=== PATIENT | male | born 1940 | race Caucasian/White ===

== ENCOUNTER → 2018-07-16 14:26 | Outpatient (CLI) | payer MEDICARE, OTHER, SELFPAY ==
[2018-07-16 15:35] LABS: BUN Creatinine Ratio 36.9 (6-22); Blood Urea Nitrogen 48 mg/dL (9-20); Calcium 8.6 mg/dL (8.4-10.2); Carbon Dioxide 26 mmol/L (22-32); Chloride 103 mmol/L (98-107); Estimated Glomerular Filt Rate 53.3 mL/min (>60); Glucose 105 mg/dL (80-110); HEMOLYSIS < 15 (0-50); Potassium 4.8 mmol/L (3.4-5.1); Sodium 142 mmol/L (137-145)
== END ==
PROVIDERS: Visit Provider Nurse Practitioner
DX: I50.9 Heart failure, unspecified (principal)
CPT/HCPCS: 36415; 80048

== ENCOUNTER → 2018-08-17 09:25 | Outpatient (CLI) | payer MEDICARE, OTHER, SELFPAY ==
--- NOTE | 2018-08-17 | DI.ECHO.S_ITS ---
[facility] +---------+ : : [address] : : : : [id number] : : : : Phone: [phone] Echocardiogram Report + + :Name: PRIYA DÍAZ Study Date: 08/17/2018 Height: 66 in : :[facility] Weight: 159 lb : : Gender: Male BSA: 1.8 m2 : :: 1940 Age: 78 yrs BP: 120/64 mmHg: :Reason For Study: Congestive Heart Failure : : Performed By: Tabby Joseph : + + Interpretation Summary 1) Normal left ventricular thickness with borderline reduced systolic function (EF 50-55%). 2) [facility] is hypokinetic. 3) Grossly, normal right ventricular size and function. 4) There is moderate biatria enlargement. 5) No significant valvular abnormalities. 6) Abdominal aortic aneurysm measuring 4.1x4.3 cm, with residual mural thrombus. 7) No prior Echo available for comparison. Procedure: A two-dimensional transthoracic echocardiogram with color flow and Doppler was performed. The study quality was technically adequate. Most of the acoustic windows were suboptimal, but the best imaging was obtained from the subcostal window. The patient was in atrial fibrillation with heart rates between 78-92 bpm during the exam. Left Ventricle: The left ventricle is normal in size. There is normal left ventricular wall thickness. The ejection fraction is estimated to be 50-55%. Left ventricular systolic function is borderline reduced. There is apical hypokinesis. Diastolic function could not be accurately assessed due to atrial fibrillation. Right Ventricle: The right ventricle grossly appears normal in size with probable normal systolic function. Atria: The left atrium is moderately dilated. The right atrium is moderately dilated. The interatrial septum is intact with no evidence for an atrial septal defect. Mitral Valve: The mitral valve is grossly normal. There is trace mitral regurgitation. Aortic Valve: The aortic valve is trileaflet. The aortic valve opens well. There is no aortic valve stenosis. There is trace aortic regurgitation. Tricuspid Valve: The tricuspid valve is normal in structure and function. There is a trace or physiologic amount of tricuspid regurgitation. The right ventricular systolic pressure is estimated to be at least 29 mmHg based on an estimated right atrial pressure of 3 mm Hg. Pulmonic Valve: The pulmonic valve is not well seen, but is grossly normal. There is mild pulmonic regurgitation. Great Vessels: The aortic root is mildly dilated. The ascending aorta is at the upper limits of normal in size. Abdominal aortic aneurysm measuring 4.1x4.3 cm, with residual mural thrombus. The IVC is of normal diameter and collapses greater than 50% with a sniff. This suggests a low right atrial pressure of 3 mm Hg. Pericardium/ Pleura There is no pericardial effusion. There is no pleural effusion. MMode/2D Measurements & Calculations LVIDd: 5.1 cm Ao root diam: 3.9 cm LVIDs: 3.9 cm Aortic Jxn: 3.1 cm FS: 24.6 % asc Aorta Diam: 3.6 cm EPSS: 0.73 cm Ao Arch Diam (Prox Trans): 2.5 cm IVSd: 1.0 cm LVPWd: 0.83 cm LV zarate. diameter/BSA (cm/m^2): 2.8 LV sys. diameter/BSA (cm/m^2): 2.1 LA dimension: 4.1 cm RA long axis: 6.4 cm LA A2 area: 23.9 cm2 RA area: 25.5 cm2 LA A4 area: 29.2 cm2 RA vol: 86.2 ml LA length (vol): 7.1 cm RA : 47.5 ml/m2 LA vol: 83.8 ml IVC diam: 1.9 cm LA vol index: 46.2 ml/m2 RVDd major: 5.4 cm RVD1 (basal): 3.3 cm RVD2 (mid): 2.9 cm Doppler Measurements & Calculations Ao V2 max: 140.7 cm/sec Med Peak E' Bryce: 7.4 cm/sec Ao V2 mean: 91.2 cm/sec Lat Peak E' Bryce: 8.8 cm/sec Ao max P.9 mmHg MV P1/2t: 59.3 msec Ao mean P.9 mmHg Ao V2 VTI: 27.8 cm TR max bryce: 254.2 cm/sec MV V2 mean: 45.5 cm/sec TR max P.9 mmHg MV mean P.5 mmHg PA V2 max: 68.0 cm/sec MV V2 VTI: 25.0 cm PA V2 mean: 42.0 cm/sec PA mean P.82 mmHg PA Accel Time: 0.14 sec MV P1/2t max bryce: 132.4 cm/sec MVA(P1/2t): 3.7 cm2 Reading Physician:11:01 AM
== END ==
PROVIDERS: PCP Internal Medicine; Visit Provider Nurse Practitioner
DX: I37.1 Nonrheumatic pulmonary valve insufficiency (principal); I50.30 Unspecified diastolic (congestive) heart failure; I71.4 Abdominal aortic aneurysm, without rupture
CPT/HCPCS: 93306

== ENCOUNTER → 2018-08-18 14:49 | Outpatient (CLI) | payer MEDICARE, OTHER, SELFPAY ==
--- NOTE | 2018-08-18 14:51 | DI.RAD.S_ITS ---
PROCEDURE: XR CHEST 2V INDICATIONS: cough, SOB TECHNIQUE: 2 views of the chest were acquired. COMPARISON: None. FINDINGS: Surgical changes and devices: None. Lungs and pleura: Mild right pleural effusion. There is mild increased pulmonary vascularity. Mediastinum: Mediastinal contours are normal. Heart size is normal. Bones and chest wall: No suspicious bony abnormalities. Soft tissues appear unremarkable. IMPRESSION: Mild right effusion. Superimposed areas of atelectasis and/or developing pneumonia cannot be excluded. Increased pulmonary vascularity is noted suggestive of edema. Dictated by: Lacie Gleason M.D. on 08/18/2018 at 15:24 Approved by: Lacie Gleason M.D. on 08/18/2018 at 15:25
== END ==
PROVIDERS: PCP Internal Medicine; Visit Provider Physician Assistant
DX: R05 Cough (principal); R06.02 Shortness of breath; J90 Pleural effusion, not elsewhere classified
CPT/HCPCS: 71046

== ENCOUNTER → 2018-09-15 08:06 | Outpatient (CLI) | payer MEDICARE, OTHER, SELFPAY | PROVIDERS: PCP Internal Medicine; Visit Provider Physician Assistant | DX: L97.519 Non-pressure chronic ulcer of other part of right foot with unspecified severity (principal) | CPT/HCPCS: 87070; 87205 ==

== ENCOUNTER 2019-01-13 11:16 | Emergency (ER) | payer MEDICARE, OTHER, SELFPAY ==
[2019-01-13 09:58] VITALS: BMI 27.4
[2019-01-13 11:24] VITALS: BP 136/67; PULSE 72; RESP 22; TEMP 36.3; O2SAT 96; BMI 26.9
--- NOTE | 2019-01-13 11:41 | DI.CT.S_ITS ---
PROCEDURE: CT HEAD/BRAIN WO CON INDICATIONS: fall , takes eloquis TECHNIQUE: Noncontrast 4.5 mm thick angled axial sections acquired from the foramen magnum to the vertex, with coronal and sagittal reformats. For radiation dose reduction, the following was used: automated exposure control, adjustment of mA and/or kV according to patient size. COMPARISON: None. FINDINGS: Image quality: Diagnostic. CSF spaces: Basal cisterns are patent. No extra-axial fluid collections. Ventricles are prominent with corresponding parenchymal volume loss. Brain: No midline shift. No intracranial masses or hemorrhage. Capellan-white matter interface is normal. Moderate-sized areas of low-attenuation are seen within the periventricular and deep white matter of the supratentorial brain. Skull and face: Calvarium and visualized facial bones are intact, without suspicious lesions. Sinuses: Visualized sinuses and mastoids are clear. IMPRESSION: 1. No acute intracranial hemorrhage. 2. Moderate chronic small vessel ischemic changes and parenchymal volume loss. Dictated by: Thony Jeffers M.D. on 01/13/2019 at 11:12 Approved by: Thony Jeffers M.D. on 01/13/2019 at 11:14
--- NOTE | 2019-01-13 12:06 | PC.NURSE ---
left elbow with small skin tear, irrigated with normal saline, tolerated well, dried bacitracin ointment applied along with tegaderm, and coban. +distal cms intact.
[2019-01-13 12:08] VITALS: BP 136/70; PULSE 71; RESP 17; O2SAT 97
[2019-01-13 12:32] VITALS: BP 134/71; PULSE 70; RESP 17; O2SAT 98
--- NOTE | 2019-01-13 12:48 | DI.RAD.S_ITS ---
PROCEDURE: XR CHEST 1V INDICATIONS: cough TECHNIQUE: One view of the chest was acquired. COMPARISON: [facility], CR, XR CHEST 2V, 08/18/2018, 14:54. FINDINGS: Surgical changes and devices: None. Lungs and pleura: Patchy airspace disease appears to be present within the lungs bilaterally, which is more prominent within the right lung. This appearance is similar to the prior examination. There is a small right-sided pleural effusion, which may be slightly more prominent on the current study. Mediastinum: Mediastinal contours appear normal. The heart appears to be mildly enlarged. There is aortic atherosclerosis. Bones and chest wall: No suspicious bony lesions. Degenerative changes of the spine and shoulders are present. Overlying soft tissues appear unremarkable. IMPRESSION: 1. Cardiomegaly with associated vascular congestion may represent developing edema. 2. Patchy airspace disease within the lungs is best appreciated within the right lung, suspicious for pneumonia. However, edema may also present in this fashion. 3. Small right-sided pleural effusion. Dictated by: Thony Jeffers M.D. on 01/13/2019 at 12:25 Approved by: Thony Jeffers M.D. on 01/13/2019 at 12:27
[2019-01-13 13:00] VITALS: BP 121/61; PULSE 70; RESP 20; O2SAT 95
[2019-01-13 13:12] LABS: Add Manual Diff / Slide Review NO; Basophils Absolute Auto 100 /uL (0-100); Basophils Percent Auto 0.6 % (0-2); Eosinophils Absolute Auto 300 /uL (0-450); Eosinophils Percent Auto 3.5 % (2-4); Hematocrit 37.6 % (41-53); Hemoglobin 12.5 g/dL (13.5-17.5); Lymphocytes Absolute Auto 4600 /uL (1100-4500); Mean Corpuscular HGB Conc 33.3 % (30-36); Mean Corpuscular Hemoglobin 29.9 PG (26-34); Mean Corpuscular Volume 89.8 fL (80-100); Monocytes Absolute Auto 800 /uL (0-900); Monocytes Percent Auto 8.6 % (3-14); Neutrophils Absolute Auto 3800 /uL (1500-7000); Neutrophils Percent Auto 39.3 % (50-75); Platelet Count 124 X10^3/uL (150-400); Red Blood Cell Count 4.19 X10^6/uL (4.5-5.9); Red Cell Distribution Width 14.2 % (11.6-14.8); White Blood Cell Count 9.7 X10^3/uL (4.5-11.0)
[2019-01-13 13:19] LABS: Alanine Aminotransferase 21 IU/L (21-72); Albumin 4.5 g/dL (3.5-5.0); Albumin Globulin Ratio 1.3 (1.0-2.8); Alkaline Phosphatase 61 U/L (38-126); Aspartate Aminotransferase 34 IU/L (17-59); BUN Creatinine Ratio 29.4 (6-22); Blood Urea Nitrogen 47 mg/dL (9-20); Calcium 9.1 mg/dL (8.4-10.2); Carbon Dioxide 31 mmol/L (22-32); Chloride 101 mmol/L (98-107); Creatine Kinase 278 U/L (55-170); Estimated Glomerular Filt Rate 41.9 mL/min (>60); Globulin 3.4 g/dL (1.7-4.1); Glucose 107 mg/dL (80-110); HEMOLYSIS < 15 (0-50); Lipase 74 U/L (23-300); Potassium 4.1 mmol/L (3.4-5.1); Sodium 141 mmol/L (137-145); Total Protein 7.9 g/dL (6.3-8.2)
[2019-01-13 13:29] LABS: B Type Natriuretic Peptide 191 (<100)
[2019-01-13 13:30] LABS: Troponin I 0.032 ng/mL (0.01-0.034)
[2019-01-13] MEDS: SODIUM CHLORIDE 0.9% 1,000 ML 150 ML IV (13:33)
[2019-01-13 13:34] LABS: CKMB % Relative Index 1.7 % (1.5-5.0); Creatine Kinase MB 4.67 ng/mL (<2.37)
[2019-01-13 14:00] VITALS: BP 127/70; PULSE 71; RESP 23; O2SAT 98
--- NOTE | 2019-01-13 14:13 | ED_ITS ---
HPI - Fall General Chief Complaint: Fall Stated Complaint: Fell a couple times, on blood thinners Time Seen by Provider: 01/13/19 11:43 Source: patient Mode of arrival: ambulatory Limitations: no limitations History of Present Illness HPI Narrative: Patient is a 78-year-old male who presents after 3 ground level fall. Daughter is with him states that he has done a lot over the last couple of days more than he typically does. He went to the boat show walked around a lot. He probably over did it. He does not remember how he fell last night. He did trip and fall hurting his right eye and he has a skin abrasion. He is on Eliquis. Recently moved from out of town, no PCP. He has history of restless leg. He denies any recent illness senior off abdominal pain nausea vomiting or shortness Initially went to walk-in clinic and sent to the ED for further evaluation. He tripped again in the waiting room. MD complaint: fall Fall from: standing Fall witnessed: no Place fall occurred: home Loss of consciousness: none Length of LOC: second(s) Prolonged down time: no Related Data Home Medications Medication Instructions Recorded Confirmed acetaminophen 325 mg capsule 325 mg PO Q6H PRN 08/18/18 01/13/19 albuterol sulfate HFA 90 1 puff INHALATION Q6H PRN 08/18/18 01/13/19 mcg/actuation aerosol inhaler alfuzosin ER 10 mg tablet,extended 10 mg PO DAILY 08/18/18 01/13/19 release 24 hr apixaban 5 mg tablet 5 mg PO BID 08/18/18 01/13/19 cholecalciferol (vitamin D3) 2,000 2,000 unit PO DAILY 08/18/18 01/13/19 unit capsule magnesium 250 mg tablet 250 mg PO DAILY 08/18/18 01/13/19 metoprolol succinate ER 100 mg 100 mg PO DAILY 08/18/18 01/13/19 capsule sprinkle, ext. release 24 hr nitroglycerin 0.4 mg sublingual 0.4 mg SL Q5-15M PRN 08/18/18 01/13/19 tablet pramipexole 0.125 mg tablet 0.125 mg PO BEDTIME 08/18/18 01/13/19 spironolactone 25 mg tablet 25 mg PO DAILY 08/18/18 01/13/19 torsemide 20 mg tablet 10 mg PO DAILY 08/18/18 01/13/19 rosuvastatin 5 mg tablet 5 mg PO DAILY 09/14/18 01/13/19 tiotropium bromide 18 mcg capsule 1 cap INHALATION DAILY 09/14/18 01/13/19 with inhalation device Allergies Allergy/AdvReac Type Severity Reaction Status Date / Time atorvastatin Allergy Verified 01/13/19 11:36 diclofenac Allergy Verified 01/13/19 11:36 lisinopril Allergy Verified 01/13/19 11:36 niacin Allergy Verified 01/13/19 11:36 pravastatin Allergy Verified 01/13/19 11:36 Review of Systems Review of Systems ROS Unobtainable: All systems reviewed & are unremarkable except as noted in HPI and below Constitutional Denies chills, Denies fever(s), Denies lethargy and Denies weakness ENT Ears, Nose, Mouth, and Throat: Denies change in voice, Denies neck pain and Denies sore throat Cardiovascular Denies chest pain, Denies irregular heart rhythm, Denies lightheadedness, Denies palpitations, Denies dyspnea, Denies dyspnea on exertion and Denies orthopnea Respiratory Denies cough, Denies dyspnea, Denies dyspnea on exertion and Denies wheezing Gastrointestinal Gastrointestinal: Denies abdominal pain, Denies change in bowel habits, Denies diarrhea, Denies nausea and Denies vomiting Genitourinary Denies hematuria, Denies flank pain, Denies urinary incontinence and Denies urinary urgency Musculoskeletal Denies neck pain Integumentary/Breasts Denies pruritus, Denies erythema, Denies rash and Denies wounds Neurologic Denies weakness Endocrine Denies palpitations Allergic/Immunologic Denies wheezing Exam Initial Vital Signs Initial Vital Signs: Vital Signs Temperature 97.4 F L 01/13/19 11:24 Pulse Rate 72 01/13/19 11:24 Respiratory Rate 22 01/13/19 11:24 Blood Pressure 136/67 01/13/19 11:24 Pulse Oximetry 96 01/13/19 11:24 GENERAL: Alert pleasant well-appearing elderly male. And in [no acute] distress. HEENT: Head atraumatic,EOMI, pupils reactive, face symmetric NECK: No vertebral tenderness no step-offs CARDIOVASCULAR: Regular rate and rhythm without murmurs, rubs or gallops. RESPIRATORY: Breath sounds equal bilaterally, no wheezes rales or rhonchi. ABDOMEN: Soft, nontender. Normoactive bowel sounds all 4 quadrants. No guarding or rebound. EXTREMITIES: Normal range of motion, no clubbing or edema. Neurovascularly intact NEUROLOGICAL: Alert and oriented x4.Normal gait and speech. Cranial nerves II through XII grossly intact. SKIN: Warm, dry, no laceration, no petechiae, no rashes or lesions. [facility] Medical History Coronary artery disease (Acute) Restless leg (Acute) Social History Smoking Status: Former smoker Social History Smoking Status: Former smoker Course Orders Ordered: ED Orders 01/13/19 11:34 EKG-12 Lead Routine 01/13/19 11:35 B Type Natriuretic Peptide Stat Complete Blood Count AUTO DIFF Stat Comprehensive Metabolic Panel Stat Lipase Stat Troponin & CK Cardiac Panel Stat 01/13/19 11:41 CT head/brain wo con Stat 01/13/19 12:48 XR chest 1V Stat 01/13/19 13:55 Troponin I Stat Discontinued Medications Sodium Chloride (Normal Saline 0.9%) 1,000 mls @ 150 mls/hr IV CONT JUSTIN Last Infusion: 01/13/19 15:10 Dose: 0 mls/hr Admin: 01/13/19 13:33 Dose: 150 mls/hr Vital Signs - 8 hr 01/13/19 11:24 01/13/19 12:08 01/13/19 12:32 Temperature 97.4 F L Pulse Rate 72 71 70 Respiratory Rate 22 17 17 Blood Pressure 136/67 Blood Pressure [Left Arm] 136/70 134/71 Pulse Oximetry 96 97 98 01/13/19 13:00 01/13/19 14:00 01/13/19 14:45 Temperature Pulse Rate 70 71 82 Respiratory Rate 20 23 24 Blood Pressure Blood Pressure [Left Arm] 121/61 127/70 132/65 Pulse Oximetry 95 98 98 MDM - Fall Lab Data Attestation: I reviewed the patient's lab results. Result diagrams: 01/13/19 11:35 01/13/19 11:35 Lab Results 01/13/19 01/13/19 01/13/19 Range/Units 11:35 11:35 13:55 WBC 9.7 (4.5-11.0) X10^3/uL RBC 4.19 L (4.5-5.9) X10^6/uL Hgb 12.5 L (13.5-17.5) g/dL Hct 37.6 L (41-53) % MCV 89.8 (80-100) fL MCH 29.9 (26-34) PG MCHC 33.3 (30-36) % RDW 14.2 (11.6-14.8) % Plt Count 124 L (150-400) X10^3/uL Neut % (Auto) 39.3 L (50-75) % Lymph % (Auto) 48.0 H (25-40) % Turner % (Auto) 8.6 (3-14) % Eos % (Auto) 3.5 (2-4) % Baso % (Auto) 0.6 (0-2) % Neut # (Auto) 3800 (2719-9812) /uL Lymph # (Auto) 4600 H (2194-7763) /uL Turner # (Auto) 800 (0-900) /uL Eos # (Auto) 300 (0-450) /uL Baso # (Auto) 100 (0-100) /uL Sodium 141 (137-145) mmol/L Potassium 4.1 (3.4-5.1) mmol/L Chloride 101 (98-107) mmol/L Carbon Dioxide 31 (22-32) mmol/L BUN 47 H (9-20) mg/dL Creatinine 1.60 H (0.66-1.25) mg/dL Estimated GFR 41.9 L (>60) mL/min BUN/Creatinine Ratio 29.4 H (6-22) Glucose 107 (80-110) mg/dL Calcium 9.1 (8.4-10.2) mg/dL Total Bilirubin 1.0 (0.2-1.3) mg/dL AST 34 (17-59) IU/L ALT 21 (21-72) IU/L Alkaline Phosphatase 61 (38-126) U/L Total Creatine Kinase 278 H (55-170) U/L CK-MB (CK-2) 4.67 H (<2.37) ng/mL CK-MB (CK-2) Rel Index 1.7 (1.5-5.0) % Troponin I 0.032 0.037 H (0.01-0.034) ng/mL B-Natriuretic Peptide 191 H (<100) Total Protein 7.9 (6.3-8.2) g/dL Albumin 4.5 (3.5-5.0) g/dL Globulin 3.4 (1.7-4.1) g/dL Albumin/Globulin Ratio 1.3 (1.0-2.8) Lipase 74 (23-300) U/L Urine Dip Bedside Urine Glucose Negative Bedside Urine Bilirubin - Negative Bedside Urine Ketone - Negative Urine Specific [place] 1.020 Bedside Urine Occult Blood - Negative Bedside Urine Protein - Negative Bedside Urine Urobilinogen - Negative Bedside Urine Nitrite - Negative Bedside Urine Leukocytes - Negative Esterase Imaging Data CT scan - head: Radiologist's impression: PROCEDURE: CT HEAD/BRAIN WO CON INDICATIONS: fall , takes eloquis TECHNIQUE: Noncontrast 4.5 mm thick angled axial sections acquired from the foramen magnum to the vertex, with coronal and sagittal reformats. For radiation dose reduction, the following was used: automated exposure control, adjustment of mA and/or kV according to patient size. COMPARISON: None. FINDINGS: Image quality: Diagnostic. CSF spaces: Basal cisterns are patent. No extra-axial fluid collections. Ventricles are prominent with corresponding parenchymal volume loss. Brain: No midline shift. No intracranial masses or hemorrhage. Capellan-white ma tter interface is normal. Moderate-sized areas of low-attenuation are seen within the periventricular and deep white matter of the supratentorial brain. Skull and face: Calvarium and visualized facial bones are intact, without suspicious lesions. Sinuses: Visualized sinuses and mastoids are clear. IMPRESSION: 1. No acute intracranial hemorrhage. 2. Moderate chronic small vessel ischemic changes and parenchymal volume loss. Dictated by: Thony Jeffers M.D. on 01/13/2019 at 11:12 Chest x-ray: Radiologist's impression: PROCEDURE: XR CHEST 1V INDICATIONS: cough TECHNIQUE: One view of the chest was acquired. COMPARISON: [facility], XR CHEST 2V, 08/18/2018, 14:54. FINDINGS: Surgical changes and devices: None. Lungs and pleura: Patchy airspace disease appears to be present within the lungs bilaterally, which is more prominent within the right lung. This appearance is similar to the prior examination. There is a small right-sided pleural effusion, which may be slightly more prominent on the current study. Mediastinum: Mediastinal contours appear normal. The heart appears to be mildly enlarged. There is aortic atherosclerosis. Bones and chest wall: No suspicious bony lesions. Degenerative changes of the spine and shoulders are present. Overlying soft tissues appear unremarkable. IMPRESSION: 1. Cardiomegaly with associated vascular congestion may represent developing edema. 2. Patchy airspace disease within the lungs is best appreciated within the right lung, suspicious for pneumonia. However, edema may also present in this fashion. 3. Small right-sided pleural effusion. Dictated by: Thony Jeffers M.D. on 01/13/2019 at 12:25 ECG Data Attestation: I personally reviewed and interpreted this ECG as follows: Prior ECG tracings: not available for review Interpretation: Paced rhythm no ST changes rate 69 MDM Narrative Medical decision making narrative: Patient has been standing in the ED due to his restless leg syndrome overall no complaints. Is slightly dehydrated a creatinine elevated minimally from 1.3-1.6. Otherwise 2 troponins negative no complaints of chest pain no source of infection. Patient feels ready and able to go home. He is able to eat and drink without any difficulty. Discharge Plan Departure Patient Disposition: Home Clinical Impression: Weakness Discharge Date/Time: 01/13/19 15:25 Interventions: ED Discharge Assessment Last Done: 01/13/19 15:21 Instructions: How to Prevent Falls Activity Restrictions/Additional Instructions: *You have been diagnosed with weakness *What to do: Essure to walk with a walker or cane. *Continue to take medications as directed *Follow up with your primary care provider in 2-3 days call [phone] *Return to ER if you should have increasing falls, head trauma, persistent vomiting [or] any new, worsening or concerning symptoms Prescriptions: No Action torsemide 20 mg tablet 10 mg PO DAILY RF: 0 spironolactone 25 mg tablet 25 mg PO DAILY RF: 0 pramipexole 0.125 mg tablet 0.125 mg PO BEDTIME RF: 0 nitroglycerin 0.4 mg tablet, sublingual 0.4 mg SL Q5-15M PRNRF: 0 magnesium 250 mg tablet 250 mg PO DAILY RF: 0 albuterol sulfate 90 mcg/actuation HFA aerosol inhaler 1 puff INHALATION Q6H PRNRF: 0 alfuzosin 10 mg tablet extended release 24 hr 10 mg PO DAILY RF: 0 acetaminophen 325 mg capsule 325 mg PO Q6H PRNRF: 0 cholecalciferol (vitamin D3) 2,000 unit capsule 2,000 unit PO DAILY RF: 0 apixaban 5 mg tablet 5 mg PO BID RF: 0 metoprolol succinate 100 mg cap,sprinkle,ER 24hr dose pack 100 mg PO DAILY RF: 0 rosuvastatin 5 mg tablet 5 mg PO DAILY RF: 0 tiotropium bromide 18 mcg capsule, w/inhalation device 1 cap INHALATION DAILY RF: 0 Referrals: [facility] [Outside] Juventino Medina MD [Primary Care Provider] -
[2019-01-13 14:24] LABS: Troponin I 0.037 ng/mL (0.01-0.034)
[2019-01-13 14:45] VITALS: BP 132/65; PULSE 82; RESP 24; O2SAT 98
--- NOTE | 2019-01-13 14:58 | PC.NURSE ---
reports, knee and leg pain, when laying down, or laying still.
== END 2019-01-13 15:25 | disposition home or self-care (01) ==
PROVIDERS: Emergency Provider Emergency Medicine; PCP Internal Medicine
DX: R53.1 Weakness (principal); W19.XXXA Unspecified fall, initial encounter; Z79.01 Long term (current) use of anticoagulants
CPT/HCPCS: 36415; 36591; 70450; 71045; 80053; 81003; 82550; 82553; 83690; 83880; 84484; 85025; 93005; 93010; 96360; 96361; 99284; 99285

== ENCOUNTER 2019-01-18 02:46 | Emergency (ER) | payer MEDICARE, OTHER, SELFPAY ==
--- NOTE | 2019-01-18 02:56 | DI.CT.S_ITS ---
PROCEDURE: CT HEAD/BRAIN WO CON INDICATIONS: fall, on blood thinner TECHNIQUE: Noncontrast 4.5 mm thick angled axial sections acquired from the foramen magnum to the vertex, with coronal and sagittal reformats. For radiation dose reduction, the following was used: automated exposure control, adjustment of mA and/or kV according to patient size. COMPARISON: 01/13/19. FINDINGS: Image quality: Excellent. CSF spaces: Basal cisterns are patent. No extra-axial fluid collections. The ventricles are symmetric in size and shape. Brain: No intracranial bleeds or masses. There is cerebral volume loss for age, with resultant ventricular and sulcal prominence. There are periventricular and deep white matter chronic small vessel ischemic changes. There is intracranial internal carotid artery atherosclerosis. Skull and face: Calvarium and visualized facial bones appear intact, without suspicious lesions. Sinuses: Visualized sinuses and mastoids are clear. IMPRESSION: 1. CT head without acute intracranial abnormalities. 2. Stable age-related senescent changes and sequela of chronic small vessel ischemic disease. Findings are concordant with preliminary radiology report. Dictated by: Noe Mathur M.D. on 01/18/2019 at 7:10 Approved by: Noe Mathur M.D. on 01/18/2019 at 7:12
[2019-01-18 02:58] VITALS: BP 128/72; PULSE 77; RESP 16; TEMP 36.6; O2SAT 96; BMI 27.0
[2019-01-18 03:00] VITALS: BP 129/84; PULSE 70; RESP 15; O2SAT 98
--- NOTE | 2019-01-18 03:23 | ED.FALL ---
HPI - Fall General Chief Complaint: Trauma Stated Complaint: fell Time Seen by Provider: 01/18/19 03:23 Source: patient Mode of arrival: ambulatory Limitations: no limitations History of Present Illness HPI Narrative: The patient fell in hallway at home this morning, he got up to use the bathroom about 2:00 a.m. and went down. He does not think he had loss of consciousness, his daughter heard him yell in the hallway. He was awake and oriented when she arrived. He get up on his own. He has a forehead abrasion. He has no visual changes, bleeding or other head injury. He denies neck pain. He has no back or extremity pain. He is ambulatory without assistance upon arrival. He was seen here previously for falls. He is normally ambulatory without deficits. He is anticoagulated with Eliquis due to a pacemaker/cardiac issues. He complains of no pain now. Related Data Home Medications Medication Instructions Recorded Confirmed acetaminophen 325 mg capsule 325 mg PO Q6H PRN 08/18/18 01/13/19 albuterol sulfate HFA 90 1 puff INHALATION Q6H PRN 08/18/18 01/13/19 mcg/actuation aerosol inhaler alfuzosin ER 10 mg tablet,extended 10 mg PO DAILY 08/18/18 01/13/19 release 24 hr apixaban 5 mg tablet 5 mg PO BID 08/18/18 01/13/19 cholecalciferol (vitamin D3) 2,000 2,000 unit PO DAILY 08/18/18 01/13/19 unit capsule magnesium 250 mg tablet 250 mg PO DAILY 08/18/18 01/13/19 metoprolol succinate ER 100 mg 100 mg PO DAILY 08/18/18 01/13/19 capsule sprinkle, ext. release 24 hr nitroglycerin 0.4 mg sublingual 0.4 mg SL Q5-15M PRN 08/18/18 01/13/19 tablet pramipexole 0.125 mg tablet 0.125 mg PO BEDTIME 08/18/18 01/13/19 spironolactone 25 mg tablet 25 mg PO DAILY 08/18/18 01/13/19 torsemide 20 mg tablet 10 mg PO DAILY 08/18/18 01/13/19 rosuvastatin 5 mg tablet 5 mg PO DAILY 09/14/18 01/13/19 tiotropium bromide 18 mcg capsule 1 cap INHALATION DAILY 09/14/18 01/13/19 with inhalation device Allergies Allergy/AdvReac Type Severity Reaction Status Date / Time atorvastatin Allergy Verified 01/13/19 11:36 diclofenac Allergy Verified 01/13/19 11:36 lisinopril Allergy Verified 01/13/19 11:36 niacin Allergy Verified 01/13/19 11:36 pravastatin Allergy Verified 01/13/19 11:36 Review of Systems Review of Systems ROS Unobtainable: All systems reviewed & are unremarkable except as noted in HPI and below Constitutional Denies chills, Denies fever(s), Denies lethargy and Denies weakness Eyes Denies change in vision and Denies loss of vision ENT Ears, Nose, Mouth, and Throat: Denies change in voice, Denies vertigo, Denies dizziness and Denies neck pain Comments: Forehead abrasion. Cardiovascular Denies chest pain, Denies irregular heart rhythm, Denies lightheadedness, Denies palpitations, Denies dyspnea, Denies dyspnea on exertion and Denies orthopnea Respiratory Denies cough, Denies dyspnea, Denies dyspnea on exertion and Denies wheezing Gastrointestinal Gastrointestinal: Denies abdominal pain Musculoskeletal Denies back pain and Denies neck pain Neurologic Denies confusion, Denies vertigo, Denies dizziness, Denies loss of vision and Denies weakness Psychiatric Denies confusion Endocrine Denies palpitations Allergic/Immunologic Denies wheezing Exam Initial Vital Signs Initial Vital Signs: Vital Signs Temperature 97.8 F 01/18/19 02:58 Pulse Rate 77 01/18/19 02:58 Respiratory Rate 16 01/18/19 02:58 Blood Pressure 128/72 01/18/19 02:58 Pulse Oximetry 96 01/18/19 02:58 Const General: cooperative and well developed Nutritional Appearance: well nourished Orientation: alert, awake and oriented x3 HENMT Head: other (Forehead abrasion without laceration. No deformities.) Mouth: oral mucosae normal and moist mucous membranes Teeth and gingiva: dentition normal Throat: tonsils normal and uvula midline Eyes General: appearance normal, both eyes and all related structures Eyelids: eyelids normal Conjunctivae: conjunctivae normal Sclera: sclerae normal Pupils: PERRL EOM: EOM intact bilaterally Neck Neck: normal visual inspection, trachea midline and No tender Lymphatic: No lymphedema Chest Chest: normal inspection of the chest and No tenderness Resp Effort & Inspection: normal respiratory effort, able to speak in complete sentences, no respiratory distress and no use of accessory muscles Auscultation: clear to auscultation bilaterally, no rales, no rhonchi and no wheezes Cardio Rate: regular rate Rhythm: regular rhythm Heart Sounds: S1 normal, S2 normal, no click, no gallops, no murmurs and no rubs Pulses: normal peripheral pulses GI Inspection: non-distended Palpation: soft, no hepatosplenomegaly and No tender Auscultation: normal bowel sounds Back/Spine/Pelvis Back: No CVA tenderness Cervical Spine: cervical ROM normal Thoracic/Lumbar Spine: thoracic and lumbar spine normal to inspection Skin General: no rashes or lesions noted, No jaundice and No petechiae Neuro General: alert, oriented x3, gait normal and no focal motor deficits Speech: speech normal Extrem General: full ROM and other (No injuries) [facility] Medical History Coronary artery disease (Acute) Restless leg (Acute) Social History Smoking Status: Former smoker Social History Smoking Status: Former smoker Course Orders Ordered: ED Orders 01/18/19 02:56 CT head/brain wo con Stat Vital Signs - 8 hr 01/18/19 02:58 Temperature 97.8 F Pulse Rate 77 Respiratory Rate 16 Blood Pressure 128/72 Pulse Oximetry 96 MDM - Fall Imaging Data CT scan - head: Radiologist's impression: No acute findings. Chronic age-related findings. [facility] Narrative Medical decision making narrative: The patient is neurologically intact. He has a forehead abrasion. He had some old skin tears on the arms from prior falls. There is no acute injuries other than the forehead. He has been cleared, he will discharged home. We discussed making ways to help prevent falls. Discharge Plan Departure Patient Disposition: Home Clinical Impression: Abrasion of forehead Qualifiers: Encounter type: initial encounter Qualified Code(s): S00.81XA - Abrasion of other part of head, initial encounter Discharge Date/Time: 01/18/19 04:26 Instructions: How to Prevent Falls, DI for Abrasion Activity Restrictions/Additional Instructions: Tylenol as needed for pain. Read the discharge instruction on fall prevention. Follow-up in the ER as needed. Prescriptions: No Action torsemide 20 mg tablet 10 mg PO DAILY RF: 0 spironolactone 25 mg tablet 25 mg PO DAILY RF: 0 pramipexole 0.125 mg tablet 0.125 mg PO BEDTIME RF: 0 nitroglycerin 0.4 mg tablet, sublingual 0.4 mg SL Q5-15M PRNRF: 0 magnesium 250 mg tablet 250 mg PO DAILY RF: 0 albuterol sulfate 90 mcg/actuation HFA aerosol inhaler 1 puff INHALATION Q6H PRNRF: 0 alfuzosin 10 mg tablet extended release 24 hr 10 mg PO DAILY RF: 0 acetaminophen 325 mg capsule 325 mg PO Q6H PRNRF: 0 cholecalciferol (vitamin D3) 2,000 unit capsule 2,000 unit PO DAILY RF: 0 apixaban 5 mg tablet 5 mg PO BID RF: 0 metoprolol succinate 100 mg cap,sprinkle,ER 24hr dose pack 100 mg PO DAILY RF: 0 rosuvastatin 5 mg tablet 5 mg PO DAILY RF: 0 tiotropium bromide 18 mcg capsule, w/inhalation device 1 cap INHALATION DAILY RF: 0 Referrals: Juventino Medina MD [Primary Care Provider] -
== END 2019-01-18 04:26 | disposition home or self-care (01) ==
PROVIDERS: Emergency Provider Emergency Medicine; PCP Internal Medicine
DX: S00.81XA Abrasion of other part of head, initial encounter (principal); W19.XXXA Unspecified fall, initial encounter; Z79.01 Long term (current) use of anticoagulants; Z95.0 Presence of cardiac pacemaker
CPT/HCPCS: 70450; 99282; 99284; 99291

== ENCOUNTER → 2019-01-23 09:46 | Outpatient (CLI) | payer MEDICARE, OTHER, SELFPAY ==
[2019-01-13 09:58] VITALS: BMI 27.4
[2019-01-23 11:03] LABS: Hematocrit 40.3 % (41-53); Hemoglobin 13.2 g/dL (13.5-17.5); Mean Corpuscular HGB Conc 32.7 % (30-36); Mean Corpuscular Hemoglobin 29.1 PG (26-34); Platelet Count 196 X10^3/uL (150-400); Red Blood Cell Count 4.53 X10^6/uL (4.5-5.9); Red Cell Distribution Width 14.3 % (11.6-14.8); White Blood Cell Count 10.3 X10^3/uL (4.5-11.0)
[2019-01-23 11:07] LABS: Alanine Aminotransferase 23 IU/L (21-72); Albumin 4.6 g/dL (3.5-5.0); Albumin Globulin Ratio 1.7 (1.0-2.8); Alkaline Phosphatase 58 U/L (38-126); Aspartate Aminotransferase 35 IU/L (17-59); Bilirubin Total 0.8 mg/dL (0.2-1.3); Bilirubin Unconjugated 0.5 mg/dL (0.0-1.1); Globulin 2.7 g/dL (1.7-4.1); HEMOLYSIS < 15 (0-50); Total Protein 7.3 g/dL (6.3-8.2)
== END ==
PROVIDERS: PCP Internal Medicine; Visit Provider Podiatrist
DX: B35.1 Tinea unguium (principal)
CPT/HCPCS: 36415; 80076; 85027

== ENCOUNTER → 2019-02-13 14:12 | Outpatient (CLI) | payer MEDICARE, OTHER, SELFPAY ==
--- NOTE | 2019-02-13 | DI.ECHO.S_ITS ---
[facility] +---------+ : : [address] [place] : : : : [phone] : : : : Phone: [phone] Echocardiogram Report + + :Name: PRIYA DÍAZ Study Date: 02/13/2019 Height: 65 in : :[facility] Exam Location: [facility] Weight: 167 lb : : Gender: Male BSA: 1.8 m2 : :: 1940 Age: 78 yrs BP: 120/65 mmHg: :Reason For Study: AFIB : : Performed By: Severino Orlando : :Referring: Marv Burgos M.D. : + + Interpretation Summary 1) Normal left ventricular size with borderline reduced systolic function (EF 50-55%). 2) Apical wall motion abnormality may reflect pacemaker activation. 3) Grossly, normal right ventricular size and function. Pacemaker lead visualized in the right ventricle. 4) Both atria are severely dilated. 5) No significant valvular abnormalities. 6) Compared to the Echo done 08/17/2018, pacemaker lead is visualized in the right ventricle. Procedure: A two-dimensional transthoracic echocardiogram with color flow and Doppler was performed. The study quality was technically adequate. Comparison is made with the echocardiogram of 08/17/18. The patient has a paced rhythm. Left Ventricle: The left ventricle is normal in size. Left ventricular wall thickness is borderline increased. The ejection fraction is estimated to be 50-55%. Apical wall motion abnormality may reflect pacemaker activation. Diastolic parameters suggest a pseudonormalization pattern, consistent with probable elevated filling pressures. Right Ventricle: The right ventricle is normal in size and function. There is a pacemaker lead in the right ventricle. Atria: Both atria are severely dilated. The interatrial septum is intact with no evidence for an atrial septal defect. Mitral Valve: The mitral valve is normal in structure and function. There is trace mitral regurgitation. Aortic Valve: The aortic valve is normal in structure and function. The aortic valve is trileaflet. The aortic valve opens well. No aortic regurgitation is present. Tricuspid Valve: The tricuspid valve is normal in structure and function. There is mild tricuspid regurgitation. The right ventricular systolic pressure is estimated to be at least 31 mmHg based on an estimated right atrial pressure of 3 mm Hg. Pulmonic Valve: The pulmonic valve is normal in structure and function. There is trace pulmonic regurgitation. Great Vessels: The aortic root is normal size. The ascending aorta is mildly enlarged. The pulmonary artery is normal size. The IVC is of normal diameter and collapses greater than 50% with a sniff. This suggests a low right atrial pressure of 3 mm Hg. Pericardium/ Pleura There is no pericardial effusion. There is no pleural effusion. MMode/2D Measurements & Calculations LVIDd: 4.6 cm LVOT diam: 1.9 cm LVIDs: 3.2 cm Ao root diam: 3.8 cm FS: 31.9 % Aortic Jxn: 2.3 cm EPSS: 0.76 cm asc Aorta Diam: 3.6 cm IVSd: 1.1 cm LVPWd: 1.0 cm LV zarate. diameter/BSA (cm/m^2): 2.5 LV sys. diameter/BSA (cm/m^2): 1.7 LA dimension: 4.2 cm RA long axis: 7.2 cm LA A2 area: 28.8 cm2 RA area: 30.7 cm2 LA A4 area: 29.9 cm2 RA vol: 112.0 ml LA length (vol): 7.8 cm RA : 61.1 ml/m2 LA vol: 94.1 ml IVC diam: 1.4 cm LA vol index: 51.4 ml/m2 Doppler Measurements & Calculations Ao V2 max: 130.9 cm/sec LVOT Max Bryce: 85.9 cm/sec Ao V2 mean: 83.6 cm/sec LV V1 max P.0 mmHg Ao max P.9 mmHg LV V1 VTI: 16.5 cm Ao mean P.2 mmHg RADHA(I,D): 2.2 cm2 Ao V2 VTI: 22.3 cm RADHA(V,D): 1.9 cm2 sev ratio: 0.74 RADHA indexed to BSA (cm^2/m^2): 1.2 MV E max bryce: 91.8 cm/sec TR max bryce: 262.7 cm/sec MV A max bryce: 0.60 cm/sec TR max P.6 mmHg MV E/A: 153.7 PA V2 max: 64.9 cm/sec Med Peak E' Bryce: 5.8 cm/sec PA V2 mean: 44.4 cm/sec E/E' med: 15.9 PA mean P.88 mmHg Lat Peak E' Bryce: 8.5 cm/sec PA pr(Accel): 46.6 mmHg E/E' lat: 10.9 E/e' average: 13.4 MV dec time: 0.18 sec SV(LVOT): 48.0 ml Reading Physician:10:35 AM
== END ==
PROVIDERS: PCP Internal Medicine; Visit Provider Hospitalist
DX: I07.1 Rheumatic tricuspid insufficiency (principal); I48.2 Chronic atrial fibrillation; I77.89 Other specified disorders of arteries and arterioles; Z95.0 Presence of cardiac pacemaker
CPT/HCPCS: 93306; G0424

== ENCOUNTER → 2019-03-08 10:55 | Outpatient (CLI) | payer MEDICARE, OTHER, SELFPAY ==
--- NOTE | 2019-03-08 10:58 | DI.RAD.S_ITS ---
PROCEDURE: XR CHEST 2V INDICATIONS: Cough, recent decrease in diuretic TECHNIQUE: 2 views of the chest were acquired. COMPARISON: [facility], CR, XR CHEST 1V, 01/13/2019, 13:04. FINDINGS: Surgical changes and devices: Cardiac assist device in place.. Lungs and pleura: Chronic, small right pleural effusion and associated right base opacity, stable compared to the prior study. Trace, Pleural effusion. Mildly thickened interstitial markings diffusely. Mediastinum: Slight increase in central venous prominence. The heart is mildly enlarged, stable. Small hiatal hernia. Bones and chest wall: Moderate degenerative changes in the glenohumeral joint. No acute fractures. IMPRESSION: Trace, new left pleural effusion as well as chronic thickening of the interstitium and slight increase in central venous congestion. Correlate with BNP and volume status. Chronic right pleural effusion and associated atelectasis is unchanged. Dictated by: Zina Flor M.D. on 03/08/2019 at 10:10 Approved by: Zina Flor M.D. on 03/08/2019 at 10:17
== END ==
PROVIDERS: PCP Family Medicine; Visit Provider Physician Assistant
DX: R05 Cough (principal); J90 Pleural effusion, not elsewhere classified; J98.11 Atelectasis; K44.9 Diaphragmatic hernia without obstruction or gangrene; I51.7 Cardiomegaly
CPT/HCPCS: 36415; 71046; 80053; 83880

== ENCOUNTER → 2019-03-08 11:11 | Outpatient (CLI) | payer MEDICARE, OTHER, SELFPAY ==
[2019-03-08 12:25] LABS: B Type Natriuretic Peptide 146 (<100)
[2019-03-08 12:35] LABS: Alanine Aminotransferase 25 IU/L (21-72); Albumin 4.3 g/dL (3.5-5.0); Albumin Globulin Ratio 1.5 (1.0-2.8); Alkaline Phosphatase 66 U/L (38-126); Aspartate Aminotransferase 36 IU/L (17-59); BUN Creatinine Ratio 17.6 (6-22); Bilirubin Total 0.6 mg/dL (0.2-1.3); Blood Urea Nitrogen 30 mg/dL (9-20); Calcium 9.3 mg/dL (8.4-10.2); Carbon Dioxide 25 mmol/L (22-32); Chloride 104 mmol/L (98-107); Estimated Glomerular Filt Rate 39.1 mL/min (>60); Globulin 2.8 g/dL (1.7-4.1); Glucose 97 mg/dL (80-110); HEMOLYSIS < 15 (0-50); Sodium 141 mmol/L (137-145); Total Protein 7.1 g/dL (6.3-8.2)
== END ==
PROVIDERS: Family Provider Family Medicine; PCP Family Medicine; Visit Provider Physician Assistant
DX: R05 Cough (principal)
CPT/HCPCS: 36415; 80053; 83880

== ENCOUNTER → 2019-03-22 10:40 | Outpatient (CLI) | payer MEDICARE, OTHER, SELFPAY ==
--- NOTE | 2019-03-22 10:50 | DI.RAD.S_ITS ---
PROCEDURE: XR FINGER RT MIN 2V INDICATIONS: History of cellulitis with persistent pain PIP joint TECHNIQUE: AP hand, 2 views of the third finger(s) acquired. COMPARISON: None. FINDINGS: Bones: No fractures or dislocations but there is moderately severe to severe degenerative and erosive change involving the distal interphalangeal joints and most prominent at the third distal interphalangeal joint. Marginal osseous erosions are seen in this area, and to a lesser degree at the distal second interphalangeal joint. There is a combination of what appears to be mild erosive arthritis and severe degenerative osteoarthritis. No recent trauma found. No suspicious bony lesions. Soft tissues: No suspicious soft tissue calcifications. 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 Moderately severe osteoarthritis elsewhere including at the base of the first metacarpal. Dictated by: Alan Ribeiro M.D. on 03/22/2019 at 11:41 Approved by: Alan Ribeiro M.D. on 03/22/2019 at 11:43
[2019-03-22 11:10] LABS: Add Manual Diff / Slide Review NO; Basophils Absolute Auto 0 /uL (0-100); Basophils Percent Auto 0.4 % (0-2); Eosinophils Absolute Auto 300 /uL (0-450); Eosinophils Percent Auto 2.5 % (2-4); Hematocrit 39.2 % (41-53); Lymphocytes Absolute Auto 4500 /uL (1100-4500); Lymphocytes Percent Auto 42.5 % (25-40); Mean Corpuscular HGB Conc 33.2 % (30-36); Mean Corpuscular Hemoglobin 28.8 PG (26-34); Mean Corpuscular Volume 86.9 fL (80-100); Monocytes Absolute Auto 700 /uL (0-900); Monocytes Percent Auto 6.2 % (3-14); Neutrophils Absolute Auto 5200 /uL (1500-7000); Neutrophils Percent Auto 48.4 % (50-75); Platelet Count 139 X10^3/uL (150-400); Red Blood Cell Count 4.51 X10^6/uL (4.5-5.9); White Blood Cell Count 10.6 X10^3/uL (4.5-11.0)
[2019-03-22 12:20] LABS: Erythrocyte Sedimentation Rate 42 MM/HR (0-15)
== END ==
PROVIDERS: Family Provider Family Medicine; PCP Family Medicine; Visit Provider Family Medicine
DX: L03.90 Cellulitis, unspecified (principal); M19.041 Primary osteoarthritis, right hand; M19.042 Primary osteoarthritis, left hand
CPT/HCPCS: 36415; 73140; 85025; 85651

== ENCOUNTER 2019-04-03 11:14 | Emergency (ER) | payer MEDICARE, OTHER, SELFPAY ==
[2019-04-03 11:20] VITALS: BP 106/68; PULSE 82; RESP 17; TEMP 36.3; O2SAT 96
--- NOTE | 2019-04-03 11:34 | ED.FALL ---
HPI - Fall General Chief Complaint: Trauma Stated Complaint: Fell down monday, cut close left eye Time Seen by Provider: 04/03/19 11:17 Source: patient Mode of arrival: ambulatory Limitations: no limitations History of Present Illness HPI Narrative: 78-year-old male comes to the emergency department with complaint of ground level fall on Monday, 4 days ago. Patient states that he was staying and can't [place] for a show and in his hotel room he had turn the light off was getting into bed sort of shuffling caught his foot and fell onto his left face and arm. Patient states that he was able to get himself up small cut on the side of his face, he has a small cut on the back of his and did bleed for a short period of time. Patient denies any headache he denies any neck pain although he feels a little stiff today but not until after he did his PT this morning. Patient denies any pain in his neck or with movement. He denies any chest pain or shortness of breath, he has some and small scrapes on his knees and arms. Patient denies any chest pain here shortness of breath could block no nausea or vomiting, no vision changes. No issues with movement or ambulation. He states he came in today because he had gotten home from his travel and his daughter told he had 2. He attended his regular pet therapy and then came to the department to be seen. He does take Eliquis he takes this for atrial fibrillation, he states he takes medication for hypertension as well, dyslipidemia. Related Data Home Medications Medication Instructions Recorded Confirmed acetaminophen 325 mg capsule 325 mg PO Q6H PRN 08/18/18 03/01/19 albuterol sulfate HFA 90 1 puff INHALATION Q6H PRN 08/18/18 03/01/19 mcg/actuation aerosol inhaler alfuzosin ER 10 mg tablet,extended 10 mg PO DAILY 08/18/18 04/03/19 release 24 hr apixaban 5 mg tablet 5 mg PO BID 08/18/18 04/03/19 cholecalciferol (vitamin D3) 2,000 2,000 unit PO DAILY 08/18/18 03/01/19 unit capsule magnesium 250 mg tablet 250 mg PO DAILY 08/18/18 03/01/19 nitroglycerin 0.4 mg sublingual 0.4 mg SL Q5-15M PRN 08/18/18 04/03/19 tablet spironolactone 25 mg tablet 12.5 mg PO DAILY 08/18/18 04/03/19 rosuvastatin 5 mg tablet 2.5 mg PO DAILY 09/14/18 04/03/19 tiotropium bromide 18 mcg capsule 1 cap INHALATION DAILY 09/14/18 04/03/19 with inhalation device metoprolol succinate ER 50 mg 50 mg PO BID tab 03/08/19 04/03/19 tablet,extended release 24 hr [id number]-[id number] 1 puff INHALATION DAILY 04/03/19 04/03/19 [Trelegy Ellipta] torsemide 20 mg PO BID 04/03/19 Previous Rx's Medication Instructions Recorded pramipexole 0.125 mg tablet 0.125 mg PO TID #180 tab 03/05/19 diclofenac 1 % topical gel 1 gram TOP QID PRN #100 gram 03/22/19 Allergies Allergy/AdvReac Type Severity Reaction Status Date / Time atorvastatin Allergy Verified 04/03/19 11:26 diclofenac Allergy Verified 04/03/19 11:26 lisinopril Allergy Verified 04/03/19 11:26 niacin Allergy Verified 04/03/19 11:26 pravastatin Allergy Verified 04/03/19 11:26 Review of Systems Review of Systems ROS Unobtainable: All systems reviewed & are unremarkable except as noted in HPI and below Exam Narrative Exam Narrative: GEN: Patient appears in no acute distress. HEAD: No evidence of trauma, no raccoon/Gusman sign. NECK: Nontender, painless range of motion, trachea midline Negative for Nexus criteria, there is no midline tenderness, distracting injury, altered mental status, neuro deficit, recent EtOH. EYES: PERRLA, EOMI ENT: Patient has some mild bruising underneath the left as well as a small superficial laceration at the right lateral cheek bone, it is scabbed over and appears to be healing, trachea is midline, TM's are opaque, no bulge, no erythema, no hemotypanum, Nares are clear, no septal hematoma, no dental or oral injury, airway is normal and with normal occlusion, No bony tenderness with palpation. RESP: Chest is nontender and has symmetric movement, no ecchymosis, breath sounds are normal no crackles, wheezes or rales CVS: Heart sounds are normal, no murmur noted, No JVD. ABG/GI: Nontender, soft, normal bowel sounds, no distention, no organomegaly, pelvic rock is negative NEURO: Oriented AOx3, neuro is grossly intact, sensation and motor is normal all 4 extremities moving, cranial nerves II through XII are intact, GCS is 15 PSYCH: Normal mood and affect SKIN: Intact, warm and dry, no crepitus and without decubitus BACK: No CVA tenderness, no vertebral tenderness, no step-off's, no crepitus EXT: Patient has some ecchymosis on his left upper extremity, he has 2 small superficial lacerations that are scabbed and healing on the left posterior arm also has some scabbing an abrasion on his right knee, hips are nontender, no pedal edema, normal color and temperature, normal range of motion of extremities with normal tendon exam, 2+ pulses in all four extremities Initial Vital Signs Initial Vital Signs: Vital Signs Temperature 97.3 F L 04/03/19 11:20 Pulse Rate 82 04/03/19 11:20 Respiratory Rate 17 04/03/19 11:20 Blood Pressure 106/68 04/03/19 11:20 Pulse Oximetry 96 04/03/19 11:20 [facility] Medical History ZACH (obstructive sleep apnea) (Chronic) Essential hypertension (Chronic) BPH (benign prostatic hyperplasia) (Chronic) Atrial fibrillation (Chronic) COPD (chronic obstructive pulmonary disease) (Chronic) Coronary artery disease (Chronic) Restless leg (Chronic) Social History marital status: household members: children lives independently: Yes caregiver/support person: Yes housing: house occupational status: previously employed Smoking Status: Former smoker second hand exposure: No alcohol intake: current substance use type: does not use Social History marital status: household members: children lives independently: Yes caregiver/support person: Yes housing: house occupational status: previously employed Smoking Status: Former smoker second hand exposure: No alcohol intake: current substance use type: does not use Scores GCS [place] coma scale eye opening: Spontaneous Nirali coma scale verbal response: Orientated Nirali coma scale motor response: Obey commands [place] coma scale total score: 15 Course Orders Ordered: ED Orders 04/03/19 11:34 CT head/brain wo con Stat 04/03/19 11:49 Complete Blood Count AUTO DIFF Stat Comprehensive Metabolic Panel Stat Partial Thromboplastin Time Stat Prothrombin Time INR Stat Discontinued Medications Diphtheria/Tetanus/Acell Pertussis (Adacel) 0.5 ml IM .ONCE ONE Stop: 04/03/19 11:35 Last Admin: 04/03/19 11:57 Dose: 0.5 ml Vital Signs - 8 hr 04/03/19 11:20 04/03/19 12:00 04/03/19 12:30 Temperature 97.3 F L Pulse Rate 82 82 88 Respiratory Rate 17 16 17 Blood Pressure [Right Arm] 106/68 103/64 112/69 Pulse Oximetry 96 93 98 MDM - Fall Lab Data Attestation: I reviewed the patient's lab results. Result diagrams: 04/03/19 11:49 04/03/19 11:49 Lab Results 04/03/19 04/03/19 04/03/19 Range/Units 11:49 11:49 11:49 WBC 8.7 (4.5-11.0) X10^3/uL RBC 4.12 L (4.5-5.9) X10^6/uL Hgb 12.0 L (13.5-17.5) g/dL Hct 36.1 L (41-53) % MCV 87.6 (80-100) fL MCH 29.1 (26-34) PG MCHC 33.2 (30-36) % RDW 16.2 H (11.6-14.8) % Plt Count 114 L (150-400) X10^3/uL Neut % (Auto) 47.3 L (50-75) % Lymph % (Auto) 41.6 H (25-40) % Barton % (Auto) 6.4 (3-14) % Eos % (Auto) 4.3 H (2-4) % Baso % (Auto) 0.4 (0-2) % Neut # (Auto) 4100 (8312-5408) /uL Lymph # (Auto) 3600 (2195-6441) /uL Barton # (Auto) 600 (0-900) /uL Eos # (Auto) 400 (0-450) /uL Baso # (Auto) 0 (0-100) /uL PT 19.0 H (10.1-12.7) SECONDS INR 1.6 H (0.9-1.3) APTT 37 H (26.4-36.2) SECONDS Sodium 142 (137-145) mmol/L Potassium 4.2 (3.4-5.1) mmol/L Chloride 100 (98-107) mmol/L Carbon Dioxide 31 (22-32) mmol/L BUN 40 H (9-20) mg/dL Creatinine 1.70 H (0.66-1.25) mg/dL Estimated GFR 39.1 L (>60) mL/min BUN/Creatinine Ratio 23.5 H (6-22) Glucose 117 H (80-110) mg/dL Calcium 8.8 (8.4-10.2) mg/dL Total Bilirubin 0.5 (0.2-1.3) mg/dL AST 29 (17-59) IU/L ALT 21 (21-72) IU/L Alkaline Phosphatase 57 (38-126) U/L Total Protein 7.2 (6.3-8.2) g/dL Albumin 4.4 (3.5-5.0) g/dL Globulin 2.8 (1.7-4.1) g/dL Albumin/Globulin Ratio 1.6 (1.0-2.8) Imaging Data CT scan - head: Radiologist's impression: [address] [address] [address] Scan Report Signed Patient: Moses Metcalf R#: [id number] : 9Acct:[id number] Age/Sex: 78 / MDate of Service: 04/03/19 Loc: ED Accession Number: [id number] Procedure: CT head/brain wo con Ordering Provider: Delicia Arroyo D.O. PROCEDURE: CT HEAD/BRAIN WO CON INDICATIONS: hit head on , on Monday, bruising by eye TECHNIQUE: Noncontrast 4.5 mm thick angled axial sections acquired from the foramen magnum to the vertex, with coronal and sagittal reformats. For radiation dose reduction, the following was used: automated exposure control, adjustment of mA and/or kV according to patient size. COMPARISON: [facility], CT, CT HEAD/BRAIN WO CON, 01/18/2019, 3:00. [facility], CT, CT HEAD/BRAIN WO CON, 01/13/2019, 11:55. FINDINGS: Image quality: Excellent. CSF spaces: Basal cisterns are patent. No extra-axial fluid collections. The ventricles are symmetric in size and shape. Brain: No intracranial bleeds or masses. There is cerebral volume loss for age, with resultant ventricular and sulcal prominence. There are periventricular and deep white matter chronic small vessel ischemic changes. There is intracranial internal carotid artery atherosclerosis. Skull and face: Calvarium and visualized facial bones appear intact, without suspicious lesions. Sinuses: Visualized sinuses and mastoids are clear. IMPRESSION: Normal for age, no supervisor policy change clerks time. No trauma found. Dictated by: Alan Ribeiro M.D. on 04/03/2019 at 12:56 Approved by: Alan Ribeiro M.D. on 04/03/2019 at 12:56 MDM Narrative Medical decision making narrative: Patient has some some mild anemia but appears baseline, platelets are 114. He has elevated eosinophils. Coags are elevated with an INR 1.6, PTT of 37 and PT and 19. He is known to be on Eliquis. Show a creatinine 1.7 but appears consistent with prior from earlier in February and December, patient's electrolytes otherwise appear normal glucose is 117. Patient's tetanus was updated. His lacerations which are fairly superficial appear to be healing and patient is able to ambulate and do his normal activities without issue. Plan for discharge Discharge Plan Departure Patient Disposition: Home Clinical Impression: Laceration of face Qualifiers: Encounter type: initial encounter Qualified Code(s): S01.81XA - Laceration without foreign body of other part of head, initial encounter Head injury Qualifiers: Encounter type: initial encounter Qualified Code(s): S09.90XA - Unspecified injury of head, initial encounter Discharge Date/Time: 04/03/19 13:12 Interventions: ED Discharge Assessment Last Done: 04/03/19 13:11 Instructions: Closed Head Injury Activity Restrictions/Additional Instructions: Follow-up with your primary care physician in the next 3-5 days for recheck you are having any continuing symptoms. You may continue home medications as prescribed. Return to the emergency department for new or severe headaches, vision changes, passing out, new neck pain, back pain, weakness or numbness, persistent vomiting, altered mental status or confusion or other new or concerning symptoms. Prescriptions: No Action spironolactone 25 mg tablet 12.5 mg PO DAILY RF: 0 nitroglycerin 0.4 mg tablet, sublingual 0.4 mg SL Q5-15M PRN (Reason: Chest Pain) RF: 0 magnesium 250 mg tablet 250 mg PO DAILY RF: 0 albuterol sulfate 90 mcg/actuation HFA aerosol inhaler 1 puff INHALATION Q6H PRNRF: 0 alfuzosin 10 mg tablet extended release 24 hr 10 mg PO DAILY RF: 0 acetaminophen 325 mg capsule 325 mg PO Q6H PRNRF: 0 cholecalciferol (vitamin D3) 2,000 unit capsule 2,000 unit PO DAILY RF: 0 apixaban 5 mg tablet 5 mg PO BID RF: 0 rosuvastatin 5 mg tablet 2.5 mg PO DAILY RF: 0 tiotropium bromide 18 mcg capsule, w/inhalation device 1 cap INHALATION DAILY RF: 0 metoprolol succinate 50 mg tablet extended release 24 hr 50 mg PO BID RF: 0 diclofenac sodium 1 % gel 1 gram TOP QID PRN (Reason: pain) Qty: 100 RF: 0 pramipexole 0.125 mg tablet 0.125 mg PO TID Qty: 180 RF: 0 torsemide 10 mg tablet 20 mg PO BID RF: 0 Trelegy Ellipta 100-62.5-25 mcg blister with device 1 puff inhalation DAILY RF: 0 Referrals: Elis Arroyo MD [Primary Care Provider] -
--- NOTE | 2019-04-03 11:39 | ED_ITS ---
HPI - Fall General Chief Complaint: Trauma Stated Complaint: Fell down monday, cut close left eye Time Seen by Provider: 04/03/19 11:17 Source: patient Mode of arrival: ambulatory Limitations: no limitations History of Present Illness HPI Narrative: 78-year-old male comes to the emergency department with complaint of ground level fall on Monday, 4 days ago. Patient states that he was staying and can't [place] for a show and in his hotel room he had turn the light off was getting into bed sort of shuffling caught his foot and fell onto his left face and arm. Patient states that he was able to get himself up small cut on the side of his face, he has a small cut on the back of his and did bleed for a short period of time. Patient denies any headache he denies any neck pain although he feels a little stiff today but not until after he did his PT this morning. Patient denies any pain in his neck or with movement. He denies any chest pain or shortness of breath, he has some and small scrapes on his knees and arms. Patient denies any chest pain here shortness of breath could block no nausea or vomiting, no vision changes. No issues with movement or ambulation. He states he came in today because he had gotten home from his travel and his daughter told he had 2. He attended his regular pet therapy and then came to the department to be seen. He does take Eliquis he takes this for atrial fibr illation, he states he takes medication for hypertension as well, dyslipidemia. Related Data Home Medications Medication Instructions Recorded Confirmed acetaminophen 325 mg capsule 325 mg PO Q6H PRN 08/18/18 03/01/19 albuterol sulfate HFA 90 1 puff INHALATION Q6H PRN 08/18/18 03/01/19 mcg/actuation aerosol inhaler alfuzosin ER 10 mg tablet,extended 10 mg PO DAILY 08/18/18 04/03/19 release 24 hr apixaban 5 mg tablet 5 mg PO BID 08/18/18 04/03/19 cholecalciferol (vitamin D3) 2,000 2,000 unit PO DAILY 08/18/18 03/01/19 unit capsule magnesium 250 mg tablet 250 mg PO DAILY 08/18/18 03/01/19 nitroglycerin 0.4 mg sublingual 0.4 mg SL Q5-15M PRN 08/18/18 04/03/19 tablet spironolactone 25 mg tablet 12.5 mg PO DAILY 08/18/18 04/03/19 rosuvastatin 5 mg tablet 2.5 mg PO DAILY 09/14/18 04/03/19 tiotropium bromide 18 mcg capsule 1 cap INHALATION DAILY 09/14/18 04/03/19 with inhalation device metoprolol succinate ER 50 mg 50 mg PO BID tab 03/08/19 04/03/19 tablet,extended release 24 hr lbwzntgnnzh-jcammggot-syoxvasq 1 puff INHALATION DAILY 04/03/19 04/03/19 [Trelegy Ellipta] torsemide 20 mg PO BID 04/03/19 Previous Rx's Medication Instructions Recorded pramipexole 0.125 mg tablet 0.125 mg PO TID #180 tab 03/05/19 diclofenac 1 % topical gel 1 gram TOP QID PRN #100 gram 03/22/19 Allergies Allergy/AdvReac Type Severity Reaction Status Date / Time atorvastatin Allergy Verified 04/03/19 11:26 diclofenac Allergy Verified 04/03/19 11:26 lisinopril Allergy Verified 04/03/19 11:26 niacin Allergy Verified 04/03/19 11:26 pravastatin Allergy Verified 04/03/19 11:26 Review of Systems Review of Systems ROS Unobtainable: All systems reviewed & are unremarkable except as noted in HPI and below Exam Narrative Exam Narrative: GEN: Patient appears in no acute distress. HEAD: No evidence of trauma, no raccoon/Gusman sign. NECK: Nontender, painless range of motion, trachea midline Negative for Nexus criteria, there is no midline tenderness, distracting injury, altered mental status, neuro deficit, recent EtOH. EYES: PERRLA, EOMI ENT: Patient has some mild bruising underneath the left as well as a small superficial laceration at the right lateral cheek bone, it is scabbed over and appears to be healing, trachea is midline, TM's are opaque, no bulge, no erythema, no hemotypanum, Nares are clear, no septal hematoma, no dental or oral injury, airway is normal and with normal occlusion, No bony tenderness with pa lpation. RESP: Chest is nontender and has symmetric movement, no ecchymosis, breath sounds are normal no crackles, wheezes or rales CVS: Heart sounds are normal, no murmur noted, No JVD. ABG/GI: Nontender, soft, normal bowel sounds, no distention, no organomegaly, pelvic rock is negative NEURO: Oriented AOx3, neuro is grossly intact, sensation and motor is normal all 4 extremities moving, cranial nerves II through XII are intact, GCS is 15 PSYCH: Normal mood and affect SKIN: Intact, warm and dry, no crepitus and without decubitus BACK: No CVA tenderness, no vertebral tenderness, no step-off's, no crepitus EXT: Patient has some ecchymosis on his left upper extremity, he has 2 small superficial lacerations that are scabbed and healing on the left posterior arm also has some scabbing an abrasion on his right knee, hips are nontender, no pedal edema, normal color and temperature, normal range of motion of extremities with normal tendon exam, 2+ pulses in all four extremities Initial Vital Signs Initial Vital Signs: Vital Signs Temperature 97.3 F L 04/03/19 11:20 Pulse Rate 82 04/03/19 11:20 Respiratory Rate 17 04/03/19 11:20 Blood Pressure 106/68 04/03/19 11:20 Pulse Oximetry 96 04/03/19 11:20 [facility] Medical History ZACH (obstructive sleep apnea) (Chronic) Essential hypertension (Chronic) BPH (benign prostatic hyperplasia) (Chronic) Atrial fibrillation (Chronic) COPD (chronic obstructive pulmonary disease) (Chronic) Coronary artery disease (Chronic) Restless leg (Chronic) Social History marital status: household members: children lives independently: Yes caregiver/support person: Yes housing: house occupational status: previously employed Smoking Status: Former smoker second hand exposure: No alcohol intake: current substance use type: does not use Social History marital status: household members: children lives independently: Yes caregiver/support person: Yes housing: house occupational status: previously employed Smoking Status: Former smoker second hand exposure: No alcohol intake: current substance use type: does not use Scores GCS Nirali coma scale eye opening: Spontaneous [place] coma scale verbal response: Orientated Nirali coma scale motor response: Obey commands Nirali coma scale total score: 15 Course Orders Ordered: ED Orders 04/03/19 11:34 CT head/brain wo con Stat 04/03/19 11:49 Complete Blood Count AUTO DIFF Stat Comprehensive Metabolic Panel Stat Partial Thromboplastin Time Stat Prothrombin Time INR Stat Discontinued Medications Diphtheria/Tetanus/Acell Pertussis (Adacel) 0.5 ml IM .ONCE ONE Stop: 04/03/19 11:35 Last Admin: 04/03/19 11:57 Dose: 0.5 ml Vital Signs - 8 hr 04/03/19 11:20 04/03/19 12:00 04/03/19 12:30 Temperature 97.3 F L Pulse Rate 82 82 88 Respiratory Rate 17 16 17 Blood Pressure [Right Arm] 106/68 103/64 112/69 Pulse Oximetry 96 93 98 MDM - Fall Lab Data Attestation: I reviewed the patient's lab results. Result diagrams: 04/03/19 11:49 04/03/19 11:49 Lab Results 04/03/19 04/03/19 04/03/19 Range/Units 11:49 11:49 11:49 WBC 8.7 (4.5-11.0) X10^3/uL RBC 4.12 L (4.5-5.9) X10^6/uL Hgb 12.0 L (13.5-17.5) g/dL Hct 36.1 L (41-53) % MCV 87.6 (80-100) fL MCH 29.1 (26-34) PG MCHC 33.2 (30-36) % RDW 16.2 H (11.6-14.8) % Plt Count 114 L (150-400) X10^3/uL Neut % (Auto) 47.3 L (50-75) % Lymph % (Auto) 41.6 H (25-40) % [place] % (Auto) 6.4 (3-14) % Eos % (Auto) 4.3 H (2-4) % Baso % (Auto) 0.4 (0-2) % Neut # (Auto) 4100 (7409-3909) /uL Lymph # (Auto) 3600 (1284-6780) /uL [place] # (Auto) 600 (0-900) /uL Eos # (Auto) 400 (0-450) /uL Baso # (Auto) 0 (0-100) /uL PT 19.0 H (10.1-12.7) SECONDS INR 1.6 H (0.9-1.3) APTT 37 H (26.4-36.2) SECONDS Sodium 142 (137-145) mmol/L Potassium 4.2 (3.4-5.1) mmol/L Chloride 100 (98-107) mmol/L Carbon Dioxide 31 (22-32) mmol/L BUN 40 H (9-20) mg/dL Creatinine 1.70 H (0.66-1.25) mg/dL Estimated GFR 39.1 L (>60) mL/min BUN/Creatinine Ratio 23.5 H (6-22) Glucose 117 H (80-110) mg/dL Calcium 8.8 (8.4-10.2) mg/dL Total Bilirubin 0.5 (0.2-1.3) mg/dL AST 29 (17-59) IU/L ALT 21 (21-72) IU/L Alkaline Phosphatase 57 (38-126) U/L Total Protein 7.2 (6.3-8.2) g/dL Albumin 4.4 (3.5-5.0) g/dL Globulin 2.8 (1.7-4.1) g/dL Albumin/Globulin Ratio 1.6 (1.0-2.8) Imaging Data CT scan - head: Radiologist's impression: [address] [address] [address] Scan Report Signed Patient: Moses Metcalf RMR#: [id number] : 9Acct:[id number] Age/Sex: 78 / MDate of Service: 04/03/19 Loc: ED Accession Number: [id number] Procedure: CT head/brain wo con Ordering Provider: Delicia Arroyo D.O. PROCEDURE: CT HEAD/BRAIN WO CON INDICATIONS: hit head on , on Monday, bruising by eye TECHNIQUE: Noncontrast 4.5 mm thick angled axial sections acquired from the foramen magnum to the vertex, with coronal and sagittal reformats. For radiation dose reduction, the following was used: automated exposure control, adjustment of mA and/or kV according to patient size. COMPARISON: [facility], CT, CT HEAD/BRAIN WO CON, 01/18/2019, 3:00. [facility], CT, CT HEAD/BRAIN WO CON, 01/13/2019, 11:55. FINDINGS: Image quality: Excellent. CSF spaces: Basal cisterns are patent. No extra-axial fluid collections. The ventricles are symmetric in size and shape. Brain: No intracranial bleeds or masses. There is cerebral volume loss for age, with resultant ventricular and sulcal prominence. There are periventricular and deep white matter chronic small vessel ischemic changes. There is intracranial internal carotid artery atherosclerosis. Skull and face: Calvarium and visualized facial bones appear intact, without suspicious lesions. Sinuses: Visualized sinuses and mastoids are clear. IMPRESSION: Normal for age, no government relations director time. No trauma found. Dictated by: Alan Ribeiro M.D. on 04/03/2019 at 12:56 Approved by: Alan Ribeiro M.D. on 04/03/2019 at 12:56 MDM Narrative Medical decision making narrative: Patient has some some mild anemia but appears baseline, platelets are 114. He has elevated eosinophils. Coags are elevated with an INR 1.6, PTT of 37 and PT and 19. He is known to be on Eliquis. Show a creatinine 1.7 but appears consistent with prior from earlier in February and December, patient's electrolytes otherwise appear normal glucose is 117. Patient's tetanus was updated. His lacerations which are fairly superficial appear to be healing and patient is able to ambulate and do his normal activities without issue. Plan for discharge Discharge Plan Departure Patient Disposition: Home Clinical Impression: Laceration of face Qualifiers: Encounter type: initial encounter Qualified Code(s): S01.81XA - Laceration without foreign body of other part of head, initial encounter Head injury Qualifiers: Encounter type: initial encounter Qualified Code(s): S09.90XA - Unspecified injury of head, initial encounter Discharge Date/Time: 04/03/19 13:12 Interventions: ED Discharge Assessment Last Done: 04/03/19 13:11 Instructions: Closed Head Injury Activity Restrictions/Additional Instructions: Follow-up with your primary care physician in the next 3-5 days for recheck you are having any continuing symptoms. You may continue home medications as prescribed. Return to the emergency department for new or severe headaches, vision changes, passing out, new neck pain, back pain, weakness or numbness, persistent vomiting, altered mental status or confusion or other new or concerning symptoms. Prescriptions: No Action spironolactone 25 mg tablet 12.5 mg PO DAILY RF: 0 nitroglycerin 0.4 mg tablet, sublingual 0.4 mg SL Q5-15M PRN (Reason: Chest Pain) RF: 0 magnesium 250 mg tablet 250 mg PO DAILY RF: 0 albuterol sulfate 90 mcg/actuation HFA aerosol inhaler 1 puff INHALATION Q6H PRNRF: 0 alfuzosin 10 mg tablet extended release 24 hr 10 mg PO DAILY RF: 0 acetaminophen 325 mg capsule 325 mg PO Q6H PRNRF: 0 cholecalciferol (vitamin D3) 2,000 unit capsule 2,000 unit PO DAILY RF: 0 apixaban 5 mg tablet 5 mg PO BID RF: 0 rosuvastatin 5 mg tablet 2.5 mg PO DAILY RF: 0 tiotropium bromide 18 mcg capsule, w/inhalation device 1 cap INHALATION DAILY RF: 0 metoprolol succinate 50 mg tablet extended release 24 hr 50 mg PO BID RF: 0 diclofenac sodium 1 % gel 1 gram TOP QID PRN (Reason: pain) Qty: 100 RF: 0 pramipexole 0.125 mg tablet 0.125 mg PO TID Qty: 180 RF: 0 torsemide 10 mg tablet 20 mg PO BID RF: 0 Trelegy Ellipta 100-62.5-25 mcg blister with device 1 puff inhalation DAILY RF: 0 Referrals: Elis Arroyo MD [Primary Care Provider] -
[2019-04-03] MEDS: TET,DIPH,PERTUSS(ACELL),VAC/PF 0.5 ML SYRINGE IM (11:57)
[2019-04-03 12:00] VITALS: BP 103/64; PULSE 82; RESP 16; O2SAT 93; O2SAT 95
[2019-04-03 12:05] LABS: Add Manual Diff / Slide Review NO; Basophils Absolute Auto 0 /uL (0-100); Basophils Percent Auto 0.4 % (0-2); Eosinophils Absolute Auto 400 /uL (0-450); Eosinophils Percent Auto 4.3 % (2-4); Hematocrit 36.1 % (41-53); Lymphocytes Absolute Auto 3600 /uL (1100-4500); Lymphocytes Percent Auto 41.6 % (25-40); Mean Corpuscular HGB Conc 33.2 % (30-36); Mean Corpuscular Hemoglobin 29.1 PG (26-34); Mean Corpuscular Volume 87.6 fL (80-100); Monocytes Absolute Auto 600 /uL (0-900); Monocytes Percent Auto 6.4 % (3-14); Neutrophils Absolute Auto 4100 /uL (1500-7000); Neutrophils Percent Auto 47.3 % (50-75); Platelet Count 114 X10^3/uL (150-400); Red Blood Cell Count 4.12 X10^6/uL (4.5-5.9); Red Cell Distribution Width 16.2 % (11.6-14.8); White Blood Cell Count 8.7 X10^3/uL (4.5-11.0)
[2019-04-03 12:11] LABS: INR 1.6 (0.9-1.3)
[2019-04-03 12:14] LABS: PTT Partial Thromboplastin Tim 37 SECONDS (26.4-36.2)
[2019-04-03 12:15] LABS: Alanine Aminotransferase 21 IU/L (21-72); Albumin 4.4 g/dL (3.5-5.0); Albumin Globulin Ratio 1.6 (1.0-2.8); Alkaline Phosphatase 57 U/L (38-126); Aspartate Aminotransferase 29 IU/L (17-59); BUN Creatinine Ratio 23.5 (6-22); Bilirubin Total 0.5 mg/dL (0.2-1.3); Blood Urea Nitrogen 40 mg/dL (9-20); Calcium 8.8 mg/dL (8.4-10.2); Carbon Dioxide 31 mmol/L (22-32); Chloride 100 mmol/L (98-107); Estimated Glomerular Filt Rate 39.1 mL/min (>60); Globulin 2.8 g/dL (1.7-4.1); Glucose 117 mg/dL (80-110); HEMOLYSIS < 15 (0-50); Potassium 4.2 mmol/L (3.4-5.1); Sodium 142 mmol/L (137-145); Total Protein 7.2 g/dL (6.3-8.2)
[2019-04-03 12:30] VITALS: BP 112/69; PULSE 88; RESP 17; O2SAT 98
== END 2019-04-03 13:12 | disposition home or self-care (01) ==
PROVIDERS: Emergency Provider Emergency Medicine; PCP Family Medicine
DX: S01.81XA Laceration without foreign body of other part of head, initial encounter (principal); S09.90XA Unspecified injury of head, initial encounter; W01.0XXA Fall on same level from slipping, tripping and stumbling without subsequent striking against object, initial encounter; Z79.01 Long term (current) use of anticoagulants; Z23 Encounter for immunization
CPT/HCPCS: 36415; 70450; 80053; 85025; 85610; 85730; 90471; 99283; 99284; 90715

== ENCOUNTER 2019-04-04 10:00 | Outpatient (RCR) | payer MEDICARE, OTHER, SELFPAY ==
[2018-12-31 15:56] VITALS: BP 120/78; BP 124/78; RESP 14; O2SAT 92; BMI 27.4
--- NOTE | 2019-01-02 09:48 | PR.IEVALNOTE ---
Current Diagnoses Chronic obstructive pulmonary disease, unspecified (01/02/19) Provider Team Visit Care Team Role Provider Type Doctor MD Ricco Non-Staff Specialty: Medical Address: Phone: Fax: Email: Juventino Medina MD Primary Care Provider Physician Specialty: Wound Care Address: [address] [place] [address], [place], [address] Email: [email or web address] MD Attending Provider Non-Staff Specialty: Medical Address: [address] [place], [place] [address] [address], [place], [address] Email: Pulmonary Rehab Initial Evaluation MN Pulmonary Rehab Inital Assessment Start: 12/31/18 15:55 Freq: Status: Active Protocol: Document 12/31/18 15:56 LILLIAN (Rec: 12/31/18 16:01 LILLIAN [email or web address]) MN Exercise Assessment Dx: COPD/ restrictive lung disease Primary Language NIGERIEN Grill Prep Cook Required No Hearing Ability Normal Visual Impairment No Limitations Visual Difficutly None Visual Assist Glasses Musculoskeletal Symptoms Joint Stiffness Body Alignment Posture Forward Head Comment Left Rotator Cuff with somewhat limited range of motion History of Falling (Immediate or No Previous) Secondary Diagnosis (More Than 2 Medical Yes Diagnoses) Ambulatory Aid None/bed rest/nurse assist IV/Heparin Lock No Gait/Transfer Normal/bedrest/immobile Mental Status Oriented to own ability Comment no current exercise program, very deconditioned MN Vital Signs Pulse Oximetry (91-100 %) 92 Nasal Cannula No Respiratory Rate (12-24 breaths/min) 14 Respiratory Effort Non-Labored Respiratory Depth Normal Assessment clear to auscultation, decreased in bases no wheezes rhonchi or crackles, extended exhalation Right Arm Blood Pressure (90/60-140/90 mmHg) 120/78 Blood Pressure Method Manual Cuff/Auscultation Blood Pressure Position Sitting Left Arm Blood Pressure (90/60-140/90 mmHg) 124/78 Blood Pressure Method Manual Cuff/Auscultation Blood Pressure Position Sitting MN Six Minute Walk Test Oxygen Delivery Method Room Air Respiratory Rate (breaths/min) 14 Pulse Rate (beats/min) 72 O2 Saturation by Pulse Oximetry (%) 93 Pulse Rate (beats/min) 75 Ambulation Distance (feet) 150 O2 Saturation by Pulse Oximetry (%) 93 Pulse Rate (beats/min) 81 Ambulation Distance (feet) 150 O2 Saturation by Pulse Oximetry (%) 94 Respiratory Rate (breaths/min) 20 Pulse Rate (beats/min) 85 Ambulatory Distance (feet) 100 O2 Saturation by Pulse Oximetry (%) 93 Respiratory Rate (breaths/min) 22 Pulse Rate (beats/min) 89 Ambulation Distance (feet) 50 O2 Saturation by Pulse Oximetry (%) 92 Pulse Rate (beats/min) 75 Ambulation Distance (feet) 150 O2 Saturation by Pulse Oximetry (%) 92 PUlse Rate (beats/min) 91 Ambulation Distance (feet) 180 O2 Saturation by Pulse Oximetry (%) 94 Respiratory Rate (breaths/min) 16 Pulse Rate (beats/min) 86 O2 Saturation by Pulse Oximetry (%) 94 Activity Tolerance Fair Adverse Reactions Increased Shortness of Breath Distance 780 Sarah RPE Scale 12 Oriented to RPE Scale Yes Dyspnea 3 Oriented to Dyspnea Scale Yes MN Exercise Goals Exercise Goals progression to result from increases in time, intensity, and frequency. Initial emphasis will be on increasing time Exercise Goals demonstrate proper technique with pursed lip breathing demonstrate breath sequencing with exercise, ADL's, stairs, etc DASI Number and Comment 5.80 Mets Short Term able to walk a short distance without fatigue and dyspnea Residential resume hiking, patient was an active hiker with multiple overnight distance hikes on the [place] Nutrition Assessment PFT Date 12/12/18 Forced Vital Capacity (FVC) 1.20 36% Slow Vital Capacity (SVC) 1.43 43% Forced Exp. Volume/Forced Vital Cap 66 Ratio (FEV1/FVC Ratio) Forced Expiratory Volume in 1 sec. 0.79 32% Diffusing Capacity of the Lung (DLCO) 12.43 49% Admit Height 165.1 cm Admit Weight 74.843 kg Admit Body Mass Index (BMI) 27.4 Liters Per Minute at Rest RA Liters per Minute with ADL's RA Liters per Minute with Sleep RA Oxygen Intervention/Education RA High Energy Periods Orthopaedic Surgeon Morning Mid-Morning Tolerates Activity Fair Signs and Symptoms Activity Intolerance Dyspnea on Exertion Fatigue on Exertion Daytime Naps Yes MN Education Pre-Test Score 72 Tobacco Use Former, Quit >6 Months Tobacco Product Used CIGARETTES Packs Per Day 2 Additional Comment 80 pack year Hx Use Yes Amount beer Frequency very occasional Concerns None Education Topics Breathing Retraining Discussed Education Requirements on Yes Intake MN Psychosocial Initial Assess HADS Score 5 HADS Score 2 Marital Status recently Additional Comment patient recently and states he is still in shock over loss hasn't felt grief as yet. Discussed options for assistance such as greif support group and counseling Referral Needed Yes Referred to Counselling No Physician Comment Ready for Pulmonary Rehabilitation Cooperative Motivated
--- NOTE | 2019-04-10 10:53 | PR.DCNOTE ---
Current Diagnoses Chronic obstructive pulmonary disease, unspecified (04/04/19) Past Medical History (Last Reviewed 04/09/19 @ 18:11 by Bernabe Hi MD) ZACH (obstructive sleep apnea) (Chronic) Essential hypertension (Chronic) BPH (benign prostatic hyperplasia) (Chronic) Atrial fibrillation (Chronic) COPD (chronic obstructive pulmonary disease) (Chronic) Coronary artery disease (Chronic) Restless leg (Chronic) (HFpEF) heart failure with preserved ejection fraction (Chronic) Stage III chronic kidney disease (Chronic) Provider Team Visit Care Team Role Provider Type Doctor MD Ricco Non-Staff Specialty: Medical Address: Phone: Fax: Email: Juventino Medina MD Primary Care Provider Physician Specialty: Wound Care Address: [address] [place] [address], [id number] Email: [email or web address] Orozco MD Attending Provider Non-Staff Specialty: Medical Address: [address] [place] [address] [address], [place], [address] Email: Pulmonary Rehab Discharge Evaluation [facility] DC Assessment Start: 12/31/18 15:55 Freq: Status: Active Protocol: Document 04/10/19 10:33 LILLIAN (Rec: 04/10/19 10:53 Katherine [id number]) NE Exercise Discharge Assess Session 1 Type Treadmill FUNMI METs (resistance level) 3.50 TM 4.0 FUNMI % Improvement 17%TM 62%Funmi Interval Training Yes Shortness of Breath with Exercise Yes Desaturation with Exercise No Free Weight Yes: 3-4# 12r 2s Band Level Yes: #4 Toward Target Goals Patient demonstrates increased participation in physical activities, including domestic and recreational activities. Demonstrates breath sequencing with ADL's, stairs, etc Goal met and showing progress with functional resistance exercises NE Nutrition DC Assessment Patient Ready Yes Reason Completed Max Sessions Other Comment [facility] as well as Phase III NE Education DC Assessment Post Test Score 79 % Improvement 9% Tobacco Use No NE Psychosocial DC Assessment HADS Depression Score 4 HADS Anxiety Score 1 Phase III Yes [facility]/Other Yes: [facility] Referral Needed No Goals Goals met and showing progress NE Six Minute Walk Test Oxygen Delivery Method Room Air Respiratory Rate (breaths/min) 12 Pulse Rate (beats/min) 83 O2 Saturation by Pulse Oximetry (%) 98 Pulse Rate (beats/min) 85 Ambulation Distance (feet) 150 O2 Saturation by Pulse Oximetry (%) 99 Pulse Rate (beats/min) 87 Ambulation Distance (feet) 200 O2 Saturation by Pulse Oximetry (%) 99 Pulse Rate (beats/min) 88 Ambulatory Distance (feet) 200 O2 Saturation by Pulse Oximetry (%) 95 Pulse Rate (beats/min) 88 Ambulation Distance (feet) 100 O2 Saturation by Pulse Oximetry (%) 95 Pulse Rate (beats/min) 87 Ambulation Distance (feet) 150 O2 Saturation by Pulse Oximetry (%) 95 PUlse Rate (beats/min) 89 Ambulation Distance (feet) 210 O2 Saturation by Pulse Oximetry (%) 93 Respiratory Rate (breaths/min) 14 Pulse Rate (beats/min) 85 O2 Saturation by Pulse Oximetry (%) 96 Activity Tolerance Good Adverse Reactions Increased Shortness of Breath Distance 1060 Sarah RPE Scale 14 Oriented to RPE Scale Yes Dyspnea 3 Oriented to Dyspnea Scale Yes
== END 2019-04-11 09:56 | disposition home or self-care (01) ==
LOC: PUL 10:00
PROVIDERS: PCP Internal Medicine; Visit Provider Internal Medicine Pulmonary Disease
DX: J44.9 Chronic obstructive pulmonary disease, unspecified (principal)
CPT/HCPCS: G0424

== ENCOUNTER → 2019-04-12 12:25 | Outpatient (CLI) | payer MEDICARE, OTHER, SELFPAY ==
--- NOTE | 2019-04-12 12:28 | DI.US.S_ITS ---
PROCEDURE: US RETRO PERITONEAL LIMITED INDICATIONS: KNOWN AAA TECHNIQUE: Real time scanning was performed of the aorta and iliac arteries, with image documentation. COMPARISON: [facility] Ultrasound, US, US AORTA RETROPERITONEAL LIMITED, 09/26/2018, 10:20. FINDINGS: Aorta: Proximal aortic diameter measures 2.4 cm. Mid-aorta measures 2.5 cm. Distal aortic diameter is 5.2 cm AP and 5.4 cm transversely cm. Iliac arteries: Right common iliac artery measures 1.4 cm. Left common iliac artery measures 1.5 cm. IMPRESSION: Slight increase in size of distal abdominal aortic aneurysm measuring up to 5.2 cm in maximal AP diameter and 5.4 cm transversely. Dictated by: Marquez Brito [facility] Interpreted: Lacie Gleason MD on 04/12/2019 at 14:14 Approved by: Lacie Gleason M.D. on 04/12/2019 at 15:19
== END ==
PROVIDERS: PCP Family Medicine; Visit Provider Family Medicine
DX: I71.4 Abdominal aortic aneurysm, without rupture (principal)
CPT/HCPCS: 76775

== ENCOUNTER → 2019-04-19 12:38 | Outpatient (CLI) | payer MEDICARE, OTHER, SELFPAY ==
[2019-04-19 14:00] LABS: Add Manual Diff / Slide Review NO; Basophils Absolute Auto 0 /uL (0-100); Basophils Percent Auto 0.4 % (0-2); Eosinophils Absolute Auto 500 /uL (0-450); Eosinophils Percent Auto 4.9 % (2-4); Hematocrit 37.4 % (41-53); Hemoglobin 12.6 g/dL (13.5-17.5); Lymphocytes Absolute Auto 3300 /uL (1100-4500); Lymphocytes Percent Auto 35.6 % (25-40); Mean Corpuscular HGB Conc 33.8 % (30-36); Mean Corpuscular Hemoglobin 29.6 PG (26-34); Mean Corpuscular Volume 87.7 fL (80-100); Monocytes Absolute Auto 700 /uL (0-900); Monocytes Percent Auto 7.2 % (3-14); Neutrophils Absolute Auto 4800 /uL (1500-7000); Neutrophils Percent Auto 51.9 % (50-75); Platelet Count 108 X10^3/uL (150-400); Red Blood Cell Count 4.26 X10^6/uL (4.5-5.9); Red Cell Distribution Width 16.1 % (11.6-14.8); White Blood Cell Count 9.3 X10^3/uL (4.5-11.0)
== END ==
PROVIDERS: PCP Family Medicine; Visit Provider Podiatrist
DX: B35.1 Tinea unguium (principal)
CPT/HCPCS: 36415; 85025

== ENCOUNTER 2019-08-29 12:17 | Emergency (ER) | payer MEDICARE, OTHER, SELFPAY ==
[2019-08-29] VITALS (9 sets, daily range): BP systolic 118–166; BP diastolic 58–95; PULSE 78–89; RESP 14–28; TEMP 36.9; O2SAT 92–99; BMI 28.3
--- NOTE | 2019-08-29 12:52 | DI.RAD.S_ITS ---
PROCEDURE: XR CHEST 2V INDICATIONS: sob, hx copd TECHNIQUE: 2 views of the chest were acquired. COMPARISON: [facility], CR, XR CHEST 2V, 08/18/2018, 14:54. [facility], CR, XR CHEST 1V, 01/13/2019, 13:04. [facility], CR, XR CHEST 2V, 03/08/2019, 10:59. FINDINGS: Surgical changes and devices: A cardiac device is noted. Lungs and pleura: Lungs are hyperinflated. There is a small right effusion, minimally changed from 01/13/2019. There is infiltrate in the left lower lung zone. No pneumothorax. Mediastinum: Mediastinal contours are normal. Heart size is mildly increased. Bones and chest wall: No suspicious bony abnormalities. Soft tissues appear unremarkable. IMPRESSION: 1. Small right pleural effusion, minimally changed. 2. Left lower lobe infiltrate suspicious for developing pneumonia. 3. COPD. Dictated by: Chaz Melendez M.D. on 08/29/2019 at 13:37 Approved by: Chaz Melendez M.D. on 08/29/2019 at 13:42
[2019-08-29 13:18] LABS: Add Manual Diff / Slide Review NO; Basophils Absolute Auto 0 /uL (0-100); Basophils Percent Auto 0.4 % (0-2); Eosinophils Absolute Auto 200 /uL (0-450); Eosinophils Percent Auto 1.7 % (2-4); Hematocrit 38.8 % (41-53); Lymphocytes Absolute Auto 4600 /uL (1100-4500); Lymphocytes Percent Auto 38.5 % (25-40); Mean Corpuscular HGB Conc 33.5 % (30-36); Mean Corpuscular Hemoglobin 29.7 PG (26-34); Mean Corpuscular Volume 88.8 fL (80-100); Monocytes Absolute Auto 900 /uL (0-900); Monocytes Percent Auto 7.2 % (3-14); Neutrophils Absolute Auto 6200 /uL (1500-7000); Neutrophils Percent Auto 52.2 % (50-75); Platelet Count 109 X10^3/uL (150-400); Red Blood Cell Count 4.37 X10^6/uL (4.5-5.9); Red Cell Distribution Width 15.4 % (11.6-14.8)
[2019-08-29] MEDS: ALBUTEROL/IPRATROPIUM 3 ML AMPUL INH (13:21)
[2019-08-29 13:31] LABS: INR 1.5 (0.9-1.3); Prothrombin Time 17.9 SECONDS (10.1-12.7)
[2019-08-29 13:33] LABS: PTT Partial Thromboplastin Tim 34 SECONDS (26.4-36.2)
[2019-08-29 13:37] LABS: Alanine Aminotransferase 29 IU/L (<50); Albumin 4.7 g/dL (3.5-5.0); Albumin Globulin Ratio 1.6 (1.0-2.8); Alkaline Phosphatase 68 U/L (38-126); Aspartate Aminotransferase 41 IU/L (17-59); BUN Creatinine Ratio 23.6 (6-22); Bilirubin Total 0.5 mg/dL (0.2-1.3); Blood Urea Nitrogen 33 mg/dL (9-20); Carbon Dioxide 30 mmol/L (22-32); Chloride 101 mmol/L (98-107); Creatine Kinase 183 U/L (55-170); Estimated Glomerular Filt Rate 48.8 mL/min (>60); Globulin 2.9 g/dL (1.7-4.1); Glucose 84 mg/dL (80-110); HEMOLYSIS < 15 (0-50); Magnesium 2.4 mg/dL (1.6-2.3); Sodium 142 mmol/L (137-145); Total Protein 7.6 g/dL (6.3-8.2)
[2019-08-29 13:43] LABS: B Type Natriuretic Peptide < 100 (<100)
[2019-08-29 13:48] LABS: Troponin I 0.028 ng/mL (0.01-0.034)
[2019-08-29 13:52] LABS: CKMB % Relative Index 2.7 % (1.5-5.0)
--- NOTE | 2019-08-29 13:55 | ED_ITS ---
HPI - SOB/Dyspnea <Delicia Cordon, PHONE CIRCUIT OPERATOR-BC - Last Filed: 08/29/19 17:26> General Chief Complaint: Shortness of Breath/Dyspnea Stated Complaint: SOB Time Seen by Provider: 08/29/19 12:38 Source: patient and family Mode of arrival: Wheelchair Limitations: no limitations History of Present Illness HPI Narrative: The patient is an 79-year-old male former smoker with history of COPD, pacemaker, coronary artery disease, who presents with a chief complaint of sore throat. He states he went to the walk-in clinic today for chief complaint of sore throat, they took his blood pressure and sent him down to the emergency department. He does admit to slight increased shortness of breath today, has not used his home nebulizer. He denies any fevers chest pain nausea vomiting diarrhea lightheadedness or dizziness. He denies any ear pain. He has not taken anything at home to feel better. Related Data Home Medications Medication Instructions Recorded Confirmed acetaminophen 325 mg capsule 325 mg PO Q6H PRN 08/18/18 08/29/19 albuterol sulfate 90 mcg/actuation 1 puff INHALATION Q6H PRN 08/18/18 08/29/19 aerosol inhaler alfuzosin 10 mg tablet,extended 10 mg PO DAILY 08/18/18 08/29/19 release 24 hr apixaban 5 mg tablet 5 mg PO BID 08/18/18 08/29/19 cholecalciferol (vitamin D3) 50 2,000 unit PO DAILY 08/18/18 08/29/19 mcg (2,000 unit) capsule magnesium 250 mg tablet 250 mg PO DAILY 08/18/18 08/29/19 nitroglycerin 0.4 mg sublingual 0.4 mg SL Q5-15M PRN 08/18/18 08/29/19 tablet [id number]-[id number] 1 puff INHALATION DAILY 04/03/19 08/29/19 [Stacey Hairston] metoprolol succinate 50 mg 50 mg PO DAILY tab 04/09/19 08/29/19 tablet,extended release 24 hr rosuvastatin 5 mg tablet 2.5 mg PO DAILY tab 04/09/19 08/29/19 pramipexole 0.125 mg PO TID 08/29/19 08/29/19 Previous Rx's Medication Instructions Recorded diclofenac sodium 1 % topical gel 1 gram TOP QID PRN #100 gram 03/22/19 torsemide 10 mg tablet 20 mg PO BID #360 tab 04/05/[address] #1 ea 04/09/19 spironolactone 25 mg tablet 25 mg PO DAILY #30 tab 04/09/19 doxycycline hyclate 100 mg PO BID #20 cap 08/29/19 prednisone 50 mg PO DAILY #5 tab 08/29/19 spironolactone 12.5 mg PO DAILY #10 tab 08/29/19 Allergies Allergy/AdvReac Type Severity Reaction Status Date / Time atorvastatin Allergy Verified 08/29/19 12:35 diclofenac Allergy Verified 08/29/19 12:35 lisinopril Allergy Verified 08/29/19 12:35 niacin Allergy Verified 08/29/19 12:35 pravastatin Allergy Verified 08/29/19 12:35 Review of Systems <CLAY Meyers - Last Filed: 08/29/19 17:26> Review of Systems Narrative: GENERAL: Denies chills, fatigue, malaise, fever, sweats. HEENT: See HPI RESPIRATORY: See HPI CARDIOVASCULAR: See HPI GASTROINTESTINAL: Denies nausea, vomiting, abdominal pain, diarrhea, constipation, melena. : Denies dysuria, frequency, incontinence, hematuria, urinary retention. MUSCULOSKELETAL: denies weakness, joint pain, or bony pain SKIN: Denies rash, skin lesions, or other NEUROLOGIC: Denies weakness, headache, numbness, change in speech, confusion, seizures, incoordination. PSYCHIATRIC: No concerning psychosocial issues. 12 point review of systems is negative except for those stated above Patient History <CLAY Meyers - Last Filed: 08/29/19 17:26> Medical History (HFpEF) heart failure with preserved ejection fraction (Chronic) Atrial fibrillation (Chronic) BPH (benign prostatic hyperplasia) (Chronic) COPD (chronic obstructive pulmonary disease) (Chronic) Coronary artery disease (Chronic) Essential hypertension (Chronic) ZACH (obstructive sleep apnea) (Chronic) Restless leg (Chronic) Stage III chronic kidney disease (Chronic) Social History marital status: household members: children lives independently: Yes caregiver/support person: Yes housing: house occupational status: previously employed Smoking Status: Former smoker second hand exposure: No alcohol intake: current substance use type: does not use Smoking Status: Former smoker alcohol intake frequency: 0-2 drinks per day Alcohol type: beer and hard liquor Substance Use Type: does not use Exam <ARISTEO Meyers-BC - Last Filed: 08/29/19 17:26> Narrative Exam Narrative: GENERAL: This is a well-nourished, well-developed patient, in no acute distress HEAD: Atraumatic. Normocephalic. No temporal or scalp tenderness. EYES: Pupils equal round and reactive. Extraocular motions intact. No scleral icterus. No injection or drainage. ENT: Nose without bleeding, purulent drainage or septal hematoma. Throat without erythema, tonsillar hypertrophy or exudate. Uvula midline. Airway patent. Bilateral TMs pearly chamberlain NECK: Trachea midline. No JVD or lymphadenopathy. Supple, nontender, no meningeal signs. CARDIOVASCULAR: Regular rate and rhythm without murmurs, gallops, or rubs. RESPIRATORY: Coarse bilaterally to auscultation. Breath sounds equal bilaterally. No wheezes, rales, or rhonchi. Occasional dry cough. No increased respiratory effort. Speaking full sentences. GASTROINTESTINAL: Abdomen soft, non-tender, nondistended. No hepato- splenomegaly, or palpable masses. No guarding. EXTREMITIES: +1 pedal edema noted. Bilateral pedal pulses intact BACK: Nontender without deformity or crepitance. No flank tenderness. NEURO: AOx3. SKIN: No rash or erythema on visible skin Initial Vital Signs Initial Vital Signs: Vital Signs Temperature 98.4 F 08/29/19 12:22 Pulse Rate 82 08/29/19 12:22 Respiratory Rate 15 08/29/19 12:22 Blood Pressure 157/85 H 08/29/19 12:22 Pulse Oximetry 99 08/29/19 12:22 <Delicia Arroyo DO - Last Filed: 08/29/19 19:16> Initial Vital Signs Initial Vital Signs: Vital Signs Temperature 98.4 F 08/29/19 12:22 Pulse Rate 82 08/29/19 12:22 Respiratory Rate 15 08/29/19 12:22 Blood Pressure 157/85 H 08/29/19 12:22 Pulse Oximetry 99 08/29/19 12:22 Scores <CLAY Meyers - Last Filed: 08/29/19 17:26> CURB-65 Confusion: No BUN >19mg/dL (>7mmol/L): Yes Respiratory rate greater or equal to 30: No SBP <90mmHg or DBP less or equal to 60mmHg: No Age 65 or Older: Yes [id number] Total: 2 Score 0-1 Outpatient care, Score 2 Inpt vs. Obs, Score 3 or over Inpt admit with ICU for score of 4-5 Course <CLAY Meyers - Last Filed: 08/29/19 17:26> Orders Ordered: ED Orders 08/29/19 12:52 Consult to Respiratory Therapy Evaluate & Treat XR chest 2V Stat 08/29/19 13:10 B Type Natriuretic Peptide Stat Complete Blood Count AUTO DIFF Stat Comprehensive Metabolic Panel Stat Magnesium Stat Partial Thromboplastin Time Stat Procalcitonin Stat Prothrombin Time INR Stat Troponin & CK Cardiac Panel Stat 08/29/19 16:12 Troponin & CK Cardiac Panel Stat Discontinued Medications Albuterol/Ipratropium (Duoneb) 3 ml INH NOW ONE Stop: 08/29/19 12:53 Last Admin: 08/29/19 13:21 Dose: 3 ml Documented by: ALDAIR Prednisone (Deltasone) 60 mg PO NOW ONE Stop: 08/29/19 14:52 Last Admin: 08/29/19 15:36 Dose: 60 mg Documented by: DANIEL Vital Signs Vital signs: Vital Signs - 8 hr 08/29/19 12:22 08/29/19 12:30 08/29/19 13:00 Temperature 98.4 F Pulse Rate 82 85 84 Respiratory Rate 15 22 14 Blood Pressure 157/85 H Blood Pressure [Left Arm] 150/73 H 166/79 H Pulse Oximetry 99 97 97 08/29/19 13:23 08/29/19 13:30 08/29/19 14:30 Temperature Pulse Rate 80 89 88 Respiratory Rate 20 21 22 Blood Pressure Blood Pressure [Left Arm] 152/65 H 150/58 H Pulse Oximetry 96 92 98 08/29/19 15:12 08/29/19 16:00 08/29/19 17:14 Temperature Pulse Rate 78 80 81 Respiratory Rate 14 20 28 H Blood Pressure Blood Pressure [Left Arm] 118/95 H 141/75 H Pulse Oximetry 98 98 94 <Delicia Arroyo DO - Last Filed: 08/29/19 19:16> Orders Ordered: ED Orders 08/29/19 12:52 Consult to Respiratory Therapy Evaluate & Treat XR chest 2V Stat 08/29/19 13:10 B Type Natriuretic Peptide Stat Complete Blood Count AUTO DIFF Stat Comprehensive Metabolic Panel Stat Magnesium Stat Partial Thromboplastin Time Stat Procalcitonin Stat Prothrombin Time INR Stat Troponin & CK Cardiac Panel Stat 08/29/19 16:12 Troponin & CK Cardiac Panel Stat Discontinued Medications Albuterol/Ipratropium (Duoneb) 3 ml INH NOW ONE Stop: 08/29/19 12:53 Last Admin: 08/29/19 13:21 Dose: 3 ml Documented by: ALDAIR Prednisone (Deltasone) 60 mg PO NOW ONE Stop: 08/29/19 14:52 Last Admin: 08/29/19 15:36 Dose: 60 mg Documented by: DANIEL Vital Signs Vital signs: Vital Signs - 8 hr 08/29/19 12:22 08/29/19 12:30 08/29/19 13:00 Temperature 98.4 F Pulse Rate 82 85 84 Respiratory Rate 15 22 14 Blood Pressure 157/85 H Blood Pressure [Left Arm] 150/73 H 166/79 H Pulse Oximetry 99 97 97 08/29/19 13:23 08/29/19 13:30 08/29/19 14:30 Temperature Pulse Rate 80 89 88 Respiratory Rate 20 21 22 Blood Pressure Blood Pressure [Left Arm] 152/65 H 150/58 H Pulse Oximetry 96 92 98 08/29/19 15:12 08/29/19 16:00 08/29/19 17:14 Temperature Pulse Rate 78 80 81 Respiratory Rate 14 20 28 H Blood Pressure Blood Pressure [Left Arm] 118/95 H 141/75 H Pulse Oximetry 98 98 94 MDM - SOB/Dyspnea <ARISTEO Meyers-BC - Last Filed: 08/29/19 17:26> Lab Data Result diagrams: 08/29/19 13:10 08/29/19 13:10 Labs: Lab Results 08/29/19 08/29/19 08/29/19 Range/Units 13:10 13:10 13:10 WBC 12.0 H (4.5-11.0) X10^3/uL RBC 4.37 L (4.5-5.9) X10^6/uL Hgb 13.0 L (13.5-17.5) g/dL Hct 38.8 L (41-53) % MCV 88.8 (80-100) fL MCH 29.7 (26-34) PG MCHC 33.5 (30-36) % RDW 15.4 H (11.6-14.8) % Plt Count 109 L (150-400) X10^3/uL Neut % (Auto) 52.2 (50-75) % Lymph % (Auto) 38.5 (25-40) % [place] % (Auto) 7.2 (3-14) % Eos % (Auto) 1.7 L (2-4) % Baso % (Auto) 0.4 (0-2) % Neut # (Auto) 6200 (6303-1867) /uL Lymph # (Auto) 4600 H (4900-6970) /uL [place] # (Auto) 900 (0-900) /uL Eos # (Auto) 200 (0-450) /uL Baso # (Auto) 0 (0-100) /uL PT 17.9 H (10.1-12.7) SECONDS INR 1.5 H (0.9-1.3) APTT 34 D (26.4-36.2) SECONDS Sodium 142 (137-145) mmol/L Potassium 4.0 (3.4-5.1) mmol/L Chloride 101 (98-107) mmol/L Carbon Dioxide 30 (22-32) mmol/L BUN 33 H (9-20) mg/dL Creatinine 1.40 H (0.66-1.25) mg/dL Estimated GFR 48.8 L (>60) mL/min BUN/Creatinine Ratio 23.6 H (6-22) Glucose 84 (80-110) mg/dL Calcium 9.0 (8.4-10.2) mg/dL Magnesium 2.4 H (1.6-2.3) mg/dL Total Bilirubin 0.5 (0.2-1.3) mg/dL AST 41 (17-59) IU/L ALT 29 (<50) IU/L Alkaline Phosphatase 68 (38-126) U/L Total Creatine Kinase 183 H (55-170) U/L CK-MB (CK-2) 5.00 H (<2.37) ng/mL CK-MB (CK-2) Rel Index 2.7 (1.5-5.0) % Troponin I 0.028 (0.01-0.034) ng/mL B-Natriuretic Peptide < 100 (<100) Total Protein 7.6 (6.3-8.2) g/dL Albumin 4.7 (3.5-5.0) g/dL Globulin 2.9 (1.7-4.1) g/dL Albumin/Globulin Ratio 1.6 (1.0-2.8) Procalcitonin (<0.5) ng/mL 08/29/19 08/29/19 Range/Units 13:10 16:12 WBC (4.5-11.0) X10^3/uL RBC (4.5-5.9) X10^6/uL Hgb (13.5-17.5) g/dL Hct (41-53) % MCV (80-100) fL MCH (26-34) PG MCHC (30-36) % RDW (11.6-14.8) % Plt Count (150-400) X10^3/uL Neut % (Auto) (50-75) % Lymph % (Auto) (25-40) % [place] % (Auto) (3-14) % Eos % (Auto) (2-4) % Baso % (Auto) (0-2) % Neut # (Auto) (8878-9380) /uL Lymph # (Auto) (6503-9384) /uL [place] # (Auto) (0-900) /uL Eos # (Auto) (0-450) /uL Baso # (Auto) (0-100) /uL PT (10.1-12.7) SECONDS INR (0.9-1.3) APTT (26.4-36.2) SECONDS Sodium (137-145) mmol/L Potassium (3.4-5.1) mmol/L Chloride (98-107) mmol/L Carbon Dioxide (22-32) mmol/L BUN (9-20) mg/dL Creatinine (0.66-1.25) mg/dL Estimated GFR (>60) mL/min BUN/Creatinine Ratio (6-22) Glucose (80-110) mg/dL Calcium (8.4-10.2) mg/dL Magnesium (1.6-2.3) mg/dL Total Bilirubin (0.2-1.3) mg/dL AST (17-59) IU/L ALT (<50) IU/L Alkaline Phosphatase (38-126) U/L Total Creatine Kinase 167 (55-170) U/L CK-MB (CK-2) 4.08 H (<2.37) ng/mL CK-MB (CK-2) Rel Index 2.4 (1.5-5.0) % Troponin I 0.028 (0.01-0.034) ng/mL B-Natriuretic Peptide (<100) Total Protein (6.3-8.2) g/dL Albumin (3.5-5.0) g/dL Globulin (1.7-4.1) g/dL Albumin/Globulin Ratio (1.0-2.8) Procalcitonin < 0.05 (<0.5) ng/mL Urine Dip Bedside Urine Glucose Negative Bedside Urine Bilirubin - Negative Bedside Urine Ketone - Negative Urine Specific [place] 1.015 Bedside Urine Occult Blood - Negative Bedside Urine pH 5.5 Bedside Urine Protein - Negative Bedside Urine Urobilinogen - Negative Bedside Urine Nitrite - Negative Bedside Urine Leukocytes - Negative Esterase Imaging Data Chest x-ray: Radiologist's Impression: [address] [address] XRay Report Signed Patient: Moses Metcalf R#: [id number] : 9Acct:[id number] Age/Sex: 79 / MDate of Service: 08/29/19 Loc: ED Accession Number: [id number] Procedure: XR chest 2V Ordering Provider: Delicia Cordon PROCEDURE: XR CHEST 2V INDICATIONS: sob, hx copd TECHNIQUE: 2 views of the chest were acquired. COMPARISON: Located Within [facility], CR, XR CHEST 2V, 08/18/2018, 14:54. Located Within [facility], CR, XR CHEST 1V, 01/13/2019, 13:04. Located Within [facility], CR, XR CHEST 2V, 03/08/2019, 10:59. FINDINGS: Surgical changes and devices: A cardiac device is noted. Lungs and pleura: Lungs are hyperinflated. There is a small right effusion, minimally changed from 01/13/2019. There is infiltrate in the left lower lung zone. No pneumothorax. Mediastinum: Mediastinal contours are normal. Heart size is mildly increased. Bones and chest wall: No suspicious bony abnormalities. Soft tissues appear unremarkable. IMPRESSION: 1. Small right pleural effusion, minimally changed. 2. Left lower lobe infiltrate suspicious for developing pneumonia. 3. COPD. Dictated by: Chaz Melendez M.D. on 08/29/2019 at 13:37 Approved by: Chaz Melendez M.D. on 08/29/2019 at 13:42 ECG Data Attestation: I personally reviewed and interpreted this ECG as follows: Interpretation: Paced rhythm. Ventricular rate 80. QRS 166. No ectopy noted. No ST elevation or depression noted. Viewed by Dr Dina BEAL Narrative Medical decision making narrative: The patient is an 79-year-old male who presents with a chief complaint of shortness of breath x1 day. He presents with walk-in clinic where he presented for sore throat today. X-ray found developing left lower lobe pneumonia. I placed him on doxycycline. He was evaluated by respiratory therapist, given draining on incentive spirometer etcetera. He was given a nebulizer in the emergency department, states he has some at home. Given his risk factors, I did repeat a troponin 3 hours after his initial 1 which came back the same and below threshold at this facility. The patient is able to tolerate p.o. food and fluids. Given his age and BUN, the patient does meet observation versus admission criteria per curb [address]. However the patient strongly wants to go home, appears nontoxic and is in no acute distress. Thus I'm okay with him going home, but we did discuss at length that he needs to follow up with primary care provider in the next few days. Discussed at length coming back to the emergency department for any acute concerns such as difficulty breathing etcetera patient was able to tolerate p.o. medications in the emergency department. I did give him a refill for 10 days worth of his spironolactone as he has out, he states he will follow up with primary care provider in the next few days. No questions or concerns upon discharge states understanding of return precautions as well as follow-up care. <Delicia Arroyo, DO - Last Filed: 08/29/19 19:16> Lab Data Labs: Lab Results 08/29/19 08/29/19 08/29/19 Range/Units 13:10 13:10 13:10 WBC 12.0 H (4.5-11.0) X10^3/uL RBC 4.37 L (4.5-5.9) X10^6/uL Hgb 13.0 L (13.5-17.5) g/dL Hct 38.8 L (41-53) % MCV 88.8 (80-100) fL MCH 29.7 (26-34) PG MCHC 33.5 (30-36) % RDW 15.4 H (11.6-14.8) % Plt Count 109 L (150-400) X10^3/uL Neut % (Auto) 52.2 (50-75) % Lymph % (Auto) 38.5 (25-40) % [place] % (Auto) 7.2 (3-14) % Eos % (Auto) 1.7 L (2-4) % Baso % (Auto) 0.4 (0-2) % Neut # (Auto) 6200 (1817-0024) /uL Lymph # (Auto) 4600 H (0073-6046) /uL [place] # (Auto) 900 (0-900) /uL Eos # (Auto) 200 (0-450) /uL Baso # (Auto) 0 (0-100) /uL PT 17.9 H (10.1-12.7) SECONDS INR 1.5 H (0.9-1.3) APTT 34 D (26.4-36.2) SECONDS Sodium 142 (137-145) mmol/L Potassium 4.0 (3.4-5.1) mmol/L Chloride 101 (98-107) mmol/L Carbon Dioxide 30 (22-32) mmol/L BUN 33 H (9-20) mg/dL Creatinine 1.40 H (0.66-1.25) mg/dL Estimated GFR 48.8 L (>60) mL/min BUN/Creatinine Ratio 23.6 H (6-22) Glucose 84 (80-110) mg/dL Calcium 9.0 (8.4-10.2) mg/dL Magnesium 2.4 H (1.6-2.3) mg/dL Total Bilirubin 0.5 (0.2-1.3) mg/dL AST 41 (17-59) IU/L ALT 29 (<50) IU/L Alkaline Phosphatase 68 (38-126) U/L Total Creatine Kinase 183 H (55-170) U/L CK-MB (CK-2) 5.00 H (<2.37) ng/mL CK-MB (CK-2) Rel Index 2.7 (1.5-5.0) % Troponin I 0.028 (0.01-0.034) ng/mL B-Natriuretic Peptide < 100 (<100) Total Protein 7.6 (6.3-8.2) g/dL Albumin 4.7 (3.5-5.0) g/dL Globulin 2.9 (1.7-4.1) g/dL Albumin/Globulin Ratio 1.6 (1.0-2.8) Procalcitonin (<0.5) ng/mL 08/29/19 08/29/19 Range/Units 13:10 16:12 WBC (4.5-11.0) X10^3/uL RBC (4.5-5.9) X10^6/uL Hgb (13.5-17.5) g/dL Hct (41-53) % MCV (80-100) fL MCH (26-34) PG MCHC (30-36) % RDW (11.6-14.8) % Plt Count (150-400) X10^3/uL Neut % (Auto) (50-75) % Lymph % (Auto) (25-40) % [place] % (Auto) (3-14) % Eos % (Auto) (2-4) % Baso % (Auto) (0-2) % Neut # (Auto) (1481-4348) /uL Lymph # (Auto) (4390-0722) /uL [place] # (Auto) (0-900) /uL Eos # (Auto) (0-450) /uL Baso # (Auto) (0-100) /uL PT (10.1-12.7) SECONDS INR (0.9-1.3) APTT (26.4-36.2) SECONDS Sodium (137-145) mmol/L Potassium (3.4-5.1) mmol/L Chloride (98-107) mmol/L Carbon Dioxide (22-32) mmol/L BUN (9-20) mg/dL Creatinine (0.66-1.25) mg/dL Estimated GFR (>60) mL/min BUN/Creatinine Ratio (6-22) Glucose (80-110) mg/dL Calcium (8.4-10.2) mg/dL Magnesium (1.6-2.3) mg/dL Total Bilirubin (0.2-1.3) mg/dL AST (17-59) IU/L ALT (<50) IU/L Alkaline Phosphatase (38-126) U/L Total Creatine Kinase 167 (55-170) U/L CK-MB (CK-2) 4.08 H (<2.37) ng/mL CK-MB (CK-2) Rel Index 2.4 (1.5-5.0) % Troponin I 0.028 (0.01-0.034) ng/mL B-Natriuretic Peptide (<100) Total Protein (6.3-8.2) g/dL Albumin (3.5-5.0) g/dL Globulin (1.7-4.1) g/dL Albumin/Globulin Ratio (1.0-2.8) Procalcitonin < 0.05 (<0.5) ng/mL Urine Dip Bedside Urine Glucose Negative Bedside Urine Bilirubin - Negative Bedside Urine Ketone - Negative Urine Specific [place] 1.015 Bedside Urine Occult Blood - Negative Bedside Urine pH 5.5 Bedside Urine Protein - Negative Bedside Urine Urobilinogen - Negative Bedside Urine Nitrite - Negative Bedside Urine Leukocytes - Negative Esterase Discharge Plan Departure Patient Disposition: Home Clinical Impression: Community acquired pneumonia Qualifiers: Laterality: left Lung location: lower lobe of lung Qualified Code(s): J18.9 - Pneumonia, unspecified organism Discharge Date/Time: 08/29/19 17:35 Instructions: How to Use an Incentive Spirometer, DI for Chronic Obstructive Pulmonary Disease, DI for Pneumonia -- Adult, COPD: When to Call for Help Activity Restrictions/Additional Instructions: Your x-ray is concerning for pneumonia. I've sent a prescription of doxycycline to [facility]. I've also sent a burst of steroids in to [facility]. Start this tomorrow as we gave you a dose in the emergency department Please continue to use as needed nebulizers as well I sent a 10 days worth prescription of spironolactone to [facility] as well. Please follow-up with primary care provider in the next few days. Please come back to the emergency department for any acute concerns such as concern of heart attack, stroke, significant shortness of breath etcetera Prescriptions: New doxycycline hyclate 100 mg capsule 100 mg PO BID Qty: 20 RF: 0 prednisone 50 mg tablet 50 mg PO DAILY Qty: 5 RF: 0 spironolactone 25 mg tablet 12.5 mg PO DAILY Qty: 10 RF: 0 No Action nitroglycerin 0.4 mg tablet, sublingual 0.4 mg SL Q5-15M PRN (Reason: Chest Pain) RF: 0 magnesium 250 mg tablet 250 mg PO DAILY RF: 0 albuterol sulfate 90 mcg/actuation HFA aerosol inhaler 1 puff INHALATION Q6H PRN (Reason: Shortness Of Breath) RF: 0 alfuzosin 10 mg tablet extended release 24 hr 10 mg PO DAILY RF: 0 acetaminophen 325 mg capsule 325 mg PO Q6H PRN (Reason: pain) RF: 0 cholecalciferol (vitamin D3) 2,000 unit capsule 2,000 unit PO DAILY RF: 0 apixaban 5 mg tablet 5 mg PO BID RF: 0 rosuvastatin 5 mg tablet 2.5 mg PO DAILY RF: 0 metoprolol succinate 50 mg tablet extended release 24 hr 50 mg PO DAILY RF: 0 diclofenac sodium 1 % gel 1 gram TOP QID PRN (Reason: pain) Qty: 100 RF: 0 torsemide 10 mg tablet 20 mg PO BID Qty: 360 RF: 3 spironolactone 25 mg tablet 25 mg PO DAILY Qty: 30 RF: 12 (DME) Disabled parking permit Qty: 1 RF: 0 Trelegy Ellipta 100-62.5-25 mcg blister with device 1 puff inhalation DAILY RF: 0 pramipexole 0.25 mg tablet 0.125 mg PO TID RF: 0 Referrals: Elis Arroyo MD [Primary Care Provider] -
[2019-08-29 13:56] LABS: Procalcitonin < 0.05 ng/mL (<0.5)
[2019-08-29] MEDS: predniSONE 20 MG TABLET 60 MG PO (15:36)
[2019-08-29 16:28] LABS: Creatine Kinase 167 U/L (55-170)
[2019-08-29 16:41] LABS: Troponin I 0.028 ng/mL (0.01-0.034)
[2019-08-29 16:44] LABS: CKMB % Relative Index 2.4 % (1.5-5.0); Creatine Kinase MB 4.08 ng/mL (<2.37)
== END 2019-08-29 17:35 | disposition home or self-care (01) ==
PROVIDERS: Emergency Provider Nurse Practitioner Family; PCP Family Medicine
DX: J18.9 Pneumonia, unspecified organism (principal); I10 Essential (primary) hypertension; Z87.891 Personal history of nicotine dependence
CPT/HCPCS: 36415; 71046; 80053; 81003; 82550; 82553; 83735; 83880; 84145; 84484; 85025; 85610; 85730; 93005; 94640; 99284; 99285

== ENCOUNTER → 2019-09-09 13:01 | Outpatient (CLI) | payer MEDICARE, OTHER, SELFPAY | PROVIDERS: PCP Family Medicine; Visit Provider Family Medicine | DX: J18.9 Pneumonia, unspecified organism (principal) ==

== ENCOUNTER → 2019-09-09 13:03 | Outpatient (CLI) | payer MEDICARE, OTHER, SELFPAY ==
--- NOTE | 2019-09-09 13:05 | DI.RAD.S_ITS ---
PROCEDURE: XR CHEST 2V INDICATIONS: f/u pneumonia, persistent cough, crackles TECHNIQUE: 2 views of the chest were acquired. COMPARISON: [facility], CR, XR CHEST 2V, 08/29/2019, 12:49. FINDINGS: Surgical changes and devices: Lead less pacemaker. Lungs and pleura: The lungs are mildly hyperinflated with coarse interstitial markings. There is persistent small right pleural effusion and patchy right base airspace opacity. Trace left pleural effusion with improved aeration of the left lower lung zone. No pleural effusions or pneumothorax. Mediastinum: Mediastinal contours are normal. Heart size is stable at the upper limits of normal. Bones and chest wall: No suspicious bony abnormalities. Degenerative changes in the shoulders. Soft tissues appear unremarkable. IMPRESSION: 1. Slight improvement in left lung infiltrate. 2. Chronic small right pleural effusion with associated opacity, likely atelectasis. 3. Chronic mild hyperinflation and coarse interstitial markings consistent with underlying COPD. 4. Stable borderline cardiomegaly. Dictated by: Zina Flor M.D. on 09/09/2019 at 15:28 Approved by: Zina Flor M.D. on 09/09/2019 at 15:31
[2019-09-09 16:03] LABS: BUN Creatinine Ratio 31.4 (6-22); Blood Urea Nitrogen 44 mg/dL (9-20); Calcium 9.5 mg/dL (8.4-10.2); Carbon Dioxide 29 mmol/L (22-32); Chloride 103 mmol/L (98-107); Estimated Glomerular Filt Rate 48.8 mL/min (>60); Glucose 110 mg/dL (80-110); HEMOLYSIS < 15 (0-50); Potassium 4.1 mmol/L (3.4-5.1); Sodium 142 mmol/L (137-145)
== END ==
PROVIDERS: PCP Family Medicine; Visit Provider Hospitalist
DX: J18.9 Pneumonia, unspecified organism (principal); R05 Cough; I10 Essential (primary) hypertension; I25.10 Atherosclerotic heart disease of native coronary artery without angina pectoris; J90 Pleural effusion, not elsewhere classified
CPT/HCPCS: 36415; 71046; 80048

== ENCOUNTER → 2019-10-09 16:14 | Outpatient (CLI) | payer MEDICARE, OTHER, SELFPAY ==
--- NOTE | 2019-10-09 16:16 | DI.RAD.S_ITS ---
PROCEDURE: XR CHEST 2V INDICATIONS: recheck cxr due to recent LLL pneumonia, h/o COPD TECHNIQUE: 2 views of the chest were acquired. COMPARISON: [facility], , XR CHEST 2V, 09/09/2019, 13:37. FINDINGS: Surgical changes and devices: None. Lungs and pleura: There is increased, moderate right basilar airspace opacity. Small right pleural effusion. No pneumothorax. Mediastinum: Mediastinal contours are normal. Heart size is normal. Bones and chest wall: No suspicious bony abnormalities. Soft tissues appear unremarkable. IMPRESSION: Increased right basilar pneumonia. Continued plain film surveillance is recommended to ensure resolution, and to exclude underlying or central malignancy. Dictated by: Erwin Snider M.D. on 10/09/2019 at 17:05 Approved by: Erwin Snider M.D. on 10/09/2019 at 17:06
== END ==
PROVIDERS: PCP Family Medicine; Referring Provider Physician Assistant; Visit Provider Physician Assistant
DX: J18.9 Pneumonia, unspecified organism (principal); R05 Cough; J44.9 Chronic obstructive pulmonary disease, unspecified
CPT/HCPCS: 71046

== ENCOUNTER → 2019-10-23 14:26 | Outpatient (CLI) | payer MEDICARE, OTHER, SELFPAY ==
--- NOTE | 2019-10-23 14:29 | DI.US.S_ITS ---
PROCEDURE: US RETRO PERITONEAL LIMITED INDICATIONS: FOLLOWUP AAA TECHNIQUE: Real time scanning was performed of the aorta and iliac arteries, with image documentation. COMPARISON: [facility], , RETRO PERITONEAL LIMITED, 04/12/2019, 12:55. FINDINGS: Aorta: Proximal aortic diameter measures 2.4 cm. Mid-aorta measures 2.2 cm. Distal aortic diameter is aneurysmal with maximal AP dimension of 4.9 cm, previously also the case in August of 2018. The transverse dimension also is 4.9 cm and the craniocaudad length is 5.5 cm, tapering above and below cm. Iliac arteries: Right common iliac artery measures 1.3 cm. Left common iliac artery measures 1.2 cm. IMPRESSION: Stable distal abdominal aortic aneurysm measuring up to 4.9 cm in maximal axial dimension. No new aneurysm found. Dictated by: Alan Ribeiro M.D. on 10/23/2019 at 16:34 Approved by: Alan Ribeiro M.D. on 10/23/2019 at 16:36
== END ==
PROVIDERS: PCP Family Medicine; Referring Provider Hospitalist; Visit Provider Hospitalist
DX: I71.4 Abdominal aortic aneurysm, without rupture (principal)
CPT/HCPCS: 76775

== ENCOUNTER 2019-11-23 14:54 | Emergency (ER) | payer MEDICARE, OTHER, SELFPAY ==
[2019-11-23 15:00] VITALS: BP 141/65; PULSE 92; RESP 30; TEMP 36.6; O2SAT 94
--- NOTE | 2019-11-23 15:04 | DI.RAD.S_ITS ---
PROCEDURE: XR CHEST 1V INDICATIONS: suspected sepsis TECHNIQUE: One view of the chest was acquired. COMPARISON: [facility], CR, XR CHEST 2V, 03/08/2019, 10:59. [facility], CR, XR CHEST 2V, 09/09/2019, 13:37. [facility], CR, XR CHEST 2V, 08/29/2019, 12:49. [facility], CR, XR CHEST 2V, 10/09/2019, 16:09. FINDINGS: Surgical changes and devices: A left patient monitor can be seen. Lungs and pleura: There is a small persistent right sided pleural effusion, versus scarring. Interstitial prominence is seen throughout. No pneumothorax is seen. No significant left-sided pleural effusion seen. Mediastinum: The cardiac contours are mildly enlarged. The aorta demonstrates calcification and tortuosity. Bones and chest wall: No suspicious bony lesions. Age-appropriate bony degenerative changes are seen. Overlying soft tissues appear unremarkable. IMPRESSION: Small persistent left-sided pleural effusion, versus scarring. There is mild cardiomegaly and interstitial prominence. Please correlate with patient presentation, physical examination findings, and laboratory values for congestive heart failure. If there is clinical concern for a developing pulmonary infectious process, a short-term followup chest series (with PA and lateral views, performed in deep inspiration) or a chest CT would be suggested for further evaluation. Dictated by: Bobby Pascal M.D. on 11/23/2019 at 15:17 Approved by: Bobby Pascal M.D. on 11/23/2019 at 15:20
[2019-11-23 15:15] VITALS: PULSE 84; RESP 26; O2SAT 94
[2019-11-23] MEDS: ALBUTEROL HFA 60 PUFF/8 GM INH INH (15:15)
[2019-11-23 15:35] LABS: Prothrombin Time 22.6 SECONDS (10.1-12.7)
[2019-11-23 15:38] LABS: Add Manual Diff / Slide Review NO; Basophils Absolute Auto 0 /uL (0-100); Basophils Percent Auto 0.4 % (0-2); Eosinophils Absolute Auto 300 /uL (0-450); Eosinophils Percent Auto 3.3 % (2-4); Hemoglobin 11.6 g/dL (13.5-17.5); Lymphocytes Absolute Auto 4300 /uL (1100-4500); Lymphocytes Percent Auto 41.5 % (25-40); Mean Corpuscular HGB Conc 34.1 % (30-36); Mean Corpuscular Hemoglobin 30.2 PG (26-34); Mean Corpuscular Volume 88.7 fL (80-100); Monocytes Absolute Auto 800 /uL (0-900); Monocytes Percent Auto 7.4 % (3-14); Neutrophils Absolute Auto 5000 /uL (1500-7000); Neutrophils Percent Auto 47.4 % (50-75); PTT Partial Thromboplastin Tim 35 SECONDS (26.4-36.2); Platelet Count 145 X10^3/uL (150-400); Red Blood Cell Count 3.83 X10^6/uL (4.5-5.9); Red Cell Distribution Width 15.4 % (11.6-14.8); White Blood Cell Count 10.5 X10^3/uL (4.5-11.0)
[2019-11-23 15:39] LABS: Creatine Kinase 495 U/L (55-170); Lactate (Lactic Acid) 1.2 mmol/L (0.7-2.1)
[2019-11-23 15:40] LABS: Alanine Aminotransferase 18 IU/L (<50); Albumin 4.5 g/dL (3.5-5.0); Albumin Globulin Ratio 1.4 (1.0-2.8); Alkaline Phosphatase 64 U/L (38-126); Aspartate Aminotransferase 43 IU/L (17-59); BUN Creatinine Ratio 24.3 (6-22); Bilirubin Total 0.8 mg/dL (0.2-1.3); Blood Urea Nitrogen 41 mg/dL (9-20); Carbon Dioxide 26 mmol/L (22-32); Chloride 99 mmol/L (98-107); Estimated Glomerular Filt Rate 39.2 mL/min (>60); Globulin 3.3 g/dL (1.7-4.1); Glucose 135 mg/dL (80-110); HEMOLYSIS < 15 (0-50); Lipase 57 U/L (23-300); Potassium 4.1 mmol/L (3.4-5.1); Sodium 136 mmol/L (137-145); Total Protein 7.8 g/dL (6.3-8.2)
[2019-11-23] MEDS: methylPREDNISolone 125 MG/2 ML VIAL IV (15:46)
[2019-11-23 15:52] LABS: Fractionated Inspired Oxygen 21; HCO3 ABG 25 mmol/L (22-26); Oxygen Saturation ABG 93 % (95-100); PO2 ABG 64 mmHg (80-100); TCO2 ABG 26 mmol/L (21-31); pH ABG 7.47 (7.35-7.45)
[2019-11-23 15:53] LABS: NT-proBNP (BNP-Adult 18+) 3330 pg/mL (<450); Troponin I 0.026 ng/mL (0.01-0.034)
[2019-11-23 15:54] LABS: CKMB % Relative Index 1.3 % (1.5-5.0); Creatine Kinase MB 6.22 ng/mL (<2.37)
--- NOTE | 2019-11-23 15:54 | ED_ITS ---
HPI - SOB/Dyspnea General Chief Complaint: Shortness of Breath/Dyspnea Stated Complaint: SOB since yesterday Time Seen by Provider: 11/23/19 15:37 Source: patient Mode of arrival: Ambulatory Limitations: no limitations History of Present Illness HPI Narrative: HPI: The patient is an 79-year-old male that came into the emergency department because he has developed progressively worsening shortness of breath. This started yesterday and has just progressively gotten worse. He has home nebulizers which seemed to help a little but he has just become more short of breath. He denies any chest pain. He admits to congestive heart failure and states that he has had increased swelling of his legs and his ankles. He admits to having kidney insufficiency. With minimal exertion he develops increased shortness of breath arm with cough and wheezing. His cough is minimally productive of sputum. He has had no hemoptysis. He has received his flu shot. He is on a blood thinner but does not remember what it is for his atrial fibrillation. He admits to having an internal pacemaker defibrillator. He denies any known exposure to a silva virus. He has not traveled outside the [place] and has not had any fever. He denies a history of hepatitis, TB, or HIV. He states that he has been a borderline diabetic in the past but no longer is. He has not had a stroke but has had a history of a myocardial infarction congestive heart failure COPD and hypertension. He denies any fever chills sweats headache sore throat. He has had minimal sinus congestion. He has had no chest pain rapid heart rate dizziness or passing out. He denies any abdominal pain nausea vomiting diarrhea change in bowel habits any urinary symptoms. Related Data Home Medications Medication Instructions Recorded Confirmed acetaminophen 325 mg capsule 325 mg PO Q6H PRN 08/18/18 10/09/19 albuterol sulfate 90 mcg/actuation 1 puff INHALATION Q6H PRN 08/18/18 10/09/19 aerosol inhaler alfuzosin 10 mg tablet,extended 10 mg PO DAILY 08/18/18 10/09/19 release 24 hr apixaban 5 mg tablet 5 mg PO BID 08/18/18 10/09/19 cholecalciferol (vitamin D3) 50 2,000 unit PO DAILY 08/18/18 10/09/19 mcg (2,000 unit) capsule magnesium 250 mg tablet 250 mg PO DAILY 08/18/18 10/09/19 nitroglycerin 0.4 mg sublingual 0.4 mg SL Q5-15M PRN 08/18/18 10/09/19 tablet [id number] 1 puff INHALATION DAILY 04/03/19 10/09/19 [Trelegy Ellipta] metoprolol succinate 50 mg 50 mg PO DAILY tab 04/09/19 10/09/19 tablet,extended release 24 hr rosuvastatin 5 mg tablet 2.5 mg PO DAILY tab 04/09/19 10/09/19 pramipexole 0.125 mg PO TID 08/29/19 10/09/19 Previous Rx's Medication Instructions Recorded diclofenac sodium 1 % topical gel 1 gram TOP QID PRN #100 gram 03/22/19 torsemide 10 mg tablet 20 mg PO BID #360 tab 04/05/[address] permit #1 ea 04/09/19 spironolactone 12.5 mg PO DAILY #10 tab 08/29/19 albuterol sulfate 2.5 mg INHALATION Q4H PRN #90 ml 11/23/19 ipratropium-albuterol 3 ml INHALATION Q4-6H PRN #90 ml 11/23/19 nitroglycerin [Nitro-Bid] 1 inch TRANSDERMAL BID #30 gram 11/23/19 prednisone 40 mg PO DAILY #10 tab 11/23/19 Allergies Allergy/AdvReac Type Severity Reaction Status Date / Time atorvastatin Allergy Verified 11/23/19 15:04 diclofenac Allergy Verified 11/23/19 15:04 lisinopril Allergy Verified 11/23/19 15:04 niacin Allergy Verified 11/23/19 15:04 pravastatin Allergy Verified 11/23/19 15:04 Review of Systems Review of Systems Narrative: Patient's review of systems were all negative except for those mentioned in the history of present illness. Patient History Medical History (HFpEF) heart failure with preserved ejection fraction (Chronic) Atrial fibrillation (Chronic) BPH (benign prostatic hyperplasia) (Chronic) COPD (chronic obstructive pulmonary disease) (Chronic) Coronary artery disease (Chronic) Essential hypertension (Chronic) ZACH (obstructive sleep apnea) (Chronic) Restless leg (Chronic) Right lower lobe pneumonia (Acute) Stage III chronic kidney disease (Chronic) Social History marital status: household members: children lives independently: Yes caregiver/support person: Yes housing: house occupational status: previously employed Smoking Status: Former smoker second hand exposure: No alcohol intake: current substance use type: does not use Smoking Status: Former smoker alcohol intake frequency: 0-2 drinks per day Alcohol type: beer and hard liquor Substance Use Type: does not use Exam Narrative Exam Narrative: PHYSICAL EXAM: CONSTITUTIONAL: Awake, Alert, Oriented, Coherent, Cooperative in NAD. He is sitting upright leaning forward. HEAD: AT/NC EENT: PERRL, FROM of eyes, No epistaxis or nasal drainage Oral mucosa is moist and pink, posterior pharynx is without erythema or exudate. NECK: Supple, no obvious JVD, Trachea is midline without stridor, no palpable LN or masses. SPINE: No gross deformity, no palpable tenderness of the cervical, thoracic, lumbar or sacral spine. Has a scar over the lower lumbar spine from a previous laminectomy. No CVA tenderness. THORAX: No deformity, retractions, chest wall tenderness, no palpable pacemaker defibrillator. He states it is internal may started at the groin. LUNGS: Markedly decreased breath sounds. He has inspiratory crackles in both lower corners of his lungs. He has diffuse faint fine expiratory wheezes. He is not moving much air. HEART: Heart tones are distant arm irregular irregular variable S1-S2 I believe I hear a soft systolic murmur along the left sternal border. ABDOMEN: Soft, non-tender, without guarding, rebound, rigidity or palpable mass . EXTREMITIES: Legs are very swollen 2+ pitting. SKIN: No rash, bruising, petechiae or purpura. NEURO: Awake, alert, oriented, conversive, cranial nerves II-XII are symmetrical moves all 4 extremities and is ambulatory Initial Vital Signs Initial Vital Signs: Vital Signs Temperature 97.9 F 11/23/19 15:00 Pulse Rate 92 H 11/23/19 15:00 Respiratory Rate 30 H 11/23/19 15:00 Blood Pressure 141/65 H 11/23/19 15:00 Pulse Oximetry 94 11/23/19 15:00 Course Course Course Narrative: [id number] after examining the patient clinically I believe he is in congestive heart failure with COPD. His blood gas reveals a pH is 7.469 indicating that he is respiratory alkalosis with hyperventilation. PCO2 is 34 PO2 is 60 for bicarb is 24.7 O2 saturation is 93% FiO2 is room air. He will be administered 1 in of nitro paste and 40 mg of Lasix IV. He may be given more Lasix if he does not respond to the 40 mg dose. 1729 the patient states that he feels much better than when he 1st came in. He has a urinal next to him that half filled. He is standing at the bedside perusing his phone. He states that he feels well enough that he think he can go home and would like to go home. He states that he has nebulizers at home. Orders Ordered: ED Orders 11/23/19 15:04 XR chest 1V Stat EKG-12 Lead Stat RT Consult Eval and Treat Now 11/23/19 15:10 C-Reactive Protein Quant Stat Complete Blood Count AUTO DIFF Stat Comprehensive Metabolic Panel Stat Ferritin Stat Lactate (Lactic Acid) Stat Lipase Stat NT-proBNP (BNP-Adult 18+) Stat Partial Thromboplastin Time Stat Procalcitonin Stat Prothrombin Time INR Stat Troponin & CK Cardiac Panel Stat 11/23/19 15:36 ABG [Arterial Blood Gas] Stat 11/23/19 16:42 Blood Culture Stat Discontinued Medications Albuterol (Ventolin Hfa) 4 puff INH NOW ONE Stop: 11/23/19 15:12 Last Admin: 11/23/19 15:15 Dose: 4 puff Documented by: DEWAYNE Furosemide (Lasix) 40 mg IV NOW ONE Stop: 11/23/19 15:53 Last Admin: 11/23/19 16:08 Dose: 40 mg Documented by: ESTRELLA Furosemide (Lasix) 40 mg IV NOW ONE Stop: 11/23/19 17:29 Last Admin: 11/23/19 18:16 Dose: Not Given Documented by: ESTRELLA Methylprednisolone (Solu-Medrol 125 Mg Vial) 125 mg IV NOW ONE Stop: 11/23/19 15:12 Last Admin: 11/23/19 15:46 Dose: 125 mg Documented by: ESTRELLA Nitroglycerin (Nitro-Bid) 1 inch TOP NOW ONE Stop: 11/23/19 15:53 Last Admin: 11/23/19 16:07 Dose: 1 inch Documented by: ESTRELLA Torsemide (Demadex) 40 mg PO NOW ONE Stop: 11/23/19 17:37 Last Admin: 11/23/19 18:12 Dose: Not Given Documented by: ESTRELLA Vital Signs Vital signs: Vital Signs - 8 hr 11/23/19 15:00 11/23/19 15:15 11/23/19 16:00 Temperature 97.9 F Pulse Rate 92 H 84 95 H Respiratory Rate 30 H 26 H Blood Pressure 141/65 H Blood Pressure [Left Arm] 118/59 L Pulse Oximetry 94 94 11/23/19 16:07 11/23/19 17:00 11/23/19 18:35 Temperature Pulse Rate 95 H 88 80 Respiratory Rate 26 H 20 Blood Pressure 118/59 L Blood Pressure [Left Arm] 141/70 H 125/60 Pulse Oximetry 94 96 MDM - SOB/Dyspnea Lab Data Result diagrams: 11/23/19 15:10 11/23/19 15:10 Labs: Lab Results 11/23/19 11/23/19 11/23/19 Range/Units 15:10 15:10 15:10 WBC 10.5 (4.5-11.0) X10^3/uL RBC 3.83 L (4.5-5.9) X10^6/uL Hgb 11.6 L (13.5-17.5) g/dL Hct 34.0 L (41-53) % MCV 88.7 (80-100) fL MCH 30.2 (26-34) PG MCHC 34.1 (30-36) % RDW 15.4 H (11.6-14.8) % Plt Count 145 L (150-400) X10^3/uL Neut % (Auto) 47.4 L (50-75) % Lymph % (Auto) 41.5 H (25-40) % Cecil % (Auto) 7.4 (3-14) % Eos % (Auto) 3.3 (2-4) % Baso % (Auto) 0.4 (0-2) % Neut # (Auto) 5000 (0259-6070) /uL Lymph # (Auto) 4300 (0293-7578) /uL Cecil # (Auto) 800 (0-900) /uL Eos # (Auto) 300 (0-450) /uL Baso # (Auto) 0 (0-100) /uL PT 22.6 H (10.1-12.7) SECONDS INR 2.0 H (0.9-1.3) APTT 35 (26.4-36.2) SECONDS ABG pH (7.35-7.45) ABG pCO2 (35-45) mmHg ABG pO2 (80-100) mmHg ABG HCO3 (22-26) mmol/L ABG Total CO2 (21-31) mmol/L ABG O2 Saturation (95-100) % ABG Base Excess (-2-2) mmol/L FiO2 Sodium (137-145) mmol/L Potassium (3.4-5.1) mmol/L Chloride (98-107) mmol/L Carbon Dioxide (22-32) mmol/L BUN (9-20) mg/dL Creatinine (0.66-1.25) mg/dL Estimated GFR (>60) mL/min BUN/Creatinine Ratio (6-22) Glucose (80-110) mg/dL Lactate (0.7-2.1) mmol/L Calcium (8.4-10.2) mg/dL Ferritin (18-464) ng/mL Total Bilirubin (0.2-1.3) mg/dL AST (17-59) IU/L ALT (<50) IU/L Alkaline Phosphatase (38-126) U/L Total Creatine Kinase (55-170) U/L CK-MB (CK-2) (<2.37) ng/mL CK-MB (CK-2) Rel Index (1.5-5.0) % Troponin I (0.01-0.034) ng/mL C-Reactive Protein (<1.0) mg/dL NT-Pro-B Natriuret Pep (<450) pg/mL Total Protein (6.3-8.2) g/dL Albumin (3.5-5.0) g/dL Globulin (1.7-4.1) g/dL Albumin/Globulin Ratio (1.0-2.8) Lipase (23-300) U/L Procalcitonin 0.07 (<0.5) ng/mL 11/23/19 11/23/19 11/23/19 Range/Units 15:10 15:10 15:10 WBC (4.5-11.0) X10^3/uL RBC (4.5-5.9) X10^6/uL Hgb (13.5-17.5) g/dL Hct (41-53) % MCV (80-100) fL MCH (26-34) PG MCHC (30-36) % RDW (11.6-14.8) % Plt Count (150-400) X10^3/uL Neut % (Auto) (50-75) % Lymph % (Auto) (25-40) % Cecil % (Auto) (3-14) % Eos % (Auto) (2-4) % Baso % (Auto) (0-2) % Neut # (Auto) (8151-2543) /uL Lymph # (Auto) (1641-4455) /uL Cecil # (Auto) (0-900) /uL Eos # (Auto) (0-450) /uL Baso # (Auto) (0-100) /uL PT (10.1-12.7) SECONDS INR (0.9-1.3) APTT (26.4-36.2) SECONDS ABG pH (7.35-7.45) ABG pCO2 (35-45) mmHg ABG pO2 (80-100) mmHg ABG HCO3 (22-26) mmol/L ABG Total CO2 (21-31) mmol/L ABG O2 Saturation (95-100) % ABG Base Excess (-2-2) mmol/L FiO2 Sodium 136 L (137-145) mmol/L Potassium 4.1 (3.4-5.1) mmol/L Chloride 99 (98-107) mmol/L Carbon Dioxide 26 (22-32) mmol/L BUN 41 H (9-20) mg/dL Creatinine 1.69 H (0.66-1.25) mg/dL Estimated GFR 39.2 L (>60) mL/min BUN/Creatinine Ratio 24.3 H (6-22) Glucose 135 H (80-110) mg/dL Lactate 1.2 (0.7-2.1) mmol/L Calcium 9.0 (8.4-10.2) mg/dL Ferritin 291 (18-464) ng/mL Total Bilirubin 0.8 (0.2-1.3) mg/dL AST 43 (17-59) IU/L ALT 18 (<50) IU/L Alkaline Phosphatase 64 (38-126) U/L Total Creatine Kinase 495 H (55-170) U/L CK-MB (CK-2) 6.22 H (<2.37) ng/mL CK-MB (CK-2) Rel Index 1.3 L (1.5-5.0) % Troponin I 0.026 (0.01-0.034) ng/mL C-Reactive Protein 7.7 H (<1.0) mg/dL NT-Pro-B Natriuret Pep 3330 H (<450) pg/mL Total Protein 7.8 (6.3-8.2) g/dL Albumin 4.5 (3.5-5.0) g/dL Globulin 3.3 (1.7-4.1) g/dL Albumin/Globulin Ratio 1.4 (1.0-2.8) Lipase 57 (23-300) U/L Procalcitonin (<0.5) ng/mL 11/23/19 Range/Units 15:36 WBC (4.5-11.0) X10^3/uL RBC (4.5-5.9) X10^6/uL Hgb (13.5-17.5) g/dL Hct (41-53) % MCV (80-100) fL MCH (26-34) PG MCHC (30-36) % RDW (11.6-14.8) % Plt Count (150-400) X10^3/uL Neut % (Auto) (50-75) % Lymph % (Auto) (25-40) % Cecil % (Auto) (3-14) % Eos % (Auto) (2-4) % Baso % (Auto) (0-2) % Neut # (Auto) (2541-5314) /uL Lymph # (Auto) (7292-9815) /uL Cecil # (Auto) (0-900) /uL Eos # (Auto) (0-450) /uL Baso # (Auto) (0-100) /uL PT (10.1-12.7) SECONDS INR (0.9-1.3) APTT (26.4-36.2) SECONDS ABG pH 7.47 H (7.35-7.45) ABG pCO2 34.0 L (35-45) mmHg ABG pO2 64 L (80-100) mmHg ABG HCO3 25 (22-26) mmol/L ABG Total CO2 26 (21-31) mmol/L ABG O2 Saturation 93 L (95-100) % ABG Base Excess 1.0 (-2-2) mmol/L FiO2 21 Sodium (137-145) mmol/L Potassium (3.4-5.1) mmol/L Chloride (98-107) mmol/L Carbon Dioxide (22-32) mmol/L BUN (9-20) mg/dL Creatinine (0.66-1.25) mg/dL Estimated GFR (>60) mL/min BUN/Creatinine Ratio (6-22) Glucose (80-110) mg/dL Lactate (0.7-2.1) mmol/L Calcium (8.4-10.2) mg/dL Ferritin (18-464) ng/mL Total Bilirubin (0.2-1.3) mg/dL AST (17-59) IU/L ALT (<50) IU/L Alkaline Phosphatase (38-126) U/L Total Creatine Kinase (55-170) U/L CK-MB (CK-2) (<2.37) ng/mL CK-MB (CK-2) Rel Index (1.5-5.0) % Troponin I (0.01-0.034) ng/mL C-Reactive Protein (<1.0) mg/dL NT-Pro-B Natriuret Pep (<450) pg/mL Total Protein (6.3-8.2) g/dL Albumin (3.5-5.0) g/dL Globulin (1.7-4.1) g/dL Albumin/Globulin Ratio (1.0-2.8) Lipase (23-300) U/L Procalcitonin (<0.5) ng/mL Urine Dip Bedside Urine Glucose Negative Bedside Urine Bilirubin - Negative Bedside Urine Ketone - Negative Urine Specific [place] 1.015 Bedside Urine Occult Blood - Negative Bedside Urine pH 6.5 Bedside Urine Protein - Negative Bedside Urine Urobilinogen - Negative Bedside Urine Nitrite - Negative Bedside Urine Leukocytes - Negative Esterase Discharge Plan Departure Patient Disposition: Home Clinical Impression: Acute dyspnea, COPD exacerbation Pulmonary edema Qualifiers: Chronicity: acute Qualified Code(s): J81.0 - Acute pulmonary edema CHF (congestive heart failure) Qualifiers: Heart failure type: unspecified Heart failure chronicity: unspecified Qualified Code(s): I50.9 - Heart failure, unspecified Discharge Date/Time: 11/23/19 18:36 Instructions: DI for Heart Failure, DI for Chronic Obstructive Pulmonary Disease, DI for Cough -- Adult Activity Restrictions/Additional Instructions: 1. With swelling of your legs, congestive heart failure you need to limit your total fluid intake to 2000 CC or 2 liters of fluid ( which includes alcoholic beverages, coffee Tea, soups, milk and liquids, etc.) 2. For the next day increase your torsemide from 20 mg twice a day to 40 mg twice a day. After that resume your normal dosing schedule of 20 mg twice a day. 3. Measure your weight per day and if your weight is going up it is secondary to fluid accumulation and you will need to it limit your fluid intake as well as increase your dose of torsemide 4. Follow-up with your primary care physician to be recheck in 48-72 hours. 5. Take the prednisone as prescribed 40 mg per day for the next 5 days. 6. Take ipratroprium/ albuterol breathing treatments every 4-6 hours as needed for shortness of breath, cough, wheezing. 7. In between the ipratropium/ albuterol treatments you can take albuterol breathing treatments every 2-4 hours. 8. If you feel dizzy faint as if you are going to pass out or pass out with chest pain high fever you need to return to the emergency department to be re- evaluated. Prescriptions: New prednisone 20 mg tablet 40 mg PO DAILY Qty: 10 RF: 0 ipratropium-albuterol 0.5 mg-3 mg(2.5 mg base)/3 mL solution for nebulization 3 ml INHALATION Q4-6H PRN (Reason: shortness of breath or wheezing) Qty: 90 RF: 0 albuterol sulfate 2.5 mg /3 mL (0.083 %) solution for nebulization 2.5 mg INHALATION Q4H PRN (Reason: shortness of breath or wheezing) Qty: 90 RF: 1 Nitro-Bid 2 % ointment 1 inch transdermal BID Qty: 30 RF: 0 No Action nitroglycerin 0.4 mg tablet, sublingual 0.4 mg SL Q5-15M PRN (Reason: Chest Pain) RF: 0 magnesium 250 mg tablet 250 mg PO DAILY RF: 0 albuterol sulfate 90 mcg/actuation HFA aerosol inhaler 1 puff INHALATION Q6H PRN (Reason: Shortness Of Breath) RF: 0 alfuzosin 10 mg tablet extended release 24 hr 10 mg PO DAILY RF: 0 acetaminophen 325 mg capsule 325 mg PO Q6H PRN (Reason: pain) RF: 0 cholecalciferol (vitamin D3) 2,000 unit capsule 2,000 unit PO DAILY RF: 0 apixaban 5 mg tablet 5 mg PO BID RF: 0 rosuvastatin 5 mg tablet 2.5 mg PO DAILY RF: 0 metoprolol succinate 50 mg tablet extended release 24 hr 50 mg PO DAILY RF: 0 diclofenac sodium 1 % gel 1 gram TOP QID PRN (Reason: pain) Qty: 100 RF: 0 torsemide 10 mg tablet 20 mg PO BID Qty: 360 RF: 3 (DME) Disabled parking permit Qty: 1 RF: 0 Trelegy Ellipta 100-62.5-25 mcg blister with device 1 puff inhalation DAILY RF: 0 pramipexole 0.25 mg tablet 0.125 mg PO TID RF: 0 spironolactone 25 mg tablet 12.5 mg PO DAILY Qty: 10 RF: 0 Referrals: Elis Arroyo MD [Primary Care Provider] -
[2019-11-23 15:58] LABS: C-Reactive Protein Quant 7.7 mg/dL (<1.0); Procalcitonin 0.07 ng/mL (<0.5)
[2019-11-23 16:00] VITALS: BP 118/59; PULSE 95
[2019-11-23 16:07] VITALS: BP 118/59; PULSE 95
[2019-11-23] MEDS: NITROGLYCERIN OINT 1 INCH/GM OINT...G. TOP (16:07)
[2019-11-23] MEDS: FUROSEMIDE 40 MG/4 ML VIAL IV (16:08)
[2019-11-23 16:15] LABS: Ferritin 291 ng/mL (18-464)
[2019-11-23 17:00] VITALS: BP 141/70; PULSE 88; RESP 26; O2SAT 94
[2019-11-23 18:35] VITALS: BP 125/60; PULSE 80; RESP 20; O2SAT 96
[2019-11-25 14:36] LABS: COVID19 Sendout Not Detected (Not Detected)
== END 2019-11-23 18:36 | disposition home or self-care (01) ==
PROVIDERS: Emergency Provider Emergency Medicine; PCP Family Medicine
DX: R06.00 Dyspnea, unspecified (principal); J44.1 Chronic obstructive pulmonary disease with (acute) exacerbation; J81.0 Acute pulmonary edema; I50.9 Heart failure, unspecified; Z79.01 Long term (current) use of anticoagulants; Z95.0 Presence of cardiac pacemaker
CPT/HCPCS: 36415; 36600; 71045; 80053; 81003; 82550; 82553; 82728; 82805; 83605; 83690; 83880; 84145; 84484; 85025; 85610; 85730; 86140; 87040; 87635; 93005; 94640; 96374; 96375; 99284; 99285; J1940; J2930

== ENCOUNTER → 2019-12-05 10:57 | Outpatient (CLI) | payer MEDICARE, OTHER, SELFPAY ==
--- NOTE | 2019-12-05 10:59 | DI.RAD.S_ITS ---
PROCEDURE: XR CHEST 2V INDICATIONS: Crackles on exam TECHNIQUE: 2 views of the chest were acquired. COMPARISON: [facility], CR, XR CHEST 1V, 11/23/2019, 15:19. FINDINGS: Surgical changes and devices: Left turkey pinner again noted Lungs and pleura: Small right pleural effusion with minimal right basilar atelectasis. Effusion is slightly diminished. No pleural effusions or pneumothorax. Mediastinum: Mediastinal contours are normal. Heart size is normal. Bones and chest wall: No suspicious bony abnormalities. Soft tissues appear unremarkable. IMPRESSION: Slight interval decrease in small right pleural effusion with minimal right basilar atelectasis. Dictated by: Liban Sherwood M.D. on 12/05/2019 at 11:25 Approved by: Liban Sherwood M.D. on 12/05/2019 at 11:26
[2019-12-05 11:12] LABS: Add Manual Diff / Slide Review NO; Basophils Absolute Auto 200 /uL (0-100); Basophils Percent Auto 0.7 % (0-2); Eosinophils Absolute Auto 700 /uL (0-450); Eosinophils Percent Auto 3.3 % (2-4); Hematocrit 40.4 % (41-53); Hemoglobin 13.4 g/dL (13.5-17.5); Lymphocytes Absolute Auto 9400 /uL (1100-4500); Lymphocytes Percent Auto 43.4 % (25-40); Mean Corpuscular HGB Conc 33.1 % (30-36); Mean Corpuscular Hemoglobin 29.9 PG (26-34); Mean Corpuscular Volume 90.3 fL (80-100); Monocytes Absolute Auto 1200 /uL (0-900); Monocytes Percent Auto 5.7 % (3-14); Neutrophils Absolute Auto 10100 /uL (1500-7000); Neutrophils Percent Auto 46.9 % (50-75); Platelet Count 166 X10^3/uL (150-400); Red Blood Cell Count 4.47 X10^6/uL (4.5-5.9); Red Cell Distribution Width 15.3 % (11.6-14.8); White Blood Cell Count 21.6 X10^3/uL (4.5-11.0)
[2019-12-05 11:25] LABS: Alanine Aminotransferase 27 IU/L (<50); Albumin 4.6 g/dL (3.5-5.0); Albumin Globulin Ratio 1.4 (1.0-2.8); Alkaline Phosphatase 51 U/L (38-126); Aspartate Aminotransferase 35 IU/L (17-59); BUN Creatinine Ratio 29.9 (6-22); Bilirubin Total 1.5 mg/dL (0.2-1.3); Blood Urea Nitrogen 52 mg/dL (9-20); Calcium 9.2 mg/dL (8.4-10.2); Carbon Dioxide 29 mmol/L (22-32); Chloride 99 mmol/L (98-107); Estimated Glomerular Filt Rate 37.9 mL/min (>60); Globulin 3.4 g/dL (1.7-4.1); Glucose 112 mg/dL (80-110); HEMOLYSIS < 15 (0-50); Potassium 4.4 mmol/L (3.4-5.1); Sodium 139 mmol/L (137-145)
[2019-12-05 11:33] LABS: NT-proBNP (BNP-Adult 18+) 1290 pg/mL (<450)
[2019-12-05 14:02] LABS: Procalcitonin 0.15 ng/mL (<0.5)
== END ==
PROVIDERS: PCP Family Medicine; Referring Provider Registered Nurse; Visit Provider Registered Nurse
DX: I50.9 Heart failure, unspecified (principal); R53.83 Other fatigue; D72.829 Elevated white blood cell count, unspecified
CPT/HCPCS: 36415; 71046; 80053; 83880; 84145; 85025

== ENCOUNTER → 2019-12-09 10:55 | Outpatient (CLI) | payer MEDICARE, OTHER, SELFPAY ==
[2019-12-09 11:36] LABS: Blood Urea Nitrogen 63 mg/dL (9-20); Calcium 9.3 mg/dL (8.4-10.2); Carbon Dioxide 32 mmol/L (22-32); Chloride 98 mmol/L (98-107); Estimated Glomerular Filt Rate 31.8 mL/min (>60); Glucose 125 mg/dL (80-110); HEMOLYSIS < 15 (0-50); Potassium 4.3 mmol/L (3.4-5.1); Sodium 138 mmol/L (137-145)
== END ==
PROVIDERS: PCP Family Medicine; Referring Provider Family Medicine; Visit Provider Registered Nurse
DX: E86.0 Dehydration (principal)
CPT/HCPCS: 36415; 80048

== ENCOUNTER → 2019-12-16 10:27 | Outpatient (CLI) | payer MEDICARE, OTHER, SELFPAY ==
[2019-12-16 12:02] LABS: BUN Creatinine Ratio 19.8 (6-22); Blood Urea Nitrogen 26 mg/dL (9-20); Calcium 9.6 mg/dL (8.4-10.2); Carbon Dioxide 29 mmol/L (22-32); Chloride 107 mmol/L (98-107); Estimated Glomerular Filt Rate 52.6 mL/min (>60); Glucose 127 mg/dL (80-110); HEMOLYSIS < 15 (0-50); Potassium 4.9 mmol/L (3.4-5.1); Sodium 142 mmol/L (137-145)
== END ==
PROVIDERS: PCP Family Medicine; Referring Provider Family Medicine; Visit Provider Family Medicine
DX: I10 Essential (primary) hypertension (principal)
CPT/HCPCS: 36415; 80048

== ENCOUNTER → 2020-02-14 16:42 | Outpatient (CLI) | payer MEDICARE, OTHER, SELFPAY ==
[2020-02-14 18:06] LABS: Hemoglobin A1C% w Est Avg Glu 5.7 % (4.0-6.0)
[2020-02-14 18:40] LABS: TSH w/ Reflex to FT4 2.36 uIU/mL (0.47-4.68)
[2020-02-14 18:58] LABS: Vitamin B12 944 pg/mL (239-931)
== END ==
PROVIDERS: PCP Family Medicine; Referring Provider Family Medicine; Visit Provider Family Medicine
DX: R20.2 Paresthesia of skin (principal)
CPT/HCPCS: 36415; 82607; 83036; 84443

== ENCOUNTER → 2020-04-14 13:39 | Outpatient (CLI) | payer MEDICARE, OTHER, SELFPAY ==
--- NOTE | 2020-04-14 | DI.ECHO.S_ITS ---
[facility]---------[facility] +---------+ : : [address] : : : : [id number] : : : : Phone: [phone] Echocardiogram Report + + :Name: PRIYA DÍAZ Study Date: 04/14/2020 Height: 65 in : :[facility] Weight: 167 lb : : Gender: Male BSA: 1.8 m2 : :: 1940 Age: 79 yrs BP: 146/79 mmHg: :Reason For Study: ATHEROSCLEROTIC HEART DISEASE : :Ordering Physician: Elena : :Aubrey Leos Performed By: Oralia Patrick : :Referring: ELENA JEAN BAPTISTE : + + Interpretation Summary The left ventricle is normal in size. Left ventricular wall thickness is mildly increased. The left ventricular ejection fraction is normal. There is a mild dyssynchronous contraction pattern due to the paced rhythm. The right ventricle is normal in size and function. The right ventricular systolic pressure is estimated to be at least 35 mmHg based on an estimated right atrial pressure of 3 mm Hg. There is mild mitral regurgitation. -Compared to the prior echocardiogram, the right atrial size is slightly smaller. Otherwise there is no significant change. Procedure: A two-dimensional transthoracic echocardiogram with color flow and Doppler was performed. The study quality was technically adequate. Comparison is made with the echocardiogram of 02/13/2019. The patient has a paced rhythm. Left Ventricle: The left ventricle is normal in size. Left ventricular wall thickness is mildly increased. The ejection fraction is estimated to be 55- 60%. The left ventricular ejection fraction is normal. There is a mild dyssynchronous contraction pattern due to the paced rhythm. Apical wall motion abnormality may reflect pacemaker activation. There are no other obvious focal wall motion abnormalities. Diastolic function could not be accurately assessed due to paced rhythm. Right Ventricle: There is a pacemaker lead in the right ventricle. The right ventricle is normal in size and function. Atria: The left atrium is moderately dilated. The right atrium is mildly dilated. There is no Doppler evidence for an interatrial shunt. Mitral Valve: The mitral valve is normal in structure and function. There is mild mitral annular calcification. There is mild mitral regurgitation. Aortic Valve: The aortic valve is trileaflet. The aortic valve opens well. There is no aortic valve stenosis. No aortic regurgitation is present. Tricuspid Valve: The tricuspid valve is normal in structure and function. The right ventricular systolic pressure is estimated to be at least 35 mmHg based on an estimated right atrial pressure of 3 mm Hg. There is mild to moderate tricuspid regurgitation. Pulmonic Valve: The pulmonic valve is not well visualized. There is mild pulmonic regurgitation. Great Vessels: The aortic root is normal size. The ascending aorta is mildly enlarged. The IVC is of normal diameter and collapses greater than 50% with a sniff. This suggests a low right atrial pressure of 3 mm Hg. Pericardium/ Pleura There is no pericardial effusion. There is no pleural effusion. MMode/2D Measurements & Calculations LVIDd: 4.6 cm LVOT diam: 2.1 cm LVIDs: 3.2 cm Ao root diam: 3.7 cm FS: 29.6 % asc Aorta Diam: 3.6 cm EPSS: 0.97 cm IVSd: 1.1 cm LVPWd: 1.1 cm LV zarate. diameter/BSA (cm/m^2): 2.5 LV sys. diameter/BSA (cm/m^2): 1.8 LA A2 area: 26.7 cm2 RA long axis: 7.1 cm LA A4 area: 21.7 cm2 RA area: 21.1 cm2 LA length (vol): 6.2 cm RA vol: 53.5 ml LA vol: 79.8 ml RA : 29.2 ml/m2 LA vol index: 43.6 ml/m2 IVC diam: 1.8 cm RVD1 (basal): 3.5 cm TAPSE: 1.8 cm Doppler Measurements & Calculations Ao V2 max: 126.7 cm/sec LVOT Max Bryce: 73.1 cm/sec Ao V2 mean: 90.4 cm/sec LV V1 max P.1 mmHg Ao max P.4 mmHg LV V1 VTI: 13.3 cm Ao mean P.6 mmHg RADHA(I,D): 1.9 cm2 Ao V2 VTI: 23.1 cm RADHA(V,D): 1.9 cm2 sev ratio: 0.57 RADHA indexed to BSA (cm^2/m^2): 1.0 MV E max bryce: 126.5 cm/sec TR max bryce: 295.0 cm/sec MV A max bryce: 2.9 cm/sec TR max P.8 mmHg MV E/A: 43.2 PA V2 max: 79.5 cm/sec Med Peak E' Bryce: 7.2 cm/sec PA V2 mean: 53.8 cm/sec E/E' med: 17.6 PA mean P.3 mmHg Lat Peak E' Bryce: 8.0 cm/sec PA pr(Accel): 36.2 mmHg E/E' lat: 15.8 E/e' average: 16.7 MV dec time: 0.19 sec SV(LVOT): 44.1 ml Electronically signed by: Elena Jean Baptiste M.D. on Reading Physician:04/16/2020 09:35 AM
== END ==
PROVIDERS: PCP Family Medicine; Referring Provider Family Medicine; Visit Provider Hospitalist
DX: I08.1 Rheumatic disorders of both mitral and tricuspid valves (principal); I25.10 Atherosclerotic heart disease of native coronary artery without angina pectoris; I77.89 Other specified disorders of arteries and arterioles; Z95.0 Presence of cardiac pacemaker
CPT/HCPCS: 93306

== ENCOUNTER 2020-06-22 20:53 | Emergency (ER) | payer MEDICARE, OTHER, SELFPAY ==
[2020-06-22 21:08] VITALS: BP 165/73; PULSE 92; RESP 20; TEMP 36.9; O2SAT 96; BMI 25.3
--- NOTE | 2020-06-22 21:24 | ED.LOWEXIN ---
HPI - Extremity Injury (Lower) General Chief Complaint: Extremity Injury, Lower Stated Complaint: Pain in knees Time Seen by Provider: 06/22/20 21:21 Source: patient and family Mode of arrival: Wheelchair Limitations: physical limitation History of Present Illness HPI Narrative: The patient complains of right knee pain. He has had no fall, twist or injury. He has had bilateral knee pain intermittently over years. The right knee is hurting more today. He notes no redness, or edema. He has no numbness or weakness in the right leg. He uses diclofenac gel. He has a known history of arthritis. He has no right calf edema, no chest pain or dyspnea. He has no other complaints. Related Data Home Medications Medication Instructions Recorded Confirmed acetaminophen 325 mg capsule 325 mg PO Q6H PRN 08/18/18 04/29/20 albuterol sulfate 90 mcg/actuation 1 puff INHALATION Q6H PRN 08/18/18 04/29/20 aerosol inhaler alfuzosin 10 mg tablet,extended 10 mg PO DAILY 08/18/18 04/29/20 release 24 hr apixaban 5 mg tablet 5 mg PO BID 08/18/18 04/29/20 cholecalciferol (vitamin D3) 50 2,000 unit PO DAILY 08/18/18 04/29/20 mcg (2,000 unit) capsule magnesium 250 mg tablet 250 mg PO DAILY 08/18/18 04/29/20 nitroglycerin 0.4 mg sublingual 0.4 mg SL Q5-15M PRN 08/18/18 04/29/20 tablet [id number]-[id number] 1 puff INHALATION DAILY 04/03/19 04/29/20 [Trelenoris Ellipta] spironolactone 25 mg tablet 25 mg PO DAILY tab 12/30/19 04/29/20 rosuvastatin 5 mg tablet 10 mg PO DAILY tab 04/29/20 04/29/20 Previous Rx's Medication Instructions Recorded diclofenac sodium 1 % topical gel 1 gram TOP QID PRN #100 gram 03/22/19 torsemide 10 mg tablet 20 mg PO BID #360 tab 04/05/[address] permit #1 ea 04/09/19 albuterol sulfate 2.5 mg INHALATION Q4H PRN #90 ml 11/23/19 ipratropium-albuterol 3 ml INHALATION Q4-6H PRN #90 ml 11/23/19 nitroglycerin [Nitro-Bid] 1 inch TRANSDERMAL BID #30 gram 11/23/19 metoprolol succinate 50 mg 50 mg PO DAILY #90 tab 02/14/20 tablet,extended release 24 hr pramipexole 0.25 mg tablet See Rx Instructions .ROUTE 05/18/20 .COMPLEX #45 tab oxycodone-acetaminophen [Percocet] 1 tab PO Q6H PRN #10 tab 06/22/20 Allergies Allergy/AdvReac Type Severity Reaction Status Date / Time atorvastatin Allergy Verified 06/22/20 21:08 diclofenac Allergy Verified 06/22/20 21:08 lisinopril Allergy Verified 06/22/20 21:08 niacin Allergy Verified 06/22/20 21:08 pravastatin Allergy Verified 06/22/20 21:08 Review of Systems Constitutional Constitutional: Denies chills, Denies fever(s) and Denies headache(s) Comments: No recent illness ENT Ears, Nose, Mouth, and Throat: Denies headache(s) Musculoskeletal Comments: Right knee pain is noted HPI. Integumentary/Breasts Comments: No rash. No erythema. Neurologic Neurologic: Denies headache(s) Comments: No lower extremity numbness or weakness Patient History Medical History (HFpEF) heart failure with preserved ejection fraction (Chronic) Atrial fibrillation (Chronic) BPH (benign prostatic hyperplasia) (Chronic) COPD (chronic obstructive pulmonary disease) (Chronic) Coronary artery disease (Chronic) Essential hypertension (Chronic) ZACH (obstructive sleep apnea) (Chronic) Restless leg (Chronic) Seborrheic keratosis (Acute) Stage III chronic kidney disease (Chronic) Social History marital status: household members: children lives independently: Yes caregiver/support person: Yes housing: house occupational status: previously employed Smoking Status: Former smoker second hand exposure: No alcohol intake: current substance use type: does not use Smoking Status: Former smoker alcohol intake frequency: a few times a month Alcohol type: beer and hard liquor Substance Use Type: does not use Exam Initial Vital Signs Initial Vital Signs: Vital Signs Temperature 98.5 F 06/22/20 21:08 Pulse Rate 92 H 10/26/20 21:08 Respiratory Rate 20 06/22/20 21:08 Blood Pressure 165/73 H 06/22/20 21:08 Pulse Oximetry 96 06/22/20 21:08 Const General: cooperative and well developed Nutritional Appearance: well nourished Skin Other: No erythema. No rashes. Neuro Other: Motor and sensory exam lower extremities are normal. He is favoring his right knee when he stands or walks. Extrem Other: Right knee demonstrates range of motion 0-120 degrees. There is no effusion or edema to the right knee. He has mild subpatellar tenderness. Anterior drawer sign is normal. He has no medial or lateral laxity. He has no calf tenderness. There is no lower extremity edema. Dorsalis pedis pulses are normal. Course Course Course Narrative: The patient right knee x-ray is normal, quite reassuring. He has had chronic pain. He generally takes Tylenol for pain, occasionally 1/2 of an oxycodone. I will give him a limited supply, he has follow-up with PCM for ongoing care. Orders Ordered: ED Orders 06/22/20 22:10 XR knee RT 3V Stat Vital Signs Vital signs: Vital Signs - 8 hr 06/22/20 21:08 Temperature 98.5 F Pulse Rate 92 H Respiratory Rate 20 Blood Pressure 165/73 H Pulse Oximetry 96 MDM - Extremity Injury (Lower) Imaging Data Right knee x-ray: My Impression: Normal Discharge Plan Departure Patient Disposition: Home Clinical Impression: Acute pain of right knee Instructions: DI for Knee Pain Activity Restrictions/Additional Instructions: Tylenol 2 tablets every 4 hours as needed for pain. Oxycodone, 1/2 tablet every 4-6 hours as needed for added pain control. Make a follow-up appoint with your doctor later this week for ongoing pain management if necessary. Prescriptions: New oxycodone-acetaminophen [Percocet] 5-325 mg tablet 1 tab PO Q6H PRN (Reason: pain) Qty: 10 RF: 0 No Action nitroglycerin 0.4 mg tablet, sublingual 0.4 mg SL Q5-15M PRN (Reason: Chest Pain) RF: 0 magnesium 250 mg tablet 250 mg PO DAILY RF: 0 albuterol sulfate 90 mcg/actuation HFA aerosol inhaler 1 puff INHALATION Q6H PRN (Reason: Shortness Of Breath) RF: 0 alfuzosin 10 mg tablet extended release 24 hr 10 mg PO DAILY RF: 0 acetaminophen 325 mg capsule 325 mg PO Q6H PRN (Reason: pain) RF: 0 cholecalciferol (vitamin D3) 2,000 unit capsule 2,000 unit PO DAILY RF: 0 apixaban 5 mg tablet 5 mg PO BID RF: 0 rosuvastatin 5 mg tablet 10 mg PO DAILY RF: 0 spironolactone 25 mg tablet 25 mg PO DAILY RF: 0 diclofenac sodium 1 % gel 1 gram TOP QID PRN (Reason: pain) Qty: 100 RF: 0 torsemide 10 mg tablet 20 mg PO BID Qty: 360 RF: 3 Hold Instructions: Dehydration (DME) Disabled parking permit Qty: 1 RF: 0 metoprolol succinate 50 mg tablet extended release 24 hr 50 mg PO DAILY Qty: 90 RF: 3 pramipexole 0.25 mg tablet See Rx Instructions .ROUTE .COMPLEX Qty: 45 RF: 1 Trelegy Ellipta 100-62.5-25 mcg blister with device 1 puff inhalation DAILY RF: 0 ipratropium-albuterol 0.5 mg-3 mg(2.5 mg base)/3 mL solution for nebulization 3 ml INHALATION Q4-6H PRN (Reason: shortness of breath or wheezing) Qty: 90 RF: 0 albuterol sulfate 2.5 mg /3 mL (0.083 %) solution for nebulization 2.5 mg INHALATION Q4H PRN (Reason: shortness of breath or wheezing) Qty: 90 RF: 1 Nitro-Bid 2 % ointment 1 inch transdermal BID Qty: 30 RF: 0 Referrals: Elis Arroyo MD [Primary Care Provider] -
--- NOTE | 2020-06-22 22:10 | DI.RAD.S_ITS ---
PROCEDURE: XR KNEE RT 3V INDICATIONS: Right knee pain TECHNIQUE: 3 views of the knee were acquired. COMPARISON: None. FINDINGS: Bones: No fractures or dislocations. No suspicious bony lesions. Soft tissues: No joint effusion. No suspicious soft tissue calcifications. IMPRESSION: No trauma found. Source of current symptoms is not seen. Dictated by: Alan Ribeiro M.D. on 06/23/2020 at 9:04 Approved by: Alan Ribeiro M.D. on 06/23/2020 at 9:05
[2020-06-22] MEDS: OXYCODONE/ACETAMINOPHEN 5/325 TABLET 1 TAB PO (23:31)
[2020-06-22 23:34] VITALS: BP 151/70; PULSE 87; RESP 20; O2SAT 95
== END 2020-06-22 23:35 | disposition home or self-care (01) ==
PROVIDERS: Emergency Provider Emergency Medicine; PCP Family Medicine
DX: M25.561 Pain in right knee (principal)
CPT/HCPCS: 73562; 99283

== ENCOUNTER 2020-07-28 06:53 | Observation (INO) | payer MEDICARE, OTHER, SELFPAY ==
[2020-07-28] VITALS (32 sets, daily range): BP systolic 148–193; BP diastolic 75–94; PULSE 80–93; RESP 10–40; TEMP 36.6–38.2; O2SAT 75–99; BMI 27.1
--- NOTE | 2020-07-28 06:57 | DI.RAD.S_ITS ---
PROCEDURE: XR CHEST 2V INDICATIONS: SOB TECHNIQUE: 2 views of the chest were acquired. COMPARISON: [facility], CR, XR CHEST 2V, 12/05/2019, 11:10. [facility], CR, XR CHEST 1V, 11/23/2019, 15:19. FINDINGS: Surgical changes and devices: Cardiac monitoring device overlies the medial left chest.. Lungs and pleura: Lungs are abnormal with pulmonary hyperexpansion previously documented. There is what appears to be a pneumonia pattern at the right lung base, and a small subpulmonic right pleural effusion with additional fluid in the minor fissure.. No pleural effusions or pneumothorax. Mediastinum: Mediastinal contours are normal. Heart size is globally enlarged, chronically. Bones and chest wall: No suspicious bony abnormalities. Soft tissues appear unremarkable. IMPRESSION: COPD, chronic cardiomegaly, probable right lower lung pneumonia with associated small subpulmonic pleural effusion Dictated by: Alan Ribeiro M.D. on 07/28/2020 at 8:32 Approved by: Alan Ribeiro M.D. on 07/28/2020 at 8:34
[2020-07-28] MEDS: ALBUTEROL HFA 200 PUFF/18 GM INH (COVID POS/VENT PTS) INH (07:17)
--- NOTE | 2020-07-28 07:18 | ED.SOB ---
HPI - SOB/Dyspnea General Chief Complaint: Shortness of Breath/Dyspnea Stated Complaint: SOB, ran out of water pill Time Seen by Provider: 07/28/20 06:56 Source: patient and family Mode of arrival: Wheelchair Limitations: no limitations History of Present Illness HPI Narrative: To the emergency department for worsening shortness of breath. Patient states that he has a known history of CHF, he is typically on Lasix 10 mg daily. Patient stopped weighing himself about a month ago, he was typically 160-157 and today he was 166 lb. Patient has run out of Lasix he thinks 3 or 4 days ago. He states that his Lasix and his hypertensive medication look very similar and he actually took an extra dose of his antihypertensive last night. He has had increasing shortness of breath, swelling in his lower extremities and orthopnea. Patient denies any fevers, no cough colder congestive symptoms. No nausea, no vomiting. He denies any chest pain or pressure. No diaphoresis. He did have an episode of diarrhea last night but no bright red blood or melena. Patient has a history of atrial fibrillation and is on Eliquis, hypertension, dyslipidemia, CHF, COPD and uses a trilogy machine in the morning. Patient has a cardiac stent, pacemaker, has had low back surgery approximately 20/30 years ago as well as rotator cuff repair. He has remote history of tobacco use. No allergies to medication. His primary care is Dr. Arroyo, his events administrative assistant is through Dr. Silverman's group and used to be Dr. Jean Baptiste and he has a recruitment assistant. He is also scheduled to see a microstrategy bi developer for chronic kidney disease. Patient is accompanied by his daughter. Related Data Home Medications Medication Instructions Recorded Confirmed acetaminophen 325 mg capsule 325 mg PO Q6H PRN 08/18/18 07/28/20 albuterol sulfate 90 mcg/actuation 1 puff INHALATION Q6H PRN 08/18/18 07/03/20 aerosol inhaler alfuzosin 10 mg tablet,extended 10 mg PO DAILY 08/18/18 07/28/20 release 24 hr apixaban 5 mg tablet 5 mg PO BID 08/18/18 07/28/20 cholecalciferol (vitamin D3) 50 2,000 unit PO DAILY 08/18/18 07/28/20 mcg (2,000 unit) capsule magnesium 250 mg tablet 250 mg PO DAILY 08/18/18 07/28/20 nitroglycerin 0.4 mg sublingual 0.4 mg SL Q5-15M PRN 08/18/18 07/28/20 tablet unnqzqxiehk-yfqztpstm-olwdwwsr 1 puff INHALATION DAILY 04/03/19 07/03/20 [Trelegy Ellipta] spironolactone 25 mg tablet 25 mg PO DAILY tab 12/30/19 07/03/20 rosuvastatin 5 mg tablet 10 mg PO DAILY tab 04/29/20 07/03/20 Previous Rx's Medication Instructions Recorded diclofenac sodium 1 % topical gel 1 gram TOP QID PRN #100 gram 03/22/19 torsemide 10 mg tablet 20 mg PO BID #360 tab 04/05/19 Disabled parking permit #1 ea 04/09/19 albuterol sulfate 2.5 mg INHALATION Q4H PRN #90 ml 11/23/19 ipratropium-albuterol 3 ml INHALATION Q4-6H PRN #90 ml 11/23/19 nitroglycerin [Nitro-Bid] 1 inch TRANSDERMAL BID #30 gram 11/23/19 metoprolol succinate 50 mg 50 mg PO DAILY #90 tab 02/14/20 tablet,extended release 24 hr pramipexole 0.25 mg tablet See Rx Instructions .ROUTE 05/18/20 .COMPLEX #45 tab oxycodone-acetaminophen 5 mg-325 1 tab PO Q6H PRN #10 tab 06/23/20 mg tablet Allergies Allergy/AdvReac Type Severity Reaction Status Date / Time atorvastatin Allergy Verified 07/03/20 15:06 diclofenac Allergy Verified 07/03/20 15:06 lisinopril Allergy Verified 07/03/20 15:06 niacin Allergy Verified 07/03/20 15:06 pravastatin Allergy Verified 07/03/20 15:06 Review of Systems Review of Systems ROS Unobtainable: All systems reviewed & are unremarkable except as noted in HPI and below Patient History Medical History (Updated 07/28/20 @ 15:37 by Delicia Arroyo DO) (HFpEF) heart failure with preserved ejection fraction Atrial fibrillation BPH (benign prostatic hyperplasia) COPD (chronic obstructive pulmonary disease) Coronary artery disease Essential hypertension ZACH (obstructive sleep apnea) Pacemaker Restless leg Seborrheic keratosis Stage III chronic kidney disease Surgical History (Updated 07/28/20 @ 07:35 by Delicia Arroyo DO) H/O heart artery stent H/O repair of rotator cuff History of back surgery Social History marital status: household members: children lives independently: Yes caregiver/support person: Yes housing: house occupational status: previously employed Smoking Status: Former smoker second hand exposure: No alcohol intake: current substance use type: does not use Smoking Status: Former smoker alcohol intake frequency: a few times a month Alcohol type: beer and hard liquor Substance Use Type: does not use Exam Narrative Exam Narrative: GENERAL: Alert and oriented x three, well-nourished male in mild to moderate distress. HEENT: Head normocephalic, atraumatic, EOMI, pupils reactive, face symmetric, moist mucous membranes NECK: Supple, full range of motion CARDIOVASCULAR: Regular rate and rhythm without murmurs, rubs or gallops. RESPIRATORY: Breath sounds equal bilaterally, decreased bilateral in the bases, no wheezes, patient was seen after albuterol treatment, no rales or rhonchi. Mild tachypnea. No accessory muscle use. Patient is able to speak in full sentences. ABDOMEN: Soft, nontender. Normoactive bowel sounds all 4 quadrants. No guarding or rebound, rigidity, no mass : No CVA tenderness EXTREMITIES: Normal range of motion. Significant bilateral lower extremity 2+ edema. Neurovascularly intact NEUROLOGICAL: Cranial nerves II through XII grossly intact. Moving all extremities SKIN: Warm, dry, no petechiae, no rashes or lesions. Initial Vital Signs Initial Vital Signs: Vital Signs Temperature 97.9 F 07/28/20 06:59 Pulse Rate 81 07/28/20 06:59 Respiratory Rate 22 07/28/20 06:59 Blood Pressure 175/90 H 07/28/20 06:59 Pulse Oximetry 94 07/28/20 06:59 Scores HEART Score Heart Score history: Slightly Suspicious Heart Score EKG: Non-Specific repolarization disturbance Heart Score Age: > or = 65 years old Heart Score risk factors: > 3 risk factors or hx of atherosclerotic disease Heart Score troponin: 1-3 times normal limit Heart Score Total: 6 Course Orders Ordered: ED Orders 07/28/20 10:22 Troponin I Stat 07/28/20 10:49 CT head/brain wo con Stat 07/28/20 14:47 CT head/brain wo con Stat Acetaminophen (Acetaminophen 325 Mg Tablet) 325 mg PO Q6H PRN PRN Reason: pain Albuterol/Ipratropium (Albuterol/Ipratropium 3 Ml Ampul) 3 ml INH Q4H PRN PRN Reason: shortness of breath or wheezing Methylprednisolone (Methylprednisolone 125 Mg/2 Ml Vial) 60 mg IV DAILY [facility] Metoprolol Succinate (Metoprolol Er 50 Mg Tablet) 50 mg PO DAILY [facility] Naloxone HCl (Naloxone 0.4 Mg/Ml Vial) 0.2 mg IV Q2MIN PRN PRN Reason: Opiate Reversal Nitroglycerin (Nitroglycerin Oint 1 Inch/Gm Oint...G.) 1 inch TOP BID [facility] Alfuzosin 10 Mg Tablet Extended Release 24 Hr 10 mg PO DAILY [facility] Fluticasone- Umeclidin-Vilanter 100-62.5-25 Mcg 1 puff PO DAILY [facility] Stored In (Pharmacy) 0 each INH PRN PRN PRN Reason: . Oxycodone/Acetaminophen (Oxycodone/Acetaminophen 5/325 Tablet) 1 tab PO Q6H PRN PRN Reason: pain Pramipexole Dihydrochloride (Pramipexole 0.125 Mg Tablet) 0.125 mg PO TID [facility] Rosuvastatin Calcium (Rosuvastatin 10 Mg Tablet) 10 mg PO DAILY [facility] Spironolactone (Spironolactone 25 Mg Tablet) 25 mg PO DAILY JUSTIN Discontinued Medications Albuterol (Albuterol Hfa 200 Puff/18 Gm Inh (Covid Pos/Vent Pts)) 4 puff INH NOW ONE Stop: 07/28/20 07:17 Last Admin: 07/28/20 07:17 Dose: 4 puff Documented by: TISHA Aspirin (Aspirin 81 Mg Chew Tab) 324 mg PO NOW ONE Stop: 07/28/20 08:12 Last Admin: 07/28/20 08:18 Dose: 324 mg Documented by: DANIEL Furosemide (Furosemide 100 Mg/10 Ml Vial) 80 mg IV NOW ONE Stop: 07/28/20 07:31 Last Admin: 07/28/20 08:18 Dose: 80 mg Documented by: DANIEL Furosemide (Furosemide 20 Mg/2 Ml Vial) 20 mg IV NOW ONE Stop: 07/28/20 19:01 Nitroglycerin (Nitroglycerin 0.4 Mg Sl Tab) 0.4 mg SL NOW ONE Stop: 07/28/20 15:06 Last Admin: 07/28/20 15:53 Dose: Not Given Documented by: KBROTEM Nitroglycerin (Nitroglycerin Oint 1 Inch/Gm Oint...G.) 0.5 inch TOP NOW ONE Stop: 07/28/20 15:59 Reevaluation(s) Reevaluation #1: Patient felt better after albuterol puffs, on recheck he is continuing to feel well. No CP, SOB continues to be improved. Discussed todays labs. Suspect troponin release secondary to CHF exacerbation. Time: 08:17 Reevaluation #2: While awaiting troponin results, patient was up standing and out of bed and hit his head. He is on apixaban so head CT was ordered. Patient states his shortness of breath is much improved. He did land on his left shoulder. He does not have any cervical, thoracic or lumbar tenderness, he has full range of motion is able to assist in standing and getting into the bed. He has no bony tenderness of his left shoulder although he does complain of some discomfort. He has full range of motion and muscle strength 5/5. Time: 10:52 Consultations Consultation #1: Spoke with neurosurgery at [facility], Dr. Renny Cai. He did review patient's imaging, he recommends repeat head CT now has patient's initial was around 10 30. If it is stable he recommends DC home and stopping anticoagulants x3 days. Patient may then restart. He also recommends a repeat head CT in 1 week and delayed imaging if patient is able for MRI with and without contrast as an outpatient. If there is any worsening bleeding or change to neurostatus, plan to call back to [facility] for transfer. Time: 14:49 Consultation #2: Patient had desaturation after return from CT likely from lying flat. Was placed on O2 which helped him significantly improved. I spoke with Dr. Arroyo in who kindly accepts for observation. We discussed Dr. Cai's recommendations including no Eliquis x3 days. Repeat head CT in 1 week and delayed imaging with MRI, with and without contrast as an outpatient in 1 month if patient is able to participate. Time: 16:00 Vital Signs Vital signs: Vital Signs - 8 hr 07/28/20 11:30 07/28/20 12:00 07/28/20 12:30 Pulse Rate 83 Respiratory Rate 32 H Blood Pressure 181/88 H 148/94 H 173/82 H Pulse Oximetry 78 L 07/28/20 13:00 07/28/20 13:30 07/28/20 14:00 Pulse Rate 84 82 80 Respiratory Rate 34 H 27 H 40 H Blood Pressure 178/83 H Pulse Oximetry 94 89 L 07/28/20 14:01 07/28/20 14:30 07/28/20 15:02 Pulse Rate 80 80 87 Respiratory Rate 38 H Blood Pressure 177/81 H 166/76 H Pulse Oximetry 75 L 95 07/28/20 15:03 07/28/20 15:06 07/28/20 15:30 Pulse Rate 87 84 80 Respiratory Rate 33 H 16 Blood Pressure 181/84 H Pulse Oximetry 88 L 89 L 93 MDM - SOB/Dyspnea Lab Data Attestation: I reviewed the patient's lab results. Lab results narrative: Patient's labs show no leukocytosis, he does have anemia present but appears decrease from November but consistent with October of 2019. Does have a leftward shift, thrombocytopenia which patient has had chronically and an elevated lymphocyte count. PT is elevated 15.2 but otherwise normal coags. CMP shows chloride of 108, BUN slightly elevated 23, renal function is improved from prior. Patient's total CK is slightly elevate.d to 59, CK-MB is 5.68 with a troponin of 0.039 and a elevated BNP at 2500. Patient has had 1 troponin in the indeterminate range in the past in 2019. BNP is elevated from November but not quite as high as in October of 2019 Result diagrams: 07/28/20 07:22 07/28/20 07:22 Labs: Lab Results 07/28/20 07/28/20 07/28/20 Range/Units 07:22 07:22 07:22 WBC 10.8 (4.5-11.0) X10^3/uL RBC 4.12 L (4.5-5.9) X10^6/uL Hgb 11.3 L (13.5-17.5) g/dL Hct 35.2 L (41-53) % MCV 85.4 (80-100) fL MCH 27.5 (26-34) PG MCHC 32.1 (30-36) % RDW 16.0 H (11.6-14.8) % Plt Count 114 L (150-400) X10^3/uL Neut % (Auto) 42.6 L (50-75) % Lymph % (Auto) 46.6 H (25-40) % [place] % (Auto) 7.9 (3-14) % Eos % (Auto) 2.3 (2-4) % Baso % (Auto) 0.6 (0-2) % Neut # (Auto) 4600 (8496-4832) /uL Lymph # (Auto) 5000 H (5175-1741) /uL [place] # (Auto) 900 (0-900) /uL Eos # (Auto) 200 (0-450) /uL Baso # (Auto) 100 (0-100) /uL PT 15.2 H (10.1-12.7) SECONDS INR 1.3 (0.9-1.3) APTT 32 D (26.4-36.2) SECONDS Sodium 138 (137-145) mmol/L Potassium 4.6 (3.4-5.1) mmol/L Chloride 108 H (98-107) mmol/L Carbon Dioxide 24 (22-32) mmol/L BUN 23 H (9-20) mg/dL Creatinine 1.17 (0.66-1.25) mg/dL Estimated GFR 59.8 L (>60) mL/min BUN/Creatinine Ratio 19.7 (6-22) Glucose 107 (80-110) mg/dL Calcium 8.9 (8.4-10.2) mg/dL Total Bilirubin 0.8 (0.2-1.3) mg/dL AST 39 (17-59) IU/L ALT 23 (<50) IU/L Alkaline Phosphatase 72 (38-126) U/L Total Creatine Kinase 259 H (55-170) U/L CK-MB (CK-2) 5.68 H (<2.37) ng/mL CK-MB (CK-2) Rel Index 2.2 (1.5-5.0) % Troponin I 0.039 H (0.01-0.034) ng/mL NT-Pro-B Natriuret Pep 2510 H (<450) pg/mL Total Protein 7.5 (6.3-8.2) g/dL Albumin 4.3 (3.5-5.0) g/dL Globulin 3.2 (1.7-4.1) g/dL Albumin/Globulin Ratio 1.3 (1.0-2.8) COVID-19 PCR (Negative) 07/28/20 07/28/20 Range/Units 08:55 10:22 WBC (4.5-11.0) X10^3/uL RBC (4.5-5.9) X10^6/uL Hgb (13.5-17.5) g/dL Hct (41-53) % MCV (80-100) fL MCH (26-34) PG MCHC (30-36) % RDW (11.6-14.8) % Plt Count (150-400) X10^3/uL Neut % (Auto) (50-75) % Lymph % (Auto) (25-40) % [place] % (Auto) (3-14) % Eos % (Auto) (2-4) % Baso % (Auto) (0-2) % Neut # (Auto) (1636-7126) /uL Lymph # (Auto) (6559-5937) /uL [place] # (Auto) (0-900) /uL Eos # (Auto) (0-450) /uL Baso # (Auto) (0-100) /uL PT (10.1-12.7) SECONDS INR (0.9-1.3) APTT (26.4-36.2) SECONDS Sodium (137-145) mmol/L Potassium (3.4-5.1) mmol/L Chloride (98-107) mmol/L Carbon Dioxide (22-32) mmol/L BUN (9-20) mg/dL Creatinine (0.66-1.25) mg/dL Estimated GFR (>60) mL/min BUN/Creatinine Ratio (6-22) Glucose (80-110) mg/dL Calcium (8.4-10.2) mg/dL Total Bilirubin (0.2-1.3) mg/dL AST (17-59) IU/L ALT (<50) IU/L Alkaline Phosphatase (38-126) U/L Total Creatine Kinase (55-170) U/L CK-MB (CK-2) (<2.37) ng/mL CK-MB (CK-2) Rel Index (1.5-5.0) % Troponin I 0.034 (0.01-0.034) ng/mL NT-Pro-B Natriuret Pep (<450) pg/mL Total Protein (6.3-8.2) g/dL Albumin (3.5-5.0) g/dL Globulin (1.7-4.1) g/dL Albumin/Globulin Ratio (1.0-2.8) COVID-19 PCR Negative (Negative) Urine Dip Bedside Urine Glucose Negative Bedside Urine Bilirubin - Negative Bedside Urine Ketone - Negative Urine Specific Cosmos 1.015 Bedside Urine Occult Blood - Negative Bedside Urine pH 6.0 Bedside Urine Protein - Negative Bedside Urine Urobilinogen - Negative Bedside Urine Nitrite - Negative Bedside Urine Leukocytes - Negative Esterase Imaging Data Chest x-ray: Attestation: I personally reviewed and interpreted this imaging study as follows: My Impression: Right pleural effusion enlarged from prior. Radiologist's Impression: [address] [id number] ReportSigned Patient: Priya Metcalf RMR#: [id number]: 1940cct:[id number]/Sex: 80 / MDate of Service: 07/28/20Loc: EDAccession Number: [id number] Procedure: XR chest 2V Ordering Provider: Shaun Mayen D.O. PROCEDURE: XR CHEST 2V INDICATIONS: SOB TECHNIQUE: 2 views of the chest were acquired. COMPARISON: [facility], CR, XR CHEST 2V, 12/05/2019, 11:10. [facility], CR, XR CHEST 1V, 11/23/2019, 15:19. FINDINGS: Surgical changes and devices: Cardiac monitoring device overlies the medial left chest.. Lungs and pleura: Lungs are abnormal with pulmonary hyperexpansion previously documented. There is what appears to be a pneumonia pattern at the right lung base, and a small subpulmonic right pleural effusion with additional fluid in the minor fissure.. No pleural effusions or pneumothorax. Mediastinum: Mediastinal contours are normal. Heart size is globally enlarged, chronically. Bones and chest wall: No suspicious bony abnormalities. Soft tissues appear unremarkable. IMPRESSION: COPD, chronic cardiomegaly, probable right lower lung pneumonia with associated small subpulmonic pleural effusion Dictated by: Alan Ribeiro M.D. on 07/28/2020 at 8:32 Approved by: Alan Ribeiro M.D. on 07/28/2020 at 8:34 ECHO 04/16: Radiologist's Impression: [facility] [place] [id number] ReportSigned Patient: Priya Metcalf RMR#: [id number]: 1940cct:[id number]/Sex: 79 / MDate of Service: 04/14/20Loc: ECHOAccession Number: [id number] Procedure: EC echo doppler complete Ordering Provider: Elena Jean Baptiste MD [place] +---------+ Hospital +---------+ : : [address] [place] [address]. : : : : [place], [place] : : : : [id number] : : : : Phone: [phone]+ Echocardiogram Report + + :Name: PRIYA METCALF Study Date: 04/14/2020 Height: 65 in : :[facility] Weight: 167 lb : : Gender: Male BSA: 1.8 m2 : :: 1940 Age: 79 yrs BP: 146/79 mmHg: :Reason For Study: ATHEROSCLEROTIC HEART DISEASE : :Ordering Physician: Elena : :Aubrey Leos Performed By: Oralia Patrick : :Referring: ELENA JEAN BAPTISTE : + + Interpretation Summary The left ventricle is normal in size. Left ventricular wall thickness is mildly increased. The left ventricular ejection fraction is normal. There is a mild dyssynchronous contraction pattern due to the paced rhythm. The right ventricle is normal in size and function. The right ventricular systolic pressure is estimated to be at least 35 mmHg based on an estimated right atrial pressure of 3 mm Hg. There is mild mitral regurgitation. -Compared to the prior echocardiogram, the right atrial size is slightly smaller. Otherwise there is no significant change. Procedure: A two-dimensional transthoracic echocardiogram with color flow and Doppler was performed. The study quality was technically adequate. Comparison is made with the echocardiogram of 02/13/2019. The patient has a paced rhythm. Left Ventricle: The left ventricle is normal in size. Left ventricular wall thickness is mildly increased. The ejection fraction is estimated to be 55- 60%. The left ventricular ejection fraction is normal. There is a mild dyssynchronous contraction pattern due to the paced rhythm. Apical wall motion abnormality may reflect pacemaker activation. There are no other obvious focal wall motion abnormalities. Diastolic function could not be accurately assessed due to paced rhythm. Right Ventricle: There is a pacemaker lead in the right ventricle. The right ventricle is normal in size and function. Atria: The left atrium is moderately dilated. The right atrium is mildly dilated. There is no Doppler evidence for an interatrial shunt. Mitral Valve: The mitral valve is normal in structure and function. There is mild mitral annular calcification. There is mild mitral regurgitation. Aortic Valve: The aortic valve is trileaflet. The aortic valve opens well. There is no aortic valve stenosis. No aortic regurgitation is present. Tricuspid Valve: The tricuspid valve is normal in structure and function. The right ventricular systolic pressure is estimated to be at least 35 mmHg based on an estimated right atrial pressure of 3 mm Hg. There is mild to moderate tricuspid regurgitation. Pulmonic Valve: The pulmonic valve is not well visualized. There is mild pulmonic regurgitation. Great Vessels: The aortic root is normal size. The ascending aorta is mildly enlarged. The IVC is of normal diameter and collapses greater than 50% with a sniff. This suggests a low right atrial pressure of 3 mm Hg. Pericardium/ Pleura There is no pericardial effusion. There is no pleural effusion. MMode/2D Measurements & Calculations LVIDd: 4.6 cm LVOT diam: 2.1 cm LVIDs: 3.2 cm Ao root diam: 3.7 cm FS: 29.6 % asc Aorta Diam: 3.6 cm EPSS: 0.97 cm IVSd: 1.1 cm LVPWd: 1.1 cm LV zarate. diameter/BSA (cm/m^2): 2.5 LV sys. diameter/BSA (cm/m^2): 1.8 LA A2 area: 26.7 cm2 RA long axis: 7.1 cm LA A4 area: 21.7 cm2 RA area: 21.1 cm2 LA length (vol): 6.2 cm RA vol: 53.5 ml LA vol: 79.8 ml RA : 29.2 ml/m2 LA vol index: 43.6 ml/m2 IVC diam: 1.8 cm RVD1 (basal): 3.5 cm TAPSE: 1.8 cm Doppler Measurements & Calculations Ao V2 max: 126.7 cm/sec LVOT Max Bryce: 73.1 cm/sec Ao V2 mean: 90.4 cm/sec LV V1 max P.1 mmHg Ao max P.4 mmHg LV V1 VTI: 13.3 cm Ao mean P.6 mmHg RADHA(I,D): 1.9 cm2 Ao V2 VTI: 23.1 cm RADHA(V,D): 1.9 cm2 sev ratio: 0.57 RADHA indexed to BSA (cm^2/m^2): 1.0 MV E max bryce: 126.5 cm/sec TR max bryce: 295.0 cm/sec MV A max bryce: 2.9 cm/sec TR max P.8 mmHg MV E/A: 43.2 PA V2 max: 79.5 cm/sec Med Peak E' Bryce: 7.2 cm/sec PA V2 mean: 53.8 cm/sec E/E' med: 17.6 PA mean P.3 mmHg Lat Peak E' Bryce: 8.0 cm/sec PA pr(Accel): 36.2 mmHg E/E' lat: 15.8 E/e' average: 16.7 MV dec time: 0.19 sec SV(LVOT): 44.1 ml Electronically signed by: Elena Jean Baptiste M.D. on Reading Physician:04/16/2020 09:[address] scan - chest: Radiologist's Impression: [address] [id number] Scan ReportSigned Patient: Priya Metcalf RMR#: [id number]: 9Acct:[id number]/Sex: 80 / MDate of Service: 07/28/20Loc: EDAccession Number: [id number] Procedure: CT chest w con Ordering Provider: Delicia Arroyo D.O. PROCEDURE: CT CHEST W CON INDICATIONS: pleural effusion, worsening, + chf TECHNIQUE: After the administration of intravenous contrast, 5 mm thick sections acquired from the pulmonary apices to the posterior costophrenic angles. 1 mm axial lung, 5 mm thick coronal and sagittal reformats and 7 mm axial MIP were acquired. For radiation dose reduction, the following was used: automated exposure control, adjustment of mA and/or kV according to patient size. COMPARISON: [facility], CR, XR CHEST 2V, 12/05/2019, 11:10. [facility], CR, XR CHEST 2V, 07/28/2020, 7:27. FINDINGS: Image quality: Excellent. Lungs and pleura: A small to moderate loculated pleural effusion is seen in the right hemithorax with components extending anteriorly and along the major and minor fissures. There is also a trace left pleural effusion. Consolidation of the right lung is seen adjacent to the effusion that could represent atelectasis versus pneumonia or less likely neoplasm. A 7 mm nodule is seen in the left upper lobe (image 166 of series 3). In the posterior portion of the left upper lobe, there is a 1.1 cm average diameter nodule (image 71 of series 3) with surrounding tree-in-bud nodularity that may be infectious or inflammatory in etiology. Mediastinum: Increased number of mediastinal lymph nodes is seen measuring up to 1 cm in short axis diameter in the precarinal and AP window areas. A subcarinal lymph node measures 2 cm in short axis diameter. No significant enlarged hilar lymphadenopathy is seen. Heart size is mildly enlarged. No pericardial effusion. Thoracic aorta and central pulmonary arteries are normal in size. Moderate atherosclerotic calcifications are seen in the thoracic aorta. There are mild to moderate coronary artery calcifications. A leadless pacemaker is noted. Esophagus is normal in caliber. No hiatal hernia. Bones and chest wall: No suspicious bony lesions. No vertebral body compression fractures. No axillary or supraclavicular adenopathy by size criteria. Thyroid gland appears normal. A nondisplaced fracture is seen in the posterior aspect of the left 9th rib. Multilevel mild degenerative changes are seen in the spine. Abdomen: A 1.7 x 1.7 hypodense lesion is seen in the anterior portion of the spleen that is incompletely included on this exam. Visualized upper abdominal solid organs otherwise appear normal. Upper abdominal bowel loops are normal in caliber. IMPRESSION: 1. Small to moderate loculated right pleural effusion and trace left pleural effusion. Consolidations in the right middle and lower lobes adjacent to the pleural effusion may represent atelectasis or pneumonia. 2. A 1.1 cm nodule in the left upper lobe with surrounding tree-in-bud nodularity is most likely infectious or inflammatory in etiology. Repeat CT in approximately 3 months is recommended for further evaluation. An additional 7 mm nodule is seen in the anterior left upper lobe that may be re-evaluated at the same time. 3. Mediastinal lymph nodes are mildly increased in size and number, which is nonspecific. 4. Nonspecific 1.7 cm hypodense lesion in the spleen is most likely benign if there is no history of malignancy. Continued attention on follow-up exams is recommended. 5. Mild cardiomegaly. 6. Age indeterminate nondisplaced fracture of the posterolateral left 9th rib. Correlation with point tenderness is recommended. 1. Dictated by: Bart Ly M.D. on 07/28/2020 at 8:39 Approved by: Bart Ly M.D. on 07/28/2020 at 9:[address] #2: Radiologist's Impression: [address] [id number] Scan ReportSigned Patient: Priya Metcalf RMR#: [id number]: 9Acct:[id number]/Sex: 80 / MDate of Service: 07/28/20Loc: EDAccession Number: [id number] Procedure: CT head/brain wo con Ordering Provider: Delicia Arroyo D.O. PROCEDURE: CT HEAD/BRAIN WO CON INDICATIONS: repeat scan for temporal lesions/?bleed TECHNIQUE: Noncontrast 4.5 mm thick angled axial sections acquired from the foramen magnum to the vertex, with coronal and sagittal reformats. For radiation dose reduction, the following was used: automated exposure control, adjustment of mA and/or kV according to patient size. COMPARISON: [facility], CT, CT HEAD/BRAIN WO CON, 01/18/2019, 3:00. [facility], CT, CT HEAD/BRAIN WO CON, 04/03/2019, 11:40. [facility], CT, CT HEAD/BRAIN WO CON, 07/28/2020, 10:58. FINDINGS: Image quality: Excellent. CSF spaces: Basal cisterns are patent. No extra-axial fluid collections. The ventricles are symmetric in size and shape. Brain: Overall, grossly stable examination. Redemonstration of left temporal lobe hyperdense possibly extra-axial focus , for example image 8/2. As previously discussed, this may have been present on prior study from 2019, which argues for a vascular or neoplastic etiology, possibly atypical meningioma. Overall this measures 1.8 x 0.8 cm , and demonstrates a bilobed appearance. There is cerebral volume loss for age, with resultant ventricular and sulcal prominence. There are periventricular and deep white matter chronic small vessel ischemic changes. There is intracranial internal carotid artery atherosclerosis. Skull and face: Calvarium and visualized facial bones appear intact, without suspicious lesions. Sinuses: Visualized sinuses and mastoids are clear. IMPRESSION: Overall, grossly stable examination. Redemonstration of left temporal lobe hyperdense focus without interval change. This could be better assessed with dedicated contrast enhanced MRI , when clinically feasible. Dictated by: Sai Galeano M.D. on 07/28/2020 at 15:00 Approved by: Sai Galeano M.D. on 07/28/2020 at 15:09 ECG Data Attestation: I personally reviewed and interpreted this ECG as follows: Interpretation: Ventricularly paced rhythm, rate 88, QRS of 146 and QTC of 456. EKG appears similar to prior from 09/16/2019. MDM Narrative Medical decision making narrative: 80-year-old male comes to the emergency department with increasing shortness of breath in the setting of being off his diuretic history of CHF. Patient has a pleural effusion on prior imaging which appears worsened today, radiology read as possible pneumonia although patient has not had any infectious symptoms other than shortness of breath. He has been afebrile with no cough or productive cough and does have orthopnea as well as weight gain from his normal baseline. Patient's troponin is in the indeterminate range, BNP is elevated and his renal function is improved from his normal baseline. Patient was able to ambulate to the bathroom without significant distress. Patient did have a fall he hit his head had head CT which has several small areas that may potentially be bleed although with discussion from the radiologist he thought he saw these on prior imaging. Neuro surgery reviewed these and feels that patient can have a repeat scan at the 4 hour cris if they are stable have him hold his Eliquis x3 days, repeat head CT in a week and follow-up with MRI of able. Patient desatted while laying on the CT table and required O2 he is feeling improved after being upright. I spoke with his primary care doctor Cruz who accepts for observation at this time, he has continued to be hypertensive so an inch of nitro was placed. Discharge Plan Departure Patient Disposition: Admitted as Observation Clinical Impression: CHF exacerbation, Pleural effusion on right, Brain lesion Admit Date/Time: 07/28/20 15:59 Admit Provider: Elis Arroyo
[2020-07-28 07:30] LABS: Add Manual Diff / Slide Review NO; Basophils Absolute Auto 100 /uL (0-100); Basophils Percent Auto 0.6 % (0-2); Eosinophils Absolute Auto 200 /uL (0-450); Eosinophils Percent Auto 2.3 % (2-4); Hematocrit 35.2 % (41-53); Hemoglobin 11.3 g/dL (13.5-17.5); Lymphocytes Absolute Auto 5000 /uL (1100-4500); Lymphocytes Percent Auto 46.6 % (25-40); Mean Corpuscular HGB Conc 32.1 % (30-36); Mean Corpuscular Hemoglobin 27.5 PG (26-34); Mean Corpuscular Volume 85.4 fL (80-100); Monocytes Absolute Auto 900 /uL (0-900); Monocytes Percent Auto 7.9 % (3-14); Neutrophils Absolute Auto 4600 /uL (1500-7000); Neutrophils Percent Auto 42.6 % (50-75); Platelet Count 114 X10^3/uL (150-400); Red Blood Cell Count 4.12 X10^6/uL (4.5-5.9); White Blood Cell Count 10.8 X10^3/uL (4.5-11.0)
[2020-07-28 07:38] LABS: INR 1.3 (0.9-1.3); Prothrombin Time 15.2 SECONDS (10.1-12.7)
[2020-07-28 07:41] LABS: PTT Partial Thromboplastin Tim 32 SECONDS (26.4-36.2)
[2020-07-28 07:42] LABS: Alanine Aminotransferase 23 IU/L (<50); Albumin 4.3 g/dL (3.5-5.0); Albumin Globulin Ratio 1.3 (1.0-2.8); Alkaline Phosphatase 72 U/L (38-126); Aspartate Aminotransferase 39 IU/L (17-59); BUN Creatinine Ratio 19.7 (6-22); Bilirubin Total 0.8 mg/dL (0.2-1.3); Blood Urea Nitrogen 23 mg/dL (9-20); Calcium 8.9 mg/dL (8.4-10.2); Carbon Dioxide 24 mmol/L (22-32); Chloride 108 mmol/L (98-107); Creatine Kinase 259 U/L (55-170); Estimated Glomerular Filt Rate 59.8 mL/min (>60); Globulin 3.2 g/dL (1.7-4.1); Glucose 107 mg/dL (80-110); Potassium 4.6 mmol/L (3.4-5.1); Sodium 138 mmol/L (137-145); Total Protein 7.5 g/dL (6.3-8.2)
[2020-07-28 07:54] LABS: NT-proBNP (BNP-Adult 18+) 2510 pg/mL (<450); Troponin I 0.039 ng/mL (0.01-0.034)
[2020-07-28 07:57] LABS: CKMB % Relative Index 2.2 % (1.5-5.0); Creatine Kinase MB 5.68 ng/mL (<2.37); HEMOLYSIS 16 (0-50)
[2020-07-28] MEDS: FUROSEMIDE 100 MG/10 ML VIAL 80 MG IV (08:18)
[2020-07-28] MEDS: ASPIRIN 81 MG CHEW TAB 324 MG PO (08:18)
--- NOTE | 2020-07-28 09:11 | DI.CT.S_ITS ---
PROCEDURE: CT CHEST W CON INDICATIONS: pleural effusion, worsening, + chf TECHNIQUE: After the administration of intravenous contrast, 5 mm thick sections acquired from the pulmonary apices to the posterior costophrenic angles. 1 mm axial lung, 5 mm thick coronal and sagittal reformats and 7 mm axial MIP were acquired. For radiation dose reduction, the following was used: automated exposure control, adjustment of mA and/or kV according to patient size. COMPARISON: [facility], CR, XR CHEST 2V, 12/05/2019, 11:10. [facility], CR, XR CHEST 2V, 07/28/2020, 7:27. FINDINGS: Image quality: Excellent. Lungs and pleura: A small to moderate loculated pleural effusion is seen in the right hemithorax with components extending anteriorly and along the major and minor fissures. There is also a trace left pleural effusion. Consolidation of the right lung is seen adjacent to the effusion that could represent atelectasis versus pneumonia or less likely neoplasm. A 7 mm nodule is seen in the left upper lobe (image 166 of series 3). In the posterior portion of the left upper lobe, there is a 1.1 cm average diameter nodule (image 71 of series 3) with surrounding tree-in-bud nodularity that may be infectious or inflammatory in etiology. Mediastinum: Increased number of mediastinal lymph nodes is seen measuring up to 1 cm in short axis diameter in the precarinal and AP window areas. A subcarinal lymph node measures 2 cm in short axis diameter. No significant enlarged hilar lymphadenopathy is seen. Heart size is mildly enlarged. No pericardial effusion. Thoracic aorta and central pulmonary arteries are normal in size. Moderate atherosclerotic calcifications are seen in the thoracic aorta. There are mild to moderate coronary artery calcifications. A leadless pacemaker is noted. Esophagus is normal in caliber. No hiatal hernia. Bones and chest wall: No suspicious bony lesions. No vertebral body compression fractures. No axillary or supraclavicular adenopathy by size criteria. Thyroid gland appears normal. A nondisplaced fracture is seen in the posterior aspect of the left 9th rib. Multilevel mild degenerative changes are seen in the spine. Abdomen: A 1.7 x 1.7 hypodense lesion is seen in the anterior portion of the spleen that is incompletely included on this exam. Visualized upper abdominal solid organs otherwise appear normal. Upper abdominal bowel loops are normal in caliber. IMPRESSION: 1. Small to moderate loculated right pleural effusion and trace left pleural effusion. Consolidations in the right middle and lower lobes adjacent to the pleural effusion may represent atelectasis or pneumonia. 2. A 1.1 cm nodule in the left upper lobe with surrounding tree-in-bud nodularity is most likely infectious or inflammatory in etiology. Repeat CT in approximately 3 months is recommended for further evaluation. An additional 7 mm nodule is seen in the anterior left upper lobe that may be re-evaluated at the same time. 3. Mediastinal lymph nodes are mildly increased in size and number, which is nonspecific. 4. Nonspecific 1.7 cm hypodense lesion in the spleen is most likely benign if there is no history of malignancy. Continued attention on follow-up exams is recommended. 5. Mild cardiomegaly. 6. Age indeterminate nondisplaced fracture of the posterolateral left 9th rib. Correlation with point tenderness is recommended. 1. Dictated by: Bart Ly M.D. on 07/28/2020 at 8:39 Approved by: Bart Ly M.D. on 07/28/2020 at 9:02
[2020-07-28 09:44] LABS: COVID19 -Nasal RAPID Negative (Negative)
--- NOTE | 2020-07-28 10:49 | DI.CT.S_ITS ---
PROCEDURE: CT HEAD/BRAIN WO CON INDICATIONS: fell, hit head on apixaban TECHNIQUE: Noncontrast 4.5 mm thick angled axial sections acquired from the foramen magnum to the vertex, with coronal and sagittal reformats. For radiation dose reduction, the following was used: automated exposure control, adjustment of mA and/or kV according to patient size. COMPARISON: [facility], CT, CT HEAD/BRAIN WO CON, 01/13/2019, 11:55. [facility], CT, CT HEAD/BRAIN WO CON, 04/03/2019, 11:40. [facility], CT, CT HEAD/BRAIN WO CON, 01/18/2019, 3:00. FINDINGS: Image quality: Excellent. Some residual contrast material is noted related to chest CT performed earlier the same day. CSF spaces: Basal cisterns are patent. No extra-axial fluid collections. The ventricles are symmetric in size and shape. A probable prominent serpiginous vessel is seen along the superior aspect the left tentorium. Brain: Bilobed hyperdense lesion is seen in the left anterior temporal lobe or left middle cranial fossa measuring 1.9 x 1.1 x 1.5 cm with minimal associated mass effect. No alar or transtentorial herniation, or midline shift is seen. On the prior CT from 04/05/2019, there is suggestion of a possible subtle lesion in this location that is nearly isodense to brain parenchyma. An additional smaller 4 mm hyperdense focus is seen slightly more superiorly along the left superficial left temporal lobe (image 11 of series 2 and image 20 of series 4). There is mild cerebral volume loss for age, with resultant ventricular and sulcal prominence. There are periventricular and deep white matter chronic small vessel ischemic changes. There is intracranial internal carotid artery atherosclerosis. Skull and face: Calvarium and visualized facial bones appear intact, without suspicious lesions. Sinuses: Visualized sinuses and mastoids are clear. IMPRESSION: 1. Hyperdense or enhancing lesion at the left anterior temporal convexity could represent a small parenchymal contusion or small extra-axial hemorrhage, however there is no significant mass effect on the left temporal lobe and no midline shift. Alternatively, findings may represent a neoplastic or possibly vascular lesion. There is suggestion of possible subtle, nearly isodense lesion in this location on prior CT from 04/03/2019. Recommend correlation with clinical findings and repeat imaging as needed. 2. Small 4 mm hyperdense focus is seen slightly more superiorly along the left anterior temporal lobe that is nonspecific and may represent a prominent vein or tiny enhancing mass. 3. Chronic small vessel ischemic changes and age related cerebral atrophy. Findings were discussed with the referring physician, Dr. Arroyo, by telephone on 07/28/2020 at approximately 10:45 AM. Dictated by: Bart Ly M.D. on 07/28/2020 at 10:23 Approved by: Bart Ly M.D. on 07/28/2020 at 10:52
--- NOTE | 2020-07-28 10:56 | PC.NURSE ---
1045: Ness a thud from inside room 6. Pt found on floor. States i think i fell asleep standing. Pt did not use call geronimo to alert RN he wanted to get up. Reports he likes to read his book standing up and often falls asleep standing. Pt possibly hit his head although unsure. Pt on thinners. Daisy Anderson, RN and I at bedside. Pt with sneakers on. Stat order for head CT. Assisted back to bed. Side rails in place. Advised that he is no longer allowed to get out of bed without staff assistance and encouraged to use call geronimo.
[2020-07-28 10:58] LABS: Troponin I 0.034 ng/mL (0.01-0.034)
--- NOTE | 2020-07-28 13:04 | PC.NURSE ---
Pt assisted back to bed after voiding and daughter leaving for the day. call geronimo in reach bed in lowest position and encouraged to call for needs.
--- NOTE | 2020-07-28 14:47 | DI.CT.S_ITS ---
PROCEDURE: CT HEAD/BRAIN WO CON INDICATIONS: repeat scan for temporal lesions/?bleed TECHNIQUE: Noncontrast 4.5 mm thick angled axial sections acquired from the foramen magnum to the vertex, with coronal and sagittal reformats. For radiation dose reduction, the following was used: automated exposure control, adjustment of mA and/or kV according to patient size. COMPARISON: [facility], CT, CT HEAD/BRAIN WO CON, 01/18/2019, 3:00. [facility], CT, CT HEAD/BRAIN WO CON, 04/03/2019, 11:40. [facility], CT, CT HEAD/BRAIN WO CON, 07/28/2020, 10:58. FINDINGS: Image quality: Excellent. CSF spaces: Basal cisterns are patent. No extra-axial fluid collections. The ventricles are symmetric in size and shape. Brain: Overall, grossly stable examination. Redemonstration of left temporal lobe hyperdense possibly extra-axial focus , for example image 8/2. As previously discussed, this may have been present on prior study from 2019, which argues for a vascular or neoplastic etiology, possibly atypical meningioma. Overall this measures 1.8 x 0.8 cm , and demonstrates a bilobed appearance. There is cerebral volume loss for age, with resultant ventricular and sulcal prominence. There are periventricular and deep white matter chronic small vessel ischemic changes. There is intracranial internal carotid artery atherosclerosis. Skull and face: Calvarium and visualized facial bones appear intact, without suspicious lesions. Sinuses: Visualized sinuses and mastoids are clear. IMPRESSION: Overall, grossly stable examination. Redemonstration of left temporal lobe hyperdense focus without interval change. This could be better assessed with dedicated contrast enhanced MRI , when clinically feasible. Dictated by: Sai Galeano M.D. on 07/28/2020 at 15:00 Approved by: Sai Galeano M.D. on 07/28/2020 at 15:09
--- NOTE | 2020-07-28 17:01 | PC.NURSE ---
Bedside report given to GIA Veloz in the ED. GIA Veloz and JAMES took pt to room 206 in Acute care.
--- NOTE | 2020-07-28 17:31 | PM.HP.1 ---
History of Present Illness History of Present Illness Date Patient Seen: 07/28/20 Time Patient Seen: 17:00 Chief complaint: SOB, ran out of water pill Narrative: 80yo man with COPD, CHF, atrial fibrillation on chronic anticoagulation with pacemaker, HTN, CAD, and ZACH who presented with acute onset of SOB and LE edema. The pt reports that yesterday morning he noticed that his legs were significantly swollen. He weighed himself, and he was up nearly 6 lbs from his usual weight. He then realized that he had not been taking his medications correctly for the past 2-3 days, and had not had his Torsemide for that time frame. He had run out of the medication, but had not noticed. He believes he took an extra blood pressure medication instead. This morning, the pt woke feeling very short of breath. He continued to have worsening swelling. Due to the severity of the SOB, he came to the ED for evaluation. The pt denies any fevers, chills, significantly worsening cough. He has been wheezing intermittently. He denies any nasal congestion, sore throat. He had one episode of non bloody diarrhea last night, but no abdominal pain, nausea, or vomiting. He states that he was feeling well, and near baseline, prior to this morning. In the ED, the pt was given 80mg of IV Lasix due to CHF exacerbation with significantly elevated BNP. He was also treated with an albuterol inhaler. The pt was noted to be feeling significantly improved. When awaiting his second troponin level, he fell and hit his head when standing. Head CT was ordered due to being on anticoagulation. CT showed a possible small parenchymal contusion or small extra-axial hemorrhage vs vascular or neoplastic lesion. Neurosurgery at [facility] was consulted. Repeat head CT was stable. After returning from the second CT, the pt had acute respiratory failure requiring oxygen, likely due to laying frat for multiple CTs with CHF exacerbation. This improved quickly with [place] oxygen. Patient History Medical History (Updated 07/28/20 @ 15:37 by Delicia Arroyo DO) (HFpEF) heart failure with preserved ejection fraction Atrial fibrillation BPH (benign prostatic hyperplasia) COPD (chronic obstructive pulmonary disease) Coronary artery disease Essential hypertension ZACH (obstructive sleep apnea) Pacemaker Restless leg Seborrheic keratosis Stage III chronic kidney disease Surgical History (Updated 07/28/20 @ 07:35 by LORI Joseph H/O heart artery stent H/O repair of rotator cuff History of back surgery Family & Social History Social History: household members children lives independently Yes caregiver/support person Yes Safety & Behavioral: Feels Safe in Current Yes Environment Been Physically Hurt or No Threatened By a Person Tobacco & Substance use: Smoking Status Former smoker alcohol intake current alcohol intake frequency a few times a month Substance Use Type does not use Meds Home Medications and Allergies Home Medications Medication Instructions Recorded Confirmed Type acetaminophen 325 mg capsule 325 mg PO Q6H PRN 08/18/18 07/28/20 History albuterol sulfate 90 mcg/actuation 1 puff INHALATION Q6H PRN 08/18/18 07/03/20 History aerosol inhaler alfuzosin 10 mg tablet,extended 10 mg PO DAILY 08/18/18 07/28/20 History release 24 hr apixaban 5 mg tablet 5 mg PO BID 08/18/18 07/28/20 History cholecalciferol (vitamin D3) 50 2,000 unit PO DAILY 08/18/18 07/28/20 History mcg (2,000 unit) capsule magnesium 250 mg tablet 250 mg PO DAILY 08/18/18 07/28/20 History nitroglycerin 0.4 mg sublingual 0.4 mg SL Q5-15M PRN 08/18/18 07/28/20 History tablet diclofenac sodium 1 % topical gel 1 gram TOP QID PRN #100 gram 03/22/19 07/28/20 Rx sohdneclesk-ekwjkrjkh-ciypavxu 1 puff INHALATION DAILY 04/03/19 07/03/20 History [Trelegy Ellipta] torsemide 10 mg tablet 20 mg PO BID #360 tab 04/05/19 07/03/[address] permit #1 ea 04/09/19 07/03/20 Rx albuterol sulfate 2.5 mg INHALATION Q4H PRN #90 ml 11/23/19 07/28/20 Rx ipratropium-albuterol 3 ml INHALATION Q4-6H PRN #90 ml 11/23/19 07/03/20 Rx nitroglycerin [Nitro-Bid] 1 inch TRANSDERMAL BID #30 gram 11/23/19 07/03/20 Rx spironolactone 25 mg tablet 25 mg PO DAILY tab 12/30/19 07/03/20 History metoprolol succinate 50 mg 50 mg PO DAILY #90 tab 02/14/20 07/28/20 Rx tablet,extended release 24 hr rosuvastatin 5 mg tablet 10 mg PO DAILY tab 04/29/20 07/03/20 History pramipexole 0.25 mg tablet See Rx Instructions .ROUTE 05/18/20 07/03/20 Rx .COMPLEX #45 tab oxycodone-acetaminophen 5 mg-325 1 tab PO Q6H PRN #10 tab 06/23/20 07/03/20 Rx mg tablet Allergies Allergy/AdvReac Type Severity Reaction Status Date / Time atorvastatin Allergy Verified 07/03/20 15:06 diclofenac Allergy Verified 07/03/20 15:06 lisinopril Allergy Verified 07/03/20 15:06 niacin Allergy Verified 07/03/20 15:06 pravastatin Allergy Verified 07/03/20 15:06 Exam Vital Signs (past 8 hours): - 07/28/20 10:30 07/28/20 10:51 07/28/20 11:06 Pulse Rate 83 82 82 Respiratory Rate 24 24 26 H Blood Pressure 181/83 H 193/88 H 180/84 H Pulse Oximetry 92 95 07/28/20 11:30 07/28/20 12:00 07/28/20 12:30 Pulse Rate 83 Respiratory Rate 32 H Blood Pressure 181/88 H 148/94 H 173/82 H Pulse Oximetry 78 L 07/28/20 13:00 07/28/20 13:30 07/28/20 14:00 Pulse Rate 84 82 80 Respiratory Rate 34 H 27 H 40 H Blood Pressure 178/83 H Pulse Oximetry 94 89 L 07/28/20 14:01 07/28/20 14:30 07/28/20 15:02 Pulse Rate 80 80 87 Respiratory Rate 38 H Blood Pressure 177/81 H 166/76 H Pulse Oximetry 75 L 95 07/28/20 15:03 07/28/20 15:06 07/28/20 15:30 Pulse Rate 87 84 80 Respiratory Rate 33 H 16 Blood Pressure 181/84 H Pulse Oximetry 88 L 89 L 93 07/28/20 16:00 Pulse Rate 83 Respiratory Rate 16 Blood Pressure Pulse Oximetry 94 Oxygen Delivery Method Room Air Oxygen Flow Rate 0 Narrative Exam Narrative: Gen: NAD, sitting comfortably on bed, appears well HEENT: normocephalic, atraumatic, sclera clear Neck: no LAD, mild JVD CV: RRR, no murmurs Resp: significantly decreased air movement throughout, expiratory wheezing in all jonas, crackles bilateral bases Abd: soft, nontender, nondistended Ext: 2+ pitting edema bilateral LE Neuro: no gross deficits Objective Imaging CT scan - chest: Radiologist's impression: Small to moderate loculated right pleural effusion and trace left pleural effusion. Consolidations in the right middle and lower lobes adjacent to the pleural effusion may represent atelectasis or pneumonia. 2. A 1.1 cm nodule in the left upper lobe with surrounding tree-in-bud nodularity is most likely infectious or inflammatory in etiology. Repeat CT in approximately 3 months is recommended for further evaluation. An additional 7 mm nodule is seen in the anterior left upper lobe that may be re-evaluated at the same time. 3. Mediastinal lymph nodes are mildly increased in size and number, which is nonspecific. 4. Nonspecific 1.7 cm hypodense lesion in the spleen is most likely benign if there is no history of malignancy. Continued attention on follow-up exams is recommended. 5. Mild cardiomegaly. 6. Age indeterminate nondisplaced fracture of the posterolateral left 9th rib. Correlation with point tenderness is recommended. CT scan - head: Radiologist's impression: Hyperdense or enhancing lesion at the left anterior temporal convexity could represent a small parenchymal contusion or small extra-axial hemorrhage, however there is no significant mass effect on the left temporal lobe and no midline shift. Alternatively, findings may represent a neoplastic or possibly vascular lesion. There is suggestion of possible subtle, nearly isodense lesion in this location on prior CT from 04/03/2019. Recommend correlation with clinical findings and repeat imaging as needed. 2. Small 4 mm hyperdense focus is seen slightly more superiorly along the left anterior temporal lobe that is nonspecific and may represent a prominent vein or tiny enhancing mass. 3. Chronic small vessel ischemic changes and age related cerebral atrophy. Chest x-ray: Radiologist's impression: COPD, chronic cardiomegaly, probable right lower lung pneumonia with associated small subpulmonic pleural effusion Labs Result Diagrams: 07/28/20 07:22 07/28/20 07:22 Labs: Laboratory Results - last 24 hr 12/01/20 12/01/20 12/01/20 07:22 07:22 07:22 WBC 10.8 RBC 4.12 L Hgb 11.3 L Hct 35.2 L MCV 85.4 MCH 27.5 MCHC 32.1 RDW 16.0 H Plt Count 114 L Neut % (Auto) 42.6 L Lymph % (Auto) 46.6 H [place] % (Auto) 7.9 Eos % (Auto) 2.3 Baso % (Auto) 0.6 Neut # (Auto) 4600 Lymph # (Auto) 5000 H [place] # (Auto) 900 Eos # (Auto) 200 Baso # (Auto) 100 PT 15.2 H INR 1.3 APTT 32 D Sodium 138 Potassium 4.6 Chloride 108 H Carbon Dioxide 24 BUN 23 H Creatinine 1.17 Estimated GFR 59.8 L BUN/Creatinine Ratio 19.7 Glucose 107 Calcium 8.9 Total Bilirubin 0.8 AST 39 ALT 23 Alkaline Phosphatase 72 Total Creatine Kinase 259 H CK-MB (CK-2) 5.68 H CK-MB (CK-2) Rel Index 2.2 Troponin I 0.039 H NT-Pro-B Natriuret Pep 2510 H Total Protein 7.5 Albumin 4.3 Globulin 3.2 Albumin/Globulin Ratio 1.3 COVID-19 PCR 07/28/20 07/28/20 08:55 10:22 WBC RBC Hgb Hct MCV MCH MCHC RDW Plt Count Neut % (Auto) Lymph % (Auto) [place] % (Auto) Eos % (Auto) Baso % (Auto) Neut # (Auto) Lymph # (Auto) [place] # (Auto) Eos # (Auto) Baso # (Auto) PT INR APTT Sodium Potassium Chloride Carbon Dioxide BUN Creatinine Estimated GFR BUN/Creatinine Ratio Glucose Calcium Total Bilirubin AST ALT Alkaline Phosphatase Total Creatine Kinase CK-MB (CK-2) CK-MB (CK-2) Rel Index Troponin I 0.034 NT-Pro-B Natriuret Pep Total Protein Albumin Globulin Albumin/Globulin Ratio COVID-19 PCR Negative Assessment & Plan Assessment & Plan narrative: 80yo man with COPD, CHF, atrial fibrillation on chronic anticoagulation with pacemaker, HTN, CAD, and ZACH who presented with acute onset of SOB and LE edema. Pt with significantly elevated BNP. Initial symptoms most consistent with acute CHF exacerbation, with later decompensation in the ED with acute respiratory failure requiring oxygen support due to laying flat for multiple CTs. 1) Acute CHF exacerbation with resultant acute respiratory failure: Pleural effusion likely from fluid overload. Received 80mg IV Lasix in the ED with good response thus far - 20mg IV Lasix this evening - Strict I/Os - Continue home Spirinolactone, Metoprolol, Statin - Hold home Torsemide while receiving IV Lasix 2) COPD exacerbation: Pt with significant wheezing and decreased air movement on exam. Likely mild COPD exacerbation as well. - 60mg IV Solumedrol - Continue home inhalers - RT to consult 3) Possible brain lesion on CT: Neurosurgery through [facility] consulted - Hold anticoagulation x 3 days - Repeat CT in 1 week to ensure ongoing stability - Obtain further imaging with MRI if possible in 1 month (pt has pacemaker, limiting this capability) 4) Lung nodule: Read as possibly infectious vs inflammatory. No fever, chills, significant cough, elevated WBC count suggestive of pneumonia. Favor inflammatory at this time. - Continue to monitor for signs of infection - Repeat CT in 3 months to re-evaluate 5) Splenic lesion: Nonspecific, incidental finding. - Repeat CT in 3 months to re-evaluate 6) Atrial fibrillation: Currently well rate controlled. Pacemaker in place. - Hold anticoagulation for 3 days as above - Continue home Metoprolol 7) HTN: BP is elevated currently. - Continue home medications - Continue to monitor closely FEN: Cardiac diet Code: Full code DVT PPX: SCDs for now due to possible bleed, and holding anticoagulation Dispo: Pending improvement in respiratory status. Possible d/c later tomorrow but more likely the next day. COVID-19 COVID-19 status: Negative Result date/Date tested (Pos, Neg/Pending): 07/28/20
[2020-07-28] MEDS: FUROSEMIDE 20 MG/2 ML VIAL IV (19:52)
[2020-07-28] MEDS: NITROGLYCERIN OINT 1 INCH/GM OINT...G. TOP (21:37)
[2020-07-28] MEDS: PRAMIPEXOLE 0.125 MG TABLET PO (21:39)
--- NOTE | 2020-07-28 23:51 | PC.NURSE ---
Admit/Evening Shift Note- Patient arrived to room via stretcher from ER at 1740. Patient drowsy and sleeping upon arrival. Patient aroused easily but fell right back to sleep. Did admission questions with patient daughter. Safety measures in place. bed alarm activated. Will continue to monitor
[2020-07-29] VITALS (9 sets, daily range): BP systolic 107–154; BP diastolic 65–99; PULSE 80–88; RESP 14–20; TEMP 36.1–36.9; O2SAT 93–99
--- NOTE | 2020-07-29 00:39 | PC.NURSE ---
Addendum entered by Yodit Ospina R.N. 07/29/20 02:21: Complains of 4/10 cramping pain in bilateral legs; provided warm blanket and medicated with Percocet. Original Note: Patient seen and assessed at 2353. Is oriented except did not know the year. Is slightly JENA. Breath sounds CTA and initially on oxygen at 3L/min per [place] with sat of 97% so decreased to 2L/min and now at 96%. Denies SOB at rest but states he does get SOB with exertion. HRR. Denies nausea. BT present and abdomen is soft. Voiding per urinal; denies dysuria, frequency or urgency. Able to move himself in bed. When up needs to use walker and 1 assist due to LE weakness and leg cramps. Denies pain. 2+ bilateral LE edema which patient reports has decreased since admission. Bruising on bilateral UE. Wearing bilateral calf SCD's. Fell twice yesterday so fall risk score is high and bed alarm is activated.
[2020-07-29] MEDS: OXYCODONE/ACETAMINOPHEN 5/325 TABLET 1 TAB PO (02:20)
[2020-07-29 06:55] LABS: Add Manual Diff / Slide Review NO; Basophils Absolute Auto 100 /uL (0-100); Basophils Percent Auto 0.4 % (0-2); Eosinophils Absolute Auto 500 /uL (0-450); Eosinophils Percent Auto 3.7 % (2-4); Hematocrit 36.7 % (41-53); Hemoglobin 11.8 g/dL (13.5-17.5); Lymphocytes Absolute Auto 5800 /uL (1100-4500); Lymphocytes Percent Auto 48.1 % (25-40); Mean Corpuscular Hemoglobin 27.3 PG (26-34); Mean Corpuscular Volume 85.3 fL (80-100); Monocytes Absolute Auto 800 /uL (0-900); Monocytes Percent Auto 6.5 % (3-14); Neutrophils Absolute Auto 5000 /uL (1500-7000); Neutrophils Percent Auto 41.3 % (50-75); Platelet Count 122 X10^3/uL (150-400); Red Cell Distribution Width 15.7 % (11.6-14.8); White Blood Cell Count 12.1 X10^3/uL (4.5-11.0)
[2020-07-29 07:05] LABS: Alanine Aminotransferase 23 IU/L (<50); Albumin 4.3 g/dL (3.5-5.0); Albumin Globulin Ratio 1.4 (1.0-2.8); Alkaline Phosphatase 71 U/L (38-126); Aspartate Aminotransferase 37 IU/L (17-59); BUN Creatinine Ratio 18.5 (6-22); Bilirubin Total 1.3 mg/dL (0.2-1.3); Blood Urea Nitrogen 24 mg/dL (9-20); Carbon Dioxide 32 mmol/L (22-32); Chloride 102 mmol/L (98-107); Globulin 3.1 g/dL (1.7-4.1); Glucose 95 mg/dL (80-110); HEMOLYSIS < 15 (0-50); Potassium 3.9 mmol/L (3.4-5.1); Sodium 139 mmol/L (137-145); Total Protein 7.4 g/dL (6.3-8.2)
[2020-07-29 07:13] LABS: NT-proBNP (BNP-Adult 18+) 3650 pg/mL (<450)
[2020-07-29] MEDS: FUROSEMIDE 40 MG/4 ML VIAL IV ×2 (09:08→16:13)
[2020-07-29] MEDS: methylPREDNISolone 125 MG/2 ML VIAL 60 MG IV (09:08)
[2020-07-29] MEDS: METOPROLOL ER 50 MG TABLET PO (09:08)
[2020-07-29] MEDS: SODIUM CHLORIDE 0.9% FLUSH 10 ML IV (09:09)
[2020-07-29] MEDS: ROSUVASTATIN 10 MG TABLET PO (09:09)
[2020-07-29] MEDS: SPIRONOLACTONE 25 MG TABLET PO (09:09)
[2020-07-29] MEDS: PRAMIPEXOLE 0.25 MG TABLET 0.125 MG PO ×2 (11:05→14:14)
--- NOTE | 2020-07-29 11:31 | CM.DANOTE ---
DCP/Assessment: Reviewed chart. Patient is a 80yr old male admitted to [facility] with SOB and LE edema. PCP is Dr. Arroyo. Primary payor is 1)Medicare 2)[facility]. Met with patient this AM explained CM/SW role. Patient resting comfortably at time of visit. Patient reports that he resides with his daughter/Radha in [place]. Patient reports that he does not use any DME and continues to drive (however his daughter does not want him to). Patient plans to d/c home when medically stable. If hospitalization over 2 midnights would recommend PT evaluation. Patient denies any current needs. Patient admits to waiting too long to call in his prescription for refill. Unfortunately, he ran out and then pharmacy had to reorder. P: CM team following for d/c planning needs. Patient plans to d/c home when stable. AMANDA Bernard Discharge Planning/Care Management Advanced directive, confirm from FAMILY Start: 07/28/20 17:16 Freq: Q24H Status: Active Protocol: Document 07/28/20 20:09 AGW (Rec: 07/28/20 20:10 AGW [id number]) Advance Directive, confirm on record Time 20:10 Person contacted daughter Copy received No CM Discharge Assessment Start: 07/29/20 11:19 Freq: Status: Active Protocol: Document 07/29/20 11:19 KJS (Rec: 07/29/20 11:31 [id number]) Discharge Planning Assessment Assigned Fitness Technician AMANDA Bernard Contact Information Radha Metcalf (daughter) phone# [phone] Advance Directives? Yes History Provided By Patient,Medical Record Prior Living Arrangements Apartment/Condo Household Members children Independent with ADL's Yes Is patient alert and oriented? Yes Caregiver for Another No Comment Patient has CPAP at home. Patient reports that he does not use much. Comment Continue to follow for d/c planning needs. Discharge Plan Home Transportation Arrangement Home when stable. Whiteboard Updated in Patient Room with Yes name and ext. # of Fitness Technician Review Status In Process Next Review Type Continued Stay Review
--- NOTE | 2020-07-29 15:38 | P.DS_ITS ---
History of Present Illness History of Present Illness Chief complaint: SOB, ran out of water pill Narrative: 80yo man with COPD, CHF, atrial fibrillation on chronic anticoagulation with pacemaker, HTN, CAD, and ZACH who presented with acute onset of SOB and LE edema. The pt reports that yesterday morning he noticed that his legs were significantly swollen. He weighed himself, and he was up nearly 6 lbs from his usual weight. He then realized that he had not been taking his medications correctly for the past 2-3 days, and had not had his Torsemide for that time frame. He had run out of the medication, but had not noticed. He believes he took an extra blood pressure medication instead. This morning, the pt woke feeling very short of breath. He continued to have worsening swelling. Due to the severity of the SOB, he came to the ED for evaluation. The pt denies any fevers, chills, significantly worsening cough. He has been wheezing intermittently. He denies any nasal congestion, sore throat. He had one episode of non bloody diarrhea last night, but no abdominal pain, nausea, or vomiting. He states that he was feeling well, and near baseline, prior to this morning. In the ED, the pt was given 80mg of IV Lasix due to CHF exacerbation with significantly elevated BNP. He was also treated with an albuterol inhaler. The pt was noted to be feeling significantly improved. When awaiting his second troponin level, he fell and hit his head when standing. Head CT was ordered due to being on anticoagulation. CT showed a possible small parenchymal contusion or small extra-axial hemorrhage vs vascular or neoplastic lesion. Neurosurgery at [facility] was consulted. Repeat head CT was stable. After returning from the second CT, the pt had acute respiratory failure requiring oxygen, likely due to laying frat for multiple CTs with CHF exacerbation. This improved quickly with [place] oxygen. Discharge Providers Provider Date of admission: 07/28/20 15:59 Discharge Date: 07/29/20 Primary care physician: Elis Arroyo MD Discharge provider: Elis Arroyo MD Summary Hospital Course Discharge Diagnosis: Acute CHF exacerbation COPD exacerbation Acute respiratory failure due to CHF exacerbation Atrial fibrillation on chronic anticoagulation Brain lesion Hypertension Lung lesion Splenic lesion Hospital Course: The pt was admitted due to acute CHF exacerbation with resultant acute respiratory failure. He was also found to have a likely COPD exacerbation, and was treated with IV Solumedrol. The pts respiratory status improved significantly during his hospitalization with this, and treatment with IV Lasix. He diuresed > 3L while in the hospital. At the time of discharge, he was off [place] oxygen for the day. The pt will restart his home diuretic at discharge, and continue on a prednisone taper. While in the ED, the pt had a fall. Head CT showed a lesion, possible small hemorrhage. The pt never exhibited any concerning neurological symptoms. Neurosurgery had recommended holding his anticoagulation for 3 days, and repeating CT in 1 week. At discharge, he was instructed to restart his antic oagulation on 07/01. Head CT was ordered. On imaging completed in the ED, the pt was also noted to have lung and spleen lesions. Repeat CTs will be completed in 3 months to re-evaluate. The pt will f/u with Dr Arroyo in 1 week. He will keep daily weights until that time. Status at Discharge Cognitive/behavioral status at discharge: oriented Functional status at discharge: uses cane/walker Overall status at discharge: patient is back to baseline Exam Vital Signs (past 8 hours): - 07/29/20 07:50 07/29/20 08:19 07/29/20 09:17 Temperature 97.0 F L Pulse Rate 80 88 Respiratory Rate 16 Blood Pressure 116/78 154/99 H Pulse Oximetry 99 99 93 07/29/20 10:39 07/29/20 11:32 Temperature 97.8 F Pulse Rate 83 Respiratory Rate 16 Blood Pressure 120/74 113/65 Pulse Oximetry 93 Oxygen Delivery Method Room Air,Nasal Cannula Oxygen Flow Rate 0 Narrative Exam Narrative: Gen: NAD, sitting comfortably in chair, appears well Neck: no LAD, no JVD CV: RRR, no murmurs Resp: air movement significantly improved, no significant wheezing, very fine crackles bilateral bases Abd: soft, nontender, nondistended Ext: 1+ pitting edema bilateral LE Neuro: no gross deficits Objective Labs Result Diagrams: 07/29/20 06:38 07/29/20 06:38 Labs: Laboratory Results - last 24 hr 07/29/20 07/29/20 06:38 06:38 WBC 12.1 H RBC 4.30 L Hgb 11.8 L Hct 36.7 L MCV 85.3 MCH 27.3 MCHC 32.0 RDW 15.7 H Plt Count 122 L Neut % (Auto) 41.3 L Lymph % (Auto) 48.1 H [place] % (Auto) 6.5 Eos % (Auto) 3.7 Baso % (Auto) 0.4 Neut # (Auto) 5000 Lymph # (Auto) 5800 H [place] # (Auto) 800 Eos # (Auto) 500 H Baso # (Auto) 100 Sodium 139 Potassium 3.9 Chloride 102 Carbon Dioxide 32 BUN 24 H Creatinine 1.30 H Estimated GFR 53.0 L BUN/Creatinine Ratio 18.5 Glucose 95 Calcium 9.0 Total Bilirubin 1.3 AST 37 ALT 23 Alkaline Phosphatase 71 NT-Pro-B Natriuret Pep 3650 H Total Protein 7.4 Albumin 4.3 Globulin 3.1 Albumin/Globulin Ratio 1.4 PFSH Medical History (Updated 07/28/20 @ 15:37 by Delicia Arroyo DO) (HFpEF) heart failure with preserved ejection fraction Atrial fibrillation BPH (benign prostatic hyperplasia) COPD (chronic obstructive pulmonary disease) Coronary artery disease Essential hypertension ZACH (obstructive sleep apnea) Pacemaker Restless leg Seborrheic keratosis Stage III chronic kidney disease Surgical History (Updated 07/28/20 @ 07:35 by Delicia Arroyo DO) H/O heart artery stent H/O repair of rotator cuff History of back surgery Social History marital status: household members: children lives independently: Yes caregiver/support person: Yes housing: house occupational status: previously employed Smoking Status: Former smoker second hand exposure: No alcohol intake: current substance use type: does not use Discharge Plan Discharge Plan Patient Disposition: Home Provider Discharge Comment: Please hold your Apixaban tomorrow, and restart it on Monday. Please take the Prednisone as prescribed, tapering off. Continue all of our other home medications. A repeat head CT was ordered. You should be contacted about scheduling this. Discharge orders & Medications Prescriptions: New prednisone 20 mg tablet 40 mg PO DAILY Qty: 13 RF: 0 Continued nitroglycerin 0.4 mg tablet, sublingual 0.4 mg SL Q5-15M PRN (Reason: Chest Pain) RF: 0 magnesium 250 mg tablet 250 mg PO DAILY RF: 0 albuterol sulfate 90 mcg/actuation HFA aerosol inhaler 1 puff INHALATION Q6H PRN (Reason: Shortness Of Breath) RF: 0 alfuzosin 10 mg tablet extended release 24 hr 10 mg PO DAILY RF: 0 acetaminophen 325 mg capsule 325 mg PO Q6H PRN (Reason: pain) RF: 0 cholecalciferol (vitamin D3) 2,000 unit capsule 2,000 unit PO DAILY RF: 0 apixaban 5 mg tablet 5 mg PO BID RF: 0 rosuvastatin 5 mg tablet 10 mg PO DAILY RF: 0 spironolactone 25 mg tablet 25 mg PO DAILY RF: 0 diclofenac sodium 1 % gel 1 gram TOP QID PRN (Reason: pain) Qty: 100 RF: 0 torsemide 10 mg tablet 20 mg PO BID Qty: 360 RF: 3 Hold Instructions: Dehydration (DME) Disabled parking permit Qty: 1 RF: 0 metoprolol succinate 50 mg tablet extended release 24 hr 50 mg PO DAILY Qty: 90 RF: 3 pramipexole 0.25 mg tablet See Rx Instructions .ROUTE .COMPLEX Qty: 45 RF: 1 oxycodone-acetaminophen [Percocet] 5-325 mg tablet 1 tab PO Q6H PRN (Reason: pain) Qty: 10 RF: 0 bfpmevumwpk-hfovndvoy-ugsbgbrs 100-62.5-25 mcg blister with device 1 puff inhalation DAILY RF: 0 ipratropium-albuterol 0.5 mg-3 mg(2.5 mg base)/3 mL solution for nebulization 3 ml INHALATION Q4-6H PRN (Reason: shortness of breath or wheezing) Qty: 90 RF: 0 albuterol sulfate 2.5 mg /3 mL (0.083 %) solution for nebulization 2.5 mg INHALATION Q4H PRN (Reason: shortness of breath or wheezing) Qty: 90 RF: 1 Nitro-Bid 2 % ointment 1 inch transdermal BID Qty: 30 RF: 0 Follow up/Referrals: Elis Arroyo MD [Primary Care Provider] - 08/07/20 12:00 pm Diet/Activity/Treatments Diet: Regular Visit Report/Discharge Packet Instructions: DI for Peripheral Edema -- Bilateral Visit Report Forms: Patient Portal/API, Stroke Signs & Symptoms Discharge Data Primary Care Provider: Elis Arroyo Attending Provider: Elis Arroyo Admit Date/Time: 07/28/20 15:59
--- NOTE | 2020-07-29 17:50 | PC.NURSE ---
Discharge Note- Patient discharged home. Discharge instructiohs and educations reviewed with patient and signed. New Rx sent to [facility]. IV line removed and bandage applied. Patient dressed self. Personal items packed up by daughter. rechecked room for persaonal items. Patient left via wheelcair to private car with all personal belongings at 1725.
== END 2020-07-29 17:25 | disposition home or self-care (01) ==
LOC: ED 15:59 → AC 16:00
PROVIDERS: Emergency Medicine; Admitting Provider Family Medicine; Emergency Provider Emergency Medicine; PCP Family Medicine; Visit Provider Family Medicine
DX: I50.9 Heart failure, unspecified (principal); J96.00 Acute respiratory failure, unspecified whether with hypoxia or hypercapnia; J44.1 Chronic obstructive pulmonary disease with (acute) exacerbation; Z79.01 Long term (current) use of anticoagulants; I10 Essential (primary) hypertension; E78.5 Hyperlipidemia, unspecified; Z95.0 Presence of cardiac pacemaker; R60.0 Localized edema; G47.33 Obstructive sleep apnea (adult) (pediatric); I25.10 Atherosclerotic heart disease of native coronary artery without angina pectoris; W01.10XA Fall on same level from slipping, tripping and stumbling with subsequent striking against unspecified object, initial encounter; Y92.239 Unspecified place in hospital as the place of occurrence of the external cause; Z11.59 Encounter for screening for other viral diseases; R93.0 Abnormal findings on diagnostic imaging of skull and head, not elsewhere classified; R91.8 Other nonspecific abnormal finding of lung field; R93.5 Abnormal findings on diagnostic imaging of other abdominal regions, including retroperitoneum
CPT/HCPCS: 36415; 70450; 71046; 71260; 80053; 81003; 82550; 82553; 83880; 84484; 85025; 85610; 85730; 87635; 93005; 94640; 96374; 96375; 96376; 99217; 99220; 99284; 99285; G0378; J1940; J2930

== ENCOUNTER → 2020-08-04 16:28 | Outpatient (CLI) | payer MEDICARE, OTHER, SELFPAY ==
[2020-07-28 20:00] VITALS: BMI 27.1
[2020-08-04 17:25] LABS: Bacteria Urine None Seen; RBC Urine None Seen (0-5/HPF); WBC Urine None Seen (0-5/HPF)
[2020-08-04 18:39] LABS: Add Manual Diff / Slide Review NO; Basophils Absolute Auto 0 /uL (0-100); Basophils Percent Auto 0.2 % (0-2); Eosinophils Absolute Auto 400 /uL (0-450); Eosinophils Percent Auto 2.9 % (2-4); Hematocrit 39.1 % (41-53); Hemoglobin 12.5 g/dL (13.5-17.5); Lymphocytes Absolute Auto 8300 /uL (1100-4500); Lymphocytes Percent Auto 54.3 % (25-40); Mean Corpuscular HGB Conc 32.1 % (30-36); Mean Corpuscular Hemoglobin 27.2 PG (26-34); Mean Corpuscular Volume 84.9 fL (80-100); Monocytes Absolute Auto 900 /uL (0-900); Monocytes Percent Auto 5.6 % (3-14); Neutrophils Absolute Auto 5700 /uL (1500-7000); Platelet Count 185 X10^3/uL (150-400); Red Blood Cell Count 4.61 X10^6/uL (4.5-5.9); Red Cell Distribution Width 15.5 % (11.6-14.8); White Blood Cell Count 15.3 X10^3/uL (4.5-11.0)
[2020-08-04 18:41] LABS: Appearance Urine UA CLEAR; Bilirubin Urine UA NEGATIVE (NEGATIVE); Color Urine UA YELLOW; Glucose Urine UA NEGATIVE (Negative); Ketones Urine UA NEGATIVE (NEGATIVE); Leukocyte Esterase Urine UA NEGATIVE (NEGATIVE); Nitrite Urine UA NEGATIVE (Negative); Occult Blood Urine UA NEGATIVE (Negative); Protein Urine UA NEGATIVE (Negative); Specific Gravity Urine UA 1.015 (1.000-1.035); Urobilinogen Urine UA 0.2 E.U./dL (0.2)
[2020-08-04 18:46] LABS: Creatinine Urine Random 24.4 mg/dL
[2020-08-04 18:53] LABS: Culture Indicated Urine Cult Not Indicated; Urine Comments Microscopic Normal
[2020-08-04 18:54] LABS: Microalbumin Urine Random < 0.6 mg/dL (0-1.6)
[2020-08-04 18:57] LABS: BUN Creatinine Ratio 37.8 (6-22); Blood Urea Nitrogen 45 mg/dL (9-20); Carbon Dioxide 35 mmol/L (22-32); Chloride 99 mmol/L (98-107); Estimated Glomerular Filt Rate 58.7 mL/min (>60); Glucose 83 mg/dL (80-110); HEMOLYSIS < 15 (0-50); Potassium 4.6 mmol/L (3.4-5.1); Sodium 139 mmol/L (137-145)
== END ==
PROVIDERS: PCP Family Medicine; Referring Provider Internal Medicine Nephrology; Visit Provider Internal Medicine Nephrology
DX: N18.31 Chronic kidney disease, stage 3a (principal)
CPT/HCPCS: 36415; 80048; 81001; 82043; 82570; 85025

== ENCOUNTER → 2020-08-05 15:00 | Outpatient (CLI) | payer MEDICARE, OTHER, SELFPAY ==
[2020-07-28 20:00] VITALS: BMI 27.1
--- NOTE | 2020-08-05 15:03 | DI.CT.S_ITS ---
PROCEDURE: CT HEAD/BRAIN WO CON INDICATIONS: f/u brain lesion, to be completed 1 week after prior TECHNIQUE: Noncontrast 4.5 mm thick angled axial sections acquired from the foramen magnum to the vertex, with coronal and sagittal reformats. For radiation dose reduction, the following was used: automated exposure control, adjustment of mA and/or kV according to patient size. COMPARISON: Located [facility], CT, CT HEAD/BRAIN WO CON, 01/13/2019, 11:55. Located [facility], CT, CT HEAD/BRAIN WO CON, 07/28/2020, 14:48. Located [facility], CT, CT HEAD/BRAIN WO CON, 07/28/2020, 10:58. Located [facility], CT, CT HEAD/BRAIN WO CON, 04/03/2019, 11:40. Located [facility], CT, CT HEAD/BRAIN WO CON, 01/18/2019, 3:00. FINDINGS: Image quality: Excellent. CSF spaces: Basal cisterns are patent. No extra-axial fluid collections. The ventricles are symmetric in size and shape. Brain: Mildly hyperdense extra-axial foci can be seen adjacent to the left temporal lobe laterally within the middle cranial fossa anteriorly, as on series 2, image 10. These foci are not significantly changed compared to the prior recent examination dated 07/28/2020. There is cerebral volume loss for age, with resultant ventricular and sulcal prominence. There are periventricular and deep white matter chronic small vessel ischemic changes. There is intracranial internal carotid artery atherosclerosis. Skull and face: Calvarium and visualized facial bones appear intact, without suspicious lesions. Sinuses: Visualized sinuses and mastoids are clear. IMPRESSION: Stable mildly hyperdense extra-axial nodules seen involving the lateral aspect the left middle cranial fossa anteriorly. These are stable over time. When clinically appropriate, please consider a dedicated MRI (without and with contrast) for further evaluation (assuming that there is no contraindication). Dictated by: Bobby Pascal M.D. on 08/05/2020 at 14:43 Approved by: Bobby Pascal M.D. on 08/05/2020 at 14:46
== END ==
PROVIDERS: PCP Family Medicine; Referring Provider Family Medicine; Visit Provider Family Medicine
DX: G93.89 Other specified disorders of brain (principal); I65.29 Occlusion and stenosis of unspecified carotid artery
CPT/HCPCS: 70450

== ENCOUNTER → 2020-08-12 15:04 | Outpatient (CLI) | payer MEDICARE, OTHER, SELFPAY ==
[2020-07-28 20:00] VITALS: BMI 27.1
[2020-08-12 15:55] LABS: COVID19 -Nasal RAPID Negative (Negative)
== END ==
PROVIDERS: PCP Family Medicine; Visit Provider Family Medicine Sleep Medicine
DX: Z20.828 Contact with and (suspected) exposure to other viral communicable diseases (principal); Z01.812 Encounter for preprocedural laboratory examination
CPT/HCPCS: 87635; 99214; C9803

== ENCOUNTER → 2020-10-24 17:43 | Outpatient (CLI) | payer MEDICARE, OTHER, SELFPAY ==
[2020-07-28 20:00] VITALS: BMI 27.1
--- NOTE | 2020-10-24 17:46 | DI.RAD.S_ITS ---
PROCEDURE: XR FOOT LT MIN 3V INDICATIONS: Acute Left foot pain, Prox 5th metarsal TECHNIQUE: 3 views of the foot were acquired. COMPARISON: None. FINDINGS: Bones: No fractures or dislocations. No suspicious bony lesions. Soft tissues: No tibiotalar joint effusion. Achilles tendon appears normal. Marked soft tissue swelling in the dorsal aspect of the left foot. IMPRESSION: 1. No acute osseous abnormalities. 2. Marked soft tissue swelling in the dorsum of the left foot. Dictated by: Chaz Melendez M.D. on 10/24/2020 at 18:24 Approved by: Chaz Melendez M.D. on 10/24/2020 at 18:28
[2020-10-24 18:33] LABS: Add Manual Diff / Slide Review NO; Basophils Absolute Auto 100 /uL (0-100); Basophils Percent Auto 0.5 % (0-2); Eosinophils Absolute Auto 400 /uL (0-450); Eosinophils Percent Auto 3.5 % (2-4); Hematocrit 37.4 % (41-53); Hemoglobin 12.2 g/dL (13.5-17.5); Lymphocytes Absolute Auto 4700 /uL (1100-4500); Lymphocytes Percent Auto 43.5 % (25-40); Mean Corpuscular HGB Conc 32.6 % (30-36); Mean Corpuscular Hemoglobin 28.2 PG (26-34); Mean Corpuscular Volume 86.5 fL (80-100); Monocytes Absolute Auto 800 /uL (0-900); Monocytes Percent Auto 7.2 % (3-14); Neutrophils Absolute Auto 4900 /uL (1500-7000); Neutrophils Percent Auto 45.3 % (50-75); Platelet Count 129 X10^3/uL (150-400); Red Blood Cell Count 4.32 X10^6/uL (4.5-5.9); Red Cell Distribution Width 15.8 % (11.6-14.8); White Blood Cell Count 10.8 X10^3/uL (4.5-11.0)
[2020-10-24 18:50] LABS: C-Reactive Protein Quant 1.4 mg/dL (<1.0)
[2020-10-24 19:15] LABS: Erythrocyte Sedimentation Rate 27 MM/HR (0-15)
== END ==
PROVIDERS: PCP Family Medicine; Referring Provider Student in an Organized Health Care Education/Training Program; Visit Provider Student in an Organized Health Care Education/Training Program
DX: M79.672 Pain in left foot (principal); M79.89 Other specified soft tissue disorders
CPT/HCPCS: 36415; 73630; 85025; 85651; 86140

== ENCOUNTER → 2020-11-13 17:30 | Outpatient (CLI) | payer MEDICARE, OTHER, SELFPAY ==
[2020-07-28 20:00] VITALS: BMI 27.1
[2020-11-13 17:56] LABS: Bacteria Urine None Seen; RBC Urine None Seen (0-5/HPF)
[2020-11-13 18:31] LABS: Appearance Urine UA CLEAR; Bilirubin Urine UA NEGATIVE (NEGATIVE); Color Urine UA YELLOW; Glucose Urine UA NEGATIVE (Negative); Ketones Urine UA NEGATIVE (NEGATIVE); Leukocyte Esterase Urine UA NEGATIVE (NEGATIVE); Nitrite Urine UA NEGATIVE (Negative); Occult Blood Urine UA NEGATIVE (Negative); Protein Urine UA NEGATIVE (Negative); Specific Gravity Urine UA 1.015 (1.000-1.035); Urobilinogen Urine UA 0.2 E.U./dL (0.2); pH Urine UA 7.5 (4.5-8.0)
[2020-11-13 18:45] LABS: BUN Creatinine Ratio 25.5 (6-22); Blood Urea Nitrogen 37 mg/dL (9-20); Calcium 8.7 mg/dL (8.4-10.2); Carbon Dioxide 30 mmol/L (22-32); Chloride 103 mmol/L (98-107); Estimated Glomerular Filt Rate 46.7 mL/min (>60); Glucose 108 mg/dL (80-110); HEMOLYSIS < 15 (0-50); Magnesium 2.8 mg/dL (1.6-2.3); Phosphorous 3.5 mg/dL (2.3-3.7); Potassium 4.5 mmol/L (3.4-5.1); Sodium 140 mmol/L (137-145); Uric Acid 7.7 mg/dL (3.5-8.5)
[2020-11-13 18:46] LABS: Add Manual Diff / Slide Review NO; Basophils Absolute Auto 0 /uL (0-100); Basophils Percent Auto 0.5 % (0-2); Eosinophils Absolute Auto 400 /uL (0-450); Eosinophils Percent Auto 4.3 % (2-4); Hematocrit 36.3 % (41-53); Lymphocytes Absolute Auto 3500 /uL (1100-4500); Lymphocytes Percent Auto 42.1 % (25-40); Mean Corpuscular HGB Conc 32.9 % (30-36); Mean Corpuscular Hemoglobin 28.2 PG (26-34); Mean Corpuscular Volume 85.7 fL (80-100); Monocytes Absolute Auto 600 /uL (0-900); Monocytes Percent Auto 7.1 % (3-14); Neutrophils Absolute Auto 3900 /uL (1500-7000); Platelet Count 132 X10^3/uL (150-400); Red Blood Cell Count 4.24 X10^6/uL (4.5-5.9); Red Cell Distribution Width 15.4 % (11.6-14.8); White Blood Cell Count 8.4 X10^3/uL (4.5-11.0)
[2020-11-13 19:02] LABS: Culture Indicated Urine Cult Not Indicated; Squamous Epithelial Cell Urine 0-1 /HPF (0-5/HPF); WBC Urine 0-1/HPF (0-5/HPF)
[2020-11-13 19:03] LABS: Creatinine Urine Random 102.8 mg/dL
[2020-11-13 19:07] LABS: Microalbumi Creatinin Ratio Ur 9.7 ug/mg CR (<30)
[2020-11-14 08:09] LABS: Parathyroid Hormone Int 68 pg/mL (15-65)
== END ==
PROVIDERS: PCP Family Medicine; Referring Provider Physician Assistant; Visit Provider Physician Assistant
DX: N18.2 Chronic kidney disease, stage 2 (mild) (principal)
CPT/HCPCS: 36415; 80048; 81001; 82043; 82570; 83735; 83970; 84100; 84550; 85025

== ENCOUNTER 2020-11-15 14:50 | Emergency (ER) | payer MEDICARE, OTHER, SELFPAY ==
[2020-07-28 20:00] VITALS: BMI 27.1
[2020-11-15] VITALS (23 sets, daily range): BP systolic 107–152; BP diastolic 63–84; PULSE 81–91; RESP 16–24; TEMP 35.8; O2SAT 91–98; BMI 25.8
--- NOTE | 2020-11-15 15:09 | DI.RAD.S_ITS ---
PROCEDURE: XR CHEST 1V INDICATIONS: nontraumatic shoulder pain, hx of HF TECHNIQUE: One view of the chest was acquired. COMPARISON: [facility], CT, CT CHEST W CON, 07/28/2020, 9:11. [facility], CR, XR CHEST 2V, 07/28/2020, 7:27. [facility], CR, XR CHEST 2V, 12/05/2019, 11:10. FINDINGS: Surgical changes and devices: Cardiac monitoring device. Lungs and pleura: Mild airspace opacity in the right lower lobe. Suspect of trace persistent right pleural effusion. No pneumothorax. Mediastinum: Mediastinal contours appear normal. Heart size is normal. Bones and chest wall: No suspicious bony lesions. Overlying soft tissues appear unremarkable. Degenerative change of the shoulders. IMPRESSION: Suspect persistent trace right pleural effusion. Mild airspace opacity in the right lower lobe. This could be due to atelectasis, scarring, or pneumonia. Dictated by: Bernardo Jovel M.D. on 11/15/2020 at 15:10 Approved by: Bernardo Jovel M.D. on 11/15/2020 at 15:13
--- NOTE | 2020-11-15 15:22 | ED.NECK ---
HPI - Neck Pain/Injury <IZABELLA Cerda - Last Filed: 11/15/20 20:46> General Chief Complaint: Neck Pain/Injury Stated Complaint: states bad kink in his neck Time Seen by Provider: 11/15/20 14:54 Source: patient and family Mode of arrival: Ambulatory Limitations: no limitations History of Present Illness HPI Narrative: This is a 80-year-old male, smoker, who has past medical history significant for AFib with pacemaker and currently takes Eliquis, hypertension, hyperlipidemia, heart failure, abdominal aneurysm, COPD presents to ED with a daughter with chief complain of nontraumatic bilateral shoulder and posterior neck pain for last 2 hours. Patient denies changes in activity, lifting heavy loads or recalling tweaking neck prior the pain started. Patient states he was just wondering around in the house after having brunch when the pain started. He denies worsening short of breath, dizziness, cold sweats but feels nauseated from pain. Patient noticed increased right leg edema and had taken additional dose of Torsemide today. Patient describes pain as aches and tightness and constant and rates as 9/10. He also has chronic knee pain. He had taken Tylenol at home for the pain. Patient reports pain worsens with movements. He see account executive agribusiness at [facility] and Dr. Wong at [facility] for pace maker. He has a swamper at [facility] and also has an appointment with novelty twister operator in 3 days before rechecking abdominal aneurysm. Patient ran out of Rosuvastatin currently working with PCP and insurance company. Related Data Home Medications Medication Instructions Recorded Confirmed acetaminophen 325 mg capsule 325 mg PO Q6H PRN 08/18/18 11/15/20 albuterol sulfate 90 mcg/actuation 1 puff INHALATION Q6H PRN 08/18/18 11/15/20 aerosol inhaler alfuzosin 10 mg tablet,extended 10 mg PO DAILY 08/18/18 11/15/20 release 24 hr apixaban 5 mg tablet 5 mg PO BID 08/18/18 11/15/20 cholecalciferol (vitamin D3) 50 2,000 unit PO DAILY 08/18/18 10/24/20 mcg (2,000 unit) capsule magnesium 250 mg tablet 250 mg PO DAILY 08/18/18 11/15/20 nitroglycerin 0.4 mg sublingual 0.4 mg SL Q5-15M PRN 08/18/18 10/24/20 tablet cseskdahqhz-rmdhhbhrm-xjgigrpd 1 puff INHALATION DAILY 04/03/19 10/24/20 spironolactone 25 mg tablet 25 mg PO DAILY tab 12/30/19 11/15/20 epqqizpejzn-ufhbvfizj-lzovylhb 1 inh INHALATION DAILY 11/15/20 11/15/20 [Stacey Hairston] Previous Rx's Medication Instructions Recorded diclofenac sodium 1 % topical gel 1 gram TOP QID PRN #100 gram 03/22/19 Disabled parking permit #1 ea 04/09/19 Nitro-Bid 1 inch TRANSDERMAL BID #30 gram 11/23/19 albuterol sulfate 2.5 mg INHALATION Q4H PRN #90 ml 11/23/19 metoprolol succinate 50 mg 50 mg PO DAILY #90 tab 02/14/20 tablet,extended release 24 hr oxycodone-acetaminophen 5 mg-325 1 tab PO Q6H PRN #10 tab 06/23/20 mg tablet rosuvastatin 10 mg tablet See Rx Instructions PO DAILY #450 10/27/20 tab torsemide 10 mg tablet 20 mg PO BID #60 tab 10/28/20 pramipexole 0.25 mg tablet See Rx Instructions .ROUTE 11/13/20 .COMPLEX #135 tab Allergies Allergy/AdvReac Type Severity Reaction Status Date / Time atorvastatin Allergy Verified 10/24/20 17:09 diclofenac Allergy Verified 10/24/20 17:09 lisinopril Allergy Verified 10/24/20 17:09 niacin Allergy Verified 10/24/20 17:09 pravastatin Allergy Verified 10/24/20 17:09 Review of Systems <IZABELLA Cerda - Last Filed: 11/15/20 20:46> Review of Systems Narrative: General: Denies fever, chills, fatigue, malaise, sweats. HEENT: Denies sinus pain, ear pain, sore throat, difficulty swallowing, dizziness. Respiratory: Denies dyspnea, cough, wheezing, hemoptysis, sputum. Cardiovascular: See HPI Gastrointestinal: Denies nausea, vomiting, abdominal pain, diarrhea, constipation, melena. : Denies dysuria, frequency, incontinence, hematuria, urinary retention. Musculoskeletal: See HPI Skin: Denies rash, skin lesions, or other. Neurologic: Denies weakness, headache, numbness, change in speech, confusion, seizures, incoordination. Psychiatric: No concerning psychosocial issues. 12-point review of systems is negative except for those stated above. Patient History <IZABELLA Cerda - Last Filed: 11/15/20 20:46> Medical History (HFpEF) heart failure with preserved ejection fraction Atrial fibrillation BPH (benign prostatic hyperplasia) COPD (chronic obstructive pulmonary disease) Coronary artery disease Essential hypertension ZACH (obstructive sleep apnea) Pacemaker Restless leg Seborrheic keratosis Stage III chronic kidney disease Surgical History H/O heart artery stent H/O repair of rotator cuff History of back surgery Family History Mother Insomnia Social History marital status: household members: children lives independently: Yes caregiver/support person: Yes housing: house occupational status: previously employed Smoking Status: Former smoker second hand exposure: No alcohol intake: current substance use type: does not use Smoking Status: Former smoker alcohol intake frequency: a few times a month Alcohol type: beer and hard liquor Substance Use Type: does not use Exam <IZABELLA Cerda - Last Filed: 11/15/20 20:46> Narrative Exam Narrative: GEN: Alert, oriented x 3, well appearing and nourished, and in no acute distress. Head: Normal cephalic, atraumatic. No scalp or temporal tenderness, palpable mass or rash. EYES: Pupils are equal, round, and reactive to light and accommodation. Extraocular muscles are intact bilaterally. There is no subconjunctival hemorrhage, exudate and sclera non-icteric. ENT: Hearing grossly intact. Airway patent. Neck: Trachea in midline. No JVD, non-tender without lymphadenopathy. No masses or thyroid megaly. Supple, tender to palpate para cervical spinous region and biilateral posterior trapezius to palpate. CARDIAC: Normal regular rate and rhythm without murmurs, gallops, or rubs. No chest wall tenderness. RLE 2+ edema. No cyanosis or pallor. Capillary refill is less than 2 seconds. RESPIRATORY: Lungs are clear to auscultate bilaterally. No cough, wheezes, rales, or rhonchi. No stridor, respiratory distress, increase work of breathing, or accessary muscle used. ABD: Abdomen soft, nontender and non-distended. No guarding or rebound tenderness to palpate. Bowel sounds are normal in all 4 quadrants. There is no palpable masses or organomegaly. EXT: Full painless ROM of all extremities with no loss of sensation, strength, effusion or edema. SKIN: Warm, dry, normal color for patient. No erythema, lesions or rash over visible areas. BACK: Nontender without deformity or crepitance. No flank tenderness. NEUROLOGICAL: Alert and oriented to place, time and person. Sensation and motor function intact bilaterally. No facial droops, dysphasia. PSYCHIATRIC: Good judgement and reason, without hallucinations, abnormal affect or abnormal behaviors during the examination. Patient is not suicidal. Initial Vital Signs Initial Vital Signs: Vital Signs Temperature 96.5 F L 11/15/20 14:59 Pulse Rate 90 11/15/20 14:59 Respiratory Rate 16 11/15/20 14:59 Blood Pressure 139/63 11/15/20 14:59 Pulse Oximetry 98 11/15/20 14:59 <Anaid Cameron DO - Last Filed: 11/16/20 08:15> Initial Vital Signs Initial Vital Signs: Vital Signs Temperature 96.5 F L 11/15/20 14:59 Pulse Rate 90 11/15/20 14:59 Respiratory Rate 16 11/15/20 14:59 Blood Pressure 139/63 11/15/20 14:59 Pulse Oximetry 98 11/15/20 14:59 Scores <Angel ElenaIZABELLA Gutierrez - Last Filed: 11/15/20 20:46> GCS Nirali coma scale eye opening: Spontaneous [place] coma scale verbal response: Orientated [place] coma scale motor response: Obey commands [place] coma scale total score: 15 HEART Score Heart Score history: Slightly Suspicious Heart Score EKG: Non-Specific repolarization disturbance Heart Score Age: > or = 65 years old Heart Score risk factors: > 3 risk factors or hx of atherosclerotic disease Heart Score troponin: 1-3 times normal limit Heart Score Total: 6 Course <IZABELLA Cerda - Last Filed: 11/15/20 20:46> Orders Ordered: Discontinued Medications Furosemide (Furosemide 100 Mg/10 Ml Vial) 60 mg IV NOW ONE Stop: 11/15/20 19:14 Last Admin: 11/15/20 19:49 Dose: 60 mg Documented by: KATELYN Heparin Sodium (Porcine) (Heparin 5,000 Unit/Ml Vial) 4,000 unit IV NOW ONE Stop: 11/15/20 19:28 Last Admin: 11/15/20 19:57 Dose: 4,000 unit Documented by: KATELYN Nitroglycerin (Nitroglycerin) 50 mg in 250 mls @ 1.5 mls/hr IV TITRATE JUSTIN; Protocol Last Admin: 11/15/20 19:57 Dose: 5 mcg/min, 1.5 mls/hr Documented by: KATELYN Heparin Sodium/Dextrose (Heparin Drip) 25,000 unit in 500 mls @ 17.418 mls/hr IV CONT JUSTIN; Protocol Last Admin: 11/15/20 19:58 Dose: 12 units/kg/hr, 17.418 mls/hr Documented by: KATELYN Morphine Sulfate (Morphine 2 Mg/Ml Inj) 2 mg IV Q5MIN PRN PRN Reason: Chest Pain Last Admin: 11/15/20 18:18 Dose: 2 mg Documented by: Admin: 11/15/20 16:52 Dose: 2 mg Documented by: Admin: 11/15/20 16:09 Dose: 2 mg Documented by: CRISTIANE Reevaluation(s) Reevaluation #1: Patient reports pain improved after 1st dose of morphine in his neck but now is knee pain is worse and difficult time resting in bed. I discussed findings from CT, labs and given patient's history of abdominal aneurysm, concerns for dissection or ruptured aneurysm without trauma or strain. Patient agrees with the CT test and states has an order from his PCP for next week. Time: 16:05 Reevaluation #2: Dr. Nelson (RAD) called to inform of Abdominal aneurysm with flow disturbance which could indicate dissection or intramural hematoma but is not sure the acuity of this but is likely no new finding. He states size of the aneurysm is actually smaller than ultrasound reading that was done. He did not see any fluid collection of site. No abnormality seen in upper aorta except calcified plaque and small right pleural effusion. Waiting for retained reports and to consult vascular surgeon at [facility]. Patient standing with a walker due to chronic knee pain but reports upper thoracic and posterior neck pain improved after 2 doses of 2mg Morphine. Time: 17:35 Consultations Consultation #1: Consulted Dr. Rivero at [facility] and he recommended office follow-up by calling the office tomorrow. He suggested no emergency procedure is required at this time but with the size of abdominal aortic aneurysm, repair should be considered. He states will let his office know that the patient will call tomorrow. He provided phone number at his office [phone]. Time: 18:45 Consultation #2: Consulted Dr. John (account executive agribusiness) for lab findings and the patient's presentation. He recommended to start patient on NGT and Heparin drip and treat HF exacerbation and to trend cardiac enzymes and echo cardiogram test tomorrow with trending up Troponin and proBNP. Holding angiogram for next 2 days due to receiving IV contrasted CT today with decreased kidney function to rule out ACS. Time: 19:00 Consultation #3: Spoke with Dr. Evans for admission but recommend transferring the patient to tertiary care facility not feeling comfortable and not equip to take care of the patient here in . (1919-Initially spoke with [facility], but I was informed that patient's PCP Dr. Arroyo and not under hospitalist's service.) Time: 19:49 Additional Consultation(s): 2004-Spoke with Dr. Monteiro at [facility] and he kindly accepted the patient's care for transfer. Patient and daughter informed and they agreed with the plan to transfer to [facility]. Vital Signs Vital signs: Vital Signs - 8 hr 11/15/20 14:59 11/15/20 15:00 11/15/20 15:30 Temperature 96.5 F L Pulse Rate 90 87 83 Respiratory Rate 16 20 Blood Pressure 139/63 Pulse Oximetry 98 95 94 11/15/20 15:56 11/15/20 16:00 11/15/20 16:30 Temperature Pulse Rate 86 90 84 Respiratory Rate 21 16 24 Blood Pressure 138/84 116/73 107/80 Pulse Oximetry 94 94 95 11/15/20 17:00 11/15/20 17:20 11/15/20 17:30 Temperature Pulse Rate 81 82 83 Respiratory Rate 16 17 24 Blood Pressure 120/80 Pulse Oximetry 96 95 98 11/15/20 18:00 11/15/20 18:21 11/15/20 18:30 Temperature Pulse Rate 84 86 83 Respiratory Rate 21 21 24 Blood Pressure 127/63 Pulse Oximetry 97 96 94 11/15/20 18:31 11/15/20 19:00 11/15/20 19:01 Temperature Pulse Rate 83 84 83 Respiratory Rate 21 18 20 Blood Pressure 115/71 128/72 Pulse Oximetry 94 96 95 <Anaid Cameron DO - Last Filed: 11/16/20 08:15> Orders Ordered: Discontinued Medications Furosemide (Furosemide 100 Mg/10 Ml Vial) 60 mg IV NOW ONE Stop: 11/15/20 19:14 Last Admin: 11/15/20 19:49 Dose: 60 mg Documented by: KATELYN Heparin Sodium (Porcine) (Heparin 5,000 Unit/Ml Vial) 4,000 unit IV NOW ONE Stop: 11/15/20 19:28 Last Admin: 11/15/20 19:57 Dose: 4,000 unit Documented by: KATELYN Nitroglycerin (Nitroglycerin) 50 mg in 250 mls @ 1.5 mls/hr IV TITRATE JUSTIN; Protocol Last Admin: 11/15/20 19:57 Dose: 5 mcg/min, 1.5 mls/hr Documented by: KATELYN Heparin Sodium/Dextrose (Heparin Drip) 25,000 unit in 500 mls @ 17.418 mls/hr IV CONT JUSTIN; Protocol Last Admin: 11/15/20 19:58 Dose: 12 units/kg/hr, 17.418 mls/hr Documented by: KATELYN Morphine Sulfate (Morphine 2 Mg/Ml Inj) 2 mg IV Q5MIN PRN PRN Reason: Chest Pain Last Admin: 11/15/20 18:18 Dose: 2 mg Documented by: Admin: 11/15/20 16:52 Dose: 2 mg Documented by: Admin: 11/15/20 16:09 Dose: 2 mg Documented by: CRISTIANE Vital Signs Vital signs: Vital Signs - 8 hr 11/15/20 14:59 11/15/20 15:00 11/15/20 15:30 Temperature 96.5 F L Pulse Rate 90 87 83 Respiratory Rate 16 20 Blood Pressure 139/63 Pulse Oximetry 98 95 94 11/15/20 15:56 11/15/20 16:00 11/15/20 16:30 Temperature Pulse Rate 86 90 84 Respiratory Rate 21 16 24 Blood Pressure 138/84 116/73 107/80 Pulse Oximetry 94 94 95 11/15/20 17:00 11/15/20 17:20 11/15/20 17:30 Temperature Pulse Rate 81 82 83 Respiratory Rate 16 17 24 Blood Pressure 120/80 Pulse Oximetry 96 95 98 11/15/20 18:00 11/15/20 18:21 11/15/20 18:30 Temperature Pulse Rate 84 86 83 Respiratory Rate 21 21 24 Blood Pressure 127/63 Pulse Oximetry 97 96 94 11/15/20 18:31 11/15/20 19:00 11/15/20 19:01 Temperature Pulse Rate 83 84 83 Respiratory Rate 21 18 20 Blood Pressure 115/71 128/72 Pulse Oximetry 94 96 95 MDM - Neck Pain/Injury <IZABELLA Cerda - Last Filed: 11/15/20 20:46> Differential Diagnosis Differential diagnosis: Likely strain of neck muscle and other (ACS, exacerbated heart failure, dissection, rupture aneurysm) Medical Records Attestation: I reviewed the patient's medical records. Lab Data Attestation: I reviewed the patient's lab results. Result diagrams: 11/15/20 15:31 11/15/20 15:31 Labs: Lab Results 11/15/20 11/15/20 11/15/20 Range/Units 15:31 15:31 15:31 WBC 8.8 (4.5-11.0) X10^3/uL RBC 4.25 L (4.5-5.9) X10^6/uL Hgb 12.0 L (13.5-17.5) g/dL Hct 36.6 L (41-53) % MCV 86.1 (80-100) fL MCH 28.2 (26-34) PG MCHC 32.7 (30-36) % RDW 14.9 H (11.6-14.8) % Plt Count 119 L (150-400) X10^3/uL Neut % (Auto) Not Reportable Lymph % (Auto) Not Reportable [place] % (Auto) Not Reportable Eos % (Auto) Not Reportable Baso % (Auto) Not Reportable Lymph # (Auto) Not Reportable [place] # (Auto) Not Reportable Baso # (Auto) Not Reportable Total Counted 100 Seg Neutrophils % 56.0 (38-70) % Lymphocytes % (Manual) 24.0 L (25-45) % Atypical Lymphs % 8.0 H ( - 0) % Monocytes % (Manual) 9.0 (2-11) % Eosinophils % (Manual) 3.0 (2-4) % Neutrophils # (Manual) 4928 (3174-5125) /uL RBC Morphology Normal morphology PT 16.4 H (10.1-12.7) SECONDS INR 1.5 H (0.9-1.3) APTT 38 H D (26.4-36.2) SECONDS Sodium 141 (137-145) mmol/L Potassium 4.8 (3.4-5.1) mmol/L Chloride 105 (98-107) mmol/L Carbon Dioxide 27 (22-32) mmol/L BUN 40 H (9-20) mg/dL Creatinine 1.65 H (0.66-1.25) mg/dL Estimated GFR 40.2 L (>60) mL/min BUN/Creatinine Ratio 24.2 H (6-22) Glucose 151 H (80-110) mg/dL Calcium 8.9 (8.4-10.2) mg/dL Magnesium (1.6-2.3) mg/dL Total Bilirubin 0.5 (0.2-1.3) mg/dL AST 39 (17-59) IU/L ALT 23 (<50) IU/L Alkaline Phosphatase 61 (38-126) U/L Total Creatine Kinase 309 H (55-170) U/L CK-MB (CK-2) 6.81 H (<2.37) ng/mL CK-MB (CK-2) Rel Index 2.2 (1.5-5.0) % Troponin I 0.035 H (0.01-0.034) ng/mL NT-Pro-B Natriuret Pep 1780 H (<450) pg/mL Total Protein 7.3 (6.3-8.2) g/dL Albumin 4.5 (3.5-5.0) g/dL Globulin 2.8 (1.7-4.1) g/dL Albumin/Globulin Ratio 1.6 (1.0-2.8) Lipase 207 (23-300) U/L SARS-CoV-2 (PCR) (Negative) 11/15/20 11/15/20 11/15/20 Range/Units 15:31 17:45 18:00 WBC (4.5-11.0) X10^3/uL RBC (4.5-5.9) X10^6/uL Hgb (13.5-17.5) g/dL Hct (41-53) % MCV (80-100) fL MCH (26-34) PG MCHC (30-36) % RDW (11.6-14.8) % Plt Count (150-400) X10^3/uL Neut % (Auto) Lymph % (Auto) [place] % (Auto) Eos % (Auto) Baso % (Auto) Lymph # (Auto) [place] # (Auto) Baso # (Auto) Total Counted Seg Neutrophils % (38-70) % Lymphocytes % (Manual) (25-45) % Atypical Lymphs % ( - 0) % Monocytes % (Manual) (2-11) % Eosinophils % (Manual) (2-4) % Neutrophils # (Manual) (6875-8672) /uL RBC Morphology PT (10.1-12.7) SECONDS INR (0.9-1.3) APTT (26.4-36.2) SECONDS Sodium (137-145) mmol/L Potassium (3.4-5.1) mmol/L Chloride (98-107) mmol/L Carbon Dioxide (22-32) mmol/L BUN (9-20) mg/dL Creatinine (0.66-1.25) mg/dL Estimated GFR (>60) mL/min BUN/Creatinine Ratio (6-22) Glucose (80-110) mg/dL Calcium (8.4-10.2) mg/dL Magnesium 2.8 H (1.6-2.3) mg/dL Total Bilirubin (0.2-1.3) mg/dL AST (17-59) IU/L ALT (<50) IU/L Alkaline Phosphatase (38-126) U/L Total Creatine Kinase 319 H (55-170) U/L CK-MB (CK-2) 7.22 H (<2.37) ng/mL CK-MB (CK-2) Rel Index 2.3 (1.5-5.0) % Troponin I 0.086 H (0.01-0.034) ng/mL NT-Pro-B Natriuret Pep (<450) pg/mL Total Protein (6.3-8.2) g/dL Albumin (3.5-5.0) g/dL Globulin (1.7-4.1) g/dL Albumin/Globulin Ratio (1.0-2.8) Lipase (23-300) U/L SARS-CoV-2 (PCR) Negative (Negative) Imaging Data Chest x-ray: Radiologist's Impression: [address] [id number] ReportSigned Patient: Moses Metcalf RMR#: [id number]: [id number]:[id number]/Sex: 80 / MDate of Service: 11/15/20Loc: EDAccession Number: [id number] Procedure: XR chest 1V Ordering Provider: Angel De La Vega PROCEDURE: XR CHEST 1V INDICATIONS: nontraumatic shoulder pain, hx of HF TECHNIQUE: One view of the chest was acquired. COMPARISON: [facility], CT, CT CHEST W CON, 07/28/2020, 9:11. [facility], CR, XR CHEST 2V, 07/28/2020, 7:27. [facility], CR, XR CHEST 2V, 12/05/2019, 11:10. FINDINGS: Surgical changes and devices: Cardiac monitoring device. Lungs and pleura: Mild airspace opacity in the right lower lobe. Suspect of trace persistent right pleural effusion. No pneumothorax. Mediastinum: Mediastinal contours appear normal. Heart size is normal. Bones and chest wall: No suspicious bony lesions. Overlying soft tissues appear unremarkable. Degenerative change of the shoulders. IMPRESSION: Suspect persistent trace right pleural effusion. Mild airspace opacity in the right lower lobe. This could be due to atelectasis, scarring, or pneumonia. Dictated by: Bernardo Jovel M.D. on 11/15/2020 at 15:10 Approved by: Bernardo Jovel M.D. on 11/15/2020 at 15:13 CT angio Chest/abd/pelvis: Radiologist's Impression: [address] [id number] Scan ReportSigned Patient: Moses Metcalf RMR#: [id number]: [id number]:[id number]/Sex: 80 / MDate of Service: 11/15/20Loc: EDAccession Number: [id number] Procedure: CT chest abd pel wwo con Ordering Provider: Angel De La Vega PROCEDURE: CT ANGIO CHEST ABDOMEN PELVIS INDICATIONS: r/o dissection, pain in posterior shoulder/neck, hx of AAA TECHNIQUE: Precontrast 5 mm thick sections acquired from the lung apices to the iliac crests. After the administration of intravenous contrast, 2.5 mm thick sections again acquired from the lung apices to the iliac crests. Maximum intensity projection (MIP) oblique sagittal and coronal reformats were then acquired. For radiation dose reduction, the following was used: automated exposure control. COMPARISON: [facility], US, US RETRO PERITONEAL LIMITED, 04/12/2019, 12:55. [facility] Ultrasound, US, US AORTA RETROPERITONEAL LIMITED, 09/26/2018, 10:20. [facility], CT, CT CHEST W CON, 07/28/2020, 9:11. FINDINGS: Image quality: Excellent. AORTA: Ascending aorta is unchanged. Ascending aorta measures 3.2 cm, (), unchanged. There is conventional branching of the great vessels. There is a tiny dissection in the left subclavian artery origin, (), unchanged since 07/28/2020. There is extensive calcified atherosclerotic plaque at the aortic arch. No aneurysm of the descending aorta. Thoracic aortic dissection. Extensive plaque in the abdominal aorta. There is likely a small dissection flap in the infrarenal abdominal aorta. The intimal flap is calcified suggesting chronicity, (). Infrarenal abdominal aortic aneurysm measuring 6.2 x 6 cm, (128). Previously measured on ultrasound 5.4 x 5.2 cm. On the noncontrast sequence the aneurysm sac is isodense. On the post-contrast sequence there is flow disturbance with heterogeneous contrast enhancement. Small mural thrombus. Right common iliac artery measures 1.8 cm. Left common iliac artery measures 1.4 cm. Iliac arteries opacify with contrast. No central pulmonary embolism. CHEST: Lungs and pleura: Subpleural nodularity similar to the prior CT from July 2020. Left upper lobe nodular opacity is resolved. Small consolidation at the right lower lobe. Small right pleural effusion. No pneumothorax. Central and peripheral airways are patent and normal in caliber. Mediastinum: Heart size is enlarged. Right ventricular cardiac device. Coronary artery calcifications. No pericardial effusion. Small mediastinal lymph nodes are unchanged. For example: Right lower paratracheal 0.9 cm, (5/40), previously 1 cm. Central pulmonary arteries are normal in size. Esophagus is normal in caliber. No hiatal hernias. Bones and chest wall: No axillary adenopathy by size criteria. Thyroid gland is unremarkable. No suspicious bony lesions. No vertebral body compression fractures. ABDOMEN: Vasculature: Celiac trunk and mesenteric arteries are patent. Renal arteries are also patent. Dense calcified plaque in these vessels. Solid organs: Liver is normal in size and enhancement. Gallbladder is unremarkable . Biliary system is non dilated. Pancreas enhances normally. No peripancreatic fluid collection. Spleen is normal in size and enhancement. No adrenal nodules. Both kidneys are normal in size and enhancement, without hydronephrosis. Peritoneum and bowel: No free fluid or air. Bowel loops are normal in caliber and wall thickness. Nodes and vessels: No retroperitoneal or mesenteric adenopathy by size criteria. Inferior vena cava is normal in morphology. Miscellaneous: Small fat containing periumbilical hernia. PELVIS: Genitourinary: Bladder wall thickness is normal. Miscellaneous: Fat containing right inguinal hernia. There is trace fluid in the hernia sac. Skin thickening at in the left mons pubis and left inguinal crease, (5/184, 197). No enlarged adenopathy. No ventral hernias. Bones: No suspicious bony lesions. Ankylosis at the right SI joint. Severe degenerative change in the spine. No vertebral body compression fractures. IMPRESSION: 1. No acute aortic syndrome in the chest. 2. The small right lower lobe consolidation. This could be due to compressive atelectasis or pneumonia. Trace right pleural effusion. 3. Large infrarenal abdominal aortic aneurysm measuring 6.2 cm. (Previously 5.4 cm on ultrasound 04/12/2019). Flow disturbance within the aneurysm sac most likely due to short segment aortic dissection. Intramural hematoma could have a similar appearance. No fluid surrounding the aneurysm sac. 4. No free fluid in the abdomen or pelvis. Comment: Preliminary findings were discussed with Angel De La Vega at the time of dictation. ECG Data Attestation: I personally reviewed and interpreted this ECG as follows: Prior ECG tracings: available for review Interpretation: #1 EKG Electronic ventricular paced rhythm with frequent PVC, Afib NE interval *, QRS duration 176, QT/QTC 434/657 #2EKG Electronic ventricular paced rhythm with frequent PVC. Ventricular rate 100 NE interval *, QRS duration 170, QT/QTC 454/585 MDM Narrative Medical decision making narrative: This is a 80-year-old male comprehensive medical history with AFib and D fib in placed, hypertension, hyperlipidemia, heart failure, CKD, COPD, known AAA presents to ED with nontraumatic upper thoracic, posterior neck and shoulder pain w/o exertion with mild nausea from pain which he rated as 9/10 and also reports bilateral chronic knee pain that he takes oxycodone daily at nights. Patient denies chest pain, abdominal pain, increased breathing difficulty from his baseline COPD. Physical exam was unremarkable, however appreciated 2+ right lower extremity edema. Patient reports right lower leg swelling more than usual and had taken 1 additional dose of torsemide today. Concerned for ACS vs. Musculoskeletal discomfort, cardiac workup done. Initial troponin mildly elevated to 0.035 and ProBNP of 1780. Elevated coag and H/H mildy low of 12.0/36.6 but this has been in his baseline. Today kidney function test mildly decreased with Cr of 1.65 and eGFR of 40.2 and BUN of 40. Previous renal function test 2 days ago with creatinine 1.45 with estimated GFR of 46.7 and BUN of 37. After consulting Dr. Cameron (ED attending), Concerns for dissection, CT angio of chest/abd/pelvis ordered. It showed slighly increased in AAA size now to 6.2 x 6 cm when compared with previous US result as 5.4 5.2 cm with some flow disturbance concerned for small mural thrombosis or dissection. There is There is no fluid surrounding the aneurysm sac. No acute aortic syndrome in the chest. There is a small right lower lobe pleural effusion. Dr. Rivero at [place] (vascular surgeon) and he recommended office follow-up and to have patient call the office tomorrow but no emergent transfer required for surgical intervention at this time given patient does not have abdominal pain or symptoms. Dr. John consulted with a slight bump up on the 2nd troponin which is 0.086. Dr. John recommended started on nitroglycerin and heparin drips and treat HF exacerbation and to trend cardiac enzymes and possible echocardiogram tomorrow. Cardiac angiogram will be held for 2 days due to decreased CKD and patient received contrast CT received today to r/o dissection. Patient's PCP group consulted for an admission but recommended patient be transfer to tertiary care due to complicated patient's medical condition and limited resources. Dr. Augustin kindly accepted patient's care at [facility] for elevated Trop, CKD, atypical chest pain, AAA. Patient started on nitro drip, heparin drip, and received 60 mg of IV Lasix. Patient had about 700 ml of urine output while in ED. <Anaid Cameron, - Last Filed: 11/16/20 08:15> Lab Data Attestation: I reviewed the patient's lab results. Labs: Lab Results 11/15/20 11/15/20 11/15/20 Range/Units 15:31 15:31 15:31 WBC 8.8 (4.5-11.0) X10^3/uL RBC 4.25 L (4.5-5.9) X10^6/uL Hgb 12.0 L (13.5-17.5) g/dL Hct 36.6 L (41-53) % MCV 86.1 (80-100) fL MCH 28.2 (26-34) PG MCHC 32.7 (30-36) % RDW 14.9 H (11.6-14.8) % Plt Count 119 L (150-400) X10^3/uL Neut % (Auto) Not Reportable Lymph % (Auto) Not Reportable [place] % (Auto) Not Reportable Eos % (Auto) Not Reportable Baso % (Auto) Not Reportable Lymph # (Auto) Not Reportable [place] # (Auto) Not Reportable Baso # (Auto) Not Reportable Total Counted 100 Seg Neutrophils % 56.0 (38-70) % Lymphocytes % (Manual) 24.0 L (25-45) % Atypical Lymphs % 8.0 H ( - 0) % Monocytes % (Manual) 9.0 (2-11) % Eosinophils % (Manual) 3.0 (2-4) % Neutrophils # (Manual) 4928 (6065-7135) /uL RBC Morphology Normal morphology PT 16.4 H (10.1-12.7) SECONDS INR 1.5 H (0.9-1.3) APTT 38 H D (26.4-36.2) SECONDS Sodium 141 (137-145) mmol/L Potassium 4.8 (3.4-5.1) mmol/L Chloride 105 (98-107) mmol/L Carbon Dioxide 27 (22-32) mmol/L BUN 40 H (9-20) mg/dL Creatinine 1.65 H (0.66-1.25) mg/dL Estimated GFR 40.2 L (>60) mL/min BUN/Creatinine Ratio 24.2 H (6-22) Glucose 151 H (80-110) mg/dL Calcium 8.9 (8.4-10.2) mg/dL Magnesium (1.6-2.3) mg/dL Total Bilirubin 0.5 (0.2-1.3) mg/dL AST 39 (17-59) IU/L ALT 23 (<50) IU/L Alkaline Phosphatase 61 (38-126) U/L Total Creatine Kinase 309 H (55-170) U/L CK-MB (CK-2) 6.81 H (<2.37) ng/mL CK-MB (CK-2) Rel Index 2.2 (1.5-5.0) % Troponin I 0.035 H (0.01-0.034) ng/mL NT-Pro-B Natriuret Pep 1780 H (<450) pg/mL Total Protein 7.3 (6.3-8.2) g/dL Albumin 4.5 (3.5-5.0) g/dL Globulin 2.8 (1.7-4.1) g/dL Albumin/Globulin Ratio 1.6 (1.0-2.8) Lipase 207 (23-300) U/L SARS-CoV-2 (PCR) (Negative) 11/15/20 11/15/20 11/15/20 Range/Units 15:31 17:45 18:00 WBC (4.5-11.0) X10^3/uL RBC (4.5-5.9) X10^6/uL Hgb (13.5-17.5) g/dL Hct (41-53) % MCV (80-100) fL MCH (26-34) PG MCHC (30-36) % RDW (11.6-14.8) % Plt Count (150-400) X10^3/uL Neut % (Auto) Lymph % (Auto) [place] % (Auto) Eos % (Auto) Baso % (Auto) Lymph # (Auto) [place] # (Auto) Baso # (Auto) Total Counted Seg Neutrophils % (38-70) % Lymphocytes % (Manual) (25-45) % Atypical Lymphs % ( - 0) % Monocytes % (Manual) (2-11) % Eosinophils % (Manual) (2-4) % Neutrophils # (Manual) (5645-5624) /uL RBC Morphology PT (10.1-12.7) SECONDS INR (0.9-1.3) APTT (26.4-36.2) SECONDS Sodium (137-145) mmol/L Potassium (3.4-5.1) mmol/L Chloride (98-107) mmol/L Carbon Dioxide (22-32) mmol/L BUN (9-20) mg/dL Creatinine (0.66-1.25) mg/dL Estimated GFR (>60) mL/min BUN/Creatinine Ratio (6-22) Glucose (80-110) mg/dL Calcium (8.4-10.2) mg/dL Magnesium 2.8 H (1.6-2.3) mg/dL Total Bilirubin (0.2-1.3) mg/dL AST (17-59) IU/L ALT (<50) IU/L Alkaline Phosphatase (38-126) U/L Total Creatine Kinase 319 H (55-170) U/L CK-MB (CK-2) 7.22 H (<2.37) ng/mL CK-MB (CK-2) Rel Index 2.3 (1.5-5.0) % Troponin I 0.086 H (0.01-0.034) ng/mL NT-Pro-B Natriuret Pep (<450) pg/mL Total Protein (6.3-8.2) g/dL Albumin (3.5-5.0) g/dL Globulin (1.7-4.1) g/dL Albumin/Globulin Ratio (1.0-2.8) Lipase (23-300) U/L SARS-CoV-2 (PCR) Negative (Negative) ECG Data Attestation: I personally reviewed and interpreted this ECG as follows: Prior ECG tracings: available for review Interpretation: Paced rhythm rate [address] changes EKG number 2. Paced rhythm frequent PVCs Discharge Plan Departure Patient Disposition: Admitted As Inpatient Clinical Impression: Atypical chest pain, Elevated troponin CHF exacerbation Qualifiers: Heart failure type: unspecified Qualified Code(s): I50.9 - Heart failure, unspecified CKD (chronic kidney disease) Qualifiers: Chronic kidney disease stage: stage 3 (moderate) Chronic kidney disease stage 3 subtype: stage 3b (GFR 30-44) Qualified Code(s): N18.32 - Chronic kidney disease, stage 3b Abdominal aortic aneurysm Qualifiers: Presence of rupture: without rupture Qualified Code(s): I71.4 - Abdominal aortic aneurysm, without rupture <Anaid Cameron DO - Last Filed: 11/16/20 08:15> Cosign ED Attending Cosignature Attestation: I was immediately available in the department for consultation. Documentation has been reviewed. I agree with assessment and plan.
[2020-11-15 15:43] LABS: Hematocrit 36.6 % (41-53); Mean Corpuscular HGB Conc 32.7 % (30-36); Mean Corpuscular Hemoglobin 28.2 PG (26-34); Mean Corpuscular Volume 86.1 fL (80-100); Platelet Count 119 X10^3/uL (150-400); Red Blood Cell Count 4.25 X10^6/uL (4.5-5.9); Red Cell Distribution Width 14.9 % (11.6-14.8); White Blood Cell Count 8.8 X10^3/uL (4.5-11.0)
[2020-11-15 15:44] LABS: Add Manual Diff / Slide Review YES
[2020-11-15 15:46] LABS: INR 1.5 (0.9-1.3); Prothrombin Time 16.4 SECONDS (10.1-12.7)
[2020-11-15 15:49] LABS: PTT Partial Thromboplastin Tim 38 SECONDS (26.4-36.2)
[2020-11-15 15:50] LABS: Alanine Aminotransferase 23 IU/L (<50); Albumin 4.5 g/dL (3.5-5.0); Albumin Globulin Ratio 1.6 (1.0-2.8); Alkaline Phosphatase 61 U/L (38-126); Aspartate Aminotransferase 39 IU/L (17-59); BUN Creatinine Ratio 24.2 (6-22); Bilirubin Total 0.5 mg/dL (0.2-1.3); Blood Urea Nitrogen 40 mg/dL (9-20); Calcium 8.9 mg/dL (8.4-10.2); Carbon Dioxide 27 mmol/L (22-32); Chloride 105 mmol/L (98-107); Creatine Kinase 309 U/L (55-170); Estimated Glomerular Filt Rate 40.2 mL/min (>60); Globulin 2.8 g/dL (1.7-4.1); Glucose 151 mg/dL (80-110); HEMOLYSIS < 15 (0-50); Lipase 207 U/L (23-300); Potassium 4.8 mmol/L (3.4-5.1); Sodium 141 mmol/L (137-145); Total Protein 7.3 g/dL (6.3-8.2)
[2020-11-15 16:01] LABS: Magnesium 2.8 mg/dL (1.6-2.3); Neutrophils Absolute Manual 4928 /uL (3000-5900); Total Cells Counted 100
[2020-11-15 16:02] LABS: NT-proBNP (BNP-Adult 18+) 1780 pg/mL (<450); Troponin I 0.035 ng/mL (0.01-0.034)
[2020-11-15 16:03] LABS: RBC Morphology Normal Morphology
[2020-11-15 16:05] LABS: CKMB % Relative Index 2.2 % (1.5-5.0); Creatine Kinase MB 6.81 ng/mL (<2.37)
[2020-11-15] MEDS: MORPHINE 2 MG/ML INJ IV ×3 (16:09→18:18)
--- NOTE | 2020-11-15 16:15 | DI.CT.S_ITS ---
PROCEDURE: CT ANGIO CHEST ABDOMEN PELVIS INDICATIONS: r/o dissection, pain in posterior shoulder/neck, hx of AAA TECHNIQUE: Precontrast 5 mm thick sections acquired from the lung apices to the iliac crests. After the administration of intravenous contrast, 2.5 mm thick sections again acquired from the lung apices to the iliac crests. Maximum intensity projection (MIP) oblique sagittal and coronal reformats were then acquired. For radiation dose reduction, the following was used: automated exposure control. COMPARISON: [facility], US, US RETRO PERITONEAL LIMITED, 04/12/2019, 12:55. [facility], US, US AORTA RETROPERITONEAL LIMITED, 09/26/2018, 10:20. [facility], CT, CT CHEST W CON, 07/28/2020, 9:11. FINDINGS: Image quality: Excellent. AORTA: Ascending aorta is unchanged. Ascending aorta measures 3.2 cm, (43), unchanged. There is conventional branching of the great vessels. There is a tiny dissection in the left subclavian artery origin, (50), unchanged since 07/28/2020. There is extensive calcified atherosclerotic plaque at the aortic arch. No aneurysm of the descending aorta. Thoracic aortic dissection. Extensive plaque in the abdominal aorta. There is likely a small dissection flap in the infrarenal abdominal aorta. The intimal flap is calcified suggesting chronicity, (). Infrarenal abdominal aortic aneurysm measuring 6.2 x 6 cm, (5/128). Previously measured on ultrasound 5.4 x 5.2 cm. On the noncontrast sequence the aneurysm sac is isodense. On the post-contrast sequence there is flow disturbance with heterogeneous contrast enhancement. Small mural thrombus. Right common iliac artery measures 1.8 cm. Left common iliac artery measures 1.4 cm. Iliac arteries opacify with contrast. No central pulmonary embolism. CHEST: Lungs and pleura: Subpleural nodularity similar to the prior CT from July 2020. Left upper lobe nodular opacity is resolved. Small consolidation at the right lower lobe. Small right pleural effusion. No pneumothorax. Central and peripheral airways are patent and normal in caliber. Mediastinum: Heart size is enlarged. Right ventricular cardiac device. Coronary artery calcifications. No pericardial effusion. Small mediastinal lymph nodes are unchanged. For example: Right lower paratracheal 0.9 cm, (/40), previously 1 cm. Central pulmonary arteries are normal in size. Esophagus is normal in caliber. No hiatal hernias. Bones and chest wall: No axillary adenopathy by size criteria. Thyroid gland is unremarkable. No suspicious bony lesions. No vertebral body compression fractures. ABDOMEN: Vasculature: Celiac trunk and mesenteric arteries are patent. Renal arteries are also patent. Dense calcified plaque in these vessels. Solid organs: Liver is normal in size and enhancement. Gallbladder is unremarkable . Biliary system is non dilated. Pancreas enhances normally. No peripancreatic fluid collection. Spleen is normal in size and enhancement. No adrenal nodules. Both kidneys are normal in size and enhancement, without hydronephrosis. Peritoneum and bowel: No free fluid or air. Bowel loops are normal in caliber and wall thickness. Nodes and vessels: No retroperitoneal or mesenteric adenopathy by size criteria. Inferior vena cava is normal in morphology. Miscellaneous: Small fat containing periumbilical hernia. PELVIS: Genitourinary: Bladder wall thickness is normal. Miscellaneous: Fat containing right inguinal hernia. There is trace fluid in the hernia sac. Skin thickening at in the left mons pubis and left inguinal crease, (5/184, 197). No enlarged adenopathy. No ventral hernias. Bones: No suspicious bony lesions. Ankylosis at the right SI joint. Severe degenerative change in the spine. No vertebral body compression fractures. IMPRESSION: 1. No acute aortic syndrome in the chest. 2. The small right lower lobe consolidation. This could be due to compressive atelectasis or pneumonia. Trace right pleural effusion. 3. Large infrarenal abdominal aortic aneurysm measuring 6.2 cm. (Previously 5.4 cm on ultrasound 04/12/2019). Flow disturbance within the aneurysm sac most likely due to short segment aortic dissection. Intramural hematoma could have a similar appearance. No fluid surrounding the aneurysm sac. 4. No free fluid in the abdomen or pelvis. Comment: Preliminary findings were discussed with Angel De La Vega at the time of dictation. Dictated by: Bernardo Jovel M.D. on 11/15/2020 at 16:09 Approved by: Bernardo Jovel M.D. on 11/15/2020 at 16:37
[2020-11-15 18:03] LABS: Creatine Kinase 319 U/L (55-170)
[2020-11-15 18:16] LABS: Troponin I 0.086 ng/mL (0.01-0.034)
[2020-11-15 18:20] LABS: CKMB % Relative Index 2.3 % (1.5-5.0); Creatine Kinase MB 7.22 ng/mL (<2.37)
[2020-11-15 18:24] LABS: COVID19 -Nasal RAPID Negative (Negative)
[2020-11-15] MEDS: FUROSEMIDE 100 MG/10 ML VIAL 60 MG IV (19:49)
[2020-11-15] MEDS: HEPARIN 5,000 UNIT/ML VIAL 4000 UNIT IV (19:57)
[2020-11-15] MEDS: NITROGLYCERIN 50 MG/250 ML INFUS..BTL IV (19:57)
[2020-11-15] MEDS: HEPARIN DRIP 25,000 UNIT/500 ML IV.SOLN 17.418 UNIT IV (19:58)
--- NOTE | 2020-12-13 12:44 | PC.NURSE ---
Late entry. patient transferred to [facility] and left [facility] at 21:19. heparin IV infusing during transport at 17.418mls/hr and nitroglycerin IV infusing during transport at 1.5mls/hr when the patient left the department at 21:19.
== END 2020-11-15 21:20 | disposition admitted as inpatient to this hospital (09) ==
PROVIDERS: Emergency Provider Nurse Practitioner Family; PCP Family Medicine
DX: I50.9 Heart failure, unspecified (principal); N18.32 Chronic kidney disease, stage 3b; I71.4 Abdominal aortic aneurysm, without rupture; R07.89 Other chest pain; R77.8 Other specified abnormalities of plasma proteins; M25.512 Pain in left shoulder; M25.511 Pain in right shoulder; Z95.0 Presence of cardiac pacemaker; Z20.822 Contact with and (suspected) exposure to COVID-19
CPT/HCPCS: 36415; 71045; 71270; 74178; 80053; 82550; 82553; 83690; 83735; 83880; 84484; 85007; 85025; 85610; 85730; 87635; 93005; 93010; 96365; 96368; 96375; 96376; 99285; C9803; J1644; J1940; J2270; Q9967

== ENCOUNTER → 2020-12-11 13:46 | Outpatient (CLI) | payer MEDICARE, OTHER, SELFPAY ==
[2020-07-28 20:00] VITALS: BMI 27.1
[2020-12-11 14:36] LABS: BUN Creatinine Ratio 28.7 (6-22); Blood Urea Nitrogen 41 mg/dL (9-20); Calcium 9.4 mg/dL (8.4-10.2); Carbon Dioxide 29 mmol/L (22-32); Chloride 104 mmol/L (98-107); Estimated Glomerular Filt Rate 47.5 mL/min (>60); Glucose 94 mg/dL (80-110); HEMOLYSIS < 15 (0-50); Potassium 4.7 mmol/L (3.4-5.1); Sodium 142 mmol/L (137-145)
== END ==
PROVIDERS: PCP Family Medicine; Referring Provider Internal Medicine Cardiovascular Disease; Visit Provider Internal Medicine Cardiovascular Disease
DX: I42.9 Cardiomyopathy, unspecified (principal)
CPT/HCPCS: 36415; 80048

== ENCOUNTER → 2021-01-06 11:35 | Outpatient (CLI) | payer MEDICARE, OTHER, SELFPAY ==
[2020-07-28 20:00] VITALS: BMI 27.1
--- NOTE | 2021-01-06 11:43 | DI.CT.S_ITS ---
PROCEDURE: CT HEAD/BRAIN WO CON INDICATIONS: Disorder of brain, unspecified TECHNIQUE: Noncontrast 4.5 mm thick angled axial sections acquired from the foramen magnum to the vertex, with coronal and sagittal reformats. For radiation dose reduction, the following was used: automated exposure control, adjustment of mA and/or kV according to patient size. COMPARISON: [facility], CT, CT HEAD/BRAIN WO CON, 08/05/2020, 15:18. [facility], CT, CT HEAD/BRAIN WO CON, 07/28/2020, 14:48. FINDINGS: Image quality: Excellent. CSF spaces: Basal cisterns are patent. No extra-axial fluid collections. The ventricles are symmetric in size and shape. Brain: No intracranial bleeds or masses. There is cerebral volume loss for age, with resultant ventricular and sulcal prominence. There are periventricular and deep white matter chronic small vessel ischemic changes. There is intracranial internal carotid artery atherosclerosis. Skull and face: Calvarium and visualized facial bones appear intact, without suspicious lesions. Sinuses: Visualized sinuses and mastoids are clear. IMPRESSION: Relatively prominent microvascular atherosclerotic change in the deep white matter of each hemisphere but no sign of mass, hemorrhage, or stroke, or ventriculomegaly. Dictated by: Alan Ribeiro M.D. on 01/06/2021 at 11:55 Approved by: Alan Ribeiro M.D. on 01/06/2021 at 11:56
== END ==
PROVIDERS: PCP Family Medicine; Referring Provider Neurological Surgery; Visit Provider Neurological Surgery
DX: D46.9 Myelodysplastic syndrome, unspecified; G93.9 Disorder of brain, unspecified
CPT/HCPCS: 70450

== ENCOUNTER → 2021-01-22 14:35 | Outpatient (CLI) | payer MEDICARE, OTHER, SELFPAY ==
[2020-07-28 20:00] VITALS: BMI 27.1
[2021-01-22 14:47] LABS: Bacteria Urine None Seen; RBC Urine None Seen (0-5/HPF)
[2021-01-22 15:12] LABS: Hematocrit 32.9 % (41-53); Hemoglobin 10.9 g/dL (13.5-17.5); Mean Corpuscular HGB Conc 33.2 % (30-36); Mean Corpuscular Hemoglobin 28.3 PG (26-34); Mean Corpuscular Volume 85.3 fL (80-100); Platelet Count 152 X10^3/uL (150-400); Red Blood Cell Count 3.86 X10^6/uL (4.5-5.9); Red Cell Distribution Width 15.6 % (11.6-14.8); White Blood Cell Count 10.5 X10^3/uL (4.5-11.0)
[2021-01-22 15:13] LABS: Add Manual Diff / Slide Review YES
[2021-01-22 15:17] LABS: Appearance Urine UA CLEAR; Bilirubin Urine UA NEGATIVE (NEGATIVE); Color Urine UA YELLOW; Glucose Urine UA TRACE g/dL (Negative); Ketones Urine UA NEGATIVE (NEGATIVE); Leukocyte Esterase Urine UA TRACE (NEGATIVE); Nitrite Urine UA NEGATIVE (Negative); Occult Blood Urine UA NEGATIVE (Negative); Protein Urine UA NEGATIVE (Negative); Urobilinogen Urine UA 0.2 E.U./dL (0.2)
[2021-01-22 15:19] LABS: BUN Creatinine Ratio 31.8 (6-22); Blood Urea Nitrogen 47 mg/dL (9-20); Calcium 8.9 mg/dL (8.4-10.2); Carbon Dioxide 28 mmol/L (22-32); Chloride 104 mmol/L (98-107); Estimated Glomerular Filt Rate 45.6 mL/min (>60); Glucose 129 mg/dL (80-110); HEMOLYSIS < 15 (0-50); Magnesium 2.7 mg/dL (1.6-2.3); Phosphorous 3.5 mg/dL (2.3-3.7); Potassium 4.4 mmol/L (3.4-5.1); Sodium 139 mmol/L (137-145); Uric Acid 8.8 mg/dL (3.5-8.5)
[2021-01-22 15:24] LABS: Creatinine Urine Random 158.3 mg/dL
[2021-01-22 15:28] LABS: Microalbumi Creatinin Ratio Ur 8.8 ug/mg CR (<30); Microalbumin Urine Random 1.4 mg/dL (0-1.6)
[2021-01-22 15:37] LABS: Culture Indicated Urine Specimen Cultured; WBC Urine 0-1/HPF (0-5/HPF)
[2021-01-22 15:49] LABS: Neutrophils Absolute Manual 4620 /uL (3000-5900); Total Cells Counted 100
[2021-01-22 15:50] LABS: Anisocytosis 1+; Ovalocytes 1+; Poikilocytosis 1+
[2021-01-23 05:42] LABS: Parathyroid Hormone Int 57 pg/mL (15-65)
== END ==
PROVIDERS: PCP Family Medicine; Referring Provider Physician Assistant; Visit Provider Physician Assistant
DX: N18.2 Chronic kidney disease, stage 2 (mild) (principal)
CPT/HCPCS: 36415; 80048; 81001; 82043; 82570; 83735; 83970; 84100; 84550; 85007; 85025; 87086

== ENCOUNTER → 2021-02-23 13:57 | Outpatient (CLI) | payer MEDICARE, OTHER, SELFPAY ==
[2020-07-28 20:00] VITALS: BMI 27.1
--- NOTE | 2021-02-23 13:59 | DI.ECHO.S_ITS ---
[facility]---------+ [facility] +---------+ : : [address] : : : : [id number] : : : : Phone: [phone]+ Echocardiogram Report + + :Name: PRIYA DÍAZ Study Date: 02/23/2021 Height: 65.5 in: :[facility] ReadingLocation: Weight: 158 lb : : Gender: Male BSA: 1.8 m2 : :: 1940 Age: 80 yrs : :Reason For Study: CARDIOMYOPATHY : :Ordering Physician: ARISTEO, : :FRANCI Performed By: Oralia Patrick : :Referring: FRANCI JOHN : + + Interpretation Summary 1) Normal left ventricular size with moderately reduced systolic function (EF 35-40%). 2) There is a significant dyssynchronous contraction pattern due to the paced rhythm. 3) Normal right ventricular size with mildly reduced function. There is a pacemaker lead in the right ventricle. 4) Severe left atrial enlargement. 5) No significant valvular abnormalities. 6) The right ventricular systolic pressure is estimated to be at least 41 mmHg based on an estimated right atrial pressure of 3 mm Hg. 7) Compared to the Echo done 04/14/2020, LVEF has decreased from low normal to moderately reduced on this study based on my direct comparison. Procedure: A two-dimensional transthoracic echocardiogram with color flow and Doppler was performed. The study quality was technically adequate. Comparison is made with the echocardiogram of 04/14/2020. The patient has a paced rhythm. The heart rate ranged between 79-85 bpm during the study. Left Ventricle: The left ventricle is normal in size and wall thickness. The ejection fraction is estimated to be 35-40%. There is a significant dyssynchronous contraction pattern due to the paced rhythm. Right Ventricle: The right ventricle is normal size. There is a pacemaker lead in the right ventricle. Right ventricular systolic function is mildly reduced. Atria: The left atrium is severely dilated. Right atrial size is normal. There is no Doppler evidence for an interatrial shunt. Mitral Valve: There is mild mitral annular calcification. The mitral valve leaflets appear borderline thickened, but open well. There is mild mitral regurgitation. Aortic Valve: The aortic valve is trileaflet. The aortic valve opens well. The aortic valve is slightly calcified. There is no aortic valve stenosis. There is trace aortic regurgitation. Tricuspid Valve: The tricuspid valve is normal in structure and function. There is mild tricuspid regurgitation. The right ventricular systolic pressure is estimated to be at least 41 mmHg based on an estimated right atrial pressure of 3 mm Hg. Pulmonic Valve: The pulmonic valve is not well visualized. There is mild pulmonic regurgitation. Great Vessels: The aortic root is normal size. The ascending aorta is at the upper limits of normal in size. The IVC is of normal diameter and collapses greater than 50% with a sniff. This suggests a low right atrial pressure of 3 mm Hg. Pericardium/ Pleura There is no pericardial effusion. There is no pleural effusion. MMode/2D Measurements & Calculations LVIDd: 5.7 cm LVOT diam: 2.2 cm LVIDs: 4.3 cm Ao root diam: 3.8 cm FS: 23.4 % asc Aorta Diam: 3.4 cm IVSd: 0.83 cm Ao Arch Diam (Prox Trans): 2.2 cm LVPWd: 0.91 cm LV zarate. diameter/BSA (cm/m^2): 3.1 LV sys. diameter/BSA (cm/m^2): 2.4 LA A2 area: 28.2 cm2 RA long axis: 6.7 cm LA A4 area: 27.9 cm2 RA area: 20.9 cm2 LA length (vol): 6.6 cm RA vol: 55.2 ml LA vol: 100.6 ml RA : 30.7 ml/m2 LA vol index: 55.9 ml/m2 IVC diam: 1.8 cm RVD1 (basal): 3.9 cm TAPSE: 1.3 cm Doppler Measurements & Calculations Ao V2 max: 119.8 cm/sec LVOT Max Bryce: 65.8 cm/sec Ao V2 mean: 87.3 cm/sec LV V1 max P.7 mmHg Ao max P.7 mmHg LV V1 VTI: 12.3 cm Ao mean P.4 mmHg RADHA(I,D): 2.2 cm2 Ao V2 VTI: 22.0 cm RADHA(V,D): 2.2 cm2 sev ratio: 0.56 RADHA indexed to BSA (cm^2/m^2): 1.2 MV E max bryce: 128.3 cm/sec TR max bryce: 308.9 cm/sec MV A max bryce: 4.1 cm/sec TR max P.2 mmHg MV E/A: 31.0 PA V2 max: 78.2 cm/sec Med Peak E' Bryce: 7.5 cm/sec PA V2 mean: 55.3 cm/sec E/E' med: 17.2 PA mean P.4 mmHg Lat Peak E' Bryce: 8.6 cm/sec PA pr(Accel): 39.6 mmHg E/E' lat: 14.9 E/e' average: 16.0 MV dec time: 0.19 sec SV(LVOT): 48.3 ml Reading Physician:05:13 PM
== END ==
PROVIDERS: PCP Family Medicine; Referring Provider Internal Medicine Cardiovascular Disease; Visit Provider Internal Medicine Cardiovascular Disease
DX: I08.1 Rheumatic disorders of both mitral and tricuspid valves (principal); I42.9 Cardiomyopathy, unspecified; Z95.0 Presence of cardiac pacemaker
CPT/HCPCS: 93306

== ENCOUNTER → 2021-05-10 11:46 | Outpatient (CLI) | payer MEDICARE, OTHER, SELFPAY ==
[2020-07-28 20:00] VITALS: BMI 27.1
[2021-05-10 13:13] LABS: Add Manual Diff / Slide Review YES; Hematocrit 34.2 % (41-53); Hemoglobin 11.2 g/dL (13.5-17.5); Mean Corpuscular HGB Conc 32.6 % (30-36); Mean Corpuscular Hemoglobin 27.8 PG (26-34); Mean Corpuscular Volume 85.3 fL (80-100); Platelet Count 103 X10^3/uL (150-400); Red Blood Cell Count 4.01 X10^6/uL (4.5-5.9); Red Cell Distribution Width 17.5 % (11.6-14.8); White Blood Cell Count 8.3 X10^3/uL (4.5-11.0)
[2021-05-10 13:47] LABS: Anisocytosis 1+; Neutrophils Absolute Manual 5146 /uL (3000-5900); Total Cells Counted 100
[2021-05-10 13:48] LABS: Ovalocytes 1+
[2021-05-10 14:46] LABS: BUN Creatinine Ratio 30.1 (6-22); Blood Urea Nitrogen 40 mg/dL (9-20); Calcium 9.2 mg/dL (8.4-10.2); Carbon Dioxide 27 mmol/L (22-32); Chloride 104 mmol/L (98-107); Cholesterol 111 mg/dL (140-199); Estimated Glomerular Filt Rate 51.6 mL/min (>60); Glucose 91 mg/dL (80-110); HDL Cholesterol 45 mg/dL (40-60); HEMOLYSIS < 15 (0-50); LDL Cholesterol Calculated 53 mg/dL (<100); Magnesium 2.3 mg/dL (1.6-2.3); Sodium 139 mmol/L (137-145); Triglycerides 67 mg/dL (35-150)
== END ==
PROVIDERS: PCP Family Medicine; Referring Provider Internal Medicine Cardiovascular Disease; Visit Provider Internal Medicine Cardiovascular Disease
DX: E78.5 Hyperlipidemia, unspecified (principal); I25.10 Atherosclerotic heart disease of native coronary artery without angina pectoris; N18.31 Chronic kidney disease, stage 3a
CPT/HCPCS: 36415; 80048; 80061; 83735; 85007; 85025

== ENCOUNTER 2021-07-07 10:30 | Outpatient (RCR) | payer MEDICARE, OTHER, SELFPAY ==
[2020-07-28 20:00] VITALS: BMI 27.1
== END 2021-07-07 12:30 ==
LOC: CAR 10:30
PROVIDERS: PCP Family Medicine; Referring Provider Family Medicine; Visit Provider Family Medicine
DX: I21.4 Non-ST elevation (NSTEMI) myocardial infarction (principal)
CPT/HCPCS: 93798

== ENCOUNTER → 2021-07-26 12:58 | Outpatient (CLI) | payer MEDICARE, OTHER, SELFPAY ==
[2020-07-28 20:00] VITALS: BMI 27.1
== END ==
PROVIDERS: Family Provider Family Medicine; PCP Family Medicine; Referring Provider Podiatrist; Visit Provider Family Medicine
DX: G60.9 Hereditary and idiopathic neuropathy, unspecified (principal); S91.301A Unspecified open wound, right foot, initial encounter; S91.302A Unspecified open wound, left foot, initial encounter
CPT/HCPCS: 11042; 99204; 99213

== ENCOUNTER → 2021-07-29 09:32 | Outpatient (CLI) | payer MEDICARE, OTHER, SELFPAY ==
[2020-07-28 20:00] VITALS: BMI 27.1
== END ==
PROVIDERS: Family Provider Family Medicine; PCP Family Medicine; Referring Provider Family Medicine; Visit Provider Family Medicine
DX: G90.09 Other idiopathic peripheral autonomic neuropathy (principal); L97.511 Non-pressure chronic ulcer of other part of right foot limited to breakdown of skin; L97.421 Non-pressure chronic ulcer of left heel and midfoot limited to breakdown of skin; L84 Corns and callosities
CPT/HCPCS: 99214

== ENCOUNTER → 2021-08-03 14:02 | Outpatient (CLI) | payer MEDICARE, OTHER, SELFPAY ==
[2020-07-28 20:00] VITALS: BMI 27.1
== END ==
PROVIDERS: Family Provider Family Medicine; PCP Family Medicine; Referring Provider Family Medicine; Visit Provider Family Medicine
DX: G60.9 Hereditary and idiopathic neuropathy, unspecified (principal); L97.512 Non-pressure chronic ulcer of other part of right foot with fat layer exposed; L97.522 Non-pressure chronic ulcer of other part of left foot with fat layer exposed; L84 Corns and callosities; Z79.01 Long term (current) use of anticoagulants
CPT/HCPCS: 11042; 87070; 87075; 87077; 87147; 87186; 87205; 93922

== ENCOUNTER → 2021-08-11 13:06 | Outpatient (CLI) | payer MEDICARE, OTHER, SELFPAY ==
[2020-07-28 20:00] VITALS: BMI 27.1
== END ==
PROVIDERS: Family Provider Family Medicine; PCP Family Medicine; Referring Provider Family Medicine; Visit Provider Family Medicine
DX: G60.9 Hereditary and idiopathic neuropathy, unspecified (principal); S91.301A Unspecified open wound, right foot, initial encounter; S91.302A Unspecified open wound, left foot, initial encounter; L08.9 Local infection of the skin and subcutaneous tissue, unspecified; B95.4 Other streptococcus as the cause of diseases classified elsewhere; B95.7 Other staphylococcus as the cause of diseases classified elsewhere; M77.31 Calcaneal spur, right foot; M77.32 Calcaneal spur, left foot; M79.89 Other specified soft tissue disorders
CPT/HCPCS: 73630; 97597; 99214

== ENCOUNTER → 2021-08-11 14:24 | Outpatient (CLI) | payer MEDICARE, OTHER, SELFPAY ==
[2020-07-28 20:00] VITALS: BMI 27.1
--- NOTE | 2021-08-11 | DI.RAD.S_ITS ---
PROCEDURE: XR FOOT RT MIN 3V INDICATIONS: OPEN WOUND LEFT AND RIGHT FOOT TECHNIQUE: 3 views of the foot were acquired. COMPARISON: None. FINDINGS: Bones: No fractures or dislocations. No suspicious bony lesions. No osseous erosive changes. No periosteal reaction. Plantar and dorsal calcaneal bone spurs. Small bone fragment noted adjacent to the base of the 5th metatarsal which may represent sequela of remote trauma. Soft tissues: No tibiotalar joint effusion. Achilles tendon appears normal. No soft tissue gas. Forefoot soft tissue swelling. IMPRESSION: No nadira evidence of osteomyelitis. Plain film radiographs can be insensitive to osteomyelitis during the initial 15 days of the disease process. If there is clinical concern for osteomyelitis, then three-phase nuclear medicine bone scan or MRI should be considered for further evaluation. Dictated by: Elsie Tian MD, PhD on 08/11/2021 at 17:39 Approved by: Elsie Tian MD, PhD on 08/11/2021 at 17:41
--- NOTE | 2021-08-11 | DI.RAD.S_ITS ---
PROCEDURE: XR FOOT LT MIN 3V INDICATIONS: OPEN WOUND LEFT AND RIGHT FOOT TECHNIQUE: 3 views of the foot were acquired. COMPARISON: [facility], CR, XR FOOT LT MIN 3V, 10/24/2020, 18:04. FINDINGS: Bones: No fractures or dislocations. No suspicious bony lesions. No osseous erosive changes. No periosteal reaction. Plantar and dorsal calcaneal bone spurs. Soft tissues: No tibiotalar joint effusion. Achilles tendon appears normal. Soft tissue swelling noted in the forefoot. No soft tissue gas. IMPRESSION: No nadira evidence of osteomyelitis. Plain film radiographs can be insensitive to osteomyelitis during the initial 15 days of the disease process. If there is clinical concern for osteomyelitis, then three-phase nuclear medicine bone scan or MRI should be considered for further evaluation. Dictated by: Elsie Tian MD, PhD on 08/11/2021 at 17:38 Approved by: Elsie Tian MD, PhD on 08/11/2021 at 17:39
== END ==
PROVIDERS: Family Provider Family Medicine; PCP Family Medicine; Referring Provider Family Medicine; Visit Provider Family Medicine
DX: S91.301A Unspecified open wound, right foot, initial encounter (principal); S91.302A Unspecified open wound, left foot, initial encounter; M79.89 Other specified soft tissue disorders; M77.32 Calcaneal spur, left foot; M77.31 Calcaneal spur, right foot
CPT/HCPCS: 73630

== ENCOUNTER → 2021-08-18 14:57 | Outpatient (CLI) | payer MEDICARE, OTHER, SELFPAY ==
[2020-07-28 20:00] VITALS: BMI 27.1
== END ==
PROVIDERS: Family Provider Family Medicine; PCP Family Medicine; Referring Provider Family Medicine; Visit Provider Family Medicine
DX: G60.9 Hereditary and idiopathic neuropathy, unspecified (principal); L97.515 Non-pressure chronic ulcer of other part of right foot with muscle involvement without evidence of necrosis; L97.522 Non-pressure chronic ulcer of other part of left foot with fat layer exposed; Z79.01 Long term (current) use of anticoagulants
CPT/HCPCS: 97597

== ENCOUNTER → 2021-09-01 14:23 | Outpatient (CLI) | payer MEDICARE, OTHER, SELFPAY ==
[2020-07-28 20:00] VITALS: BMI 27.1
== END ==
PROVIDERS: Family Provider Family Medicine; PCP Family Medicine; Referring Provider Family Medicine; Visit Provider Family Medicine
DX: G60.9 Hereditary and idiopathic neuropathy, unspecified (principal); L97.515 Non-pressure chronic ulcer of other part of right foot with muscle involvement without evidence of necrosis; L84 Corns and callosities; Z79.01 Long term (current) use of anticoagulants
CPT/HCPCS: 11042; 99213

== ENCOUNTER → 2021-09-03 11:25 | Outpatient (CLI) | payer MEDICARE, OTHER, SELFPAY ==
[2020-07-28 20:00] VITALS: BMI 27.1
== END ==
PROVIDERS: Family Provider Family Medicine; PCP Family Medicine; Referring Provider Family Medicine; Visit Provider Family Medicine
DX: G60.9 Hereditary and idiopathic neuropathy, unspecified (principal); L97.512 Non-pressure chronic ulcer of other part of right foot with fat layer exposed
CPT/HCPCS: 29445; 99212

== ENCOUNTER → 2021-09-08 14:36 | Outpatient (CLI) | payer MEDICARE, OTHER, SELFPAY ==
[2020-07-28 20:00] VITALS: BMI 27.1
== END ==
PROVIDERS: Family Provider Family Medicine; PCP Family Medicine; Referring Provider Family Medicine; Visit Provider Family Medicine
DX: G60.9 Hereditary and idiopathic neuropathy, unspecified (principal); L97.512 Non-pressure chronic ulcer of other part of right foot with fat layer exposed
CPT/HCPCS: 29445

== ENCOUNTER → 2021-09-14 16:32 | Outpatient (CLI) | payer MEDICARE, OTHER, SELFPAY ==
[2020-07-28 20:00] VITALS: BMI 27.1
[2021-09-14 17:51] LABS: BUN Creatinine Ratio 32.5 (6-22); Blood Urea Nitrogen 54 mg/dL (9-20); Calcium 9.5 mg/dL (8.4-10.2); Carbon Dioxide 30 mmol/L (22-32); Chloride 103 mmol/L (98-107); Estimated Glomerular Filt Rate 39.9 mL/min (>60); Glucose 99 mg/dL (80-110); HEMOLYSIS < 15 (0-50); Magnesium 2.6 mg/dL (1.6-2.3); Phosphorous 4.3 mg/dL (2.3-3.7); Potassium 5.2 mmol/L (3.4-5.1); Sodium 139 mmol/L (137-145); Uric Acid 7.2 mg/dL (3.5-8.5)
[2021-09-14 18:00] LABS: Appearance Urine UA CLEAR; Bilirubin Urine UA NEGATIVE (NEGATIVE); Color Urine UA YELLOW; Glucose Urine UA NEGATIVE (Negative); Ketones Urine UA NEGATIVE (NEGATIVE); Leukocyte Esterase Urine UA NEGATIVE (NEGATIVE); Nitrite Urine UA NEGATIVE (Negative); Occult Blood Urine UA NEGATIVE (Negative); Protein Urine UA NEGATIVE (Negative); Specific Gravity Urine UA 1.015 (1.000-1.035); Urobilinogen Urine UA 0.2 E.U./dL (0.2)
[2021-09-14 18:01] LABS: Creatinine Urine Random 51.2 mg/dL
[2021-09-14 18:03] LABS: Hematocrit 37.1 % (41-53); Hemoglobin 12.4 g/dL (13.5-17.5); Mean Corpuscular HGB Conc 33.4 % (30-36); Mean Corpuscular Hemoglobin 28.5 PG (26-34); Mean Corpuscular Volume 85.4 fL (80-100); Platelet Count 135 X10^3/uL (150-400); Red Blood Cell Count 4.34 X10^6/uL (4.5-5.9); Red Cell Distribution Width 15.5 % (11.6-14.8); White Blood Cell Count 10.8 X10^3/uL (4.5-11.0)
[2021-09-14 18:04] LABS: Add Manual Diff / Slide Review YES
[2021-09-14 18:06] LABS: Vitamin D 25 Hydroxy (D3) 122 ng/mL (30.0-100.0)
[2021-09-14 18:07] LABS: Neutrophils Absolute Manual 4428 /uL (3000-5900); Platelet Estimate Decreased on smear; Platelet Morphology Comment NOTE; Poikilocytosis 1+; Total Cells Counted 100
[2021-09-14 18:16] LABS: Bacteria Urine None Seen; Culture Indicated Urine Cult Not Indicated; RBC Urine 0-1/HPF (0-5/HPF); Squamous Epithelial Cell Urine 0-1 /HPF (0-5/HPF); WBC Urine 0-1/HPF (0-5/HPF)
[2021-09-15 08:17] LABS: Parathyroid Hormone Int 43 pg/mL (15-65)
== END ==
PROVIDERS: Family Provider Family Medicine; PCP Family Medicine; Referring Provider Internal Medicine Nephrology; Visit Provider Internal Medicine Nephrology
DX: N18.31 Chronic kidney disease, stage 3a (principal)
CPT/HCPCS: 36415; 80048; 81001; 82043; 82306; 82570; 83735; 83970; 84100; 84550; 85007; 85025

== ENCOUNTER → 2021-09-15 15:03 | Outpatient (CLI) | payer MEDICARE, OTHER, SELFPAY ==
[2020-07-28 20:00] VITALS: BMI 27.1
== END ==
PROVIDERS: Family Provider Family Medicine; PCP Family Medicine; Referring Provider Family Medicine; Visit Provider Family Medicine
DX: G60.9 Hereditary and idiopathic neuropathy, unspecified (principal); L97.512 Non-pressure chronic ulcer of other part of right foot with fat layer exposed; L84 Corns and callosities; Z79.01 Long term (current) use of anticoagulants
CPT/HCPCS: 11042; 87070; 87075; 87077; 87186; 87205

== ENCOUNTER 2021-09-17 10:25 | Observation (INO) | payer MEDICARE, OTHER, SELFPAY ==
[2020-07-28 20:00] VITALS: BMI 27.1
[2021-09-17] VITALS (11 sets, daily range): BP systolic 104–125; BP diastolic 57–70; PULSE 79–84; RESP 17–28; TEMP 37.2–38.8; O2SAT 94–97; BMI 27.4
--- NOTE | 2021-09-17 10:33 | DI.RAD.S_ITS ---
PROCEDURE: XR CHEST 1V INDICATIONS: suspected sepsis TECHNIQUE: One view of the chest was acquired. COMPARISON: [facility], CT, CT ANGIO CHEST ABDOMEN PELVIS, 11/15/2020, 16:18. [facility], CR, XR CHEST 1V, 11/15/2020, 15:11. FINDINGS: Surgical changes and devices: An apparent leadless pacer can be seen. There is partial visualization of an abdominal aortic stent graft Lungs and pleura: Mild bilateral interstitial prominence can be seen on both sides. There is a small right-sided pleural effusion. No pneumothorax is seen. Mediastinum: The cardiac contours are moderately enlarged. The aorta demonstrates calcification and tortuosity. Bones and chest wall: No suspicious bony lesions. Age-appropriate bony degenerative changes are seen. Overlying soft tissues appear unremarkable. IMPRESSION: Cardiomegaly with a small right-sided pleural effusion and interstitial prominence. CHF is suspected. If there is strong clinical concern for significant pulmonary pathology, please consider a follow-up two view chest study (performed in deep inspiration) versus a chest CT with IV contrast for further evaluation. Postoperative and degenerative changes are seen. Dictated by: Bobby Pascal M.D. on 09/17/2021 at 10:07 Approved by: Bobby Pascal M.D. on 09/17/2021 at 10:09
[2021-09-17] MEDS: SODIUM CHLORIDE 0.9% 1,000 ML 1000 ML IV (10:53)
--- NOTE | 2021-09-17 10:53 | ED_ITS ---
HPI - General Adult General Chief complaint: Fever Stated complaint: Fever, Chills and & Weakness Time Seen by Provider: 09/17/21 10:26 Source: patient Mode of arrival: EMS History of Present Illness HPI narrative: 81-year-old male who arrived by EMS for evaluation of confusion and fevers and chills and weakness. Patient's daughter is at bedside and provided much of the HPI. Daughter states that last evening he did seem to have somewhat of a restless night but she did not think much of it because this has happened in the past. This morning the patient contacted the daughter and he seemed very confused. He was sweating. Is having shaking. Seem to very weak. She lives in the same house is him but just on a different floor. She came to his portion of the house. She was concerned without he was acting so she contacted EMS. Patient does seem to be somewhat confused upon my initial evaluation however he did deny chest pain and shortness of breath. He does have a cast on his right lower extremity. This is placed by wound care secondary to calluses that he has on his feet. He does not have any known infection. He is not currently on any antibiotics. Related Data Home Medications Medication Instructions Recorded Confirmed acetaminophen 325 mg capsule 325 mg PO Q6H PRN 08/18/18 07/28/21 albuterol sulfate 90 mcg/actuation 1 puff INHALATION Q6H PRN 08/18/18 07/28/21 aerosol inhaler alfuzosin 10 mg tablet,extended 10 mg PO DAILY 08/18/18 07/28/21 release 24 hr apixaban 5 mg tablet 5 mg PO BID 08/18/18 07/28/21 cholecalciferol (vitamin D3) 50 2,000 unit PO DAILY 08/18/18 07/28/21 mcg (2,000 unit) capsule magnesium 250 mg tablet 250 mg PO DAILY 08/18/18 07/28/21 fluticasone fur. 100 mcg-umeclid 1 puff INHALATION DAILY 04/03/19 07/28/21 62.5 mcg-vilant 25 mcg inhalat.powder spironolactone 25 mg tablet 25 mg PO DAILY tab 12/30/19 07/28/21 fluticasone fur. 100 mcg-umeclid 1 inh INHALATION DAILY 11/15/20 07/28/21 62.5 mcg-vilant 25 mcg inhalat.powder (Trelegy Ellipta) losartan 25 mg tablet 12.5 mg PO DAILY tab 05/06/21 07/28/21 Previous Rx's Medication Instructions Recorded diclofenac sodium 1 % topical gel 1 gram TOP QID PRN #100 gram 03/22/19 [address]abled [address] permit #1 ea 04/09/19 albuterol sulfate 2.5 mg (3 mL) INHALATION Q4H PRN 11/23/19 #90 ml nitroglycerin 2 % transdermal 1 inch TRANSDERMAL BID #30 gram 11/23/19 ointment (Nitro-Bid) torsemide 10 mg tablet 20 mg PO BID #60 tab 10/28/20 nitroglycerin 0.4 mg sublingual 0.4 mg SL Q5-15M PRN #7 tab 11/27/20 tablet metoprolol succinate 50 mg See Rx Instructions .ROUTE 01/08/21 tablet,extended release 24 hr .COMPLEX #90 tab rosuvastatin 40 mg tablet 40 mg PO DAILY #90 tab 02/16/21 pramipexole 0.25 mg tablet See Rx Instructions .ROUTE 07/29/21 .COMPLEX #135 tab oxycodone-acetaminophen 5 mg-325 1 tab PO Q6H PRN #10 tab 07/30/21 mg tablet (Percocet) Allergies Allergy/AdvReac Type Severity Reaction Status Date / Time atorvastatin Allergy Verified 09/17/21 10:31 diclofenac Allergy Verified 09/17/21 10:31 lisinopril Allergy Verified 09/17/21 10:31 niacin Allergy Verified 09/17/21 10:31 pravastatin Allergy Verified 09/17/21 10:31 Review of Systems Constitutional Constitutional: Reports chills, Reports difficulty sleeping, Reports fatigue and Reports fever(s) Cardiovascular Cardiovascular: Denies chest pain and Denies dyspnea Respiratory Respiratory: Denies dyspnea Gastrointestinal Gastrointestinal: Reports system reviewed and no additional complaints, except as documented Neurologic Neurologic: Reports system reviewed and no additional complaints, except as documented Endocrine Endocrine: Reports fatigue Hematologic/Lymphatic On Anticoagulants: No Patient History Medical History (HFpEF) heart failure with preserved ejection fraction Acute on chronic congestive heart failure with right ventricular diastolic dysfunction (~11/16/20) At high risk for falls Atrial fibrillation BPH (benign prostatic hyperplasia) COPD (chronic obstructive pulmonary disease) Coronary artery disease Essential hypertension Non-ST elevation (NSTEMI) myocardial infarction (~11/16/20) NSTEMI (non-ST elevated myocardial infarction) (~02/2020) NSTEMI (non-ST elevated myocardial infarction) (~08/2014) ZACH (obstructive sleep apnea) Pacemaker Restless leg Seborrheic keratosis Stage III chronic kidney disease Systolic heart failure Vasovagal syncope Surgical History (Updated 08/10/21 @ 09:35 by IZABELLA Aranda) H/O bilateral cataract extraction H/O heart artery stent H/O repair of rotator cuff History of back surgery S/P AAA repair Family History Mother Insomnia Social History marital status: household members: children lives independently: Yes caregiver/support person: Yes housing: house occupational status: previously employed Smoking Status: Former smoker second hand exposure: No alcohol intake: current substance use type: does not use Smoking Status: Former smoker alcohol intake frequency: 0-2 drinks per day Alcohol type: beer and hard liquor Substance Use Type: does not use Exam Initial Vital Signs Initial Vital Signs: Vital Signs Temperature 101.0 F H 09/17/21 10:26 Pulse Rate 82 09/17/21 10:26 Respiratory Rate 28 H 09/17/21 10:26 Blood Pressure 122/60 09/17/21 10:26 Pulse Oximetry 97 09/17/21 10:26 HENMT Head: normal to inspection and normocephalic Resp Effort & Inspection: normal respiratory effort Auscultation: clear to auscultation bilaterally Cardio Rate: regular rate Rhythm: regular rhythm GI Inspection: normal to inspection Skin General: no rashes or lesions noted Neuro General: patient alert, patient awake and moves all extremities Extrem Other: Patient does have calluses on bilateral feet. There are no active bleeding. No surrounding erythema. He does have redness located on his anterior tran that is warm to the touch and somewhat tender to the touch. There are no breaks in the skin. No crepitus felt. Psych Appearance: grossly normal and well kempt Scores GCS Beccaria coma scale eye opening: Spontaneous Beccaria coma scale verbal response: Confused Nirali coma scale motor response: Obey commands Nirali coma scale total score: 14 Course Orders Ordered: ED Orders 09/17/21 10:33 XR chest 1V Stat EKG-12 Lead Stat RT Consult Eval and Treat NOW 09/17/21 10:40 Complete Blood Count AUTO DIFF Stat ESR [Erythrocyte Sedimentation Rate] Stat 09/17/21 10:50 COVID19 -Nasal swab/Pre-Proc Stat 09/17/21 11:02 CRP [C-Reactive Protein Quant] Stat Comprehensive Metabolic Panel Stat Lactate (Lactic Acid) Stat Lipase Stat Partial Thromboplastin Time Stat Procalcitonin Stat Prothrombin Time INR Stat 09/17/21 11:04 Blood Culture Stat Discontinued Medications Acetaminophen (Acetaminophen 325 Mg Tablet) 650 mg PO NOW ONE Stop: 09/17/21 11:09 Last Admin: 09/17/21 11:45 Dose: 650 mg Documented by: DANIEL Sodium Chloride (Normal Saline 0.9%) 1,000 mls @ 1,000 mls/hr IV BOLUS ONE Stop: 09/17/21 11:32 Last Infusion: 09/17/21 12:09 Dose: 1,000 mls/hr Documented by: Admin: 09/17/21 10:53 Dose: 1,000 mls/hr Documented by: RACHAEL Ceftriaxone Sodium 1,000 mg/ (Sodium Chloride) 100 mls @ 200 mls/hr IV NOW ONE Stop: 09/17/21 10:40 Last Infusion: 09/17/21 12:10 Dose: 200 mls/hr Documented by: Admin: 09/17/21 11:44 Dose: 200 mls/hr Documented by: DANIEL Vital Signs Vital signs: Vital Signs - 8 hr 09/17/21 10:26 09/17/21 10:30 09/17/21 11:00 Temperature 101.0 F H Pulse Rate 82 82 81 Respiratory Rate 28 H Blood Pressure 122/60 125/59 L Pulse Oximetry 97 96 95 09/17/21 11:30 Temperature Pulse Rate 81 Respiratory Rate Blood Pressure 109/57 L Pulse Oximetry 96 Medical Decision Making Lab Data Lab results reviewed: Yes I reviewed the patient's lab results. Result diagrams: 09/17/21 10:40 09/17/21 11:02 Labs: Lab Results 09/17/21 09/17/21 09/17/21 Range/Units 10:40 10:40 10:50 WBC 18.9 H (4.5-11.0) X10^3/uL RBC 4.65 (4.5-5.9) X10^6/uL Hgb 13.3 L (13.5-17.5) g/dL Hct 39.8 L (41-53) % MCV 85.5 (80-100) fL MCH 28.5 (26-34) PG MCHC 33.3 (30-36) % RDW 15.5 H (11.6-14.8) % Plt Count 136 L (150-400) X10^3/uL Neut % (Auto) Not Reportable Lymph % (Auto) Not Reportable Donley % (Auto) Not Reportable Eos % (Auto) Not Reportable Baso % (Auto) Not Reportable Lymph # (Auto) Not Reportable Donley # (Auto) Not Reportable Baso # (Auto) Not Reportable Total Counted 100 Seg Neutrophils % 53.0 (38-70) % Band Neutrophils % 4.0 (3-7) % Lymphocytes % (Manual) 40.0 (25-45) % Atypical Lymphs % 1.0 H ( - 0) % Monocytes % (Manual) 2.0 (2-11) % Neutrophils # (Manual) 83866 H (9850-2889) /uL RBC Morphology See below Anisocytosis 1+ H ESR 28 H (0-15) MM/HR PT (10.1-12.7) SECONDS INR (0.9-1.3) APTT (26.4-36.2) SECONDS Sodium (137-145) mmol/L Potassium (3.4-5.1) mmol/L Chloride (98-107) mmol/L Carbon Dioxide (22-32) mmol/L BUN (9-20) mg/dL Creatinine (0.66-1.25) mg/dL Estimated GFR (>60) mL/min BUN/Creatinine Ratio (6-22) Glucose (80-110) mg/dL Lactate (0.7-2.1) mmol/L Calcium (8.4-10.2) mg/dL Total Bilirubin (0.2-1.3) mg/dL AST (17-59) IU/L ALT (<50) IU/L Alkaline Phosphatase (38-126) U/L C-Reactive Protein (<1.0) mg/dL Total Protein (6.3-8.2) g/dL Albumin (3.5-5.0) g/dL Globulin (1.7-4.1) g/dL Albumin/Globulin Ratio (1.0-2.8) Lipase (23-300) U/L Procalcitonin (<0.5) ng/mL SARS-CoV-2 (PCR) Negative (Negative) 09/17/21 09/17/21 09/17/21 Range/Units 11:02 11:02 11:02 WBC (4.5-11.0) X10^3/uL RBC (4.5-5.9) X10^6/uL Hgb (13.5-17.5) g/dL Hct (41-53) % MCV (80-100) fL MCH (26-34) PG MCHC (30-36) % RDW (11.6-14.8) % Plt Count (150-400) X10^3/uL Neut % (Auto) Lymph % (Auto) Donley % (Auto) Eos % (Auto) Baso % (Auto) Lymph # (Auto) Donley # (Auto) Baso # (Auto) Total Counted Seg Neutrophils % (38-70) % Band Neutrophils % (3-7) % Lymphocytes % (Manual) (25-45) % Atypical Lymphs % ( - 0) % Monocytes % (Manual) (2-11) % Neutrophils # (Manual) (7867-5145) /uL RBC Morphology Anisocytosis ESR (0-15) MM/HR PT 17.0 H (10.1-12.7) SECONDS INR 1.5 H (0.9-1.3) APTT 34 (26.4-36.2) SECONDS Sodium 138 (137-145) mmol/L Potassium 5.3 H (3.4-5.1) mmol/L Chloride 102 (98-107) mmol/L Carbon Dioxide 29 (22-32) mmol/L BUN 49 H (9-20) mg/dL Creatinine 1.63 H (0.66-1.25) mg/dL Estimated GFR 40.7 L (>60) mL/min BUN/Creatinine Ratio 30.1 H (6-22) Glucose 118 H (80-110) mg/dL Lactate 1.0 (0.7-2.1) mmol/L Calcium 9.9 (8.4-10.2) mg/dL Total Bilirubin 1.2 (0.2-1.3) mg/dL AST 35 (17-59) IU/L ALT 22 (<50) IU/L Alkaline Phosphatase 70 (38-126) U/L C-Reactive Protein (<1.0) mg/dL Total Protein 8.5 H (6.3-8.2) g/dL Albumin 5.0 (3.5-5.0) g/dL Globulin 3.5 (1.7-4.1) g/dL Albumin/Globulin Ratio 1.4 (1.0-2.8) Lipase 89 (23-300) U/L Procalcitonin 0.11 (<0.5) ng/mL SARS-CoV-2 (PCR) (Negative) 09/17/21 Range/Units 11:02 WBC (4.5-11.0) X10^3/uL RBC (4.5-5.9) X10^6/uL Hgb (13.5-17.5) g/dL Hct (41-53) % MCV (80-100) fL MCH (26-34) PG MCHC (30-36) % RDW (11.6-14.8) % Plt Count (150-400) X10^3/uL Neut % (Auto) Lymph % (Auto) Donley % (Auto) Eos % (Auto) Baso % (Auto) Lymph # (Auto) Donley # (Auto) Baso # (Auto) Total Counted Seg Neutrophils % (38-70) % Band Neutrophils % (3-7) % Lymphocytes % (Manual) (25-45) % Atypical Lymphs % ( - 0) % Monocytes % (Manual) (2-11) % Neutrophils # (Manual) (1489-4362) /uL RBC Morphology Anisocytosis ESR (0-15) MM/HR PT (10.1-12.7) SECONDS INR (0.9-1.3) APTT (26.4-36.2) SECONDS Sodium (137-145) mmol/L Potassium (3.4-5.1) mmol/L Chloride (98-107) mmol/L Carbon Dioxide (22-32) mmol/L BUN (9-20) mg/dL Creatinine (0.66-1.25) mg/dL Estimated GFR (>60) mL/min BUN/Creatinine Ratio (6-22) Glucose (80-110) mg/dL Lactate (0.7-2.1) mmol/L Calcium (8.4-10.2) mg/dL Total Bilirubin (0.2-1.3) mg/dL AST (17-59) IU/L ALT (<50) IU/L Alkaline Phosphatase (38-126) U/L C-Reactive Protein 1.8 H (<1.0) mg/dL Total Protein (6.3-8.2) g/dL Albumin (3.5-5.0) g/dL Globulin (1.7-4.1) g/dL Albumin/Globulin Ratio (1.0-2.8) Lipase (23-300) U/L Procalcitonin (<0.5) ng/mL SARS-CoV-2 (PCR) (Negative) Imaging Data Chest x-ray: Radiologist's Impression: [address] [address] XRay Report Signed Patient: Moses Metcalf MR#: [id number] : 1940 Acct:[id number] Age/Sex: 81 / M Date of Service: 09/17/21 Loc: ED Accession Number: [id number] ?? Procedure: XR chest 1V Ordering Provider: Lopez Guerra D.O. PROCEDURE:? XR CHEST 1V ? INDICATIONS:? suspected sepsis ? TECHNIQUE:? One view of the chest was acquired.? ? COMPARISON:? [facility], CT, CT ANGIO CHEST ABDOMEN PELVIS, 11/15/2020, 16:18.? [facility], CR, XR CHEST 1V, 11/15/2020, 15:11. ? FINDINGS:? ? Surgical changes and devices:? An apparent leadless pacer can be seen.? There is partial visualization of an abdominal aortic stent graft ? Lungs and pleura:? Mild bilateral interstitial prominence can be seen on both sides.? There is a small right-sided pleural effusion.? No pneumothorax is seen. ? Mediastinum:? The cardiac contours are moderately enlarged. The aorta demonstrates calcification and tortuosity. ? Bones and chest wall:? No suspicious bony lesions.? Age-appropriate bony degenerative changes are seen.? Overlying soft tissues appear unremarkable.? IMPRESSION:? Cardiomegaly with a small right-sided pleural effusion and interstitial prominence.? CHF is suspected. ? If there is strong clinical concern for significant pulmonary pathology, please consider a follow-up two view chest study (performed in deep inspiration) versus a chest CT with IV contrast for further evaluation. ? ? Postoperative and degenerative changes are seen.? ? Dictated by: Bobby Pascal M.D. on 09/17/2021 at 10:07 ? ? Approved by: Bobby Pascal M.D. on 09/17/2021 at 10:09? MDM Narrative Medical decision making narrative: Febrile, leukocytosis however not tachycardic. Unsure the exact etiology of the patient's infection. He does not appear to be pneumonia. Does not appear to be intra-abdominal etiology. Does not appear to be urine. The wounds on his bilateral feet appear well. Would not specifically say that these are the source of his infection. He does have redness on his right tibia. It is warm to the touch. Wound care did just removed the cast/bandage it was over the area. Unsure if this is just reaction to having that dressing in place however cellulitis currently is most likely the cause of his infection. He was given antibiotics. Discussed the case with Dr. Arroyo who is the patient's primary doctor who will admit for IV antibiotics. Discussed the need for admission with the patient and his daughter. They expressed understanding and agreement. Discharge Plan Departure Patient Disposition: Admitted As Inpatient Clinical Impression: Fever of unknown origin, Confusion Admit Date/Time: 09/17/21 11:43 Admit Provider: Elis Arroyo
[2021-09-17 10:59] LABS: Hematocrit 39.8 % (41-53); Hemoglobin 13.3 g/dL (13.5-17.5); Mean Corpuscular HGB Conc 33.3 % (30-36); Mean Corpuscular Hemoglobin 28.5 PG (26-34); Mean Corpuscular Volume 85.5 fL (80-100); Platelet Count 136 X10^3/uL (150-400); Red Blood Cell Count 4.65 X10^6/uL (4.5-5.9); Red Cell Distribution Width 15.5 % (11.6-14.8); White Blood Cell Count 18.9 X10^3/uL (4.5-11.0)
[2021-09-17 11:01] LABS: Add Manual Diff / Slide Review YES
[2021-09-17 11:07] LABS: INR 1.5 (0.9-1.3)
[2021-09-17 11:09] LABS: PTT Partial Thromboplastin Tim 34 SECONDS (26.4-36.2)
[2021-09-17 11:14] LABS: Alanine Aminotransferase 22 IU/L (<50); Albumin Globulin Ratio 1.4 (1.0-2.8); Alkaline Phosphatase 70 U/L (38-126); Aspartate Aminotransferase 35 IU/L (17-59); BUN Creatinine Ratio 30.1 (6-22); Bilirubin Total 1.2 mg/dL (0.2-1.3); Blood Urea Nitrogen 49 mg/dL (9-20); Calcium 9.9 mg/dL (8.4-10.2); Carbon Dioxide 29 mmol/L (22-32); Chloride 102 mmol/L (98-107); Estimated Glomerular Filt Rate 40.7 mL/min (>60); Globulin 3.5 g/dL (1.7-4.1); Glucose 118 mg/dL (80-110); HEMOLYSIS < 15 (0-50); Lipase 89 U/L (23-300); Potassium 5.3 mmol/L (3.4-5.1); Sodium 138 mmol/L (137-145); Total Protein 8.5 g/dL (6.3-8.2)
[2021-09-17 11:21] LABS: Erythrocyte Sedimentation Rate 28 MM/HR (0-15)
[2021-09-17 11:26] LABS: Neutrophils Absolute Manual 10773 /uL (3000-5900); Total Cells Counted 100
[2021-09-17 11:28] LABS: Anisocytosis 1+
[2021-09-17 11:30] LABS: Procalcitonin 0.11 ng/mL (<0.5)
[2021-09-17 11:33] LABS: C-Reactive Protein Quant 1.8 mg/dL (<1.0)
[2021-09-17 11:43] LABS: COVID19 -Nasal RAPID Negative (Negative)
[2021-09-17] MEDS: cefTRIAXone 1,000 MG in SODIUM CHLORIDE 0.9% 100 ML 200 ML IV (11:44)
[2021-09-17] MEDS: ACETAMINOPHEN 325 MG TABLET 650 MG PO (11:45)
[2021-09-17 12:22] LABS: Appearance Urine UA CLEAR; Bilirubin Urine UA NEGATIVE (NEGATIVE); Color Urine UA YELLOW; Glucose Urine UA NEGATIVE (Negative); Ketones Urine UA NEGATIVE (NEGATIVE); Leukocyte Esterase Urine UA NEGATIVE (NEGATIVE); Nitrite Urine UA NEGATIVE (Negative); Occult Blood Urine UA TRACE-LYSED (Negative); Protein Urine UA TRACE (Negative); Urobilinogen Urine UA 0.2 E.U./dL (0.2)
[2021-09-17 12:25] LABS: Bacteria Urine None Seen; Culture Indicated Urine Cult Not Indicated; RBC Urine None Seen (0-5/HPF); Urine Comments Microscopic Normal; WBC Urine None Seen (0-5/HPF)
--- NOTE | 2021-09-17 13:37 | PM.HP.1 ---
History of Present Illness History of Present Illness Date Patient Seen: 09/17/21 Time Patient Seen: 13:10 Chief complaint: Fever, Chills and & Weakness Narrative: Pt is an 81yo man with chronic CHF with preserved EF, COPD, HTN, atrial fibrillation with pacemaker, BPH, CAD, restless leg syndrome, and ZACH who presented with fever and confusion. The pt reports that he was feeling in his normal state of health yesterday. This morning he woke and just wasn't feeling well. He reports feeling feverish with chills. He called his daughter that lives with him who came to check on him, and she felt that he was acting more confused than usual. He also appeared very sweaty. EMS was then contacted to bring him to the ED. The pt denies any recent nasal congestion, ear pain, sore throat, cough, chest pain, worsening SOB than baseline, abdominal pain, diarrhea, dysuria, or leg pain. He has been wearing a cast on his right lower extremity that was placed by wound care to help with callus/ulcers, which he finds very annoying but denies nadira pain with is. In the ED, the pt was noted to have a temperature of 101F. Labs showed an elevated WBC count, but were otherwise stable with negative U/A. CXR showed no significant infiltrates. Wound care was contacted, and his casting device was removed. His right leg initially appeared slightly red and was tender, however the calluses/ulcers showed no significant sign of infection. He received a dose of Ceftriaxone. Due to his relatively frail status at baseline, fever with elevated WBC count, and no source, the pt was admitted for further observation. Patient History Medical History (HFpEF) heart failure with preserved ejection fraction Acute on chronic congestive heart failure with right ventricular diastolic dysfunction (~11/16/20) At high risk for falls Atrial fibrillation BPH (benign prostatic hyperplasia) COPD (chronic obstructive pulmonary disease) Coronary artery disease Essential hypertension Non-ST elevation (NSTEMI) myocardial infarction (~11/16/20) NSTEMI (non-ST elevated myocardial infarction) (~02/2020) NSTEMI (non-ST elevated myocardial infarction) (~08/2014) ZACH (obstructive sleep apnea) Pacemaker Restless leg Seborrheic keratosis Stage III chronic kidney disease Systolic heart failure Vasovagal syncope Surgical History (Updated 08/10/21 @ 09:35 by IZABELLA Aranda) H/O bilateral cataract extraction H/O heart artery stent H/O repair of rotator cuff History of back surgery S/P AAA repair Family & Social History Family History Mother Insomnia Social History: household members children lives independently Yes caregiver/support person Yes Safety & Behavioral: Feels Safe in Current Yes Environment Been Physically Hurt or No Threatened By a Person Tobacco & Substance use: Smoking Status Former smoker alcohol intake current alcohol intake frequency 0-2 drinks per day Substance Use Type does not use Meds Home Medications and Allergies Home Medications Medication Instructions Recorded Confirmed Type acetaminophen 325 mg capsule 650 mg PO Q6H PRN 08/18/18 09/17/21 History albuterol sulfate 90 mcg/actuation 1 puff INHALATION Q6H PRN 08/18/18 07/28/21 History aerosol inhaler alfuzosin 10 mg tablet,extended 10 mg PO DAILY 08/18/18 07/28/21 History release 24 hr apixaban 5 mg tablet 5 mg PO BID 08/18/18 07/28/21 History cholecalciferol (vitamin D3) 50 2,000 unit PO DAILY 08/18/18 07/28/21 History mcg (2,000 unit) capsule magnesium 250 mg tablet 250 mg PO DAILY 08/18/18 07/28/21 History diclofenac sodium 1 % topical gel 1 gram TOP QID PRN #100 gram 03/22/19 07/28/21 Rx fluticasone fur. 100 mcg-umeclid 1 puff INHALATION DAILY 04/03/19 07/28/21 History 62.5 mcg-vilant 25 mcg inhalat.powder Disabled parking permit #1 ea 04/09/19 07/28/21 Rx albuterol sulfate 2.5 mg (3 mL) INHALATION Q4H PRN 11/23/19 07/28/21 Rx #90 ml nitroglycerin 2 % transdermal 1 inch TRANSDERMAL BID #30 gram 11/23/19 07/28/21 Rx ointment (Nitro-Bid) spironolactone 25 mg tablet 25 mg PO DAILY tab 12/30/19 07/28/21 History torsemide 10 mg tablet 20 mg PO BID #60 tab 10/28/20 07/28/21 Rx fluticasone fur. 100 mcg-umeclid 1 inh INHALATION DAILY 11/15/20 07/28/21 History 62.5 mcg-vilant 25 mcg inhalat.powder (Trelegy Ellipta) nitroglycerin 0.4 mg sublingual 0.4 mg SL Q5-15M PRN #7 tab 11/27/20 07/28/21 Rx tablet metoprolol succinate 50 mg See Rx Instructions .ROUTE 01/08/21 07/28/21 Rx tablet,extended release 24 hr .COMPLEX #90 tab rosuvastatin 40 mg tablet 40 mg PO DAILY #90 tab 02/16/21 07/28/21 Rx losartan 25 mg tablet 12.5 mg PO DAILY tab 05/06/21 07/28/21 History pramipexole 0.25 mg tablet See Rx Instructions .ROUTE 07/29/21 Rx .COMPLEX #135 tab oxycodone-acetaminophen 5 mg-325 1 tab PO Q6H PRN #10 tab 07/30/21 Rx mg tablet (Percocet) Allergies Allergy/AdvReac Type Severity Reaction Status Date / Time atorvastatin Allergy Verified 09/17/21 10:31 diclofenac Allergy Verified 09/17/21 10:31 lisinopril Allergy Verified 09/17/21 10:31 niacin Allergy Verified 09/17/21 10:31 pravastatin Allergy Verified 09/17/21 10:31 Exam Vital Signs (past 8 hours): - 09/17/21 10:26 09/17/21 10:30 09/17/21 11:00 Temperature 101.0 F H Pulse Rate 82 82 81 Respiratory Rate 28 H Blood Pressure 122/60 125/59 L Pulse Oximetry 97 96 95 09/17/21 11:30 09/17/21 12:00 09/17/21 12:01 Temperature Pulse Rate 81 83 80 Respiratory Rate Blood Pressure 109/57 L 122/61 Pulse Oximetry 96 95 96 09/17/21 12:08 Temperature Pulse Rate 83 Respiratory Rate 18 Blood Pressure 122/61 Pulse Oximetry 95 Oxygen Delivery Method Room Air Narrative Exam Narrative: GEN - alert, cooperative and no distress HEENT - normocephalic and atraumatic, moist mucus membranes NECK - FROM, no adenopathy, no JVD HEART - RRR, S1, S2 normal, no S3 or S4, grade 2/6 systolic murmur LUNGS - symmetric chest rise, no accessory muscles, clear to auscultation bilaterally ABD - flat, nondistended, normal bowel sounds, soft, nontender and no hepatomegaly, splenomegaly or masses EXT - no cyanosis, clubbing or edema; no significant erythema of right LE and nontender SKIN - bottom of right foot with 2 large calluses with central slight ulceration without surrounding erythema or warmth and no exudate present NEURO - oriented to person, place, and situation but not time; no gross deficits Objective Labs Result Diagrams: 09/17/21 10:40 09/17/21 11:02 Labs: Laboratory Results - last 24 hr 09/17/21 09/17/21 09/17/21 10:40 10:40 10:50 WBC 18.9 H RBC 4.65 Hgb 13.3 L Hct 39.8 L MCV 85.5 MCH 28.5 MCHC 33.3 RDW 15.5 H Plt Count 136 L Neut % (Auto) Not Reportable Lymph % (Auto) Not Reportable [place] % (Auto) Not Reportable Eos % (Auto) Not Reportable Baso % (Auto) Not Reportable Lymph # (Auto) Not Reportable [place] # (Auto) Not Reportable Baso # (Auto) Not Reportable Total Counted 100 Seg Neutrophils % 53.0 Band Neutrophils % 4.0 Lymphocytes % (Manual) 40.0 Atypical Lymphs % 1.0 H Monocytes % (Manual) 2.0 Neutrophils # (Manual) 65297 H RBC Morphology See below Anisocytosis 1+ H ESR 28 H PT INR APTT Sodium Potassium Chloride Carbon Dioxide BUN Creatinine Estimated GFR BUN/Creatinine Ratio Glucose Lactate Calcium Total Bilirubin AST ALT Alkaline Phosphatase C-Reactive Protein Total Protein Albumin Globulin Albumin/Globulin Ratio Lipase Procalcitonin Urine Color Urine Appearance Urine pH Ur Specific [place] Urine Protein Urine Glucose (UA) Urine Ketones Urine Occult Blood Urine Nitrate Urine Bilirubin Urine Urobilinogen Ur Leukocyte Esterase Urine RBC Urine WBC Urine Bacteria Ur Culture Indicated? Micro UA Comment SARS-CoV-2 (PCR) Negative 09/17/21 09/17/21 09/17/21 11:02 11:02 11:02 WBC RBC Hgb Hct MCV MCH MCHC RDW Plt Count Neut % (Auto) Lymph % (Auto) [place] % (Auto) Eos % (Auto) Baso % (Auto) Lymph # (Auto) [place] # (Auto) Baso # (Auto) Total Counted Seg Neutrophils % Band Neutrophils % Lymphocytes % (Manual) Atypical Lymphs % Monocytes % (Manual) Neutrophils # (Manual) RBC Morphology Anisocytosis ESR PT 17.0 H INR 1.5 H APTT 34 Sodium 138 Potassium 5.3 H Chloride 102 Carbon Dioxide 29 BUN 49 H Creatinine 1.63 H Estimated GFR 40.7 L BUN/Creatinine Ratio 30.1 H Glucose 118 H Lactate 1.0 Calcium 9.9 Total Bilirubin 1.2 AST 35 ALT 22 Alkaline Phosphatase 70 C-Reactive Protein Total Protein 8.5 H Albumin 5.0 Globulin 3.5 Albumin/Globulin Ratio 1.4 Lipase 89 Procalcitonin 0.11 Urine Color Urine Appearance Urine pH Ur Specific [place] Urine Protein Urine Glucose (UA) Urine Ketones Urine Occult Blood Urine Nitrate Urine Bilirubin Urine Urobilinogen Ur Leukocyte Esterase Urine RBC Urine WBC Urine Bacteria Ur Culture Indicated? Micro UA Comment SARS-CoV-2 (PCR) 09/17/21 09/17/21 11:02 12:21 WBC RBC Hgb Hct MCV MCH MCHC RDW Plt Count Neut % (Auto) Lymph % (Auto) [place] % (Auto) Eos % (Auto) Baso % (Auto) Lymph # (Auto) [place] # (Auto) Baso # (Auto) Total Counted Seg Neutrophils % Band Neutrophils % Lymphocytes % (Manual) Atypical Lymphs % Monocytes % (Manual) Neutrophils # (Manual) RBC Morphology Anisocytosis ESR PT INR APTT Sodium Potassium Chloride Carbon Dioxide BUN Creatinine Estimated GFR BUN/Creatinine Ratio Glucose Lactate Calcium Total Bilirubin AST ALT Alkaline Phosphatase C-Reactive Protein 1.8 H Total Protein Albumin Globulin Albumin/Globulin Ratio Lipase Procalcitonin Urine Color Yellow Urine Appearance Clear Urine pH 7.0 Ur Specific [place] 1.010 Urine Protein Trace H Urine Glucose (UA) Negative Urine Ketones Negative Urine Occult Blood Trace-lysed Urine Nitrate Negative Urine Bilirubin Negative Urine Urobilinogen 0.2 Ur Leukocyte Esterase Negative Urine RBC None seen Urine WBC None seen Urine Bacteria None seen Ur Culture Indicated? Cult not indicated Micro UA Comment Microscopic normal SARS-CoV-2 (PCR) Assessment & Plan Assessment & Plan narrative: Pt is an 81yo man with chronic CHF with preserved EF, COPD, CKD, HTN, atrial fibrillation with pacemaker, BPH, CAD, restless leg syndrome, and ZACH who presented with fever and confusion. Unclear etiology at this time. U/A and CXR negative. No evidence of cellulitis or skin infection. No recent exposures. Quite possibly viral infection, negative for COVID at admission. 1) Fever: Unclear etiology. Potentially viral mediated. - s/p Ceftriaxone in the ED. Repeat dosing not yet ordered. - Trend CBC - Trend fever - F/U blood cultures - Monitor for signs any other source 2) Altered mental status: Already improving and mild. Suspect due to fever. Low suspicion for stroke or other acute neurological insult. - Continue to monitor for resolution. 3) CHF, Atrial Fibrillation, HTN: Stable. Pt is very sensitive to fluids and s/p bolus in the ED. Will need to monitor for fluid overload. - Continue home Apaxiban, Losartan, Metoprolol, Rosuvastatin, Spironolactone, Torsemide 4) COPD: Stable. No evidence exacebation. - Continue home inhalers 5) Restless legs: - Continue home Pramipexole 6) BPH: - Continue home Alfuzosin Diet: Cardiac DVT ppx: On anticoagulation Code: Full Dispo: Pending improvement in confusion, no recurrent fevers, WBC count trending down. Potential d/c tomorrow. Time Spent With Patient Critical Care time: I spent a total of [] minutes of critical care time on this patient's care today; this time is exclusive of procedural time.
[2021-09-17] MEDS: METOPROLOL ER 50 MG TABLET PO (15:18)
[2021-09-17] MEDS: LOSARTAN 25 MG TABLET 12.5 MG PO (15:18)
[2021-09-17] MEDS: SPIRONOLACTONE 25 MG TABLET PO (15:18)
[2021-09-17] MEDS: Alfuzosin 10 mg tablet extended release 24 hr 10 EACH PO (17:00)
[2021-09-17] MEDS: BUDESONIDE 0.5 MG/2 ML NEB INH (19:55)
[2021-09-17] MEDS: ALBUTEROL/IPRATROPIUM 3 ML AMPUL INH (19:56)
[2021-09-17] MEDS: APIXABAN 5 MG TABLET 2.5 MG PO (21:37)
[2021-09-17] MEDS: ACETAMINOPHEN 325 MG TABLET PO (21:37)
[2021-09-17] MEDS: TORSEMIDE 10 MG TABLET 20 MG PO (21:39)
[2021-09-17] MEDS: PRAMIPEXOLE 0.25 MG TABLET 0.125 MG PO (21:39)
[2021-09-18 01:00] VITALS: TEMP 37.4
[2021-09-18 02:06] VITALS: TEMP 36.6
--- NOTE | 2021-09-18 06:34 | PC.NURSE ---
0630: Pt febrile at beginning of shift. Temp decreased after administration of PRN tylenol. Pt has since remained afebrile. No other complaints offered, pt has remained stable throughout shift.
[2021-09-18 07:05] LABS: BUN Creatinine Ratio 27.8 (6-22); Blood Urea Nitrogen 50 mg/dL (9-20); Calcium 9.1 mg/dL (8.4-10.2); Carbon Dioxide 29 mmol/L (22-32); Chloride 105 mmol/L (98-107); Estimated Glomerular Filt Rate 36.3 mL/min (>60); Glucose 100 mg/dL (80-110); HEMOLYSIS < 15 (0-50); Potassium 4.6 mmol/L (3.4-5.1); Sodium 137 mmol/L (137-145)
[2021-09-18 07:11] LABS: Add Manual Diff / Slide Review NO; Basophils Absolute Auto 0 /uL (0-100); Basophils Percent Auto 0.2 % (0-2); Eosinophils Absolute Auto 100 /uL (0-450); Eosinophils Percent Auto 0.8 % (2-4); Hematocrit 33.4 % (41-53); Hemoglobin 11.1 g/dL (13.5-17.5); Lymphocytes Absolute Auto 4100 /uL (1100-4500); Lymphocytes Percent Auto 39.3 % (25-40); Mean Corpuscular HGB Conc 33.3 % (30-36); Mean Corpuscular Hemoglobin 28.5 PG (26-34); Mean Corpuscular Volume 85.5 fL (80-100); Monocytes Absolute Auto 800 /uL (0-900); Monocytes Percent Auto 7.3 % (3-14); Neutrophils Absolute Auto 5500 /uL (1500-7000); Neutrophils Percent Auto 52.4 % (50-75); Platelet Count 104 X10^3/uL (150-400); Red Cell Distribution Width 15.2 % (11.6-14.8); White Blood Cell Count 10.5 X10^3/uL (4.5-11.0)
[2021-09-18 07:50] VITALS: BP 120/62; PULSE 75; RESP 16; TEMP 36.3; O2SAT 94
[2021-09-18] MEDS: ALBUTEROL/IPRATROPIUM 3 ML AMPUL INH (08:12)
[2021-09-18] MEDS: BUDESONIDE 0.5 MG/2 ML NEB INH (08:12)
[2021-09-18 08:13] VITALS: PULSE 74; RESP 18; O2SAT 95
[2021-09-18 08:18] VITALS: PULSE 78; RESP 20
[2021-09-18] MEDS: TORSEMIDE 10 MG TABLET 20 MG PO (09:54)
[2021-09-18] MEDS: Alfuzosin 10 mg tablet extended release 24 hr 10 EACH PO (09:55)
[2021-09-18] MEDS: ATORVASTATIN 20 MG TABLET 80 MG PO (09:56)
[2021-09-18] MEDS: METOPROLOL ER 50 MG TABLET PO (09:57)
[2021-09-18] MEDS: PRAMIPEXOLE 0.25 MG TABLET 0.125 MG PO (09:57)
[2021-09-18] MEDS: APIXABAN 5 MG TABLET 2.5 MG PO (10:00)
[2021-09-18 11:45] VITALS: BP 100/40; PULSE 59; RESP 16; TEMP 36.3; O2SAT 97
--- NOTE | 2021-09-18 11:54 | PM.DS.1 ---
History of Present Illness History of Present Illness Date Patient Seen: 09/18/21 Time Patient Seen: 11:55 Date of Onset of Symptoms: 09/16/21 Chief complaint: Fever, Chills and & Weakness Narrative: See H&P dictated by Dr. Arroyo Discharge Providers Provider Date of admission: 09/17/21 11:43 Discharge Date: 09/18/21 Primary care physician: Elis Arroyo MD Discharge provider: Alex Yates MD Summary Hospital Course Discharge Diagnosis: Fever of unknown etiology. Metabolic encephalopathy Chronic foot wounds Congestive heart failure Acute on chronic renal failure Hypertension Atrial fibrillation COPD BPH Hospital Course: Fever. Patient was admitted and was given ceftriaxone in the emergency room. No obvious source on chest x-ray, urine, or exam. There was some question on whether not his chronic foot wounds were the cause but it was decided after evaluation that that was not related. Patient had good night. Had fever last night at 9:00 p.m.. Has not had any issues since that time. Is feeling back to his normal self today. White count is improved and etiology of fever is still unclear. But normal exam. Feeling better. Feeling like his normal self. We discussed options. With white count normalizing certainly could be viral. Also could have responded to Rocephin. After discussion we elected for repeating Rocephin today will start Ceftin for 7 days tomorrow and will follow-up with Dr. Arroyo early this week to make sure things are stable. He understands questions were answered. Metabolic encephalopathy. Apparently was proving after presenting to the emergency room. Dr. Arroyo felt like he was almost back to his normal self. I do not have baseline but he is alert oriented and appropriate today. Requesting to go home. Normal exam normal labs will follow. Acute on chronic renal failure. Patient was admitted and had slight increase in his creatinine. Patient has had a history of renal failure. Unclear why it is slightly up today. Unlikely secondary to antibiotics. Maybe slightly dry but Dr. Arroyo has stated a concern for fluid and he is otherwise feeling well and we will have him hydrate at home. Follow-up with Dr. Arroyo after blood work early this next week. 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 Apparently he has been followed weekly and will be followed after that. Chronic foot wounds. Patient has been having wound care take care of these wounds. He sounds like he was in [place] boots and those were removed. He has 2 quarter-size wound on his bottom of his foot which do not have any drainage or other signs of infection. There is no inflammation. Has a healing dime-sized lesion on the left foot lateral. No evidence of discharge or erythema. At this point we will dress and have [facility] he has an appointment on Monday. Congestive heart failure. Patient had a L of fluid given to him in the emergency room. And apparently was feeling better. Has a history of being fluid dependent and no further fluid was given. Maybe a little pre renal but given that his history has been 1 of having issues with fluids will discontinue fluids and follow as an outpatient with Dr. Arroyo. COPD. Stable throughout the course of his admission usual meds at home. Hypertension. Blood pressure has certainly been well controlled here. We did not make any changes will go home on his usual medicines. Atrial fibrillation. Rate seems controlled no evidence of abnormality will continue usual meds. BPH. Urinating well. No problems. Continue usual meds. Status at Discharge Cognitive/behavioral status at discharge: oriented Functional status at discharge: independent ambulation Overall status at discharge: patient is back to baseline Exam Vital Signs (past 8 hours): - 09/18/21 07:50 09/18/21 08:13 09/18/21 08:18 Temperature 97.3 F L Pulse Rate 75 74 78 Respiratory Rate 16 18 20 Blood Pressure 120/62 Pulse Oximetry 94 95 Oxygen Delivery Method Room Air Oxygen Flow Rate 0 Narrative Exam Narrative: Alert elderly male sitting comfortably in chair alert oriented with no other changes. Mucous membranes moist. Neck supple without adenopathy JVD or bruits. Lungs are clear. Heart controlled rate with 2/6 systolic murmur which appears to be unchanged. Abdomen is soft positive bowel sounds nontender. Extremities show 1+ edema. Inferior aspect of his feet show 2 wounds on his right foot quarter-sized mild eschar no discharge or significant erythema. Left foot lateral with dime-sized lesion with mild eschar. No other changes. Objective Labs Result Diagrams: 09/18/21 05:43 09/18/21 05:43 Labs: Laboratory Results - last 24 hr 09/17/21 09/18/21 09/18/21 12:21 05:43 05:43 WBC 10.5 RBC 3.90 L Hgb 11.1 L Hct 33.4 L MCV 85.5 MCH 28.5 MCHC 33.3 RDW 15.2 H Plt Count 104 L Neut % (Auto) 52.4 Lymph % (Auto) 39.3 [place] % (Auto) 7.3 Eos % (Auto) 0.8 L Baso % (Auto) 0.2 Neut # (Auto) 5500 Lymph # (Auto) 4100 [place] # (Auto) 800 Eos # (Auto) 100 Baso # (Auto) 0 Sodium 137 Potassium 4.6 Chloride 105 Carbon Dioxide 29 BUN 50 H Creatinine 1.80 H Estimated GFR 36.3 L BUN/Creatinine Ratio 27.8 H Glucose 100 Calcium 9.1 Urine Color Yellow Urine Appearance Clear Urine pH 7.0 Ur Specific [place] 1.010 Urine Protein Trace H Urine Glucose (UA) Negative Urine Ketones Negative Urine Occult Blood Trace-lysed Urine Nitrate Negative Urine Bilirubin Negative Urine Urobilinogen 0.2 Ur Leukocyte Esterase Negative Urine RBC None seen Urine WBC None seen Urine Bacteria None seen Ur Culture Indicated? Cult not indicated Micro UA Comment Microscopic normal [facility] Medical History (Updated 09/18/21 @ 11:49 by Alex Yates MD) (HFpEF) heart failure with preserved ejection fraction Acute on chronic congestive heart failure with right ventricular diastolic dysfunction (~11/16/20) At high risk for falls Atrial fibrillation BPH (benign prostatic hyperplasia) COPD (chronic obstructive pulmonary disease) Coronary artery disease Essential hypertension Non-ST elevation (NSTEMI) myocardial infarction (~11/16/20) NSTEMI (non-ST elevated myocardial infarction) (~02/2020) NSTEMI (non-ST elevated myocardial infarction) (~08/2014) ZACH (obstructive sleep apnea) Pacemaker Restless leg Seborrheic keratosis Stage III chronic kidney disease Systolic heart failure Vasovagal syncope Surgical History (Updated 08/10/21 @ 09:35 by IZABELLA Aranda) H/O bilateral cataract extraction H/O heart artery stent H/O repair of rotator cuff History of back surgery S/P AAA repair Family History Mother Insomnia Social History marital status: household members: children lives independently: Yes caregiver/support person: Yes housing: house occupational status: previously employed Smoking Status: Former smoker second hand exposure: No alcohol intake: current substance use type: does not use Discharge Assessment & Plan Assessment and Plan Assessment: See above improved Plan of Treatment: Discharge home today. Follow-up as scheduled. Antibiotics starting tomorrow Discharge Plan Discharge Plan Patient Disposition: Home Provider Discharge Comment: start antibiotic orally tomorrow. Set up appointment with Dr. Arroyo this week call on Monday. Have lab drawn Monday or Monday Discharge orders & Medications Prescriptions: New cefuroxime axetil 500 mg tablet 500 mg PO BID Qty: 14 0RF Continued magnesium 250 mg tablet 250 mg PO DAILY 0RF albuterol sulfate 90 mcg/actuation HFA aerosol inhaler 1 puff INHALATION Q6H PRN (Reason: Shortness Of Breath) 0RF alfuzosin 10 mg tablet extended release 24 hr 10 mg PO DAILY 0RF acetaminophen 325 mg capsule 650 mg PO Q6H PRN (Reason: pain) 0RF cholecalciferol (vitamin D3) 2,000 unit capsule 2,000 unit PO DAILY 0RF Label Comments: patient states not currently taking but probably should 08/29/19 apixaban 5 mg tablet 5 mg PO BID 0RF spironolactone 25 mg tablet 25 mg PO DAILY 0RF nitroglycerin 0.4 mg tablet, sublingual 0.4 mg SL Q5-15M PRN (Reason: Chest Pain) Qty: 7 0RF diclofenac sodium 1 % gel 1 gram TOP QID PRN (Reason: pain) Qty: 100 0RF torsemide 10 mg tablet 20 mg PO BID Qty: 60 0RF Hold Instructions: Dehydration metoprolol succinate 50 mg tablet extended release 24 hr See Rx Instructions .ROUTE .COMPLEX Qty: 90 1RF Dose Instruction: TAKE ONE TABLET BY MOUTH DAILY Rx Instructions: TAKE ONE TABLET BY MOUTH DAILY rosuvastatin 40 mg tablet 40 mg PO DAILY Qty: 90 3RF losartan 25 mg tablet 12.5 mg PO DAILY 0RF pramipexole 0.25 mg tablet See Rx Instructions .ROUTE .COMPLEX Qty: 135 0RF Dose Instruction: TAKE 1/2 TABLET (0.125 MG) BY MOUTH THREE TIMES A DAY Rx Instructions: TAKE 1/2 TABLET (0.125 MG) BY MOUTH THREE TIMES A DAY oxycodone-acetaminophen [Percocet] 5-325 mg tablet 1 tab PO Q6H PRN (Reason: pain) Qty: 10 0RF [id number] 100-62.5-25 mcg blister with device 1 puff inhalation DAILY 0RF albuterol sulfate 2.5 mg /3 mL (0.083 %) solution for nebulization 2.5 mg INHALATION Q4H PRN (Reason: shortness of breath or wheezing) Qty: 90 1RF Rx Instructions: 2.5 mg by inhalation every 2-4 hours as needed for Shortness of breath, cough and wheezing Nitro-Bid 2 % ointment 1 inch transdermal BID Qty: 30 0RF Rx Instructions: administer 2 doses/day (approx. 6 hrs apart); remove for 10-12 hrs per 24 hours Trelegy Ellipta 100-62.5-25 mcg Blister With Device 1 inh INHALATION DAILY 0RF No Action (DME) Disabled parking permit Qty: 1 0RF Dose Instruction: As directed Rx Instructions: My patient meets the qualifying condition of unable to walk 200 ft without stopping to rest Follow up/Referrals: Elis Arroyo MD [Primary Care Provider] - 3-5 Days (call for apointment monday. Also follow up with wound care as scheduled) Other Ambulatory Orders: Basic Metabolic Panel (Stat) Timeframe: 3 Days Facility: [facility] - Location: Laboratory Ordered By: Alex Yates Discharge Health Status Multidrug resistant organism: No MDRO Diet/Activity/Treatments Diet: Diet as Tolerated Activity: as tolerated Other treatments: please place dressing on wounds of feet Skin/Wound/Dressing Care Report to your healthcare provider any signs of infection, such as:: chills, fever, night sweats, increased pain and unusual redness Dressing: as per wound care Discharge Data Primary Care Provider: Elis Arroyo Attending Provider: Elis Arroyo Quality VTE Deep Vein Thrombosis/Pulmonary Embolism Present on Admission: No
--- NOTE | 2021-09-18 13:03 | CM.DANOTE ---
DCP Assessment: Patient is a 81 yr old male who was admitted for fever and weakness. Cm met with patient at the bedside and explained role. Patient was A&O x4 during CM visit. Patient currently lives in a two story home with his adult daughter. The patient lives on the main floor so he does not need to climb stairs. Patient is independent with all ADLs but his daughter drives him to his appointments and they have a house keeper for daily chores. Insurance: Medicare and [facility] PCP : Dr. Arroyo Plan: Dc home with daughter. No identified DC planning needs Cm department will follow to assist with any new DC planning needs that may arise. Nadege Manzano RNwood heel back liner. Discharge Planning/Care Management Advanced directive,confirm from FACILITY Start: 09/17/21 13:49 Freq: Q24H Status: Complete Protocol: Document 09/17/21 13:49 CEW (Rec: 09/17/21 19:01 CEW [id number]) Advance Directive, confirm on record Time 17:00 Person contacted Doesn't have one and doesn't want one. Completed per pt request. Copy received No CM Discharge Assessment Start: 09/18/21 13:01 Freq: Status: Active Protocol: Document 09/18/21 13:01 HS (Rec: 09/18/21 13:03 [id number]) Discharge Planning Assessment Assigned [employer] Nadege Manzano RNwood heel back liner DPOA/Assigned Designee Name Dixon Garcia- Daughter Contact Information [phone] Advance Directives? No Advance Directives on File No History Provided By Patient,Medical Record Prior Living Arrangements Apartment/Condo Household Members children Comment Patient lives in his daughters house Type of transporation used prior to Relies on Others admit Comment Patients daughter helps with transportation and patient uses public transport as well. Independent with ADL's Yes Is patient alert and oriented? Yes Caregiver for Another No Comment Patient has CPAP at home. Patient reports that he does not use much. Barriers to Discharge No Comment Continue to follow for d/c planning needs. Discharge Plan Home Transportation Arrangement Home when stable. Referrals Initiated None needed Whiteboard Updated in Patient Room with Yes name and ext. # of [employer] Review Status In Process Next Review Type Continued Stay Review
[2021-09-18] MEDS: cefTRIAXone 1,000 MG in SODIUM CHLORIDE 0.9% 100 ML 200 ML IV (13:46)
--- NOTE | 2021-09-18 18:13 | PC.NURSE ---
Discharge: Pt feels ready to d/c to home. MD aware of temp spike during the night. Did get IV antibiotic prior to leaving. Dressing placed to rt foot prior to d/c, pt will call wound clinic monday. Did give one dressing change prior to leaving in case he needed it. Home meds were returned. Discharge pack reviewed, questions answered. Rx has been esent. Dtr here at time of teaching. Pt d/c to home via auto with dtr.
[2021-09-18 22:45] LABS: Acinetobacter baumannii Not Detected (Not Detect); Candida albicans Not Detected (Not Detect); Candida glabrata Not Detected (Not Detect); E. coli Not Detected (Not Detect); Enterobacter cloacae complex Not Detected (Not Detect); Enterobacteriaceae species Not Detected (Not Detect); Enterococcus species Not Detected (Not Detect); Haemophilus influenzae Not Detected (Not Detect); Listeria monocytogenes Not Detected (Not Detect); Neisseria meningitidis Not Detected (Not Detect); Proteus species Not Detected (Not Detect); Pseudomonas aeruginosa Not Detected (Not Detect); Serratia marcescens Not Detected (Not Detect); Staphylococcus species Not Detected (Not Detect); Streptococcus agalactiae (Gr B Not Detected (Not Detect); Streptococcus pneumonia Not Detected (Not Detect); Streptococcus pyogenes (Gr A) Not Detected (Not Detect); Streptococcus species Not Detected (Not Detect)
[2021-09-18 22:46] LABS: Candida krusei Not Detected (Not Detect); Candida parapsilosis Not Detected (Not Detect); Candida tropicalis Not Detected (Not Detect)
--- NOTE | 2021-09-20 10:16 | CM.DPNOTE ---
Late entry: Faxed dc sum to Dominick at [facility] per his request. Hayley Whitehead CM Asst.
== END 2021-09-18 15:00 | disposition home or self-care (01) ==
LOC: ED 11:43 → AC 11:43
PROVIDERS: Admitting Provider Family Medicine; Emergency Provider Emergency Medicine; Family Provider Family Medicine; PCP Family Medicine; Referring Provider Emergency Medicine; Visit Provider Family Medicine
DX: G93.41 Metabolic encephalopathy (principal); R41.0 Disorientation, unspecified; L03.115 Cellulitis of right lower limb; I13.0 Hypertensive heart and chronic kidney disease with heart failure and stage 1 through stage 4 chronic kidney disease, or unspecified chronic kidney disease; I50.33 Acute on chronic diastolic (congestive) heart failure; N18.30 Chronic kidney disease, stage 3 unspecified; S91.302A Unspecified open wound, left foot, initial encounter; S91.301A Unspecified open wound, right foot, initial encounter; L84 Corns and callosities; I25.10 Atherosclerotic heart disease of native coronary artery without angina pectoris; I48.91 Unspecified atrial fibrillation; G25.81 Restless legs syndrome; J44.9 Chronic obstructive pulmonary disease, unspecified; G47.33 Obstructive sleep apnea (adult) (pediatric); Z95.0 Presence of cardiac pacemaker; I25.2 Old myocardial infarction; Z20.822 Contact with and (suspected) exposure to COVID-19
CPT/HCPCS: 36415; 71045; 80048; 80053; 81001; 83605; 83690; 84145; 85007; 85025; 85610; 85651; 85730; 86140; 87040; 87150; 87205; 87635; 94640; 96361; 96365; 99219; 99284; C9803; G0378; J0696

== ENCOUNTER → 2021-09-21 09:35 | Outpatient (CLI) | payer MEDICARE, OTHER, SELFPAY ==
[2021-09-17 12:30] VITALS: BMI 27.4
[2021-09-21 10:00] LABS: Hematocrit 35.5 % (41-53); Hemoglobin 11.8 g/dL (13.5-17.5); Mean Corpuscular HGB Conc 33.2 % (30-36); Mean Corpuscular Hemoglobin 28.7 PG (26-34); Mean Corpuscular Volume 86.4 fL (80-100); Platelet Count 138 X10^3/uL (150-400); Red Cell Distribution Width 15.6 % (11.6-14.8); White Blood Cell Count 10.5 X10^3/uL (4.5-11.0)
[2021-09-21 10:01] LABS: Add Manual Diff / Slide Review YES
[2021-09-21 10:24] LABS: BUN Creatinine Ratio 30.8 (6-22); Blood Urea Nitrogen 48 mg/dL (9-20); Calcium 9.1 mg/dL (8.4-10.2); Carbon Dioxide 28 mmol/L (22-32); Chloride 105 mmol/L (98-107); Estimated Glomerular Filt Rate 42.8 mL/min (>60); Glucose 127 mg/dL (80-110); HEMOLYSIS < 15 (0-50); Potassium 4.5 mmol/L (3.4-5.1); Sodium 139 mmol/L (137-145)
[2021-09-21 10:34] LABS: Neutrophils Absolute Manual 4935 /uL (3000-5900); Total Cells Counted 100
[2021-09-21 10:36] LABS: RBC Morphology See; Smudge Cells 1+
[2021-09-21 10:37] LABS: Ovalocytes 1+
== END ==
PROVIDERS: Family Medicine; Family Provider Family Medicine; PCP Family Medicine; Referring Provider Family Medicine; Visit Provider Family Medicine
DX: N18.30 Chronic kidney disease, stage 3 unspecified (principal); R50.9 Fever, unspecified; R41.0 Disorientation, unspecified
CPT/HCPCS: 36415; 80048; 85007; 85025; 87040

== ENCOUNTER → 2021-09-22 15:01 | Outpatient (CLI) | payer MEDICARE, OTHER, SELFPAY ==
[2021-09-17 12:30] VITALS: BMI 27.4
== END ==
PROVIDERS: Family Provider Family Medicine; PCP Family Medicine; Referring Provider Family Medicine; Visit Provider Family Medicine
DX: G60.9 Hereditary and idiopathic neuropathy, unspecified (principal); L97.512 Non-pressure chronic ulcer of other part of right foot with fat layer exposed; L84 Corns and callosities; R79.9 Abnormal finding of blood chemistry, unspecified; Z79.01 Long term (current) use of anticoagulants; K40.90 Unilateral inguinal hernia, without obstruction or gangrene, not specified as recurrent
CPT/HCPCS: 15275; 99212; 99213; 99214; Q4133

== ENCOUNTER → 2021-09-29 15:42 | Outpatient (CLI) | payer MEDICARE, OTHER, SELFPAY ==
[2021-09-17 12:30] VITALS: BMI 27.4
== END ==
PROVIDERS: Family Provider Family Medicine; PCP Family Medicine; Referring Provider Family Medicine; Visit Provider Family Medicine
DX: G60.9 Hereditary and idiopathic neuropathy, unspecified (principal); L97.512 Non-pressure chronic ulcer of other part of right foot with fat layer exposed; L97.511 Non-pressure chronic ulcer of other part of right foot limited to breakdown of skin; R79.9 Abnormal finding of blood chemistry, unspecified; Z79.01 Long term (current) use of anticoagulants
CPT/HCPCS: 15275; 97597; 99213; Q4133

== ENCOUNTER → 2021-10-06 15:33 | Outpatient (CLI) | payer MEDICARE, OTHER, SELFPAY ==
[2021-09-17 12:30] VITALS: BMI 27.4
== END ==
PROVIDERS: Family Provider Family Medicine; PCP Family Medicine; Referring Provider Family Medicine; Visit Provider Family Medicine
DX: G60.9 Hereditary and idiopathic neuropathy, unspecified (principal); L97.512 Non-pressure chronic ulcer of other part of right foot with fat layer exposed; L84 Corns and callosities; R60.0 Localized edema; R79.9 Abnormal finding of blood chemistry, unspecified; Z79.01 Long term (current) use of anticoagulants
CPT/HCPCS: 11042; 15275; 99213; Q4133

== ENCOUNTER → 2021-10-13 15:53 | Outpatient (CLI) | payer MEDICARE, OTHER, SELFPAY ==
[2021-09-17 12:30] VITALS: BMI 27.4
== END ==
PROVIDERS: Family Provider Family Medicine; PCP Family Medicine; Referring Provider Family Medicine; Visit Provider Family Medicine
DX: G60.9 Hereditary and idiopathic neuropathy, unspecified (principal); L97.512 Non-pressure chronic ulcer of other part of right foot with fat layer exposed; R79.9 Abnormal finding of blood chemistry, unspecified; Z79.01 Long term (current) use of anticoagulants
CPT/HCPCS: 15275; 99213; Q4133

== ENCOUNTER → 2021-10-15 11:04 | Outpatient (CLI) | payer MEDICARE, OTHER, SELFPAY ==
[2021-09-17 12:30] VITALS: BMI 27.4
[2021-10-15 13:08] LABS: Hemoglobin 11.4 g/dL (13.5-17.5); Mean Corpuscular HGB Conc 32.7 % (30-36); Mean Corpuscular Hemoglobin 28.5 PG (26-34); Mean Corpuscular Volume 87.2 fL (80-100); Platelet Count 122 X10^3/uL (150-400); Red Blood Cell Count 4.02 X10^6/uL (4.5-5.9); Red Cell Distribution Width 15.3 % (11.6-14.8)
[2021-10-15 13:09] LABS: Add Manual Diff / Slide Review YES
[2021-10-15 13:36] LABS: Neutrophils Absolute Manual 5170 /uL (3000-5900); Total Cells Counted 100
[2021-10-15 13:40] LABS: Anisocytosis 1+
[2021-10-15 13:41] LABS: Ovalocytes 1+; Smudge Cells 1+
== END ==
PROVIDERS: Family Provider Family Medicine; PCP Family Medicine; Referring Provider Family Medicine; Visit Provider Family Medicine
DX: R79.9 Abnormal finding of blood chemistry, unspecified (principal)
CPT/HCPCS: 36415; 85007; 85025

== ENCOUNTER → 2021-10-21 15:06 | Outpatient (CLI) | payer MEDICARE, OTHER, SELFPAY ==
[2021-09-17 12:30] VITALS: BMI 27.4
== END ==
PROVIDERS: Family Provider Family Medicine; PCP Family Medicine; Referring Provider Family Medicine; Visit Provider Family Medicine
DX: G60.9 Hereditary and idiopathic neuropathy, unspecified (principal); L97.511 Non-pressure chronic ulcer of other part of right foot limited to breakdown of skin
CPT/HCPCS: 99213

== ENCOUNTER → 2021-10-25 11:58 | Outpatient (CLI) | payer MEDICARE, OTHER, SELFPAY ==
[2021-09-17 12:30] VITALS: BMI 27.4
== END ==
PROVIDERS: PCP Family Medicine; Referring Provider Family Medicine; Visit Provider Family Medicine
DX: Z09 Encounter for follow-up examination after completed treatment for conditions other than malignant neoplasm (principal); G60.9 Hereditary and idiopathic neuropathy, unspecified; R79.9 Abnormal finding of blood chemistry, unspecified; Z87.2 Personal history of diseases of the skin and subcutaneous tissue
CPT/HCPCS: 99213

== ENCOUNTER → 2021-10-27 15:38 | Outpatient (CLI) | payer MEDICARE, OTHER, SELFPAY ==
[2021-09-17 12:30] VITALS: BMI 27.4
[2021-10-27 16:46] LABS: BUN Creatinine Ratio 30.5 (6-22); Blood Urea Nitrogen 47 mg/dL (9-20); Calcium 8.6 mg/dL (8.4-10.2); Carbon Dioxide 28 mmol/L (22-32); Chloride 106 mmol/L (98-107); Estimated Glomerular Filt Rate 43.5 mL/min (>60); Glucose 129 mg/dL (80-110); HEMOLYSIS < 15 (0-50); Potassium 4.4 mmol/L (3.4-5.1); Sodium 142 mmol/L (137-145)
== END ==
PROVIDERS: Family Provider Family Medicine; PCP Family Medicine; Referring Provider Internal Medicine Nephrology; Visit Provider Internal Medicine Nephrology
DX: N17.9 Acute kidney failure, unspecified (principal)
CPT/HCPCS: 36415; 80048

== ENCOUNTER → 2021-11-18 15:09 | Outpatient (CLI) | payer MEDICARE, OTHER, SELFPAY ==
[2021-09-17 12:30] VITALS: BMI 27.4
== END ==
PROVIDERS: PCP Family Medicine; Referring Provider Family Medicine; Visit Provider Family Medicine
DX: G60.9 Hereditary and idiopathic neuropathy, unspecified (principal); L97.512 Non-pressure chronic ulcer of other part of right foot with fat layer exposed; L97.522 Non-pressure chronic ulcer of other part of left foot with fat layer exposed; L84 Corns and callosities; R60.0 Localized edema; Z79.01 Long term (current) use of anticoagulants
CPT/HCPCS: 11042; 99213

== ENCOUNTER → 2021-11-25 11:28 | Outpatient (CLI) | payer MEDICARE, OTHER, SELFPAY ==
[2021-09-17 12:30] VITALS: BMI 27.4
== END ==
PROVIDERS: PCP Family Medicine; Referring Provider Family Medicine; Visit Provider Family Medicine
DX: G60.9 Hereditary and idiopathic neuropathy, unspecified (principal); L97.512 Non-pressure chronic ulcer of other part of right foot with fat layer exposed; L97.522 Non-pressure chronic ulcer of other part of left foot with fat layer exposed; L84 Corns and callosities; Z79.01 Long term (current) use of anticoagulants
CPT/HCPCS: 11042

== ENCOUNTER → 2021-12-02 14:13 | Outpatient (CLI) | payer MEDICARE, OTHER, SELFPAY ==
[2021-09-17 12:30] VITALS: BMI 27.4
== END ==
PROVIDERS: PCP Family Medicine; Referring Provider Family Medicine; Visit Provider Family Medicine
DX: G60.9 Hereditary and idiopathic neuropathy, unspecified (principal); L97.512 Non-pressure chronic ulcer of other part of right foot with fat layer exposed; L97.522 Non-pressure chronic ulcer of other part of left foot with fat layer exposed; L84 Corns and callosities; Z79.01 Long term (current) use of anticoagulants
CPT/HCPCS: 11042

== ENCOUNTER → 2021-12-09 12:59 | Outpatient (CLI) | payer MEDICARE, OTHER, SELFPAY ==
[2021-09-17 12:30] VITALS: BMI 27.4
== END ==
PROVIDERS: PCP Family Medicine; Referring Provider Family Medicine; Visit Provider Family Medicine
DX: G60.9 Hereditary and idiopathic neuropathy, unspecified (principal); L97.512 Non-pressure chronic ulcer of other part of right foot with fat layer exposed; L97.522 Non-pressure chronic ulcer of other part of left foot with fat layer exposed
CPT/HCPCS: 99213

== ENCOUNTER → 2021-12-16 13:32 | Outpatient (CLI) | payer MEDICARE, OTHER, SELFPAY ==
[2021-09-17 12:30] VITALS: BMI 27.4
== END ==
PROVIDERS: PCP Family Medicine; Referring Provider Family Medicine; Visit Provider Family Medicine
DX: G60.9 Hereditary and idiopathic neuropathy, unspecified (principal); L97.512 Non-pressure chronic ulcer of other part of right foot with fat layer exposed; L97.522 Non-pressure chronic ulcer of other part of left foot with fat layer exposed; L84 Corns and callosities; R60.0 Localized edema; Z79.01 Long term (current) use of anticoagulants
CPT/HCPCS: 11042; 99212

== ENCOUNTER → 2021-12-23 13:44 | Outpatient (CLI) | payer MEDICARE, OTHER, SELFPAY ==
[2021-09-17 12:30] VITALS: BMI 27.4
== END ==
PROVIDERS: PCP Family Medicine; Referring Provider Family Medicine; Visit Provider Family Medicine
DX: G60.9 Hereditary and idiopathic neuropathy, unspecified (principal); L97.512 Non-pressure chronic ulcer of other part of right foot with fat layer exposed; L84 Corns and callosities; Z79.01 Long term (current) use of anticoagulants
CPT/HCPCS: 11042

== ENCOUNTER → 2022-01-04 14:16 | Outpatient (CLI) | payer MEDICARE, OTHER, SELFPAY ==
[2021-09-17 12:30] VITALS: BMI 27.4
== END ==
PROVIDERS: PCP Family Medicine; Referring Provider Family Medicine; Visit Provider Family Medicine
DX: G60.9 Hereditary and idiopathic neuropathy, unspecified (principal); L97.512 Non-pressure chronic ulcer of other part of right foot with fat layer exposed; L84 Corns and callosities; Z79.01 Long term (current) use of anticoagulants
CPT/HCPCS: 11042

== ENCOUNTER → 2022-01-11 13:58 | Outpatient (CLI) | payer MEDICARE, OTHER, SELFPAY ==
[2021-09-17 12:30] VITALS: BMI 27.4
== END ==
PROVIDERS: PCP Family Medicine; Referring Provider Family Medicine; Visit Provider Family Medicine
DX: G62.9 Polyneuropathy, unspecified (principal); L97.512 Non-pressure chronic ulcer of other part of right foot with fat layer exposed; Z79.01 Long term (current) use of anticoagulants
CPT/HCPCS: 11042; 99212

== ENCOUNTER → 2022-01-18 14:55 | Outpatient (CLI) | payer MEDICARE, OTHER, SELFPAY ==
[2021-09-17 12:30] VITALS: BMI 27.4
== END ==
PROVIDERS: PCP Family Medicine; Referring Provider Family Medicine; Visit Provider Family Medicine
DX: G62.9 Polyneuropathy, unspecified (principal); L97.512 Non-pressure chronic ulcer of other part of right foot with fat layer exposed; Z79.01 Long term (current) use of anticoagulants
CPT/HCPCS: 11042

== ENCOUNTER → 2022-01-26 09:45 | Outpatient (CLI) | payer MEDICARE, OTHER, SELFPAY ==
[2021-09-17 12:30] VITALS: BMI 27.4
== END ==
PROVIDERS: PCP Family Medicine; Referring Provider Family Medicine; Visit Provider Family Medicine
DX: G62.9 Polyneuropathy, unspecified (principal); L97.512 Non-pressure chronic ulcer of other part of right foot with fat layer exposed; G47.33 Obstructive sleep apnea (adult) (pediatric); Z79.01 Long term (current) use of anticoagulants
CPT/HCPCS: 11042; 99214

== ENCOUNTER → 2022-02-02 11:24 | Outpatient (CLI) | payer MEDICARE, OTHER, SELFPAY ==
[2021-09-17 12:30] VITALS: BMI 27.4
== END ==
PROVIDERS: PCP Family Medicine; Referring Provider Family Medicine; Visit Provider Family Medicine
DX: G62.9 Polyneuropathy, unspecified (principal); L97.512 Non-pressure chronic ulcer of other part of right foot with fat layer exposed; L97.522 Non-pressure chronic ulcer of other part of left foot with fat layer exposed; L84 Corns and callosities; M79.672 Pain in left foot; L08.9 Local infection of the skin and subcutaneous tissue, unspecified; I89.0 Lymphedema, not elsewhere classified; Z79.01 Long term (current) use of anticoagulants
CPT/HCPCS: 11042; 87070; 87077; 87186; 87205; 99214

== ENCOUNTER → 2022-02-09 11:48 | Outpatient (CLI) | payer MEDICARE, OTHER, SELFPAY ==
[2021-09-17 12:30] VITALS: BMI 27.4
== END ==
PROVIDERS: PCP Family Medicine; Referring Provider Family Medicine; Visit Provider Family Medicine
DX: G62.9 Polyneuropathy, unspecified (principal); L97.512 Non-pressure chronic ulcer of other part of right foot with fat layer exposed; L97.522 Non-pressure chronic ulcer of other part of left foot with fat layer exposed; L84 Corns and callosities
CPT/HCPCS: 99213

== ENCOUNTER → 2022-02-21 17:33 | Outpatient (CLI) | payer MEDICARE, OTHER, SELFPAY ==
[2021-09-17 12:30] VITALS: BMI 27.4
--- NOTE | 2022-02-21 17:36 | DI.RAD.S_ITS ---
PROCEDURE: XR CHEST 2V INDICATIONS: Cough TECHNIQUE: 2 views of the chest were acquired. COMPARISON: [facility], , XR CHEST 1V, 09/17/2021, 10:35. FINDINGS: Surgical changes and devices: Leadless pacer projects over the left heart, as before. Lungs and pleura: Mild interstitial pulmonary edema. Patchy right basilar atelectasis. Small right pleural effusion. Mediastinum: Mediastinal contours are normal. Moderate cardiomegaly, as before Bones and chest wall: No suspicious bony abnormalities. Soft tissues appear unremarkable. IMPRESSION: Congestive heart failure. Dictated by: Liban Sherwood M.D. on 02/22/2022 at 11:55 Approved by: Liban Sherwood M.D. on 02/22/2022 at 11:57
== END ==
PROVIDERS: PCP Family Medicine; Referring Provider Nurse Practitioner Family; Visit Provider Nurse Practitioner Family
DX: I50.9 Heart failure, unspecified (principal); R05.9 Cough, unspecified
CPT/HCPCS: 71046

== ENCOUNTER → 2022-02-23 10:39 | Outpatient (CLI) | payer MEDICARE, OTHER, SELFPAY ==
[2021-09-17 12:30] VITALS: BMI 27.4
== END ==
PROVIDERS: PCP Family Medicine; Referring Provider Family Medicine; Visit Provider Family Medicine
DX: G62.9 Polyneuropathy, unspecified (principal); L97.512 Non-pressure chronic ulcer of other part of right foot with fat layer exposed; L97.522 Non-pressure chronic ulcer of other part of left foot with fat layer exposed; L84 Corns and callosities; R60.0 Localized edema; Z79.01 Long term (current) use of anticoagulants
CPT/HCPCS: 11042; 99212; 99213

== ENCOUNTER → 2022-02-25 14:15 | Outpatient (CLI) | payer MEDICARE, OTHER, SELFPAY ==
[2021-09-17 12:30] VITALS: BMI 27.4
== END ==
PROVIDERS: PCP Family Medicine; Referring Provider Family Medicine; Visit Provider Nurse Practitioner Family
DX: G62.9 Polyneuropathy, unspecified (principal); L97.512 Non-pressure chronic ulcer of other part of right foot with fat layer exposed; L97.522 Non-pressure chronic ulcer of other part of left foot with fat layer exposed; L84 Corns and callosities
CPT/HCPCS: 99213

== ENCOUNTER 2022-02-25 15:37 | Inpatient (IN) | payer MEDICARE, OTHER, SELFPAY ==
[2021-09-17 12:30] VITALS: BMI 27.4
[2022-02-25] VITALS (10 sets, daily range): BP systolic 138–161; BP diastolic 63–74; PULSE 81–96; RESP 20–30; TEMP 36.4–37.1; O2SAT 88–96; BMI 23.6
--- NOTE | 2022-02-25 15:46 | DI.RAD.S_ITS ---
PROCEDURE: XR CHEST 2V INDICATIONS: shortness of breath TECHNIQUE: 2 views of the chest were acquired. COMPARISON: [facility], , XR CHEST 2V, 02/21/2022, 17:26. FINDINGS: Lead lists pacer projects over the left heart as seen on the prior study. Cardiomegaly is similar. Cephalization of pulmonary vessels with diffuse interstitial prominence which is most notable in the central/perihilar lungs. Small right pleural effusion is similar. Overlying patchy atelectasis and airspace opacity. IMPRESSION: No significant change in diffuse bilateral interstitial edema with alveolar opacity in the right lung base potentially infection or edema also. Small right pleural effusion is not significantly changed. Dictated by: Dmitry Purvis M.D. on 02/25/2022 at 16:29 Approved by: Dmitry Purvis M.D. on 02/25/2022 at 16:30
[2022-02-25 16:00] LABS: Add Manual Diff / Slide Review NO; Basophils Absolute Auto 0 /uL (0-100); Basophils Percent Auto 0.1 % (0-2); Eosinophils Absolute Auto 100 /uL (0-450); Eosinophils Percent Auto 0.4 % (2-4); Hematocrit 32.4 % (41-53); Hemoglobin 10.8 g/dL (13.5-17.5); Lymphocytes Absolute Auto 6100 /uL (1100-4500); Mean Corpuscular HGB Conc 33.3 % (30-36); Mean Corpuscular Hemoglobin 29.1 PG (26-34); Mean Corpuscular Volume 87.3 fL (80-100); Monocytes Absolute Auto 900 /uL (0-900); Monocytes Percent Auto 6.1 % (3-14); Neutrophils Absolute Auto 6900 /uL (1500-7000); Neutrophils Percent Auto 49.4 % (50-75); Platelet Count 150 X10^3/uL (150-400); Red Blood Cell Count 3.71 X10^6/uL (4.5-5.9); Red Cell Distribution Width 14.7 % (11.6-14.8)
[2022-02-25 16:04] LABS: Alanine Aminotransferase 38 IU/L (<50); Albumin 4.3 g/dL (3.5-5.0); Albumin Globulin Ratio 1.5 (1.0-2.8); Alkaline Phosphatase 69 U/L (38-126); Aspartate Aminotransferase 43 IU/L (17-59); BUN Creatinine Ratio 34.2 (6-22); Bilirubin Total 0.6 mg/dL (0.2-1.3); Blood Urea Nitrogen 54 mg/dL (9-20); Calcium 8.3 mg/dL (8.4-10.2); Carbon Dioxide 30 mmol/L (22-32); Chloride 104 mmol/L (98-107); Estimated Glomerular Filt Rate 43 mL/min (>60); Globulin 2.9 g/dL (1.7-4.1); Glucose 107 mg/dL (80-110); HEMOLYSIS < 15 (0-50); Potassium 4.5 mmol/L (3.4-5.1); Sodium 140 mmol/L (137-145); Total Protein 7.2 g/dL (6.3-8.2)
[2022-02-25 16:05] LABS: Lactate (Lactic Acid) 1.1 mmol/L (0.7-2.1)
[2022-02-25 16:12] LABS: NT-proBNP (BNP-Adult 18+) 2990 pg/mL (<450)
[2022-02-25 16:13] LABS: COVID19 -Nasal RAPID Negative (Negative)
[2022-02-25] MEDS: ALBUTEROL/IPRATROPIUM 3 ML AMPUL INH (16:35)
--- NOTE | 2022-02-25 16:51 | ED_ITS ---
HPI - SOB/Dyspnea General Chief Complaint: Shortness of Breath/Dyspnea Stated Complaint: Difficulty breathing Time Seen by Provider: 02/25/22 16:28 Source: patient and EMS Mode of arrival: EMS Limitations: no limitations History of Present Illness HPI Narrative: 81-year-old gentleman with chronic COPD presents with a week of worsening shortness of breath. He had a upper respiratory infection earlier in the week and was seen at urgent care and put on prednisone pulse dose which seemed to help a little bit but since he discontinued the prednisone a couple of days ago symptoms have worsened. He said he is much more short of breath than typical. He does not have chest pain. He has not had a fever. No GI symptoms no symptoms no increased extremity swelling. Related Data Home Medications Medication Instructions Recorded Confirmed acetaminophen 325 mg capsule 650 mg PO Q6H PRN pain 08/18/18 02/21/22 albuterol sulfate 90 mcg/actuation 1 puff inhalation Q6H PRN 08/18/18 02/21/22 aerosol inhaler Shortness Of Breath alfuzosin 10 mg tablet,extended 10 mg PO DAILY 08/18/18 02/21/22 release 24 hr apixaban 5 mg tablet 5 mg PO BID 08/18/18 02/21/22 magnesium 250 mg tablet 250 mg PO DAILY 08/18/18 02/21/22 fluticasone fur. 100 mcg-umeclid 1 puff inhalation DAILY 04/03/19 02/21/22 62.5 mcg-vilant 25 mcg inhalat.powder spironolactone 25 mg tablet 25 mg PO DAILY 12/30/19 02/21/22 fluticasone fur. 100 mcg-umeclid 1 inh inhalation DAILY 11/15/20 02/21/22 62.5 mcg-vilant 25 mcg inhalat.powder (Trelegy Ellipta) losartan 25 mg tablet 12.5 mg PO DAILY 05/06/21 02/21/22 Previous Rx's Medication Instructions Recorded Disabled parking permit #1 ea 04/09/19 albuterol sulfate 2.5 mg/3 mL 2.5 mg (3 mL) inhalation Q4H PRN 11/23/19 (0.083 %) solution for nebulization shortness of breath or wheezing #90 mL nitroglycerin 2 % transdermal 1 inch transdermal BID #30 grams 11/23/19 ointment (Nitro-Bid) torsemide 10 mg tablet 20 mg PO BID #60 tabs 10/28/20 metoprolol succinate 50 mg See Rx Instructions .Route 01/08/21 tablet,extended release 24 hr .COMPLEX #90 tabs rosuvastatin 40 mg tablet 40 mg PO DAILY #90 tabs 02/16/21 oxycodone-acetaminophen 5 mg-325 1 tab PO Q6H PRN pain #10 tabs 07/30/21 mg tablet (Percocet) nitroglycerin 0.4 mg sublingual 0.4 mg sublingual Q5-15M PRN Chest 09/21/21 tablet Pain #7 tabs pramipexole 0.25 mg tablet See Rx Instructions .Route 10/25/21 .COMPLEX #135 tabs benzonatate 100 mg capsule 100 mg PO BID PRN cough #20 caps 02/21/22 Allergies Allergy/AdvReac Type Severity Reaction Status Date / Time atorvastatin Allergy Verified 02/21/22 17:25 diclofenac Allergy Verified 02/21/22 17:25 lisinopril Allergy Verified 02/21/22 17:25 niacin Allergy Verified 02/21/22 17:25 pravastatin Allergy Verified 02/21/22 17:25 Review of Systems Review of Systems Narrative: Complete review of systems negative other than as noted in the HPI. Patient History Medical History (HFpEF) heart failure with preserved ejection fraction Acute on chronic congestive heart failure with right ventricular diastolic dysfunction (~11/16/20) At high risk for falls Atrial fibrillation BPH (benign prostatic hyperplasia) COPD (chronic obstructive pulmonary disease) Coronary artery disease Essential hypertension Non-ST elevation (NSTEMI) myocardial infarction (~11/16/20) NSTEMI (non-ST elevated myocardial infarction) (~02/2020) NSTEMI (non-ST elevated myocardial infarction) (~08/2014) ZACH (obstructive sleep apnea) Pacemaker Restless leg Seborrheic keratosis Stage III chronic kidney disease Systolic heart failure Vasovagal syncope Surgical History H/O bilateral cataract extraction H/O heart artery stent H/O repair of rotator cuff History of back surgery S/P AAA repair Family History Mother Insomnia Social History marital status: household members: children lives independently: Yes caregiver/support person: Yes housing: house occupational status: previously employed Smoking Status: Former smoker second hand exposure: No alcohol intake: current substance use type: does not use Smoking Status: Former smoker alcohol intake frequency: a few times a month Alcohol type: beer and hard liquor Substance Use Type: does not use Exam Narrative Exam Narrative: GENERAL: Alert, cooperative and in no distress. HEAD: Atraumatic. Normocephalic. EYES: Sclera are clear without icterus. Extraocular movements are full. ENT: No rhinorrhea. Oropharynx is moist. Mouth exam is benign. NECK: Supple. Full range of motion. CARDIOVASCULAR: Normal rate and rhythm without murmur gallop or rub. RESPIRATORY: Diffuse wheezing and rhonchorous breathing throughout all chest jonas. GASTROINTESTINAL: Abdomen soft, non-tender, nondistended. EXTREMITIES: 1+ edema, full range of motion. No obvious trauma. Complex dressing and postop shoe on the right foot, not removed to examine. BACK: Normal inspection, no CVA tenderness. NEURO: Nonfocal examination, normal speech, normal gait. SKIN: No rash or erythema of visible areas PSYCH: Normally oriented. Normal range of affect. Appropriate behavior Initial Vital Signs Initial Vital Signs: Vital Signs Temperature 98.7 F 02/25/22 15:42 Pulse Rate 86 02/25/22 15:42 Respiratory Rate 24 02/25/22 15:42 Blood Pressure 161/70 H 02/25/22 15:42 Pulse Oximetry 90 L 02/25/22 15:42 Oxygen Delivery Method 02/25/22 15:42 Course Course Course Narrative: After DuoNeb he is feeling slightly better but still is has an oxygen requirement of 2 L to keep him in the low 90s. Chest x-ray looks like increasing congestive heart failure versus COPD exacerbation versus acute pneumonia. He has a clinical history most consistent with pneumonia and COPD exacerbation. He also has an elevated white blood cell count. Will admit for supplemental oxygen and IV antibiotics. Decision to Admit Date: 02/25/22 Decision to Admit time: 16:55 Orders Ordered: ED Orders 02/25/22 15:39 Complete Blood Count AUTO DIFF Stat Comprehensive Metabolic Panel Stat Lactate (Lactic Acid) Stat NT-proBNP (BNP-Adult 18+) Stat 02/25/22 15:46 XR chest 2V Stat EKG-12 Lead Stat Measure peak expiratory flow ONCE RT Consult Eval and Treat Now 02/25/22 15:50 COVID19 -Nasal RAPID/Pre-Proc Stat Discontinued Medications Albuterol/Ipratropium (Albuterol/Ipratropium 3 Ml Ampul) 3 ml INH NOW ONE Stop: 02/25/22 16:33 Last Admin: 02/25/22 16:35 Dose: 3 ml Documented By: LINK Ceftriaxone Sodium 2,000 mg/ (Sodium Chloride) 100 mls @ 200 mls/hr IV NOW ONE Stop: 02/25/22 17:02 Methylprednisolone (Methylprednisolone 125 Mg/2 Ml Vial) 60 mg IV NOW ONE Stop: 02/25/22 17:18 Consultations Consultation #1: Spoke with Dr. Dmitry Bentley who agrees to admit the patient. Time: 17:16 Vital Signs Vital signs: Vital Signs - 8 hr 02/25/22 15:42 02/25/22 16:35 02/25/22 15:42 Temperature 98.7 F Pulse Rate 86 81 88 Respiratory Rate 24 22 Blood Pressure 161/70 H Pulse Oximetry 90 L 94 89 L Oxygen Delivery Method Room Air Nasal Cannula Oxygen Flow Rate 2 02/25/22 16:00 02/25/22 16:30 02/25/22 17:00 Temperature Pulse Rate 90 84 91 H Respiratory Rate 28 H 30 H Blood Pressure Pulse Oximetry 88 L Oxygen Delivery Method Oxygen Flow Rate MDM - SOB/Dyspnea Lab Data Result diagrams: 02/25/22 15:39 02/25/22 15:39 Labs: Lab Results 02/25/22 02/25/22 02/25/22 Range/Units 15:39 15:39 15:39 WBC 14.0 H (4.5-11.0) X10^3/uL RBC 3.71 L (4.5-5.9) X10^6/uL Hgb 10.8 L (13.5-17.5) g/dL Hct 32.4 L (41-53) % MCV 87.3 (80-100) fL MCH 29.1 (26-34) PG MCHC 33.3 (30-36) % RDW 14.7 (11.6-14.8) % Plt Count 150 (150-400) X10^3/uL Neut % (Auto) 49.4 L (50-75) % Lymph % (Auto) 44.0 H (25-40) % [place] % (Auto) 6.1 (3-14) % Eos % (Auto) 0.4 L (2-4) % Baso % (Auto) 0.1 (0-2) % Neut # (Auto) 6900 (6106-7959) /uL Lymph # (Auto) 6100 H (2342-2676) /uL [place] # (Auto) 900 (0-900) /uL Eos # (Auto) 100 (0-450) /uL Baso # (Auto) 0 (0-100) /uL Sodium 140 (137-145) mmol/L Potassium 4.5 (3.4-5.1) mmol/L Chloride 104 (98-107) mmol/L Carbon Dioxide 30 (22-32) mmol/L BUN 54 H (9-20) mg/dL Creatinine 1.58 H (0.66-1.25) mg/dL Estimated GFR 43 L (>60) mL/min BUN/Creatinine Ratio 34.2 H (6-22) Glucose 107 (80-110) mg/dL Lactate 1.1 (0.7-2.1) mmol/L Calcium 8.3 L (8.4-10.2) mg/dL Total Bilirubin 0.6 (0.2-1.3) mg/dL AST 43 (17-59) IU/L ALT 38 (<50) IU/L Alkaline Phosphatase 69 (38-126) U/L NT-Pro-B Natriuret Pep 2990 H (<450) pg/mL Total Protein 7.2 (6.3-8.2) g/dL Albumin 4.3 (3.5-5.0) g/dL Globulin 2.9 (1.7-4.1) g/dL Albumin/Globulin Ratio 1.5 (1.0-2.8) SARS-CoV-2 (PCR) (Negative) 02/25/22 Range/Units 15:50 WBC (4.5-11.0) X10^3/uL RBC (4.5-5.9) X10^6/uL Hgb (13.5-17.5) g/dL Hct (41-53) % MCV (80-100) fL MCH (26-34) PG MCHC (30-36) % RDW (11.6-14.8) % Plt Count (150-400) X10^3/uL Neut % (Auto) (50-75) % Lymph % (Auto) (25-40) % [place] % (Auto) (3-14) % Eos % (Auto) (2-4) % Baso % (Auto) (0-2) % Neut # (Auto) (4223-6439) /uL Lymph # (Auto) (5140-2521) /uL [place] # (Auto) (0-900) /uL Eos # (Auto) (0-450) /uL Baso # (Auto) (0-100) /uL Sodium (137-145) mmol/L Potassium (3.4-5.1) mmol/L Chloride (98-107) mmol/L Carbon Dioxide (22-32) mmol/L BUN (9-20) mg/dL Creatinine (0.66-1.25) mg/dL Estimated GFR (>60) mL/min BUN/Creatinine Ratio (6-22) Glucose (80-110) mg/dL Lactate (0.7-2.1) mmol/L Calcium (8.4-10.2) mg/dL Total Bilirubin (0.2-1.3) mg/dL AST (17-59) IU/L ALT (<50) IU/L Alkaline Phosphatase (38-126) U/L NT-Pro-B Natriuret Pep (<450) pg/mL Total Protein (6.3-8.2) g/dL Albumin (3.5-5.0) g/dL Globulin (1.7-4.1) g/dL Albumin/Globulin Ratio (1.0-2.8) SARS-CoV-2 (PCR) Negative (Negative) Imaging Data Chest x-ray: Radiologist's Impression: IMPRESSION:? No significant change in diffuse bilateral interstitial edema with alveolar opacity in the right lung base potentially infection or edema also.? Small right pleural effusion is not significantly changed.? ? Dictated by: Dmitry Purvis M.D. on 02/25/2022 at 16:29 ? ? Approved by: Dmitry Purvis M.D. on 02/25/2022 at 16:30 ? Discharge Plan Departure Patient Disposition: Admitted As Inpatient Clinical Impression: Acute exacerbation of chronic obstructive pulmonary disease, Community acquired pneumonia, Hypoxia Admit Date/Time: 02/25/22 17:15 Admit Provider: Dmitry Bentley
[2022-02-25] MEDS: methylPREDNISolone 125 MG/2 ML VIAL 60 MG IV (17:41)
[2022-02-25] MEDS: cefTRIAXone 2,000 MG in SODIUM CHLORIDE 0.9% 100 ML 200 MG IV (17:41)
--- NOTE | 2022-02-25 18:02 | P.HP_ITS ---
History of Present Illness History of Present Illness Date Patient Seen: 02/25/22 Time Patient Seen: 18:02 Chief complaint: Difficulty breathing Narrative: 81-year-old male with a history of coronary artery disease congestive heart failure COPD chronic lymphocytic leukemia stage 3 chronic kidney disease hypertension BPH atrial fibrillation on anticoagulation comes into the hospital with increasing shortness of breath. Patient has been seen in the walk-in clini c in the last week or so with increasing difficulty with breathing he was giving prednisone which maybe helped maybe did not. He would back into the walk-in clinic today because his breathing was worse in the send him to the emergency department for evaluation. Patient states he is working harder to breathe and normal. He feels he has had a cough for the last couple of days he denies fevers or chills. He has been feeling out of sorts. He recently got back from visiting his son. He says he years alluded weighs himself daily but he has not been doing that he says he takes his medication regularly and has a pill box at home. But he was down in his sons he did take his inhalers. He is a good historian his daughter is sitting with him at the bedside. Patient states he is a full code. Patient is on oxygen. Patient has an elevated white blood cell count and elevated BNP chest x-ray with three views shows chronic changes consistent with COPD. Has an increased heart. On review his echocardiogram patient has a reduced ejection fraction of about 40% he was given antibiotics started on oxygen because of his low sats and high respiratory rate in the emergency department. On my evaluation patient is sitting up at the bedside requiring oxygen has mild increased work of breathing. He does provide a good history. He sitting at the bedside he does provide a good history he has no complaints of significant chest pain. He has a bandage on his right foot and says he had some surgery done by the Podiatry and some wound care issues. His foot is wrapped and he says he is getting that evaluated weekly. Patient History Medical History (HFpEF) heart failure with preserved ejection fraction Acute on chronic congestive heart failure with right ventricular diastolic dysfunction (~11/16/20) At high risk for falls Atrial fibrillation BPH (benign prostatic hyperplasia) COPD (chronic obstructive pulmonary disease) Coronary artery disease Essential hypertension Non-ST elevation (NSTEMI) myocardial infarction (~11/16/20) NSTEMI (non-ST elevated myocardial infarction) (~02/2020) NSTEMI (non-ST elevated myocardial infarction) (~08/2014) ZACH (obstructive sleep apnea) Pacemaker Restless leg Seborrheic keratosis Stage III chronic kidney disease Systolic heart failure Vasovagal syncope Surgical History H/O bilateral cataract extraction H/O heart artery stent H/O repair of rotator cuff History of back surgery S/P AAA repair Family & Social History Family History Mother Insomnia Social History: household members children lives independently Yes caregiver/support person Yes Safety & Behavioral: Feels Safe in Current Yes Environment Been Physically Hurt or No Threatened By a Person Tobacco & Substance use: Smoking Status Former smoker alcohol intake current alcohol intake frequency a few times a month Substance Use Type does not use Meds Home Medications and Allergies Home Medications Medication Instructions Recorded Confirmed Type acetaminophen 325 mg capsule 650 mg PO Q6H PRN pain 08/18/18 02/21/22 History albuterol sulfate 90 mcg/actuation 1 puff inhalation Q6H PRN 08/18/18 02/21/22 History aerosol inhaler Shortness Of Breath alfuzosin 10 mg tablet,extended 10 mg PO DAILY 08/18/18 02/21/22 History release 24 hr apixaban 5 mg tablet 5 mg PO BID 08/18/18 02/21/22 History magnesium 250 mg tablet 250 mg PO DAILY 08/18/18 02/21/22 History fluticasone fur. 100 mcg-umeclid 1 puff inhalation DAILY 04/03/19 02/21/22 History 62.5 mcg-vilant 25 mcg inhalat.powder Disabled parking permit #1 ea 04/09/19 02/21/22 Rx albuterol sulfate 2.5 mg/3 mL 2.5 mg (3 mL) inhalation Q4H PRN 11/23/19 02/21/22 Rx (0.083 %) solution for nebulization shortness of breath or wheezing #90 mL nitroglycerin 2 % transdermal 1 inch transdermal BID #30 grams 11/23/19 02/21/22 Rx ointment (Nitro-Bid) spironolactone 25 mg tablet 25 mg PO DAILY 12/30/19 02/21/22 History torsemide 10 mg tablet 20 mg PO BID #60 tabs 10/28/20 02/21/22 Rx fluticasone fur. 100 mcg-umeclid 1 inh inhalation DAILY 11/15/20 02/21/22 History 62.5 mcg-vilant 25 mcg inhalat.powder (Trelegy Ellipta) metoprolol succinate 50 mg See Rx Instructions .Route 01/08/21 02/21/22 Rx tablet,extended release 24 hr .COMPLEX #90 tabs rosuvastatin 40 mg tablet 40 mg PO DAILY #90 tabs 02/16/21 02/21/22 Rx losartan 25 mg tablet 12.5 mg PO DAILY 05/06/21 02/21/22 History oxycodone-acetaminophen 5 mg-325 1 tab PO Q6H PRN pain #10 tabs 07/30/21 02/21/22 Rx mg tablet (Percocet) nitroglycerin 0.4 mg sublingual 0.4 mg sublingual Q5-15M PRN Chest 09/21/21 02/21/22 Rx tablet Pain #7 tabs pramipexole 0.25 mg tablet See Rx Instructions .Route 10/25/21 02/21/22 Rx .COMPLEX #135 tabs benzonatate 100 mg capsule 100 mg PO BID PRN cough #20 caps 02/21/22 02/21/22 Rx Allergies Allergy/AdvReac Type Severity Reaction Status Date / Time atorvastatin Allergy Verified 02/21/22 17:25 diclofenac Allergy Verified 02/21/22 17:25 lisinopril Allergy Verified 02/21/22 17:25 niacin Allergy Verified 02/21/22 17:25 pravastatin Allergy Verified 02/21/22 17:25 Exam Vital Signs (past 8 hours): - 02/25/22 15:42 02/25/22 16:35 02/25/22 15:42 Temperature 98.7 F Pulse Rate 86 81 88 Respiratory Rate 24 22 Blood Pressure 161/70 H Pulse Oximetry 90 L 94 89 L Oxygen Delivery Method Room Air Nasal Cannula Oxygen Flow Rate 2 02/25/22 16:00 02/25/22 16:30 02/25/22 17:00 Temperature Pulse Rate 90 84 91 H Respiratory Rate 28 H 30 H Blood Pressure Pulse Oximetry 88 L Oxygen Delivery Method Oxygen Flow Rate 02/25/22 17:14 02/25/22 17:14 02/25/22 17:30 Temperature Pulse Rate 96 H Respiratory Rate 29 H Blood Pressure 140/66 146/70 H Pulse Oximetry 91 Oxygen Delivery Method Nasal Cannula Oxygen Flow Rate 2 02/25/22 17:30 Temperature Pulse Rate 95 H Respiratory Rate 29 H Blood Pressure Pulse Oximetry 92 Oxygen Delivery Method Oxygen Flow Rate Oxygen Delivery Method Nasal Cannula Oxygen Flow Rate 2 Narrative Exam Narrative: Gen.: Alert sitting up on the side of the bed mild respiratory distress HEENT: pupils equal round and reactive or mucosa not moist Respiratory: mild increased work of breathing. For rhonchorous breath sounds bilaterally. Abdomen: Mild distension no tenderness no appreciable organomegaly Extremities: bilateral lower extremity edema 2+. Bandage on his right foot and a walking boot in place Neurologic: grossly intact Objective Labs Result Diagrams: 02/25/22 15:39 02/25/22 15:39 Labs: Laboratory Results - last 24 hr 02/25/22 02/25/22 02/25/22 15:39 15:39 15:39 WBC 14.0 H RBC 3.71 L Hgb 10.8 L Hct 32.4 L MCV 87.3 MCH 29.1 MCHC 33.3 RDW 14.7 Plt Count 150 Neut % (Auto) 49.4 L Lymph % (Auto) 44.0 H [place] % (Auto) 6.1 Eos % (Auto) 0.4 L Baso % (Auto) 0.1 Neut # (Auto) 6900 Lymph # (Auto) 6100 H [place] # (Auto) 900 Eos # (Auto) 100 Baso # (Auto) 0 Sodium 140 Potassium 4.5 Chloride 104 Carbon Dioxide 30 BUN 54 H Creatinine 1.58 H Estimated GFR 43 L BUN/Creatinine Ratio 34.2 H Glucose 107 Lactate 1.1 Calcium 8.3 L Total Bilirubin 0.6 AST 43 ALT 38 Alkaline Phosphatase 69 NT-Pro-B Natriuret Pep 2990 H Total Protein 7.2 Albumin 4.3 Globulin 2.9 Albumin/Globulin Ratio 1.5 SARS-CoV-2 (PCR) 02/25/22 15:50 WBC RBC Hgb Hct MCV MCH MCHC RDW Plt Count Neut % (Auto) Lymph % (Auto) [place] % (Auto) Eos % (Auto) Baso % (Auto) Neut # (Auto) Lymph # (Auto) [place] # (Auto) Eos # (Auto) Baso # (Auto) Sodium Potassium Chloride Carbon Dioxide BUN Creatinine Estimated GFR BUN/Creatinine Ratio Glucose Lactate Calcium Total Bilirubin AST ALT Alkaline Phosphatase NT-Pro-B Natriuret Pep Total Protein Albumin Globulin Albumin/Globulin Ratio SARS-CoV-2 (PCR) Negative Assessment & Plan Assessment and plan (1) Acute exacerbation of chronic obstructive pulmonary disease: Status: Acute Plan acute respiratory distress with mild respiratory failure with increased work of breathing and saturations less than 88%. Patient has improved with oxygen therapy. He will need to be ongoing with oxygen. He will be needed admission to the hospital for improvement of his respiratory status respiratory failure is probably due to a combination of COPD and congestive heart failure. I will add a procalcitonin to his laboratory test in the emergency department for her other help delineation of infectious versus heart failure he does have an elevated BN TP but he does have chronic kidney disease. He has a known history of systolic congestive heart failure. COPD with exacerbation. I think patient has a COPD exacerbation. Will be started on IV prednisone 60 mg a day 1st dose now if given ceftriaxone in the emergency room we will continue this and add Zithromax 500 mg IV to the regimen. He will have respiratory evaluation and treat. Provided nebulizers per protocol. CHF exacerbation. I think patient has a concomitant CHF exacerbation he has elevated BNP 2 +lower extremity edema. And a history of heart failure. Will continue with his spironolactone beta-indy and angiotensin receptor indy may go ahead and place him on IV Lasix 40 mg with potassium replacement monitor closely his electrolytes and kidney function. Will see how well he diuresis and see if this may help his respiratory distress as well. Coronary artery disease. Patient with known stable coronary artery disease. He will be placed on his home regimen no active signs of current angina. Atrial fibrillation. Patient on anticoagulation this will be continued during his hospital stay is heart rates well controlled. Hopefully can get his respiratory rate treated and we do not have problems with increased a rapid heart rate. BPH. Chronic stable at this point no concerns. Restless leg syndrome continue with his Mirapex Callus of foot and chronic wound on the right foot. Patient has a dressing in place. This was present on admission to the hospital. Seen wound care physician. This was not unwrapped. Will continue with local wound care. Code status was reviewed he is a full code Disposition and plan. Inpatient status patient will be in the hospital for number of days. Time Spent With Patient Critical Care time: I spent a total of [] minutes of critical care time on this patient's care today; this time is exclusive of procedural time.
[2022-02-25] MEDS: AZITHROMYCIN 500 MG in DEXTROSE 5% IN WATER 250 ML 250 MG IV (22:34)
[2022-02-25] MEDS: PRAMIPEXOLE 0.25 MG TABLET 0.125 MG PO (22:35)
[2022-02-25] MEDS: APIXABAN 5 MG TABLET PO (22:36)
[2022-02-25] MEDS: ACETAMINOPHEN 325 MG TABLET 650 MG PO (23:38)
[2022-02-26] VITALS (9 sets, daily range): BP systolic 131–159; BP diastolic 78–92; PULSE 79–115; RESP 16–19; TEMP 36–36.2; O2SAT 94–100
[2022-02-26] MEDS: ACETAMINOPHEN 325 MG TABLET 650 MG PO ×2 (04:38→21:42)
[2022-02-26 06:22] LABS: Add Manual Diff / Slide Review NO; Basophils Absolute Auto 0 /uL (0-100); Eosinophils Absolute Auto 0 /uL (0-450); Hematocrit 33.4 % (41-53); Hemoglobin 11.2 g/dL (13.5-17.5); Lymphocytes Absolute Auto 7200 /uL (1100-4500); Lymphocytes Percent Auto 46.1 % (25-40); Mean Corpuscular HGB Conc 33.5 % (30-36); Mean Corpuscular Hemoglobin 29.1 PG (26-34); Monocytes Absolute Auto 400 /uL (0-900); Monocytes Percent Auto 2.3 % (3-14); Neutrophils Absolute Auto 8100 /uL (1500-7000); Neutrophils Percent Auto 51.6 % (50-75); Platelet Count 156 X10^3/uL (150-400); Red Blood Cell Count 3.84 X10^6/uL (4.5-5.9); Red Cell Distribution Width 14.8 % (11.6-14.8); White Blood Cell Count 15.6 X10^3/uL (4.5-11.0)
[2022-02-26 06:28] LABS: Alanine Aminotransferase 40 IU/L (<50); Albumin 4.4 g/dL (3.5-5.0); Albumin Globulin Ratio 1.4 (1.0-2.8); Alkaline Phosphatase 52 U/L (38-126); Aspartate Aminotransferase 43 IU/L (17-59); BUN Creatinine Ratio 34.5 (6-22); Bilirubin Total 0.6 mg/dL (0.2-1.3); Blood Urea Nitrogen 50 mg/dL (9-20); Calcium 8.5 mg/dL (8.4-10.2); Carbon Dioxide 26 mmol/L (22-32); Chloride 103 mmol/L (98-107); Estimated Glomerular Filt Rate 48 mL/min (>60); Globulin 3.1 g/dL (1.7-4.1); Glucose 125 mg/dL (80-110); HEMOLYSIS < 15 (0-50); Potassium 5.3 mmol/L (3.4-5.1); Sodium 140 mmol/L (137-145); Total Protein 7.5 g/dL (6.3-8.2)
[2022-02-26] MEDS: METOPROLOL ER 50 MG TABLET PO (09:02)
[2022-02-26] MEDS: SPIRONOLACTONE 25 MG TABLET PO (09:03)
[2022-02-26] MEDS: APIXABAN 5 MG TABLET PO ×2 (09:03→19:49)
[2022-02-26] MEDS: PRAMIPEXOLE 0.25 MG TABLET 0.125 MG PO ×3 (09:04→22:57)
[2022-02-26] MEDS: LOSARTAN 25 MG TABLET 12.5 MG PO (09:05)
[2022-02-26] MEDS: methylPREDNISolone 125 MG/2 ML VIAL 60 MG IV (09:05)
--- NOTE | 2022-02-26 09:27 | P.PN_ITS ---
Subjective Subjective Date Patient Seen: 02/26/22 Time Patient Seen: 09:28 Interval history: Patient seen and evaluated states she is feeling a little bit better this morning. Breathing is a little bit better sitting up in the chair. Did not sleep well last night he did have breakfast was hoping for pritchard but did not get it. Still requiring oxygen when he went up to the bathroom he took it off for minute and said his oxygen level looked pretty good he does not have home O2 he feels like maybe this would be a good thing to have. Overall he does feel better. Still lots of his extremity swelling. Exam Vital Signs (past 8 hours): - 02/26/22 06:00 02/26/22 06:17 02/26/22 07:25 Temperature 97.0 F L 96.8 F L Pulse Rate 79 84 Respiratory Rate 16 16 Blood Pressure 151/83 H 159/85 H Pulse Oximetry 96 96 96 Oxygen Delivery Method Room Air Oxygen Flow Rate 2 2 02/26/22 09:02 02/26/22 09:05 Temperature Pulse Rate Respiratory Rate Blood Pressure 159/85 H 159/85 H Pulse Oximetry Oxygen Delivery Method Oxygen Flow Rate Oxygen Delivery Method Room Air Oxygen Flow Rate 2 Narrative Exam Narrative: Gen.: Alert good historian HEENT: Pupils equal round and reactive or mucosa is moist Cardio: S1-S2 regular rate and rhythm Respiratory: Lungs are clear no wheezes or crackles Abdomen: Soft nontender no rebound or guarding Extremities: Full range of motion no appreciable weakness no cyanosis or edema. Neurologic: Grossly intact. Objective Labs Result Diagrams: 02/26/22 05:55 02/26/22 05:45 Labs: Laboratory Results - last 24 hr 02/25/22 02/25/22 02/25/22 15:39 15:39 15:39 WBC 14.0 H RBC 3.71 L Hgb 10.8 L Hct 32.4 L MCV 87.3 MCH 29.1 MCHC 33.3 RDW 14.7 Plt Count 150 Neut % (Auto) 49.4 L Lymph % (Auto) 44.0 H [place] % (Auto) 6.1 Eos % (Auto) 0.4 L Baso % (Auto) 0.1 Neut # (Auto) 6900 Lymph # (Auto) 6100 H [place] # (Auto) 900 Eos # (Auto) 100 Baso # (Auto) 0 Sodium 140 Potassium 4.5 Chloride 104 Carbon Dioxide 30 BUN 54 H Creatinine 1.58 H Estimated GFR 43 L BUN/Creatinine Ratio 34.2 H Glucose 107 Lactate 1.1 Calcium 8.3 L Magnesium Total Bilirubin 0.6 AST 43 ALT 38 Alkaline Phosphatase 69 NT-Pro-B Natriuret Pep 2990 H Total Protein 7.2 Albumin 4.3 Globulin 2.9 Albumin/Globulin Ratio 1.5 Procalcitonin SARS-CoV-2 (PCR) 02/25/22 02/25/22 02/26/22 15:39 15:50 05:45 WBC RBC Hgb Hct MCV MCH MCHC RDW Plt Count Neut % (Auto) Lymph % (Auto) [place] % (Auto) Eos % (Auto) Baso % (Auto) Neut # (Auto) Lymph # (Auto) [place] # (Auto) Eos # (Auto) Baso # (Auto) Sodium 140 Potassium 5.3 H Chloride 103 Carbon Dioxide 26 BUN 50 H Creatinine 1.45 H Estimated GFR 48 L BUN/Creatinine Ratio 34.5 H Glucose 125 H Lactate Calcium 8.5 Magnesium 3.0 H Total Bilirubin 0.6 AST 43 ALT 40 Alkaline Phosphatase 52 NT-Pro-B Natriuret Pep Total Protein 7.5 Albumin 4.4 Globulin 3.1 Albumin/Globulin Ratio 1.4 Procalcitonin 0.10 SARS-CoV-2 (PCR) Negative 02/26/22 05:55 WBC 15.6 H RBC 3.84 L Hgb 11.2 L Hct 33.4 L MCV 87.0 MCH 29.1 MCHC 33.5 RDW 14.8 Plt Count 156 Neut % (Auto) 51.6 Lymph % (Auto) 46.1 H [place] % (Auto) 2.3 L Eos % (Auto) 0.0 L Baso % (Auto) 0.0 Neut # (Auto) 8100 H Lymph # (Auto) 7200 H [place] # (Auto) 400 Eos # (Auto) 0 Baso # (Auto) 0 Sodium Potassium Chloride Carbon Dioxide BUN Creatinine Estimated GFR BUN/Creatinine Ratio Glucose Lactate Calcium Magnesium Total Bilirubin AST ALT Alkaline Phosphatase NT-Pro-B Natriuret Pep Total Protein Albumin Globulin Albumin/Globulin Ratio Procalcitonin SARS-CoV-2 (PCR) [facility] Medical History (HFpEF) heart failure with preserved ejection fraction Acute on chronic congestive heart failure with right ventricular diastolic dysfunction (~11/16/20) At high risk for falls Atrial fibrillation BPH (benign prostatic hyperplasia) COPD (chronic obstructive pulmonary disease) Coronary artery disease Essential hypertension Non-ST elevation (NSTEMI) myocardial infarction (~11/16/20) NSTEMI (non-ST elevated myocardial infarction) (~02/2020) NSTEMI (non-ST elevated myocardial infarction) (~08/2014) ZACH (obstructive sleep apnea) Pacemaker Restless leg Seborrheic keratosis Stage III chronic kidney disease Systolic heart failure Vasovagal syncope Surgical History H/O bilateral cataract extraction H/O heart artery stent H/O repair of rotator cuff History of back surgery S/P AAA repair Family History Mother Insomnia Social History marital status: household members: children lives independently: Yes caregiver/support person: Yes housing: house occupational status: previously employed Smoking Status: Former smoker second hand exposure: No alcohol intake: current substance use type: does not use Assessment & Plan Assessment and plan (1) Acute exacerbation of chronic obstructive pulmonary disease: Status: Acute Plan ?acute respiratory distress with mild respiratory failure with increased work of breathing and saturations less than 88%.? Patient's respiratory rate and oxygen status has improved. Still requiring oxygen at home. Think combination of COPD and heart failure as underlying cause of his respiratory distress. Will continue working on treating underlying condition and wean O2 as needed. COPD with exacerbation.? Patient on ceftriaxone and Zithromax respiratory therapy per protocol receiving inhalers. White blood cell counts elevated. Receiving IV steroids will continue with IV prednisone for 1 more day. And then work on tapering to orals tomorrow. He says he is starting to feel little bit better. Acute systolic congestive heart failure with acute exacerbation. Patient has known systolic heart failure with a poor ejection fraction. Will go ahead and provide the Lasix today in addition with his beta-indy and losartan. He is also on spironolactone. His potassium is a little bit high today. Hyperkalemia hypomagnesia. Patient will be given Lasix today to help with the potassium and magnesium supplement out with hypomagnesia. Coronary artery disease.? Patient with known stable coronary artery disease.? He will be placed on his home regimen no active signs of current angina.? Atrial fibrillation.? Continue with anticoagulation blood pressure is a little bit elevated heart rates looking good today. BPH.? Chronic stable at this point no concerns.? Restless leg syndrome continue with his Mirapex Callus of foot and chronic wound on the right foot.? Patient has a dressing in place.? This was present on admission to the hospital.? Seen wound care physician.? This was not unwrapped.? Will continue with local wound care. Disposition and plan.? Improving. Anticipate discharge probably Monday Time Spent With Patient Critical Care time: I spent a total of [] minutes of critical care time on this patient's care today; this time is exclusive of procedural time.
[2022-02-26] MEDS: BUDESONIDE 0.5 MG/2 ML NEB INH ×2 (10:01→20:37)
[2022-02-26] MEDS: ALBUTEROL/IPRATROPIUM 3 ML AMPUL INH ×2 (10:09→12:40)
--- NOTE | 2022-02-26 13:41 | CM.DANOTE ---
Patient is an 81 yo male who was admitted on 02/25/22 for Difficulty breathing. Pt has [facility] for insurance and his PCP is Dr. Elis Arroyo. EMR was reviewed. Per MD, with with hx of CHF and admitted for COPD exacerbation and currently requiring 2LO2. SW met bedside with pt and explained role and he confirms he lives in [place] with his youngest Dtr/DPOA Radha and is independent with ADL's at baseline and does not usually use DME for ambulation. Pt denies any home oxygen at baseline but aware that MD might request RT to assess for home oxygen closer to discharge pending pt's progress. Pt states Dtr works in town and is available by phone and can come assist at the drop of a hat if needed but pt does not anticipate any needs at d/c. Pt denies any hx of HH or SNF but states he is currently enrolled with Cardiac Rehab outpt and pt really likes it, feels like it is quite beneficial. Plan: SW to follow for plan of d/c home via Dtr POV and ongoing outpt cardiac rehab and possible new home O2 needs. AMANDA Hernandez Discharge Planning/Care Management CM Discharge Assessment Start: 02/26/22 13:39 Freq: Status: Active Protocol: Document 02/26/22 13:39 BF (Rec: 02/26/22 13:41 BF [id number]) Discharge Planning Assessment Assigned Manager Epic AMANDA Evans DPOA/Assigned Designee Name Isidro Garcia Contact Information [phone] Advance Directives? No Advance Directives on File No History Provided By Patient,Medical Record Has Patient been admitted in last 30 No days? Prior Living Arrangements House Household Members children Type of transporation used prior to Drives own vehicle admit Independent with ADL's Yes Is patient alert and oriented? Yes Needs Assistance With Home Chores / Shopping Caregiver for Another No Comment Patient has CPAP at home. Patient reports that he does not use much. Comment Pt established with Cardiac Rehab outpt Barriers to Discharge No Comment Continue to follow for d/c planning needs. Discharge Plan Home Community Services Oxygen Therapy Transportation Arrangement Home when stable, RT to r/o home oxygen needs closer to d/ c Referrals Initiated None needed Whiteboard Updated in Patient Room with Yes name and ext. # of Manager Epic Review Status In Process Please Provide Date Initial DC 02/26/22 Assessment Was Performed Next Review Type Continued Stay Review
[2022-02-26] MEDS: FUROSEMIDE 40 MG/4 ML VIAL IV ×2 (13:42→19:44)
[2022-02-26] MEDS: cefTRIAXone 1,000 MG in SODIUM CHLORIDE 0.9% 100 ML 200 MG IV (17:24)
[2022-02-26] MEDS: AZITHROMYCIN 500 MG in DEXTROSE 5% IN WATER 250 ML 250 MG IV (21:24)
[2022-02-27 04:40] VITALS: BP 129/78; PULSE 80; RESP 16; TEMP 36.2; O2SAT 100
--- NOTE | 2022-02-27 05:12 | RT ---
Patient own home CPAP set up. Patient will place self on and off as needed. patient informed to call RT if needed.
[2022-02-27 06:28] LABS: Add Manual Diff / Slide Review NO; Basophils Absolute Auto 0 /uL (0-100); Basophils Percent Auto 0.1 % (0-2); Eosinophils Absolute Auto 0 /uL (0-450); Hemoglobin 11.3 g/dL (13.5-17.5); Lymphocytes Absolute Auto 8700 /uL (1100-4500); Lymphocytes Percent Auto 42.2 % (25-40); Mean Corpuscular HGB Conc 33.3 % (30-36); Mean Corpuscular Hemoglobin 28.6 PG (26-34); Monocytes Absolute Auto 600 /uL (0-900); Monocytes Percent Auto 3.1 % (3-14); Neutrophils Absolute Auto 11200 /uL (1500-7000); Neutrophils Percent Auto 54.6 % (50-75); Platelet Count 181 X10^3/uL (150-400); Red Blood Cell Count 3.95 X10^6/uL (4.5-5.9); Red Cell Distribution Width 14.6 % (11.6-14.8); White Blood Cell Count 20.5 X10^3/uL (4.5-11.0)
[2022-02-27 06:37] LABS: BUN Creatinine Ratio 36.2 (6-22); Blood Urea Nitrogen 54 mg/dL (9-20); Calcium 8.5 mg/dL (8.4-10.2); Carbon Dioxide 30 mmol/L (22-32); Chloride 99 mmol/L (98-107); Estimated Glomerular Filt Rate 47 mL/min (>60); Glucose 130 mg/dL (80-110); HEMOLYSIS < 15 (0-50); Potassium 4.7 mmol/L (3.4-5.1); Sodium 138 mmol/L (137-145)
--- NOTE | 2022-02-27 08:36 | PC.NURSE ---
Pt conversant. sitting in recliner reading. offers no overt c/o. RT in to see Pt. Pt sat 90%. Pt discussed leaving O2 off presently with RT to see what his baseline is.
--- NOTE | 2022-02-27 09:06 | P.DS_ITS ---
History of Present Illness History of Present Illness Chief complaint: Difficulty breathing Narrative: 81-year-old male with a history of coronary artery disease congestive heart failure COPD chronic lymphocytic leukemia stage 3 chronic kidney disease hypertension BPH atrial fibrillation on anticoagulation comes into the hospital with increasing shortness of breath. Patient has been seen in the walk-in clinic in the last week or so with increasing difficulty with breathing he was giving prednisone which maybe helped maybe did not. He would back into the walk-in clinic today because his breathing was worse in the send him to the emergency department for evaluation. Patient states he is working harder to breathe and normal. He feels he has had a cough for the last couple of days he denies fevers or chills. He has been feeling out of sorts. He recently got back from visiting his son. He says he years alluded weighs himself daily but he has not been doing that he says he takes his medication regularly and has a pill box at home. But he was down in his sons he did take his inhalers. He is a good historian his daughter is sitting with him at the bedside. Patient states he is a full code. Patient is on oxygen. Patient has an elevated white blood cell count and elevated BNP chest x-ray with three views shows chronic changes consistent with COPD. Has an increased heart. On review his e chocardiogram patient has a reduced ejection fraction of about 40% he was given antibiotics started on oxygen because of his low sats and high respiratory rate in the emergency department. On my evaluation patient is sitting up at the bedside requiring oxygen has mild increased work of breathing. He does provide a good history. He sitting at the bedside he does provide a good history he has no complaints of significant chest pain. He has a bandage on his right foot and says he had some surgery done by the Podiatry and some wound care issues. His foot is wrapped and he says he is getting that evaluated weekly. Discharge Providers Provider Date of admission: 02/25/22 17:15 Discharge Date: 02/27/22 Primary care physician: Elis Arroyo MD Discharge provider: Dmitry Bentley MD Summary Hospital Course Discharge Diagnosis: Acute respiratory failure Six COPD with acute exacerbation Systolic heart failure with acute exacerbation Atrial fibrillation on anticoagulation Coronary artery disease Chronic 3B kidney disease Hypertension Hyperlipidemia Restless leg syndrome Sleep apnea Hospital Course: 81-year-old male admitted to the hospital with respiratory failure. Patient's respiratory failure was due to a compromise and exacerbation of his underlying COPD as well as exacerbation of his underlying heart failure. During the hospital stay was placed on oxygen therapy. His COPD was treated with the IV steroids and appropriate IV antibiotics. Over the ensuing 48 hours he had improvement of his symptoms he also had respiratory therapy who provided nebulizers. Made patient's heart failure was treated with beta-blockers and Chip inhibitors. He had the diuresis with Lasix. During his hospital stay his kidney function was stable P did have some hyperkalemia which was improved with the treatment of his the Lasix and diuresis. Over the ensuing 48 hours of hospital stay. Patient had significant improvement of his oxygen respiratory status and underlying heart failure and COPD. At the time of discharge his vital signs were stable he was tolerating his diet. He was requiring a little bit of oxygen. But was stable for discharge. He lives at home with his daughter. He will be discharged home with home oxygen IV skis me oral steroids as well as oral antibiotics he will follow-up with his primary care physician in 7 days. Exam Vital Signs (past 8 hours): - 02/27/22 04:40 Temperature 97.1 F L Pulse Rate 80 Respiratory Rate 16 Blood Pressure 129/78 Pulse Oximetry 100 Oxygen Flow Rate 0 Oxygen Delivery Method CPAP Oxygen Flow Rate 0 Narrative Exam Narrative: Gen.: Alert good historian HEENT: [NCAT PERRLA tympanic membranes are clear nares are patent oral mucosa is moist no tonsillar hypertrophy neck is supple without lymphadenopathy no thyroid enlargement.] Cardio: Irregular rate and rhythm Respiratory: Rhonchorous breath sounds but improved no respiratory distress Abdomen: Soft umbilical hernia Extremities: 2+ lower extremity jozef Objective Labs Result Diagrams: 02/27/22 05:25 02/27/22 05:25 Labs: Laboratory Results - last 24 hr 02/27/22 02/27/22 05:25 05:25 WBC 20.5 H RBC 3.95 L Hgb 11.3 L Hct 34.0 L MCV 86.0 MCH 28.6 MCHC 33.3 RDW 14.6 Plt Count 181 Neut % (Auto) 54.6 Lymph % (Auto) 42.2 H [place] % (Auto) 3.1 Eos % (Auto) 0.0 L Baso % (Auto) 0.1 Neut # (Auto) 88342 H Lymph # (Auto) 8700 H [place] # (Auto) 600 Eos # (Auto) 0 Baso # (Auto) 0 Sodium 138 Potassium 4.7 Chloride 99 Carbon Dioxide 30 BUN 54 H Creatinine 1.49 H Estimated GFR 47 L BUN/Creatinine Ratio 36.2 H Glucose 130 H Calcium 8.5 PFSH Medical History (HFpEF) heart failure with preserved ejection fraction Acute on chronic congestive heart failure with right ventricular diastolic dysfunction (~11/16/20) At high risk for falls Atrial fibrillation BPH (benign prostatic hyperplasia) COPD (chronic obstructive pulmonary disease) Coronary artery disease Essential hypertension Non-ST elevation (NSTEMI) myocardial infarction (~11/16/20) NSTEMI (non-ST elevated myocardial infarction) (~02/2020) NSTEMI (non-ST elevated myocardial infarction) (~08/2014) ZACH (obstructive sleep apnea) Pacemaker Restless leg Seborrheic keratosis Stage III chronic kidney disease Systolic heart failure Vasovagal syncope Surgical History H/O bilateral cataract extraction H/O heart artery stent H/O repair of rotator cuff History of back surgery S/P AAA repair Family History Mother Insomnia Social History marital status: household members: children lives independently: Yes caregiver/support person: Yes housing: house occupational status: previously employed Smoking Status: Former smoker second hand exposure: No alcohol intake: current substance use type: does not use Discharge Plan Discharge Plan Patient Disposition: Home Discharge orders & Medications Prescriptions: New prednisone 20 mg tablet 20 mg PO DAILY Qty: 40 0RF Rx Instructions: 60mg for 5 day, 40mg for 5 day, 20mg for 5 day 10 mg for 5 days azithromycin [Zithromax] 500 mg tablet 500 mg PO DAILY 5 Days Qty: 5 0RF Continued albuterol sulfate 90 mcg/actuation HFA aerosol inhaler 1 puff INHALATION Q6H PRN (Reason: Shortness Of Breath) alfuzosin 10 mg tablet extended release 24 hr 10 mg PO DAILY acetaminophen 325 mg capsule 650 mg PO Q6H PRN (Reason: pain) apixaban 5 mg tablet 5 mg PO BID spironolactone 25 mg tablet 25 mg PO DAILY nitroglycerin 0.4 mg tablet, sublingual 0.4 mg SL Q5-15M PRN (Reason: Chest Pain) Qty: 7 0RF (DME) Disabled parking permit Qty: 1 0RF Dose Instruction: As directed Rx Instructions: My patient meets the qualifying condition of unable to walk 200 ft without stopping to rest benzonatate 100 mg capsule 100 mg PO BID PRN (Reason: cough) Qty: 20 0RF torsemide 10 mg tablet 20 mg PO BID Qty: 60 0RF Hold Instructions: Dehydration metoprolol succinate 50 mg tablet extended release 24 hr See Rx Instructions .ROUTE .COMPLEX Qty: 90 1RF Dose Instruction: TAKE ONE TABLET BY MOUTH DAILY Rx Instructions: TAKE ONE TABLET BY MOUTH DAILY rosuvastatin 40 mg tablet 40 mg PO DAILY Qty: 90 3RF losartan 25 mg tablet 12.5 mg PO DAILY pramipexole 0.25 mg tablet See Rx Instructions .ROUTE .COMPLEX Qty: 135 3RF Dose Instruction: TAKE 1/2 TABLET (0.125 MG) BY MOUTH THREE TIMES A DAY Rx Instructions: TAKE 1/2 TABLET (0.125 MG) BY MOUTH THREE TIMES A DAY [id number]-sbvyxeukq-[id number] 100-62.5-25 mcg blister with device 1 puff inhalation DAILY albuterol sulfate 2.5 mg /3 mL (0.083 %) solution for nebulization 2.5 mg INHALATION Q4H PRN (Reason: shortness of breath or wheezing) Qty: 90 1RF Rx Instructions: 2.5 mg by inhalation every 2-4 hours as needed for Shortness of breath, cough and wheezing Trelegy Ellipta 100-62.5-25 mcg Blister With Device 1 inh INHALATION DAILY Follow up/Referrals: Elis Arroyo MD [Primary Care Provider] - Discharge Data Primary Care Provider: Elis Arroyo
[2022-02-27 09:11] VITALS: BP 117/63; PULSE 80
[2022-02-27] MEDS: APIXABAN 5 MG TABLET PO (09:11)
[2022-02-27] MEDS: METOPROLOL ER 50 MG TABLET PO (09:11)
[2022-02-27 09:12] VITALS: BP 117/63; PULSE 80
[2022-02-27] MEDS: LOSARTAN 25 MG TABLET 12.5 MG PO (09:12)
[2022-02-27] MEDS: SPIRONOLACTONE 25 MG TABLET PO (09:13)
[2022-02-27] MEDS: PRAMIPEXOLE 0.25 MG TABLET 0.125 MG PO (09:14)
[2022-02-27] MEDS: methylPREDNISolone 125 MG/2 ML VIAL 60 MG IV (09:17)
[2022-02-27] MEDS: ALBUTEROL/IPRATROPIUM 3 ML AMPUL INH ×2 (09:50→12:37)
[2022-02-27] MEDS: BUDESONIDE 0.5 MG/2 ML NEB INH (09:50)
[2022-02-27 10:35] VITALS: BP 136/74; PULSE 86
[2022-02-27 10:36] VITALS: BP 136/74; PULSE 86
[2022-02-27] MEDS: ACETAMINOPHEN 325 MG TABLET 650 MG PO (10:38)
[2022-02-27 12:41] VITALS: O2SAT 95
== END 2022-02-27 14:18 | disposition home or self-care (01) | DRG 190 ==
LOC: ED 16:28 → AC 17:16
PROVIDERS: Admitting Provider Family Medicine; Emergency Provider Family Medicine Addiction Medicine; PCP Family Medicine; Referring Provider Family Medicine Addiction Medicine; Visit Provider Family Medicine
DX: J44.1 Chronic obstructive pulmonary disease with (acute) exacerbation (principal); I50.23 Acute on chronic systolic (congestive) heart failure; J96.01 Acute respiratory failure with hypoxia; I13.0 Hypertensive heart and chronic kidney disease with heart failure and stage 1 through stage 4 chronic kidney disease, or unspecified chronic kidney disease; N18.32 Chronic kidney disease, stage 3b; I48.91 Unspecified atrial fibrillation; E87.5 Hyperkalemia; E83.42 Hypomagnesemia; I25.10 Atherosclerotic heart disease of native coronary artery without angina pectoris; G25.81 Restless legs syndrome; N40.0 Benign prostatic hyperplasia without lower urinary tract symptoms; E78.5 Hyperlipidemia, unspecified; Z79.01 Long term (current) use of anticoagulants; Z87.891 Personal history of nicotine dependence; Z20.822 Contact with and (suspected) exposure to COVID-19; Z95.5 Presence of coronary angioplasty implant and graft; G62.9 Polyneuropathy, unspecified; L97.512 Non-pressure chronic ulcer of other part of right foot with fat layer exposed; L97.522 Non-pressure chronic ulcer of other part of left foot with fat layer exposed; L84 Corns and callosities; R60.0 Localized edema
CPT/HCPCS: 11042; 36415; 71046; 80048; 80053; 83605; 83735; 83880; 84145; 85025; 87635; 93005; 93010; 94618; 94640; 94760; 96365; 96375; 99212; 99213; 99223; 99232; 99238; 99284; C9803; J0696; J1940; J2930

== ENCOUNTER → 2022-03-02 15:17 | Outpatient (CLI) | payer MEDICARE, OTHER, SELFPAY ==
[2022-02-25 18:36] VITALS: BMI 23.6
== END ==
PROVIDERS: PCP Family Medicine; Referring Provider Family Medicine; Visit Provider Family Medicine
DX: G62.9 Polyneuropathy, unspecified (principal); L97.512 Non-pressure chronic ulcer of other part of right foot with fat layer exposed; L97.522 Non-pressure chronic ulcer of other part of left foot with fat layer exposed; L84 Corns and callosities; J44.9 Chronic obstructive pulmonary disease, unspecified; I50.9 Heart failure, unspecified; Z79.01 Long term (current) use of anticoagulants
CPT/HCPCS: 11042

== ENCOUNTER → 2022-03-04 14:25 | Outpatient (CLI) | payer MEDICARE, OTHER, SELFPAY ==
[2022-02-25 18:36] VITALS: BMI 23.6
== END ==
PROVIDERS: PCP Family Medicine; Referring Provider Family Medicine; Visit Provider Nurse Practitioner Family
DX: G62.9 Polyneuropathy, unspecified (principal); L97.512 Non-pressure chronic ulcer of other part of right foot with fat layer exposed; L97.522 Non-pressure chronic ulcer of other part of left foot with fat layer exposed; L84 Corns and callosities; R60.0 Localized edema
CPT/HCPCS: 99214

== ENCOUNTER → 2022-03-08 14:32 | Outpatient (CLI) | payer MEDICARE, OTHER, SELFPAY ==
[2022-02-25 18:36] VITALS: BMI 23.6
== END ==
PROVIDERS: PCP Family Medicine; Referring Provider Family Medicine; Visit Provider Family Medicine
DX: G62.9 Polyneuropathy, unspecified (principal); L97.512 Non-pressure chronic ulcer of other part of right foot with fat layer exposed; L97.522 Non-pressure chronic ulcer of other part of left foot with fat layer exposed; Z79.01 Long term (current) use of anticoagulants
CPT/HCPCS: 11042

== ENCOUNTER → 2022-03-16 | Outpatient (CLI) | payer MEDICARE, OTHER, SELFPAY ==
[2022-02-25 18:36] VITALS: BMI 23.6
== END ==
PROVIDERS: PCP Family Medicine; Referring Provider Podiatrist; Visit Provider Family Medicine
DX: G60.9 Hereditary and idiopathic neuropathy, unspecified (principal)
CPT/HCPCS: 99213

== ENCOUNTER → 2022-03-18 09:37 | Outpatient (CLI) | payer MEDICARE, OTHER, SELFPAY ==
[2022-02-25 18:36] VITALS: BMI 23.6
[2022-03-18 10:24] LABS: Blood Urea Nitrogen 35 mg/dL (9-20); Calcium 8.9 mg/dL (8.4-10.2); Carbon Dioxide 31 mmol/L (22-32); Chloride 101 mmol/L (98-107); Estimated Glomerular Filt Rate 45 mL/min (>60); Glucose 112 mg/dL (80-110); HEMOLYSIS < 15 (0-50); Potassium 4.8 mmol/L (3.4-5.1); Sodium 138 mmol/L (137-145)
== END ==
PROVIDERS: PCP Family Medicine; Referring Provider Internal Medicine Nephrology; Visit Provider Internal Medicine Nephrology
DX: N17.9 Acute kidney failure, unspecified (principal)
CPT/HCPCS: 36415; 80048

== ENCOUNTER → 2022-03-21 15:16 | Outpatient (CLI) | payer MEDICARE, OTHER, SELFPAY ==
[2022-02-25 18:36] VITALS: BMI 23.6
== END ==
PROVIDERS: PCP Family Medicine; Referring Provider Family Medicine; Visit Provider Family Medicine
DX: G62.9 Polyneuropathy, unspecified (principal); L97.512 Non-pressure chronic ulcer of other part of right foot with fat layer exposed; L97.522 Non-pressure chronic ulcer of other part of left foot with fat layer exposed; L84 Corns and callosities; Z79.01 Long term (current) use of anticoagulants
CPT/HCPCS: 11042

== ENCOUNTER → 2022-03-22 07:45 | Outpatient (CLI) | payer MEDICARE, OTHER, SELFPAY ==
[2022-02-25 18:36] VITALS: BMI 23.6
--- NOTE | 2022-03-22 | DI.ECHO.S_ITS ---
[facility]---------+ [facility] +---------+ : : [address] : : : : [id number] : : : : Phone: [phone]+ Echocardiogram Report + + :Name: PRIYA DÍAZ Study Date: 03/22/2022 Height: 65.5 in: :[facility] ReadingLocation: Weight: 160 lb : : Gender: Male BSA: 1.8 m2 : :: 1940 Age: 81 yrs BP: 112/63 mmHg: :Reason For Study: CARDIOMYOPATHY : :Ordering Physician: ARISTEO, : :FRANCI Performed By: Oralia Patrick : :Referring: FRANCI JOHN : + + Interpretation Summary 1) Normal left ventricular size with moderately reduced systolic function (EF 35-40%). 2) There is a significant dyssynchronous contraction pattern due to the paced rhythm. 3) Normal right ventricular size with mildly reduced function. There is a pacemaker lead in the right ventricle. 4) Severe left atrial enlargement. 5) No significant valvular abnormalities. 6) Compared to the Echo done 02/23/2021, no significant change. Procedure: A two-dimensional transthoracic echocardiogram with color flow and Doppler was performed. The study quality was technically adequate. There is no prior echocardiogram noted for this patient. The patient has a paced rhythm. The heart rate ranged between 80 bpm during the study. Left Ventricle: The left ventricle is normal in size. There is mild concentric left ventricular hypertrophy. The ejection fraction is estimated to be 35-40%. There is moderate global hypokinesis of the left ventricle. There is a significant dyssynchronous contraction pattern due to the paced rhythm. Diastolic function could not be accurately assessed due to paced rhythm. Right Ventricle: The right ventricle is normal size. There is a pacemaker lead in the right ventricle. Right ventricular systolic function is mildly reduced. Atria: The left atrium is severely dilated. Right atrial size is normal. There is no Doppler evidence for an interatrial shunt. Mitral Valve: The mitral valve leaflets appear mildly thickened, but open well. There is mild mitral annular calcification. There is trace mitral regurgitation. Aortic Valve: The aortic valve is trileaflet. The aortic valve opens well. The aortic valve is slightly calcified. There is no aortic valve stenosis. No aortic regurgitation is present. Tricuspid Valve: The tricuspid valve is normal in structure and function. There is mild tricuspid regurgitation. Pulmonic Valve: The pulmonic valve is not well seen, but is grossly normal. There is mild pulmonic regurgitation. Great Vessels: The aortic root is normal size. The dimensions of the ascending aorta are normal. The IVC is of normal diameter and collapses greater than 50% with a sniff. This suggests a low right atrial pressure of 3 mm Hg. Pericardium/ Pleura There is no pericardial effusion. There is no pleural effusion. MMode/2D Measurements & Calculations LVIDd: 4.7 cm LVOT diam: 2.2 cm LVIDs: 4.0 cm Ao root diam: 3.6 cm FS: 14.0 % asc Aorta Diam: 3.6 cm IVSd: 1.1 cm Ao Arch Diam (Prox Trans): 2.3 cm LVPWd: 1.0 cm LV zarate. diameter/BSA (cm/m^2): 2.6 LV sys. diameter/BSA (cm/m^2): 2.2 LA A2 area: 30.1 cm2 RA long axis: 7.2 cm LA A4 area: 30.1 cm2 RA area: 16.0 cm2 LA length (vol): 7.3 cm RA vol: 30.4 ml LA vol: 106.1 ml RA : 16.8 ml/m2 LA vol index: 58.6 ml/m2 IVC diam: 0.73 cm RVD1 (basal): 3.7 cm RVD2 (mid): 2.5 cm TAPSE: 1.7 cm Doppler Measurements & Calculations Ao V2 max: 111.0 cm/sec LVOT Max Bryce: 61.7 cm/sec Ao V2 mean: 74.0 cm/sec LV V1 max P.5 mmHg Ao max P.9 mmHg LV V1 VTI: 10.6 cm Ao mean P.5 mmHg RADHA(I,D): 1.8 cm2 Ao V2 VTI: 21.0 cm RADHA(V,D): 2.0 cm2 sev ratio: 0.50 RADHA indexed to BSA (cm^2/m^2): 1.0 MV E max bryce: 111.3 cm/sec TR max bryce: 274.4 cm/sec MV A max bryce: 0.86 cm/sec TR max P.5 mmHg MV E/A: 129.0 PA pr(Accel): 39.6 mmHg Med Peak E' Bryce: 5.9 cm/sec E/E' med: 18.9 Lat Peak E' Bryce: 8.1 cm/sec E/E' lat: 13.7 E/e' average: 16.3 MV dec time: 0.23 sec SV(OT): 38.8 ml Reading Physician:01:00 PM
== END ==
PROVIDERS: PCP Family Medicine; Referring Provider Internal Medicine Cardiovascular Disease; Visit Provider Internal Medicine Cardiovascular Disease
DX: I07.1 Rheumatic tricuspid insufficiency (principal); I42.9 Cardiomyopathy, unspecified; I25.10 Atherosclerotic heart disease of native coronary artery without angina pectoris; I50.9 Heart failure, unspecified; Z95.0 Presence of cardiac pacemaker
CPT/HCPCS: 93306

== ENCOUNTER → 2022-03-28 14:49 | Outpatient (CLI) | payer MEDICARE, OTHER, SELFPAY ==
[2022-02-25 18:36] VITALS: BMI 23.6
== END ==
PROVIDERS: PCP Family Medicine; Referring Provider Family Medicine; Visit Provider Family Medicine
DX: L97.512 Non-pressure chronic ulcer of other part of right foot with fat layer exposed (principal); L97.522 Non-pressure chronic ulcer of other part of left foot with fat layer exposed; G60.9 Hereditary and idiopathic neuropathy, unspecified; L08.89 Other specified local infections of the skin and subcutaneous tissue; R60.0 Localized edema
CPT/HCPCS: 11042; 87070; 87075; 87077; 87147; 87186; 87205; 99212; 99214

== ENCOUNTER → 2022-04-11 14:25 | Outpatient (CLI) | payer MEDICARE, OTHER, SELFPAY ==
[2022-02-25 18:36] VITALS: BMI 23.6
== END ==
PROVIDERS: PCP Family Medicine; Referring Provider Family Medicine; Visit Provider Family Medicine
DX: G60.9 Hereditary and idiopathic neuropathy, unspecified (principal); L97.512 Non-pressure chronic ulcer of other part of right foot with fat layer exposed; L97.522 Non-pressure chronic ulcer of other part of left foot with fat layer exposed; R60.0 Localized edema; L08.89 Other specified local infections of the skin and subcutaneous tissue; B95.7 Other staphylococcus as the cause of diseases classified elsewhere
CPT/HCPCS: 11042; 99214

== ENCOUNTER → 2022-04-18 14:01 | Outpatient (CLI) | payer MEDICARE, OTHER, SELFPAY ==
[2022-02-25 18:36] VITALS: BMI 23.6
== END ==
PROVIDERS: PCP Family Medicine; Referring Provider Family Medicine; Visit Provider Family Medicine
DX: G60.9 Hereditary and idiopathic neuropathy, unspecified (principal); S91.301A Unspecified open wound, right foot, initial encounter; S91.302A Unspecified open wound, left foot, initial encounter
CPT/HCPCS: 11042

== ENCOUNTER → 2022-04-27 13:36 | Outpatient (CLI) | payer MEDICARE, OTHER, SELFPAY ==
[2022-02-25 18:36] VITALS: BMI 23.6
== END ==
PROVIDERS: PCP Family Medicine; Referring Provider Family Medicine; Visit Provider Family Medicine
DX: G60.9 Hereditary and idiopathic neuropathy, unspecified (principal); L97.512 Non-pressure chronic ulcer of other part of right foot with fat layer exposed; R60.0 Localized edema
CPT/HCPCS: 99212

== ENCOUNTER → 2022-05-09 15:00 | Outpatient (CLI) | payer MEDICARE, OTHER, SELFPAY ==
[2022-02-25 18:36] VITALS: BMI 23.6
== END ==
PROVIDERS: PCP Family Medicine; Referring Provider Family Medicine; Visit Provider Family Medicine
DX: G60.9 Hereditary and idiopathic neuropathy, unspecified (principal); L97.512 Non-pressure chronic ulcer of other part of right foot with fat layer exposed
CPT/HCPCS: 11042; 99212

== ENCOUNTER → 2022-05-24 14:47 | Outpatient (CLI) | payer MEDICARE, OTHER, SELFPAY ==
[2022-02-25 18:36] VITALS: BMI 23.6
== END ==
PROVIDERS: PCP Family Medicine; Referring Provider Family Medicine; Visit Provider Family Medicine
DX: G60.9 Hereditary and idiopathic neuropathy, unspecified (principal); L97.512 Non-pressure chronic ulcer of other part of right foot with fat layer exposed
CPT/HCPCS: 97597

== ENCOUNTER → 2022-05-31 13:47 | Outpatient (CLI) | payer MEDICARE, OTHER, SELFPAY ==
[2022-02-25 18:36] VITALS: BMI 23.6
== END ==
PROVIDERS: PCP Family Medicine; Referring Provider Family Medicine; Visit Provider Family Medicine
DX: G60.9 Hereditary and idiopathic neuropathy, unspecified (principal)
CPT/HCPCS: 99212; 99213

== ENCOUNTER 2022-07-02 18:36 | Emergency (ER) | payer MEDICARE, OTHER, SELFPAY ==
[2022-02-25 18:36] VITALS: BMI 23.6
[2022-07-02 18:46] VITALS: BP 129/75; PULSE 80; RESP 18; TEMP 36.4; O2SAT 95; BMI 27.1
--- NOTE | 2022-07-02 18:57 | DI.RAD.S_ITS ---
PROCEDURE: XR FOOT RT MIN 3V INDICATIONS: infection x1 year lateral 5th MTP TECHNIQUE: 3 views of the foot were acquired. COMPARISON: [facility], CR, XR FOOT RT MIN 3V, 08/11/2021, 15:47. FINDINGS: Bones: No fractures or dislocations. Osteoarthritic changes are noted throughout right foot. No gross bony erosive changes are seen. Well-defined plantar calcaneal enthesophyte is seen. No suspicious bony lesions. Soft tissues: Marked soft tissue swelling over dorsum of right foot is seen. No tibiotalar joint effusion. Achilles tendon appears normal. IMPRESSION: Right foot osteoarthritis. Marked dorsal right foot soft tissue swelling. No radiographic evidence of osteomyelitis. Dictated by: Jeancarlos Sheridan M.D. on 07/02/2022 at 19:17 Approved by: Jeancarlos Sheridan M.D. on 07/02/2022 at 19:17
--- NOTE | 2022-07-02 18:57 | DI.US.S_ITS ---
PROCEDURE: US PERIPH VENOUS LOW EXTREM RT INDICATIONS: redness, swelling RLE TECHNIQUE: Real-time imaging, as well as color and pulse Doppler interrogation, were performed of the lower extremity deep veins from the inguinal ligament to the popliteal fossa. COMPARISON: None. FINDINGS: The common femoral, femoral and popliteal veins are normally compressible, and free of intraluminal thrombus. Color and pulse Doppler demonstrate normal phasic intraluminal flow. There is normal augmentation response to distal compression maneuver. IMPRESSION: No DVT found right lower extremity. Dictated by: Alan Ribeiro M.D. on 07/03/2022 at 1:31 Approved by: Alan Ribeiro M.D. on 07/03/2022 at 1:33
--- NOTE | 2022-07-02 18:58 | ED.EXTPRO ---
HPI - Extremity Problem General Chief complaint: Wound/Laceration Stated complaint: Rt foot wound draining Time Seen by Provider: 07/02/22 18:39 History of Present Illness HPI Narrative: 82-year-old male former smoker with history of COPD, CLL, chronic kidney disease, CHF, pacemaker, AFib on Eliquis presents with family in the chief complaint of a poorly healing wound on the lateral aspect of his right foot for at least 1 year. He had a callus that was shaved down over a year ago and it subsequently became infected and due to his chronic illness took quite some time to heal. He had been in contact both with Podiatry and Wound Care and was most recently on antibiotics a few months ago. He presents today because there is become increasing redness surrounding this skin wound and the drainage of some yellowish material. He does have some minimal swelling and redness to his right lower extremity but no lymphangitis. He has no systemic findings such as dizziness, weakness or lightheadedness. He is had no fever or chills. He denies chest pain or shortness of breath nor nausea, vomiting or diarrhea. He denies any pain and states that he can not really feel it. Related Data Home Medications Medication Instructions Recorded Confirmed acetaminophen 325 mg capsule 650 mg PO Q6H PRN pain 08/18/18 03/22/22 albuterol sulfate 90 mcg/actuation 1 puff inhalation Q6H PRN 08/18/18 03/22/22 aerosol inhaler Shortness Of Breath alfuzosin 10 mg tablet,extended 10 mg PO DAILY 08/18/18 03/22/22 release 24 hr apixaban 5 mg tablet 5 mg PO BID 08/18/18 03/22/22 fluticasone fur. 100 mcg-umeclid 1 puff inhalation DAILY 04/03/19 03/22/22 62.5 mcg-vilant 25 mcg inhalat.powder spironolactone 25 mg tablet 25 mg PO DAILY 12/30/19 03/22/22 fluticasone fur. 100 mcg-umeclid 1 inh inhalation DAILY 11/15/20 03/22/22 62.5 mcg-vilant 25 mcg inhalat.powder (Trelegy Ellipta) losartan 25 mg tablet 12.5 mg PO DAILY 05/06/21 03/22/22 Previous Rx's Medication Instructions Recorded Disabled parking permit #1 ea 04/09/19 albuterol sulfate 2.5 mg/3 mL 2.5 mg (3 mL) inhalation Q4H PRN 11/23/19 (0.083 %) solution for nebulization shortness of breath or wheezing #90 mL torsemide 10 mg tablet 20 mg PO BID #60 tabs 10/28/20 metoprolol succinate 50 mg See Rx Instructions .Route 01/08/21 tablet,extended release 24 hr .COMPLEX #90 tabs rosuvastatin 40 mg tablet 40 mg PO DAILY #90 tabs 02/16/21 nitroglycerin 0.4 mg sublingual 0.4 mg sublingual Q5-15M PRN Chest 09/21/21 tablet Pain #7 tabs pramipexole 0.25 mg tablet See Rx Instructions .Route 10/25/21 .COMPLEX #135 tabs benzonatate 100 mg capsule 100 mg PO BID PRN cough #20 caps 02/21/22 prednisone 20 mg tablet 20 mg PO DAILY #40 tabs 02/27/22 doxycycline hyclate 100 mg tablet 100 mg PO BID #20 tabs 07/02/22 Allergies Allergy/AdvReac Type Severity Reaction Status Date / Time atorvastatin Allergy Verified 03/22/22 11:13 diclofenac Allergy Verified 03/22/22 11:13 lisinopril Allergy Verified 03/22/22 11:13 niacin Allergy Verified 03/22/22 11:13 pravastatin Allergy Verified 03/22/22 11:13 Review of Systems Review of Systems Narrative: GENERAL: Denies chills, fatigue, malaise, fever, sweats. HEENT: Denies sinus pain, ear pain, sore throat, difficulty swallowing, dizziness. RESPIRATORY: Denies dyspnea, cough, wheezing, hemoptysis, sputum. CARDIOVASCULAR: Denies chest pain, palpitations, orthopnea, edema, GASTROINTESTINAL: Denies nausea, vomiting, abdominal pain, diarrhea, constipation, melena. : Denies dysuria, frequency, incontinence, hematuria, urinary retention. MUSCULOSKELETAL: denies weakness, joint pain, or bony pain SKIN: See HPI NEUROLOGIC: Denies weakness, headache, numbness, change in speech, confusion, seizures, incoordination. PSYCHIATRIC: No concerning psychosocial issues. 12 point review of systems is negative except for those stated above Patient History Medical History (HFpEF) heart failure with preserved ejection fraction Acute on chronic congestive heart failure with right ventricular diastolic dysfunction (~11/16/20) At high risk for falls Atrial fibrillation BPH (benign prostatic hyperplasia) COPD (chronic obstructive pulmonary disease) Coronary artery disease Essential hypertension Non-ST elevation (NSTEMI) myocardial infarction (~11/16/20) NSTEMI (non-ST elevated myocardial infarction) (~02/2020) NSTEMI (non-ST elevated myocardial infarction) (~08/2014) ZACH (obstructive sleep apnea) Pacemaker Restless leg Seborrheic keratosis Stage III chronic kidney disease Systolic heart failure Vasovagal syncope Surgical History H/O bilateral cataract extraction H/O heart artery stent H/O repair of rotator cuff History of back surgery S/P AAA repair Family History Mother Insomnia Social History marital status: household members: children lives independently: Yes caregiver/support person: Yes housing: house occupational status: previously employed Smoking Status: Former smoker second hand exposure: No alcohol intake: current substance use type: does not use Smoking Status: Former smoker alcohol intake frequency: a few times a month Alcohol type: beer and hard liquor Substance Use Type: does not use Exam Narrative Exam Narrative: GENERAL: [82] year old patient appears stated age. Well-developed patient, in mild distress. HEAD: Atraumatic. Normocephalic. EYES: Pupils equal round and reactive. Extraocular motions intact. No scleral icterus. No injection or drainage. ENT: Nose without bleeding, purulent drainage. Throat without erythema, tonsillar hypertrophy or exudate. Airway patent. NECK: Trachea midline. Non tender CARDIOVASCULAR: Regular rate and rhythm without murmurs, gallops, or rubs. RESPIRATORY: Clear to auscultation. Breath sounds equal bilaterally. No wheezes, rales, or rhonchi. GASTROINTESTINAL: Abdomen soft, non-tender, nondistended. EXTREMITIES: BACK: Nontender without deformity or crepitance. No flank tenderness. NEURO: AOx3. SKIN: No rash or erythema of visible areas Initial Vital Signs Initial Vital Signs: Vital Signs Temperature 97.6 F 11/05/22 18:46 Pulse Rate 80 07/02/22 18:46 Respiratory Rate 18 07/02/22 18:46 Blood Pressure 129/75 07/02/22 18:46 Pulse Oximetry 95 07/02/22 18:46 Oxygen Delivery Method 07/02/22 18:46 Course Orders Ordered: ED Orders 07/02/22 18:52 Wound Culture and Gram Stain Stat 07/02/22 18:57 US periph venous low extrem rt Stat XR foot RT min 3V Stat Discontinued Medications Doxycycline Hyclate (Doxycycline Hyclate 100 Mg Tablet) 100 mg PO NOW ONE Stop: 07/02/22 20:04 Last Admin: 07/02/22 20:18 Dose: 100 mg Documented By: CIRO Vital Signs Vital signs: Vital Signs - 8 hr 07/02/22 19:30 Pulse Rate 80 Respiratory Rate 18 Blood Pressure 116/57 L Pulse Oximetry 99 Oxygen Delivery Method Room Air MDM - Extremity (Nontraumatic) Imaging Data Extremity x-ray #1: Radiologist's Impression: [address] [address] XRay Report Signed Patient: Moses Metcalf MR#: [id number] : 1940 Acct:[id number] Age/Sex: 82 / M Date of Service: 07/02/22 Loc: ED Accession Number: [id number] ?? Procedure: XR foot RT min 3V Ordering Provider: Shaun Mayen D.O. PROCEDURE:? XR FOOT RT MIN 3V ? INDICATIONS:? infection x1 year lateral 5th MTP ? TECHNIQUE:? 3 views of the foot were acquired.? ? COMPARISON:? [facility], CR, XR FOOT RT MIN 3V, 08/11/2021, 15:47. ? FINDINGS:? ? Bones:? No fractures or dislocations.? Osteoarthritic changes are noted throughout right foot.? No gross bony erosive changes are seen.? Well-defined plantar calcaneal enthesophyte is seen.? No suspicious bony lesions.? ? Soft tissues:? Marked soft tissue swelling over dorsum of right foot is seen.? No tibiotalar joint effusion.? Achilles tendon appears normal.? ? ? IMPRESSION:? Right foot osteoarthritis.? Marked dorsal right foot soft tissue swelling.? No radiographic evidence of osteomyelitis. ? Dictated by: Jeancarlos Sheridan M.D. on 07/02/2022 at 19:17 ? ? Approved by: Jeancarlos Sheridan M.D. on 07/02/2022 at 19:17 ? [facility] Narrative Medical decision making narrative: Patient with chronic medical problems and a poorly healing foot wound presents with some increased drainage and concern of infection. He has no signs of sepsis and imaging would suggest against obvious osteomyelitis. Wound was cultured and antibiotic decision based on prior culture results. He does have some swelling and redness of his right lower extremity and ultrasound for DVT is negative. Patient already is established with wound care and podiatry, patient encouraged to follow closely with these specialists, return precautions discussed and questions answered to his apparent satisfaction Discharge Plan Departure Patient Disposition: Home Clinical Impression: Cellulitis of right foot Instructions: DI for Wound Infection Activity Restrictions/Additional Instructions: *You have been diagnosed with [right foot wound infection ] *What to do: *Please continue to take your regular medications as directed. [ x] New medication prescriptions sent to your pharmacy: [[facility] ] [ ] New medication written as a paper prescription [ ] No new medications given *Please follow up with your primary care provider in 2-3 days, call for an appointment. Let them know you were seen in the Emergency Department and that we ask that you be seen in follow up. We will electronically transmit a record of today's note if your PCP is in our system * as we discussed, it would be reasonable to follow-up with either wound care or Podiatry as well *Return to Emergency Department if you should have any new, worsening or concerning symptoms Prescriptions: New doxycycline hyclate 100 mg tablet 100 mg PO BID Qty: 20 0RF No Action albuterol sulfate 90 mcg/actuation HFA aerosol inhaler 1 puff INHALATION Q6H PRN (Reason: Shortness Of Breath) alfuzosin 10 mg tablet extended release 24 hr 10 mg PO DAILY acetaminophen 325 mg capsule 650 mg PO Q6H PRN (Reason: pain) apixaban 5 mg tablet 5 mg PO BID spironolactone 25 mg tablet 25 mg PO DAILY nitroglycerin 0.4 mg tablet, sublingual 0.4 mg SL Q5-15M PRN (Reason: Chest Pain) Qty: 7 0RF (DME) Disabled parking permit Qty: 1 0RF Dose Instruction: As directed Rx Instructions: My patient meets the qualifying condition of unable to walk 200 ft without stopping to rest benzonatate 100 mg capsule 100 mg PO BID PRN (Reason: cough) Qty: 20 0RF torsemide 10 mg tablet 20 mg PO BID Qty: 60 0RF Hold Instructions: Dehydration metoprolol succinate 50 mg tablet extended release 24 hr See Rx Instructions .ROUTE .COMPLEX Qty: 90 1RF Dose Instruction: TAKE ONE TABLET BY MOUTH DAILY Rx Instructions: TAKE ONE TABLET BY MOUTH DAILY rosuvastatin 40 mg tablet 40 mg PO DAILY Qty: 90 3RF losartan 25 mg tablet 12.5 mg PO DAILY pramipexole 0.25 mg tablet See Rx Instructions .ROUTE .COMPLEX Qty: 135 3RF Dose Instruction: TAKE 1/2 TABLET (0.125 MG) BY MOUTH THREE TIMES A DAY Rx Instructions: TAKE 1/2 TABLET (0.125 MG) BY MOUTH THREE TIMES A DAY [id number] 100-62.5-25 mcg blister with device 1 puff inhalation DAILY albuterol sulfate 2.5 mg /3 mL (0.083 %) solution for nebulization 2.5 mg INHALATION Q4H PRN (Reason: shortness of breath or wheezing) Qty: 90 1RF Rx Instructions: 2.5 mg by inhalation every 2-4 hours as needed for Shortness of breath, cough and wheezing Trelegy Ellipta 100-62.5-25 mcg Blister With Device 1 inh INHALATION DAILY prednisone 20 mg tablet 20 mg PO DAILY Qty: 40 0RF Rx Instructions: 60mg for 5 day, 40mg for 5 day, 20mg for 5 day 10 mg for 5 days Referrals: Marie Singer DPM [Physician] - Pierre Ash MD [Physician] - Elis Arroyo MD [Primary Care Provider] - Visit Report Forms: Patient Portal/API
[2022-07-02 19:30] VITALS: BP 116/57; PULSE 80; RESP 18; O2SAT 99
[2022-07-02] MEDS: DOXYCYCLINE HYCLATE 100 MG TABLET PO (20:18)
== END 2022-07-02 20:21 | disposition home or self-care (01) ==
PROVIDERS: Emergency Provider Emergency Medicine; PCP Family Medicine
DX: L03.115 Cellulitis of right lower limb (principal)
CPT/HCPCS: 73630; 87070; 87075; 87077; 87147; 87186; 87205; 93971; 99283

== ENCOUNTER → 2022-07-05 13:22 | Outpatient (CLI) | payer MEDICARE, OTHER, SELFPAY ==
[2022-02-25 18:36] VITALS: BMI 23.6
== END ==
PROVIDERS: PCP Family Medicine; Referring Provider Family Medicine; Visit Provider Surgery
DX: G60.9 Hereditary and idiopathic neuropathy, unspecified (principal); L97.512 Non-pressure chronic ulcer of other part of right foot with fat layer exposed; R60.0 Localized edema; M79.671 Pain in right foot
CPT/HCPCS: 11042

== ENCOUNTER → 2022-07-13 11:32 | Outpatient (CLI) | payer MEDICARE, OTHER, SELFPAY ==
[2022-02-25 18:36] VITALS: BMI 23.6
== END ==
PROVIDERS: PCP Family Medicine; Referring Provider Family Medicine; Visit Provider Surgery
DX: G60.9 Hereditary and idiopathic neuropathy, unspecified (principal); S91.301A Unspecified open wound, right foot, initial encounter; R60.0 Localized edema; L84 Corns and callosities
CPT/HCPCS: 11042; 11055

== ENCOUNTER → 2022-07-18 12:03 | Outpatient (CLI) | payer MEDICARE, OTHER, SELFPAY ==
[2022-02-25 18:36] VITALS: BMI 23.6
[2022-07-18 13:00] LABS: Add Manual Diff / Slide Review NO; Basophils Absolute Auto 100 /uL (0-100); Basophils Percent Auto 0.4 % (0-2); Eosinophils Absolute Auto 500 /uL (0-450); Eosinophils Percent Auto 4.5 % (2-4); Hematocrit 35.8 % (41-53); Hemoglobin 11.9 g/dL (13.5-17.5); Lymphocytes Absolute Auto 5100 /uL (1100-4500); Lymphocytes Percent Auto 42.5 % (25-40); Mean Corpuscular HGB Conc 33.2 % (30-36); Mean Corpuscular Volume 84.5 fL (80-100); Monocytes Absolute Auto 800 /uL (0-900); Monocytes Percent Auto 6.4 % (3-14); Neutrophils Absolute Auto 5600 /uL (1500-7000); Neutrophils Percent Auto 46.2 % (50-75); Platelet Count 171 X10^3/uL (150-400); Red Blood Cell Count 4.24 X10^6/uL (4.5-5.9); Red Cell Distribution Width 15.3 % (11.6-14.8); White Blood Cell Count 12.1 X10^3/uL (4.5-11.0)
[2022-07-18 16:46] LABS: Microalbumin Urine Random 3.9 mg/dL (0-1.6)
[2022-07-18 16:48] LABS: Creatinine Urine Random 144.1 mg/dL
[2022-07-18 16:55] LABS: BUN Creatinine Ratio 21.7 (6-22); Blood Urea Nitrogen 36 mg/dL (9-20); Calcium 8.9 mg/dL (8.4-10.2); Carbon Dioxide 30 mmol/L (22-32); Chloride 100 mmol/L (98-107); Estimated Glomerular Filt Rate 41 mL/min (>60); Glucose 134 mg/dL (80-110); HEMOLYSIS < 15 (0-50); Magnesium 2.5 mg/dL (1.6-2.3); Phosphorous 3.6 mg/dL (2.3-3.7); Potassium 4.5 mmol/L (3.4-5.1); Sodium 139 mmol/L (137-145); Uric Acid 7.1 mg/dL (3.5-8.5)
[2022-07-18 16:56] LABS: Vitamin D 25 Hydroxy (D3) 69.3 ng/mL (30.0-100.0)
[2022-07-20 07:42] LABS: Parathyroid Hormone Int 49 pg/mL (15-65)
== END ==
PROVIDERS: PCP Family Medicine; Referring Provider Internal Medicine Nephrology; Visit Provider Internal Medicine Nephrology
DX: N18.31 Chronic kidney disease, stage 3a (principal)
CPT/HCPCS: 36415; 80048; 82043; 82306; 82570; 83735; 83970; 84100; 84550; 85025

== ENCOUNTER → 2022-07-20 10:50 | Outpatient (CLI) | payer MEDICARE, OTHER, SELFPAY ==
[2022-02-25 18:36] VITALS: BMI 23.6
== END ==
PROVIDERS: PCP Family Medicine; Referring Provider Family Medicine; Visit Provider Surgery
DX: L97.512 Non-pressure chronic ulcer of other part of right foot with fat layer exposed (principal); L97.521 Non-pressure chronic ulcer of other part of left foot limited to breakdown of skin; G60.3 Idiopathic progressive neuropathy
CPT/HCPCS: 97597

== ENCOUNTER → 2022-07-26 10:22 | Outpatient (CLI) | payer MEDICARE, OTHER, SELFPAY ==
[2022-02-25 18:36] VITALS: BMI 23.6
== END ==
PROVIDERS: PCP Family Medicine; Referring Provider Podiatrist; Visit Provider Surgery
DX: G60.9 Hereditary and idiopathic neuropathy, unspecified (principal); L97.512 Non-pressure chronic ulcer of other part of right foot with fat layer exposed; L97.521 Non-pressure chronic ulcer of other part of left foot limited to breakdown of skin; R60.0 Localized edema; L84 Corns and callosities
CPT/HCPCS: 11055; 97597

== ENCOUNTER → 2022-08-02 14:47 | Outpatient (CLI) | payer MEDICARE, OTHER, SELFPAY ==
[2022-02-25 18:36] VITALS: BMI 23.6
== END ==
PROVIDERS: PCP Family Medicine; Referring Provider Podiatrist; Visit Provider Surgery
DX: G60.9 Hereditary and idiopathic neuropathy, unspecified (principal); L97.512 Non-pressure chronic ulcer of other part of right foot with fat layer exposed; L97.521 Non-pressure chronic ulcer of other part of left foot limited to breakdown of skin; L98.8 Other specified disorders of the skin and subcutaneous tissue; L84 Corns and callosities
CPT/HCPCS: 11042; 99212

== ENCOUNTER → 2022-08-09 14:52 | Outpatient (CLI) | payer MEDICARE, OTHER, SELFPAY ==
[2022-02-25 18:36] VITALS: BMI 23.6
== END ==
PROVIDERS: PCP Family Medicine; Referring Provider Podiatrist; Visit Provider Surgery
DX: G60.3 Idiopathic progressive neuropathy (principal); S91.301A Unspecified open wound, right foot, initial encounter; L98.8 Other specified disorders of the skin and subcutaneous tissue; L84 Corns and callosities; R60.0 Localized edema
CPT/HCPCS: 11042

== ENCOUNTER → 2022-08-15 15:01 | Outpatient (CLI) | payer MEDICARE, OTHER, SELFPAY ==
[2022-02-25 18:36] VITALS: BMI 23.6
== END ==
PROVIDERS: PCP Family Medicine; Referring Provider Podiatrist; Visit Provider Surgery
DX: G60.9 Hereditary and idiopathic neuropathy, unspecified (principal); L97.512 Non-pressure chronic ulcer of other part of right foot with fat layer exposed; L97.521 Non-pressure chronic ulcer of other part of left foot limited to breakdown of skin; R60.0 Localized edema; L84 Corns and callosities; Z79.01 Long term (current) use of anticoagulants
CPT/HCPCS: 11042; 87070; 87075; 87077; 87186; 87205; 99213

== ENCOUNTER → 2022-08-20 09:44 | Outpatient (CLI) | payer MEDICARE, OTHER, SELFPAY ==
[2022-02-25 18:36] VITALS: BMI 23.6
[2022-08-20 10:50] LABS: BUN Creatinine Ratio 20.4 (6-22); Blood Urea Nitrogen 37 mg/dL (9-20); Calcium 7.9 mg/dL (8.4-10.2); Carbon Dioxide 25 mmol/L (22-32); Chloride 104 mmol/L (98-107); Estimated Glomerular Filt Rate 37 mL/min (>60); Glucose 94 mg/dL (80-110); HEMOLYSIS < 15 (0-50); Sodium 140 mmol/L (137-145)
== END ==
PROVIDERS: PCP Family Medicine; Referring Provider Internal Medicine Nephrology; Visit Provider Internal Medicine Nephrology
DX: N17.9 Acute kidney failure, unspecified (principal)
CPT/HCPCS: 36415; 80048

== ENCOUNTER → 2022-08-24 15:21 | Outpatient (CLI) | payer MEDICARE, OTHER, SELFPAY ==
[2022-02-25 18:36] VITALS: BMI 23.6
== END ==
PROVIDERS: PCP Family Medicine; Referring Provider Family Medicine; Visit Provider Surgery
DX: G60.3 Idiopathic progressive neuropathy (principal); L97.512 Non-pressure chronic ulcer of other part of right foot with fat layer exposed; L97.521 Non-pressure chronic ulcer of other part of left foot limited to breakdown of skin; I89.0 Lymphedema, not elsewhere classified; R60.0 Localized edema
CPT/HCPCS: 11042

== ENCOUNTER → 2022-08-31 14:33 | Outpatient (CLI) | payer MEDICARE, OTHER, SELFPAY ==
[2022-02-25 18:36] VITALS: BMI 23.6
== END ==
PROVIDERS: PCP Family Medicine; Referring Provider Family Medicine; Visit Provider Surgery
DX: G60.3 Idiopathic progressive neuropathy (principal); L97.512 Non-pressure chronic ulcer of other part of right foot with fat layer exposed; L97.521 Non-pressure chronic ulcer of other part of left foot limited to breakdown of skin; I89.0 Lymphedema, not elsewhere classified; L98.8 Other specified disorders of the skin and subcutaneous tissue; R60.0 Localized edema; L84 Corns and callosities
CPT/HCPCS: 97597; 99212

== ENCOUNTER → 2022-08-31 15:52 | Outpatient (CLI) | payer MEDICARE, OTHER, SELFPAY ==
[2022-02-25 18:36] VITALS: BMI 23.6
[2022-08-31 17:45] LABS: BUN Creatinine Ratio 19.9 (6-22); Blood Urea Nitrogen 29 mg/dL (9-20); Calcium 8.7 mg/dL (8.4-10.2); Carbon Dioxide 32 mmol/L (22-32); Chloride 98 mmol/L (98-107); Estimated Glomerular Filt Rate 47 mL/min (>60); Glucose 113 mg/dL (80-110); HEMOLYSIS < 15 (0-50); Potassium 3.8 mmol/L (3.4-5.1); Sodium 140 mmol/L (137-145)
== END ==
PROVIDERS: PCP Family Medicine; Referring Provider Internal Medicine Nephrology; Visit Provider Internal Medicine Nephrology
DX: N17.9 Acute kidney failure, unspecified (principal)
CPT/HCPCS: 36415; 80048

== ENCOUNTER → 2022-09-07 14:53 | Outpatient (CLI) | payer MEDICARE, OTHER, SELFPAY ==
[2022-02-25 18:36] VITALS: BMI 23.6
== END ==
PROVIDERS: PCP Family Medicine; Referring Provider Family Medicine; Visit Provider Surgery
DX: G60.3 Idiopathic progressive neuropathy (principal); I89.0 Lymphedema, not elsewhere classified; L97.512 Non-pressure chronic ulcer of other part of right foot with fat layer exposed; L97.521 Non-pressure chronic ulcer of other part of left foot limited to breakdown of skin; L84 Corns and callosities; R60.0 Localized edema
CPT/HCPCS: 11042

== ENCOUNTER 2022-09-09 17:58 | Emergency (ER) | payer MEDICARE, OTHER, SELFPAY ==
[2022-02-25 18:36] VITALS: BMI 23.6
[2022-09-09] VITALS (18 sets, daily range): BP systolic 90–185; BP diastolic 57–100; PULSE 74–92; RESP 18–46; TEMP 36.5; O2SAT 92–95; BMI 25.0
--- NOTE | 2022-09-09 18:11 | DI.RAD.S_ITS ---
PROCEDURE: XR CHEST 1V INDICATIONS: chest pain TECHNIQUE: One view of the chest was acquired. COMPARISON: [facility], CR, XR CHEST 2V, 02/25/2022, 15:50. FINDINGS: Surgical changes and devices: Leadless pacemaker is again seen projecting over the heart. Lungs and pleura: Right lower lobe opacities and small right pleural effusion appear mildly worse when compared to the radiographs from 02/25/2022, with increased fluid in the right minor fissure. Mild bilateral interstitial prominence. No pneumothorax. Mediastinum: Cardiac silhouette is enlarged. Aortic atherosclerotic calcifications are present. Bones and chest wall: No suspicious bony lesions. Overlying soft tissues appear unremarkable. IMPRESSION: 1. Stable cardiomegaly. Mild bilateral interstitial prominence is seen that could indicate mild edema. 2. Chronic right lower lobe pulmonary markings and small right pleural effusion appear mildly worse when compared to the prior radiographs. Approved by: Bart Ly M.D. on 09/09/2022 at 19:07
[2022-09-09 18:54] LABS: Add Manual Diff / Slide Review NO; Basophils Absolute Auto 0 /uL (0-100); Basophils Percent Auto 0.5 % (0-2); Eosinophils Absolute Auto 500 /uL (0-450); Eosinophils Percent Auto 5.5 % (2-4); Hematocrit 31.7 % (41-53); Hemoglobin 10.3 g/dL (13.5-17.5); Lymphocytes Absolute Auto 4100 /uL (1100-4500); Lymphocytes Percent Auto 44.6 % (25-40); Mean Corpuscular HGB Conc 32.5 % (30-36); Mean Corpuscular Hemoglobin 27.5 PG (26-34); Mean Corpuscular Volume 84.6 fL (80-100); Monocytes Absolute Auto 500 /uL (0-900); Monocytes Percent Auto 5.8 % (3-14); Neutrophils Absolute Auto 4000 /uL (1500-7000); Neutrophils Percent Auto 43.6 % (50-75); Platelet Count 159 X10^3/uL (150-400); Red Blood Cell Count 3.74 X10^6/uL (4.5-5.9); White Blood Cell Count 9.2 X10^3/uL (4.5-11.0)
[2022-09-09 18:59] LABS: INR 1.4 (0.9-1.3); Prothrombin Time 16.5 SECONDS (10.1-12.7)
[2022-09-09 19:02] LABS: PTT Partial Thromboplastin Tim 33 SECONDS (26-36)
[2022-09-09 19:05] LABS: Alanine Aminotransferase 26 IU/L (<50); Albumin Globulin Ratio 1.2 (1.0-2.8); Alkaline Phosphatase 67 U/L (38-126); Aspartate Aminotransferase 39 IU/L (17-59); BUN Creatinine Ratio 15.6 (6-22); Bilirubin Total 0.5 mg/dL (0.2-1.3); Blood Urea Nitrogen 23 mg/dL (9-20); Calcium 8.3 mg/dL (8.4-10.2); Carbon Dioxide 22 mmol/L (22-32); Chloride 109 mmol/L (98-107); Creatine Kinase 237 U/L (55-170); Estimated Glomerular Filt Rate 47 mL/min (>60); Globulin 3.3 g/dL (1.7-4.1); Glucose 89 mg/dL (80-110); HEMOLYSIS < 15 (0-50); Lipase 81 U/L (23-300); Magnesium 2.6 mg/dL (1.6-2.3); Potassium 4.6 mmol/L (3.4-5.1); Sodium 141 mmol/L (137-145); Total Protein 7.3 g/dL (6.3-8.2)
[2022-09-09 19:13] LABS: NT-proBNP (BNP-Adult 18+) 2770 pg/mL (<450)
[2022-09-09 19:16] LABS: Troponin I 0.035 ng/mL (0.01-0.034)
[2022-09-09 19:19] LABS: CKMB % Relative Index 2.7 % (1.5-5.0); Creatine Kinase MB 6.49 ng/mL (<2.37)
[2022-09-09] MEDS: FUROSEMIDE 80 MG in SODIUM CHLORIDE 0.9% 50 ML 116 MG IV (20:53)
[2022-09-09 21:21] LABS: Troponin I 0.033 ng/mL (0.01-0.034)
--- NOTE | 2022-09-09 22:38 | ED.SOB ---
HPI - SOB/Dyspnea General Chief Complaint: Shortness of Breath/Dyspnea Stated Complaint: SOB Time Seen by Provider: 09/09/22 20:24 Source: patient, family and old records reviewed Limitations: no limitations History of Present Illness HPI Narrative: This is an 82-year-old male with history of congestive heart failure, chronic kidney disease, COPD, CLL, pacemaker, AFib on Eliquis with a prior EF of 35-40% in February of 2022. Patient states that he has had increasing shortness of breath, dyspnea on exertion with increasing swelling in his lower extremities after running out of his torsemide. States his replanting machine operator had bumped him up to 10 mg twice daily been having some increasing shortness of breath and that had improved his symptoms but he is awaiting his mail-order medications and he ran out of torsemide. Patient states he has been out for at least 3 or 4 days. He denies any chest pain or pressure. No syncope. No nausea or vomiting. Patient states he can not lay on his side. 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 Patient states he is feeling much better after receiving 80 mg of Lasix and diuresing here in the department. Related Data Home Medications Medication Instructions Recorded Confirmed acetaminophen 325 mg capsule 650 mg PO Q6H PRN pain 08/18/18 07/18/22 albuterol sulfate 90 mcg/actuation 1 puff inhalation Q6H PRN 08/18/18 07/18/22 aerosol inhaler Shortness Of Breath alfuzosin 10 mg tablet,extended 10 mg PO DAILY 08/18/18 07/18/22 release 24 hr apixaban 5 mg tablet 5 mg PO BID 08/18/18 07/18/22 spironolactone 25 mg tablet 25 mg PO DAILY 12/30/19 07/18/22 losartan 25 mg tablet 12.5 mg PO DAILY 05/06/21 07/18/22 Previous Rx's Medication Instructions Recorded Disabled parking permit #1 ea 04/09/19 albuterol sulfate 2.5 mg/3 mL 2.5 mg (3 mL) inhalation Q4H PRN 11/23/19 (0.083 %) solution for nebulization shortness of breath or wheezing #90 mL torsemide 10 mg tablet 20 mg PO BID #60 tabs 10/28/20 metoprolol succinate 50 mg See Rx Instructions .Route 01/08/21 tablet,extended release 24 hr .COMPLEX #90 tabs rosuvastatin 40 mg tablet 40 mg PO DAILY #90 tabs 02/16/21 nitroglycerin 0.4 mg sublingual 0.4 mg sublingual Q5-15M PRN Chest 09/21/21 tablet Pain #7 tabs fluticasone fur. 100 mcg-umeclid 1 inh inhalation DAILY #60 ea 07/18/22 62.5 mcg-vilant 25 mcg inhalat.powder (Trelegy Ellipta) pramipexole 0.25 mg tablet See Rx Instructions .Route 09/09/22 .COMPLEX #135 tabs torsemide 10 mg tablet 10 mg PO BID #30 tabs 09/09/22 Allergies Allergy/AdvReac Type Severity Reaction Status Date / Time atorvastatin Allergy Verified 09/09/22 18:11 diclofenac Allergy Verified 09/09/22 18:11 lisinopril Allergy Verified 09/09/22 18:11 niacin Allergy Verified 09/09/22 18:11 pravastatin Allergy Verified 09/09/22 18:11 Review of Systems Review of Systems ROS Unobtainable: All systems reviewed & are unremarkable except as noted in HPI and below Patient History Medical History (HFpEF) heart failure with preserved ejection fraction At high risk for falls Atrial fibrillation BPH (benign prostatic hyperplasia) COPD (chronic obstructive pulmonary disease) Coronary artery disease Essential hypertension Non-ST elevation (NSTEMI) myocardial infarction (~11/16/20) NSTEMI (non-ST elevated myocardial infarction) (~02/2020) NSTEMI (non-ST elevated myocardial infarction) (~08/2014) ZACH (obstructive sleep apnea) Pacemaker Restless leg Seborrheic keratosis Stage III chronic kidney disease Systolic heart failure Vasovagal syncope Surgical History H/O bilateral cataract extraction H/O heart artery stent H/O repair of rotator cuff History of back surgery S/P AAA repair Family History Mother Insomnia Social History marital status: household members: children lives independently: Yes caregiver/support person: Yes housing: house occupational status: previously employed Smoking Status: Former smoker second hand exposure: No alcohol intake: current substance use type: does not use Smoking Status: Former smoker alcohol intake frequency: a few times a month Alcohol type: beer and hard liquor Substance Use Type: does not use Exam Narrative Exam Narrative: GENERAL: Alert and oriented x three, elderly male in moderate distress. HEENT: Head normocephalic, atraumatic, EOMI, pupils reactive, face symmetric, moist mucous membranes NECK: Supple, full range of motion CARDIOVASCULAR: Regular rate and rhythm without murmurs, rubs or gallops. Patient has bilateral lower extremity swelling 2+ pitting. Patient has JVD. RESPIRATORY: Breath sounds equal bilaterally, no wheezes or rhonchi. Positive tachypnea. Crackles bilateral bases. ABDOMEN: Soft, nontender. Normoactive bowel sounds all 4 quadrants. No guarding or rebound, rigidity, no mass : No CVA tenderness EXTREMITIES: Normal range of motion, no clubbing or edema. Neurovascularly intact NEUROLOGICAL: Cranial nerves II through XII grossly intact. Moving all extremities SKIN: Warm, dry, no petechiae, no rashes or lesions. Initial Vital Signs Initial Vital Signs: Vital Signs Pulse Rate 85 09/09/22 18:34 Respiratory Rate 28 H 09/09/22 18:34 Pulse Oximetry 92 09/09/22 18:34 Oxygen Delivery Method 09/09/22 18:34 Course Orders Ordered: Discontinued Medications Furosemide 80 mg/ Sodium (Chloride) 58 mls @ 116 mls/hr IV NOW ONE Stop: 09/09/22 20:25 Last Infusion: 09/09/22 21:39 Dose: 0 mls/hr Documented By: Admin: 09/09/22 20:53 Dose: 116 mls/hr Documented By: TRES Vital Signs Vital signs: Vital Signs - 8 hr 09/09/22 18:34 09/09/22 19:00 09/09/22 19:01 Pulse Rate 85 87 89 Respiratory Rate 28 H 27 H 27 H Blood Pressure Pulse Oximetry 92 95 95 Oxygen Delivery Method Room Air 09/09/22 19:01 09/09/22 19:30 09/09/22 19:31 Pulse Rate 80 Respiratory Rate 28 H Blood Pressure 161/86 H 155/82 H Pulse Oximetry 94 Oxygen Delivery Method Room Air 09/09/22 19:31 09/09/22 20:00 09/09/22 20:00 Pulse Rate 91 H 80 Respiratory Rate 31 H 35 H Blood Pressure 161/67 H Pulse Oximetry 94 94 Oxygen Delivery Method 09/09/22 20:30 09/09/22 20:30 09/09/22 21:00 Pulse Rate 80 90 Respiratory Rate 33 H 29 H Blood Pressure 170/70 H Pulse Oximetry 95 95 Oxygen Delivery Method 09/09/22 21:01 09/09/22 21:01 09/09/22 21:30 Pulse Rate 92 H 81 Respiratory Rate 34 H 46 H Blood Pressure 166/100 H Pulse Oximetry 94 95 Oxygen Delivery Method 09/09/22 21:31 09/09/22 21:31 09/09/22 22:00 Pulse Rate 83 86 Respiratory Rate 30 H 34 H Blood Pressure 185/83 H Pulse Oximetry 95 93 Oxygen Delivery Method 09/09/22 22:01 09/09/22 22:01 09/09/22 22:30 Pulse Rate 90 82 Respiratory Rate 35 H 35 H Blood Pressure 151/95 H Pulse Oximetry 95 94 Oxygen Delivery Method 09/09/22 22:32 09/09/22 22:32 09/09/22 23:00 Pulse Rate 85 91 H Respiratory Rate 32 H 32 H Blood Pressure 90/57 L Pulse Oximetry 95 93 Oxygen Delivery Method 09/09/22 23:02 09/09/22 23:02 Pulse Rate 81 Respiratory Rate 37 H Blood Pressure 146/91 H Pulse Oximetry Oxygen Delivery Method MDM - SOB/Dyspnea Lab Data Result diagrams: 09/09/22 18:40 09/09/22 18:40 Labs: Lab Results 09/09/22 09/09/22 09/09/22 Range/Units 18:40 18:40 18:40 WBC 9.2 (4.5-11.0) X10^3/uL RBC 3.74 L (4.5-5.9) X10^6/uL Hgb 10.3 L (13.5-17.5) g/dL Hct 31.7 L (41-53) % MCV 84.6 (80-100) fL MCH 27.5 (26-34) PG MCHC 32.5 (30-36) % RDW 17.0 H (11.6-14.8) % Plt Count 159 (150-400) X10^3/uL Neut % (Auto) 43.6 L (50-75) % Lymph % (Auto) 44.6 H (25-40) % Cassia % (Auto) 5.8 (3-14) % Eos % (Auto) 5.5 H (2-4) % Baso % (Auto) 0.5 (0-2) % Neut # (Auto) 4000 (5680-1534) /uL Lymph # (Auto) 4100 (9033-5534) /uL Cassia # (Auto) 500 (0-900) /uL Eos # (Auto) 500 H (0-450) /uL Baso # (Auto) 0 (0-100) /uL PT 16.5 H (10.1-12.7) SECONDS INR 1.4 H (0.9-1.3) APTT 33 (26-36) SECONDS Sodium 141 (137-145) mmol/L Potassium 4.6 (3.4-5.1) mmol/L Chloride 109 H (98-107) mmol/L Carbon Dioxide 22 (22-32) mmol/L BUN 23 H (9-20) mg/dL Creatinine 1.47 H (0.66-1.25) mg/dL Estimated GFR 47 L (>60) mL/min BUN/Creatinine Ratio 15.6 (6-22) Glucose 89 (80-110) mg/dL Calcium 8.3 L (8.4-10.2) mg/dL Magnesium 2.6 H (1.6-2.3) mg/dL Total Bilirubin 0.5 (0.2-1.3) mg/dL AST 39 (17-59) IU/L ALT 26 (<50) IU/L Alkaline Phosphatase 67 (38-126) U/L Total Creatine Kinase 237 H (55-170) U/L CK-MB (CK-2) 6.49 H (<2.37) ng/mL CK-MB (CK-2) Rel Index 2.7 (1.5-5.0) % Troponin I 0.035 H (0.01-0.034) ng/mL NT-Pro-B Natriuret Pep (<450) pg/mL Total Protein 7.3 (6.3-8.2) g/dL Albumin 4.0 (3.5-5.0) g/dL Globulin 3.3 (1.7-4.1) g/dL Albumin/Globulin Ratio 1.2 (1.0-2.8) Lipase 81 (23-300) U/L 09/09/22 09/09/22 Range/Units 18:40 20:36 WBC (4.5-11.0) X10^3/uL RBC (4.5-5.9) X10^6/uL Hgb (13.5-17.5) g/dL Hct (41-53) % MCV (80-100) fL MCH (26-34) PG MCHC (30-36) % RDW (11.6-14.8) % Plt Count (150-400) X10^3/uL Neut % (Auto) (50-75) % Lymph % (Auto) (25-40) % Cassia % (Auto) (3-14) % Eos % (Auto) (2-4) % Baso % (Auto) (0-2) % Neut # (Auto) (9180-2758) /uL Lymph # (Auto) (3042-8829) /uL Cassia # (Auto) (0-900) /uL Eos # (Auto) (0-450) /uL Baso # (Auto) (0-100) /uL PT (10.1-12.7) SECONDS INR (0.9-1.3) APTT (26-36) SECONDS Sodium (137-145) mmol/L Potassium (3.4-5.1) mmol/L Chloride (98-107) mmol/L Carbon Dioxide (22-32) mmol/L BUN (9-20) mg/dL Creatinine (0.66-1.25) mg/dL Estimated GFR (>60) mL/min BUN/Creatinine Ratio (6-22) Glucose (80-110) mg/dL Calcium (8.4-10.2) mg/dL Magnesium (1.6-2.3) mg/dL Total Bilirubin (0.2-1.3) mg/dL AST (17-59) IU/L ALT (<50) IU/L Alkaline Phosphatase (38-126) U/L Total Creatine Kinase (55-170) U/L CK-MB (CK-2) (<2.37) ng/mL CK-MB (CK-2) Rel Index (1.5-5.0) % Troponin I 0.033 (0.01-0.034) ng/mL NT-Pro-B Natriuret Pep 2770 H (<450) pg/mL Total Protein (6.3-8.2) g/dL Albumin (3.5-5.0) g/dL Globulin (1.7-4.1) g/dL Albumin/Globulin Ratio (1.0-2.8) Lipase (23-300) U/L Imaging Data Chest x-ray: Radiologist's Impression: DixonMoses R??82??M??1940 ? Allergy/Adv: atorvastatin, diclofenac, lisinopril, niacin, pravastatin (More??) Close Chest X-Ray (Signed) Bart Ly - 09/09/22 Vascular Ultrasound (Signed) Alan Ribeiro - 07/02/22 Foot X-Ray (Signed) Jeancarlos Sheridan - 07/02/22 Echocardiogram Ultrasound (Signed) Chay John - 03/22/22 Chest X-Ray (Signed) Dmitry Purvis - 02/25/22 Chest X-Ray (Signed) Liban Sherwood - 02/21/22 Chest X-Ray (Signed) Bobby Pascal - 09/17/21 Foot X-Ray (Signed) Elsie Tian - 08/11/21 Foot X-Ray (Signed) Elsie Tian - 08/11/21 EKG Rpt. 06/17/21 Echocardiogram Ultrasound (Signed) Chay John - 02/23/[address] (Signed) Alan Ribeiro - 01/06/21 Chest/Abdomen/Pelvis CT (Signed) Bernardo Jovel - 11/15/20 Chest X-Ray (Signed) Bernardo Jovel - 11/15/20 Foot X-Ray (Signed) Liz Melendez - 10/24/[address] (Signed) Bobby Pascal - 08/05/[address] (Signed) Sai Galeano - 07/28/[address] (Signed) Bart Ly - 07/28/20 EKG Rpt. 07/28/[address] (Signed) Bart Ly - 07/28/20 Chest X-Ray (Signed) Alan Ribeiro - 07/28/20 Knee X-Ray (Signed) Alan Ribeiro - 06/22/20 Echocardiogram Ultrasound (Signed) Pollo Burgoseem - 04/14/20 Chest X-Ray (Signed) [place] - 12/05/19 Chest X-Ray (Signed) Bobby Pascal - 11/23/19 Retroperitoneum Ultrasound (Signed) Alan Ribeiro - 10/23/19 Chest X-Ray (Signed) Erwin Snider - 10/09/19 Chest X-Ray (Signed) Zina Flor - 09/09/19 Chest X-Ray (Signed) Liz Melendez - 08/29/19 Retroperitoneum Ultrasound (Signed) Lacie Gleason - 04/12/[address] (Signed) Alan Ribeiro - 04/03/19 Finger X-Ray (Signed) Alan Ribeiro - 03/22/19 Chest X-Ray (Signed) Zina Flor - 03/08/19 Echocardiogram Ultrasound (Signed) Chay John - 02/13/[address] (Signed) Noe Mathur - 01/18/19 Chest X-Ray (Signed) Thony Jeffers - 01/13/[address] (Signed) Thony Jeffers - 01/13/19 Chest X-Ray (Signed) Lacie Gleason - 08/18/18 Echocardiogram Ultrasound (Signed) Chay John - 08/17/18 Launch?[address] [address] XRay Report Signed Patient: Moses Metcalf MR#: [id number] : 1940 Acct:[id number] Age/Sex: 82 / M Date of Service: 09/09/22 Loc: ED Accession Number: [id number] ?? Procedure: XR chest 1V Ordering Provider: Delicia Arroyo D.O. PROCEDURE:? XR CHEST 1V ? INDICATIONS:? chest pain ? TECHNIQUE:? One view of the chest was acquired.? ? COMPARISON:[facility], , XR CHEST 2V, 02/25/2022, 15:50. ? FINDINGS:? ? Surgical changes and devices:? Leadless pacemaker is again seen projecting over the heart. ? Lungs and pleura:? Right lower lobe opacities and small right pleural effusion appear mildly worse when compared to the radiographs from 02/25/2022, with increased fluid in the right minor fissure.? Mild bilateral interstitial prominence.? No pneumothorax. ? Mediastinum:? Cardiac silhouette is enlarged.? Aortic atherosclerotic calcifications are present. ? Bones and chest wall:? No suspicious bony lesions.? Overlying soft tissues appear unremarkable.? ? IMPRESSION:? 1. Stable cardiomegaly.? Mild bilateral interstitial prominence is seen that could indicate mild edema. 2. Chronic right lower lobe pulmonary markings and small right pleural effusion appear mildly worse when compared to the prior radiographs.? Approved by: Bart Ly M.D. on 09/09/2022 at 19:07? ECG Data Attestation: I personally reviewed and interpreted this ECG as follows: Interpretation: Ventricularly paced rhythm rate 82 QRS of 160 QTC 537. MDM Narrative Medical decision making narrative: Patient appears to be acute on chronic CHF exacerbation. He had his torsemide increased by his replanting machine operator but they did not give him a new prescription and he has since run out. He is had increasing shortness of breath, exertional dyspnea and swelling in his extremities as well as increase in weight gain. Patient states that his increased dose of torsemide was helpful. He is known EF of 35-40% in February 2022. His renal function stable at 1.47, CMP shows no major electrolyte abnormalities. CK is 237 BNP is 277. Troponin was indeterminate is trending down words. Chest x-ray shows some mild edema and pleural effusion on the right lower lobe which seems worse. Patient appears to be fluid overloaded he diuresed here in the department after 80 mg Lasix and feels significantly better he is not been hypoxic his tachypnea has been improving. Patient feels that he can return home. Plan to send a short-term prescription for his torsemide 10 mg b.i.d. he states his mail-order should be arriving in the next 10 days. He is asked to contact his cardiology team on Monday to discuss when they can taper down or if they should continue at his current dose of torsemide. We did discuss return precautions all questions answered. Discharge Plan Departure Patient Disposition: Home Clinical Impression: Acute exacerbation of CHF (congestive heart failure) Instructions: DI for Heart Failure Activity Restrictions/Additional Instructions: Follow-up with your physician for recheck, chat with your cardiology team to see if they would like you to continue at 10 mg twice daily or try to taper down over the next week or 2. Please restart your torsemide I would recommend restarting back at your 10 mg twice daily. Talk with your physician in the next week. Prescription for torsemide 10 mg twice daily was sent to [facility] in [place]. Please return for increasing chest pain, shortness of breath, worsening swelling of extremities, worsening cough, passing out, persistent vomiting or other new or concerning changes Prescriptions: New torsemide 10 mg tablet 10 mg PO BID Qty: 30 0RF No Action albuterol sulfate 90 mcg/actuation HFA aerosol inhaler 1 puff INHALATION Q6H PRN (Reason: Shortness Of Breath) alfuzosin 10 mg tablet extended release 24 hr 10 mg PO DAILY acetaminophen 325 mg capsule 650 mg PO Q6H PRN (Reason: pain) apixaban 5 mg tablet 5 mg PO BID spironolactone 25 mg tablet 25 mg PO DAILY nitroglycerin 0.4 mg tablet, sublingual 0.4 mg SL Q5-15M PRN (Reason: Chest Pain) Qty: 7 0RF Trelegy Ellipta 100-62.5-25 mcg blister with device 1 inh inhalation DAILY Qty: 60 11RF (DME) Disabled parking permit Qty: 1 0RF Dose Instruction: As directed Rx Instructions: My patient meets the qualifying condition of unable to walk 200 ft without stopping to rest torsemide 10 mg tablet 20 mg PO BID Qty: 60 0RF Hold Instructions: Dehydration metoprolol succinate 50 mg tablet extended release 24 hr See Rx Instructions .ROUTE .COMPLEX Qty: 90 1RF Dose Instruction: TAKE ONE TABLET BY MOUTH DAILY Rx Instructions: TAKE ONE TABLET BY MOUTH DAILY rosuvastatin 40 mg tablet 40 mg PO DAILY Qty: 90 3RF losartan 25 mg tablet 12.5 mg PO DAILY pramipexole 0.25 mg tablet See Rx Instructions .ROUTE .COMPLEX Qty: 135 1RF Dose Instruction: TAKE 1/2 TABLET (0.125 MG) BY MOUTH THREE TIMES A DAY Rx Instructions: TAKE 1/2 TABLET (0.125 MG) BY MOUTH IN THE AM AND 1 TABLET AT BEDTIME albuterol sulfate 2.5 mg /3 mL (0.083 %) solution for nebulization 2.5 mg INHALATION Q4H PRN (Reason: shortness of breath or wheezing) Qty: 90 1RF Rx Instructions: 2.5 mg by inhalation every 2-4 hours as needed for Shortness of breath, cough and wheezing Referrals: Elis Arroyo MD [Primary Care Provider] - Stand Alone Forms: Patient Portal/API
== END 2022-09-09 23:31 | disposition home or self-care (01) ==
PROVIDERS: Emergency Provider Emergency Medicine; PCP Family Medicine
DX: I50.9 Heart failure, unspecified (principal); R07.9 Chest pain, unspecified; Z79.899 Other long term (current) drug therapy; Z95.0 Presence of cardiac pacemaker
CPT/HCPCS: 36415; 71045; 80053; 82550; 82553; 83690; 83735; 83880; 84484; 85025; 85610; 85730; 93005; 93010; 96365; 99284; J1940

== ENCOUNTER → 2022-09-13 14:15 | Outpatient (CLI) | payer MEDICARE, OTHER, SELFPAY ==
[2022-02-25 18:36] VITALS: BMI 23.6
== END ==
PROVIDERS: PCP Family Medicine; Referring Provider Family Medicine; Visit Provider Surgery
DX: G60.3 Idiopathic progressive neuropathy (principal); L97.512 Non-pressure chronic ulcer of other part of right foot with fat layer exposed; L97.521 Non-pressure chronic ulcer of other part of left foot limited to breakdown of skin; L84 Corns and callosities; I89.0 Lymphedema, not elsewhere classified; R60.0 Localized edema; L85.9 Epidermal thickening, unspecified
CPT/HCPCS: 11042; 11055; 99213

== ENCOUNTER 2022-09-14 03:34 | Emergency (ER) | payer MEDICARE, OTHER, SELFPAY ==
[2022-02-25 18:36] VITALS: BMI 23.6
[2022-09-14 03:45] VITALS: BP 158/69; PULSE 82; RESP 24; TEMP 36.3; O2SAT 96; BMI 25.0
--- NOTE | 2022-09-14 04:03 | DI.CT.S_ITS ---
PROCEDURE: CT CERVICAL SPINE WO CON INDICATIONS: Fall/pain TECHNIQUE: Noncontrast 3 mm thick sections acquired from the skull base to the T4 level. Sagittal and coronal reformats were then constructed. For radiation dose reduction, the following was used: automated exposure control, adjustment of mA and/or kV according to patient size. COMPARISON: None. FINDINGS: Image quality: Fair. Bones: No fractures or dislocations. Visualized superior ribs are intact. Moderate to severe degenerative change in the cervical spine. Soft tissues: Prevertebral soft tissues are normal in thickness. No paravertebral hematomas. No apical pneumothoraces. Small left pleural effusion. Tiny pleural calcifications. Aortic atherosclerotic plaque. Mild plaque at the carotid bulbs. IMPRESSION: No acute osseous abnormality. Moderate to severe degenerative change in the cervical spine. Small left pleural effusion. This report is concordant with the overnight preliminary interpretation. Dictated by: Bernardo Jovel M.D. on 09/14/2022 at 8:11 Approved by: Bernardo Jovel M.D. on 09/14/2022 at 8:18
--- NOTE | 2022-09-14 04:03 | DI.CT.S_ITS ---
PROCEDURE: CT HEAD/BRAIN WO CON INDICATIONS: Fall/pain TECHNIQUE: Noncontrast 4.5 mm thick angled axial sections acquired from the foramen magnum to the vertex, with coronal and sagittal reformats. For radiation dose reduction, the following was used: automated exposure control, adjustment of mA and/or kV according to patient size. COMPARISON: [facility], CT, CT HEAD/BRAIN WO CON, 01/06/2021, 11:45. FINDINGS: Image quality: Excellent. CSF spaces: Basal cisterns are patent. No extra-axial fluid collections. Ventricles are normal in size and shape. Brain: No midline shift. No intracranial masses or hemorrhage. No area of hypodensity in a large vascular distribution to suggest acute infarction. Periventricular hypodensity consistent with chronic microvascular ischemic change. Age-related parenchymal loss. Skull and face: Calvarium and visualized facial bones are intact, without suspicious lesions. Right superior scalp swelling or hematoma. Sinuses: Mild mucosal thickening in the left maxillary sinus. Mastoids are clear. IMPRESSION: No acute intracranial abnormality. Chronic microvascular ischemic disease. Right superior scalp swelling or hematoma. This report is concordant with the overnight preliminary interpretation. Dictated by: Bernardo Jovel M.D. on 09/14/2022 at 7:54 Approved by: Bernardo Jovel M.D. on 09/14/2022 at 8:00
[2022-09-14] MEDS: TET,DIPH,PERTUSS(ACELL),VAC/PF 0.5 ML SYRINGE IM (04:13)
--- NOTE | 2022-09-14 04:13 | ED_ITS ---
HPI - Head Injury General Chief complaint: Trauma Stated complaint: hit head on dresser Time Seen by Provider: 09/14/22 03:59 Source: patient and family Mode of arrival: Wheelchair History of Present Illness HPI Narrative: Patient here with daughter. Brought in from home by her. Complains of injury to the right head/scalp. Patient is on Eliquis for history atrial fibrillation. Patient states he has been restless for last couple nights. Has not been able to sleep very well. Has been up and out of bed through the course of the nights. He was out of bed at 2:30 a.m. today. He was standing front of his dresser. He states he lost his balance and fell forward into the dresser. Did not hit the ground. No loss of consciousness. No nausea vomiting headache vision changes numbness tingling or weakness. No chest pain or abdominal pain or back pain. Patient also complains of mild neck pain. Denies any other injuries. Needs tetanus updated here. Related Data Home Medications Medication Instructions Recorded Confirmed acetaminophen 325 mg capsule 650 mg PO Q6H PRN pain 08/18/18 07/18/22 albuterol sulfate 90 mcg/actuation 1 puff inhalation Q6H PRN 08/18/18 07/18/22 aerosol inhaler Shortness Of Breath alfuzosin 10 mg tablet,extended 10 mg PO DAILY 08/18/18 07/18/22 release 24 hr apixaban 5 mg tablet 5 mg PO BID 08/18/18 07/18/22 spironolactone 25 mg tablet 25 mg PO DAILY 12/30/19 07/18/22 losartan 25 mg tablet 12.5 mg PO DAILY 05/06/21 07/18/22 Previous Rx's Medication Instructions Recorded Disabled parking permit #1 ea 04/09/19 albuterol sulfate 2.5 mg/3 mL 2.5 mg (3 mL) inhalation Q4H PRN 11/23/19 (0.083 %) solution for nebulization shortness of breath or wheezing #90 mL torsemide 10 mg tablet 20 mg PO BID #60 tabs 10/28/20 metoprolol succinate 50 mg See Rx Instructions .Route 01/08/21 tablet,extended release 24 hr .COMPLEX #90 tabs rosuvastatin 40 mg tablet 40 mg PO DAILY #90 tabs 02/16/21 nitroglycerin 0.4 mg sublingual 0.4 mg sublingual Q5-15M PRN Chest 09/21/21 tablet Pain #7 tabs fluticasone fur. 100 mcg-umeclid 1 inh inhalation DAILY #60 ea 07/18/22 62.5 mcg-vilant 25 mcg inhalat.powder (Trelegy Ellipta) pramipexole 0.25 mg tablet See Rx Instructions .Route 09/09/22 .COMPLEX #135 tabs torsemide 10 mg tablet 10 mg PO BID #30 tabs 09/09/22 oxycodone-acetaminophen 5 mg-325 1 tab PO Q6H PRN pain #10 tabs 09/14/22 mg tablet (Percocet) Allergies Allergy/AdvReac Type Severity Reaction Status Date / Time atorvastatin Allergy Verified 09/09/22 18:11 diclofenac Allergy Verified 09/09/22 18:11 lisinopril Allergy Verified 09/09/22 18:11 niacin Allergy Verified 09/09/22 18:11 pravastatin Allergy Verified 09/09/22 18:11 Review of Systems Review of Systems Narrative: GENERAL: negative chills, fatigue, malaise, fever, sweats. HEENT: negative sinus pain, ear pain, sore throat RESPIRATORY: negative dyspnea, cough CARDIOVASCULAR: negative chest pain, palpitations GASTROINTESTINAL: negative nausea, vomiting, abdominal pain : negative dysuria, frequency, hematuria MUSCULOSKELETAL: negative muscle or bony pain SKIN: negative rash, skin lesions, positive skin injury NEUROLOGIC: negative weakness, numbness ROS Unobtainable: All systems reviewed & are unremarkable except as noted in HPI and below Patient History Medical History (HFpEF) heart failure with preserved ejection fraction At high risk for falls Atrial fibrillation BPH (benign prostatic hyperplasia) COPD (chronic obstructive pulmonary disease) Coronary artery disease Essential hypertension Non-ST elevation (NSTEMI) myocardial infarction (~11/16/20) NSTEMI (non-ST elevated myocardial infarction) (~02/2020) NSTEMI (non-ST elevated myocardial infarction) (~08/2014) ZACH (obstructive sleep apnea) Pacemaker Restless leg Seborrheic keratosis Stage III chronic kidney disease Systolic heart failure Vasovagal syncope Surgical History H/O bilateral cataract extraction H/O heart artery stent H/O repair of rotator cuff History of back surgery S/P AAA repair Family History Mother Insomnia Social History marital status: household members: children lives independently: Yes caregiver/support person: Yes housing: house occupational status: previously employed Smoking Status: Former smoker second hand exposure: No alcohol intake: current substance use type: does not use Smoking Status: Former smoker alcohol intake frequency: a few times a month Alcohol type: beer and hard liquor Substance Use Type: does not use Exam Narrative Exam Narrative: GENERAL: in no distress, not toxic not dyspneic HEAD: Normocephalic. There is a 3 cm linear laceration at the right parietal scalp. Base is visualized. No muscle injury seen. No crepitus or step-off. No foreign body seen. There is mild tenderness to touch. EYES: Pupils equal round ENT: Mucous membranes moist. NECK: Trachea midline. No midline tenderness or step-off of the cervical thoracic or lumbar spine. Mild bilateral paracervical muscle tenderness. CARDIAC: There is bilateral leg edema. No tachycardia. RESPIRATORY: Clear to auscultation. Breath sounds equal bilaterally. No wheezes, rales, or rhonchi. GASTROINTESTINAL: Abdomen soft, non-tender EXTREMITIES: No gross deformities. BACK: No flank tenderness. NEURO: AOx4. SKIN: Warm and dry PSYCH: Not anxious, is cooperative Initial Vital Signs Initial Vital Signs: Vital Signs Temperature 97.4 F L 09/14/22 03:45 Pulse Rate 82 09/14/22 03:45 Respiratory Rate 24 09/14/22 03:45 Blood Pressure 158/69 H 09/14/22 03:45 Pulse Oximetry 96 09/14/22 03:45 Oxygen Delivery Method 09/14/22 03:45 Procedures Laceration Repair Laceration 1: Time of procedure: 04:36 Site: scalp Side (If applicable): right Size (cm): 3 Description: linear and clean Depth: simple, single layer Local Anesthetic: lidocaine 2% and with epi Amount of anesthesia used (mL): 2 Pre-repair: wound explored, irrigated extensively, deep structures intact and cleansed with chlorhexadine Skin layer closed with: daisy (7 daisy) Course Orders Ordered: Discontinued Medications Bacitracin (Bacitracin Oint 0.9 Gm Pckt) 1 applic TOP NOW ONE Stop: 09/14/22 04:35 Last Admin: 09/14/22 04:30 Dose: 1 applic Documented By: TAMMIE Diphtheria/Tetanus/Acell Pertussis (Tet,Diph,Pertuss(Acell),Vac/Pf 0.5 Ml Sy ringe) 0.5 ml IM .ONCE ONE Stop: 09/14/22 04:05 Last Admin: 09/14/22 04:13 Dose: 0.5 ml Documented By: TAMMIE Lidocaine/Epinephrine (Lidocaine 2% W/Epi Inj) 20 ml INJ INTRA-OP ONE Stop: 09/14/22 04:05 Last Admin: 09/14/22 04:16 Dose: 20 ml Documented By: TAMMIE Vital Signs Vital signs: Vital Signs - 8 hr 09/14/22 03:45 Temperature 97.4 F L Pulse Rate 82 Respiratory Rate 24 Blood Pressure 158/69 H Pulse Oximetry 96 Oxygen Delivery Method Room Air MDM - Head Injury Differential Diagnosis Differential diagnosis: Likely concussion without loss of consciousness, epidural hematoma, closed head injury, subarachnoid hematoma, subdural hematoma, concussion with loss of consciousness and other (Scalp laceration) Imaging Data CT scan - head: Radiologist's Impression: Right superior parietal cephalohematoma, no intracranial bleed CT - cervical spine: Radiologist's Impression: 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 Brought in from home by her. Complains of injury to the right head/scalp. Patient is on Eliquis for history atrial fibrillation. Patient states he has been restless for last couple nights. Has not been able to sleep very well. Has been up and out of bed through the course of the nights. He was out of bed at 2:30 a.m. today. He was standing front of his dresser. He states he lost his balance and fell forward into the dresser. Did not hit the ground. No loss of consciousness. No nausea vomiting headache vis ion changes numbness tingling or weakness. No chest pain or abdominal pain or back pain. Patient also complains of mild neck pain. Denies any other injuries. Needs tetanus updated here. After exam and history. Appropriate for CT imaging of the head and cervical spine. No blood work indicated this time. Differential diagnosis includes but not limited to subarachnoid bleed/subdural hematoma/epidural hematoma/laceration/skull fracture/concussion./cervical strain MDM CC: ?Head injury Data collected from: Patient and daughter ? Medical records reviewed: ?Review of records patient was here recently for CHF exacerbation ? Differential considered: ?Please see above ? Exam documented above, pertinent findings include: 3 cm parietal scalp laceration ? Imaging studies independently reviewed: CT head and CT cervical spine no acute process. No acute process other than right superior parietal cephalohematoma ? ? Treatments: Scalp repair with daisy. ? Re-evaluations: 4:35 a.m.. Patient tolerated staple laceration. Very well. ? Discussion: Appropriate for discharge home. Exam and imaging otherwise reassuring. Patient tolerated staple wound closure very well. Return precautions reviewed with patient and daughter. They desire discharge home. Patient otherwise neurovascularly intact. Wound care instructions given as well. ? Diagnosis: Scalp laceration ? Disposition: see below, along with detailed discharge instructions that have been reviewed with patient as well as indications for ED re-evaluation and additional outpatient follow up Discharge Plan Departure Patient Disposition: Home Clinical Impression: Laceration of scalp Instructions: DI for Laceration Repair -- [place], DI for Cervical Muscle Strain, DI for Closed Head Injury Activity Restrictions/Additional Instructions: See family doctor in 10 days to have 7 daisy removed. Clean scalp wound daily with warm soap and water and apply thin layer topical antibiotic/Neosporin/bacitracin. Return if worse if any questions or concerns. May continue home medications Prescriptions: No Action albuterol sulfate 90 mcg/actuation HFA aerosol inhaler 1 puff INHALATION Q6H PRN (Reason: Shortness Of Breath) alfuzosin 10 mg tablet extended release 24 hr 10 mg PO DAILY acetaminophen 325 mg capsule 650 mg PO Q6H PRN (Reason: pain) apixaban 5 mg tablet 5 mg PO BID spironolactone 25 mg tablet 25 mg PO DAILY nitroglycerin 0.4 mg tablet, sublingual 0.4 mg SL Q5-15M PRN (Reason: Chest Pain) Qty: 7 0RF Trelegy Ellipta 100-62.5-25 mcg blister with device 1 inh inhalation DAILY Qty: 60 11RF (DME) Disabled parking permit Qty: 1 0RF Dose Instruction: As directed Rx Instructions: My patient meets the qualifying condition of unable to walk 200 ft without stopping to rest torsemide 10 mg tablet 20 mg PO BID Qty: 60 0RF Hold Instructions: Dehydration metoprolol succinate 50 mg tablet extended release 24 hr See Rx Instructions .ROUTE .COMPLEX Qty: 90 1RF Dose Instruction: TAKE ONE TABLET BY MOUTH DAILY Rx Instructions: TAKE ONE TABLET BY MOUTH DAILY rosuvastatin 40 mg tablet 40 mg PO DAILY Qty: 90 3RF losartan 25 mg tablet 12.5 mg PO DAILY pramipexole 0.25 mg tablet See Rx Instructions .ROUTE .COMPLEX Qty: 135 1RF Dose Instruction: TAKE 1/2 TABLET (0.125 MG) BY MOUTH THREE TIMES A DAY Rx Instructions: TAKE 1/2 TABLET (0.125 MG) BY MOUTH IN THE AM AND 1 TABLET AT BEDTIME oxycodone-acetaminophen [Percocet] 5-325 mg tablet 1 tab PO Q6H PRN (Reason: pain) Qty: 10 0RF albuterol sulfate 2.5 mg /3 mL (0.083 %) solution for nebulization 2.5 mg INHALATION Q4H PRN (Reason: shortness of breath or wheezing) Qty: 90 1RF Rx Instructions: 2.5 mg by inhalation every 2-4 hours as needed for Shortness of breath, cough and wheezing torsemide 10 mg tablet 10 mg PO BID Qty: 30 0RF Referrals: Elis Arroyo MD [Primary Care Provider] - Stand Alone Forms: Patient Portal/API
[2022-09-14] MEDS: LIDOCAINE 2% W/EPI INJ 20 ML INJ (04:16)
[2022-09-14] MEDS: BACITRACIN OINT 0.9 GM PCKT 1 APPLIC TOP (04:30)
[2022-09-14 06:34] VITALS: BP 152/68; PULSE 80; RESP 20; O2SAT 97
== END 2022-09-14 06:35 | disposition home or self-care (01) ==
PROVIDERS: Emergency Provider Emergency Medicine; PCP Family Medicine
DX: S01.01XA Laceration without foreign body of scalp, initial encounter (principal); W22.8XXA Striking against or struck by other objects, initial encounter; Z79.899 Other long term (current) drug therapy; Z79.01 Long term (current) use of anticoagulants; Z23 Encounter for immunization
CPT/HCPCS: 12002; 70450; 72125; 90471; 99284; 90715

== ENCOUNTER → 2022-09-21 14:24 | Outpatient (CLI) | payer MEDICARE, OTHER, SELFPAY ==
[2022-02-25 18:36] VITALS: BMI 23.6
[2022-09-21 15:05] LABS: Hematocrit 34.2 % (41-53); Hemoglobin 10.9 g/dL (13.5-17.5); Mean Corpuscular HGB Conc 31.8 % (30-36); Mean Corpuscular Hemoglobin 26.9 PG (26-34); Mean Corpuscular Volume 84.5 fL (80-100); Platelet Count 151 X10^3/uL (150-400); Red Blood Cell Count 4.05 X10^6/uL (4.5-5.9); Red Cell Distribution Width 17.2 % (11.6-14.8); White Blood Cell Count 8.6 X10^3/uL (4.5-11.0)
[2022-09-21 15:06] LABS: Add Manual Diff / Slide Review YES
[2022-09-21 15:18] LABS: Anisocytosis 2+; Hypochromasia 1+; Neutrophils Absolute Manual 3354 /uL (3000-5900); Poikilocytosis 2+; Total Cells Counted 100
[2022-09-21 15:27] LABS: BUN Creatinine Ratio 21.5 (6-22); Blood Urea Nitrogen 31 mg/dL (9-20); Calcium 8.8 mg/dL (8.4-10.2); Carbon Dioxide 34 mmol/L (22-32); Chloride 102 mmol/L (98-107); Cholesterol 129 mg/dL (140-199); Estimated Glomerular Filt Rate 48 mL/min (>60); Glucose 95 mg/dL (80-110); HDL Cholesterol 38 mg/dL (40-60); HEMOLYSIS < 15 (0-50); LDL Cholesterol Calculated 73 mg/dL (<100); Potassium 4.5 mmol/L (3.4-5.1); Sodium 142 mmol/L (137-145); Triglycerides 91 mg/dL (35-150)
== END ==
PROVIDERS: PCP Family Medicine; Referring Provider Internal Medicine Cardiovascular Disease; Visit Provider Internal Medicine Cardiovascular Disease
DX: I25.10 Atherosclerotic heart disease of native coronary artery without angina pectoris (principal)
CPT/HCPCS: 36415; 80048; 80061; 85007; 85025

== ENCOUNTER → 2022-09-27 13:13 | Outpatient (CLI) | payer MEDICARE, OTHER, SELFPAY ==
[2022-02-25 18:36] VITALS: BMI 23.6
== END ==
PROVIDERS: PCP Family Medicine; Referring Provider Family Medicine; Visit Provider Surgery
DX: G60.3 Idiopathic progressive neuropathy (principal); I89.0 Lymphedema, not elsewhere classified; L97.512 Non-pressure chronic ulcer of other part of right foot with fat layer exposed; L97.522 Non-pressure chronic ulcer of other part of left foot with fat layer exposed; L98.8 Other specified disorders of the skin and subcutaneous tissue; R60.0 Localized edema; L84 Corns and callosities
CPT/HCPCS: 11042; 11055

== ENCOUNTER → 2022-10-04 13:44 | Outpatient (CLI) | payer MEDICARE, OTHER, SELFPAY ==
[2022-02-25 18:36] VITALS: BMI 23.6
== END ==
PROVIDERS: PCP Family Medicine; Referring Provider Family Medicine; Visit Provider Surgery
DX: G60.3 Idiopathic progressive neuropathy (principal); I89.0 Lymphedema, not elsewhere classified; L97.512 Non-pressure chronic ulcer of other part of right foot with fat layer exposed; L97.521 Non-pressure chronic ulcer of other part of left foot limited to breakdown of skin; R60.0 Localized edema; L84 Corns and callosities; L53.9 Erythematous condition, unspecified
CPT/HCPCS: 11042; 87070; 87075; 87077; 87147; 87186; 87205; 99212; 99213

== ENCOUNTER → 2022-10-11 14:24 | Outpatient (CLI) | payer MEDICARE, OTHER, SELFPAY ==
[2022-02-25 18:36] VITALS: BMI 23.6
== END ==
PROVIDERS: PCP Family Medicine; Referring Provider Family Medicine; Visit Provider Surgery
DX: G60.9 Hereditary and idiopathic neuropathy, unspecified (principal); S91.301A Unspecified open wound, right foot, initial encounter; L98.8 Other specified disorders of the skin and subcutaneous tissue; L84 Corns and callosities
CPT/HCPCS: 11042; 99213; 99214

== ENCOUNTER → 2022-10-18 15:30 | Outpatient (CLI) | payer MEDICARE, OTHER, SELFPAY ==
[2022-02-25 18:36] VITALS: BMI 23.6
== END ==
PROVIDERS: PCP Family Medicine; Referring Provider Family Medicine; Visit Provider Surgery
DX: I89.0 Lymphedema, not elsewhere classified (principal); L97.512 Non-pressure chronic ulcer of other part of right foot with fat layer exposed; L97.521 Non-pressure chronic ulcer of other part of left foot limited to breakdown of skin; L84 Corns and callosities; G60.3 Idiopathic progressive neuropathy
CPT/HCPCS: 11042

== ENCOUNTER → 2022-10-25 14:58 | Outpatient (CLI) | payer MEDICARE, OTHER, SELFPAY ==
[2022-02-25 18:36] VITALS: BMI 23.6
== END ==
PROVIDERS: PCP Family Medicine; Referring Provider Family Medicine; Visit Provider Surgery
DX: L84 Corns and callosities (principal); I89.0 Lymphedema, not elsewhere classified; G60.3 Idiopathic progressive neuropathy; R60.0 Localized edema
CPT/HCPCS: 11042

== ENCOUNTER → 2022-11-01 14:57 | Outpatient (CLI) | payer MEDICARE, OTHER, SELFPAY ==
[2022-02-25 18:36] VITALS: BMI 23.6
== END ==
PROVIDERS: PCP Family Medicine; Referring Provider Family Medicine; Visit Provider Surgery
DX: L97.515 Non-pressure chronic ulcer of other part of right foot with muscle involvement without evidence of necrosis (principal); L97.421 Non-pressure chronic ulcer of left heel and midfoot limited to breakdown of skin; G60.9 Hereditary and idiopathic neuropathy, unspecified; R60.0 Localized edema; I89.0 Lymphedema, not elsewhere classified; Z87.891 Personal history of nicotine dependence
CPT/HCPCS: 11042; 99213

== ENCOUNTER → 2022-11-07 15:16 | Outpatient (CLI) | payer MEDICARE, OTHER, SELFPAY ==
[2022-02-25 18:36] VITALS: BMI 23.6
== END ==
PROVIDERS: PCP Family Medicine; Referring Provider Family Medicine; Visit Provider Surgery
DX: G60.3 Idiopathic progressive neuropathy (principal); L97.515 Non-pressure chronic ulcer of other part of right foot with muscle involvement without evidence of necrosis; L97.521 Non-pressure chronic ulcer of other part of left foot limited to breakdown of skin; L84 Corns and callosities; R60.0 Localized edema
CPT/HCPCS: 11042

== ENCOUNTER → 2022-11-15 13:37 | Outpatient (CLI) | payer MEDICARE, OTHER, SELFPAY ==
[2022-02-25 18:36] VITALS: BMI 23.6
== END ==
PROVIDERS: PCP Family Medicine; Referring Provider Podiatrist; Visit Provider Surgery
DX: G60.3 Idiopathic progressive neuropathy (principal); L97.515 Non-pressure chronic ulcer of other part of right foot with muscle involvement without evidence of necrosis; L98.8 Other specified disorders of the skin and subcutaneous tissue; R60.0 Localized edema; I89.0 Lymphedema, not elsewhere classified; L84 Corns and callosities
CPT/HCPCS: 11042

== ENCOUNTER → 2022-11-17 08:35 | Outpatient (CLI) | payer MEDICARE, OTHER, SELFPAY ==
[2022-02-25 18:36] VITALS: BMI 23.6
--- NOTE | 2022-11-17 08:36 | DI.NM.S_ITS ---
PROCEDURE: NM BONE 3 PHASE RADIOPHARMACEUTICAL: 21.4 mCi Tc-99m MDP IV. INDICATIONS: non-healing wound TECHNIQUE: Multiple bone scintigrams were obtained after intravenous injection of Tc-99m MDP, including flow, blood pool, and delayed images centered to the region of interest. COMPARISON: [facility], CR, XR FOOT RT MIN 3V, 07/02/2022, 18:58. FINDINGS: A triple phase bone scan was obtained, including flow, blood pool and delayed images centered to the ankle and feet. There is increased vascular activity to the lateral aspect of the right forefoot on flow and blood pool images, most pronounced in the area of the 5th toe. There is increased activity in the area of the proximal 5th toe, combined with increased activity on flow and blood pool images, highly suspicious for osteomyelitis. Foci of increased periarticular activity in ankles and feet on delayed images are nonspecific, most likely secondary to arthritic changes. Delayed images demonstrate overall poor osseous activity in the distal lower extremities, probably related to peripheral vascular disease. IMPRESSION: 1. Increased flow, blood pool and delayed activity centered to the 5th toe, highly suspicious for osteomyelitis. 2. Poor osseous uptake may be secondary to peripheral arterial disease. Recommend clinical correlation. 3. Superimposed arthritic changes in ankle and foot. Dictated by: Chaz Melendez M.D. on 11/17/2022 at 14:59 Approved by: Chaz Melendez M.D. on 11/17/2022 at 15:27
== END ==
PROVIDERS: PCP Family Medicine; Referring Provider Surgery; Visit Provider Surgery
DX: S81.801A Unspecified open wound, right lower leg, initial encounter (principal)
CPT/HCPCS: 78315; A9503

== ENCOUNTER → 2022-11-22 14:08 | Outpatient (CLI) | payer MEDICARE, OTHER, SELFPAY ==
[2022-02-25 18:36] VITALS: BMI 23.6
== END ==
PROVIDERS: PCP Family Medicine; Referring Provider Podiatrist; Visit Provider Surgery
DX: G60.3 Idiopathic progressive neuropathy (principal); I89.0 Lymphedema, not elsewhere classified; M86.171 Other acute osteomyelitis, right ankle and foot; L97.515 Non-pressure chronic ulcer of other part of right foot with muscle involvement without evidence of necrosis; L98.8 Other specified disorders of the skin and subcutaneous tissue
CPT/HCPCS: 87070; 87075; 87077; 87147; 87186; 87205; 97597; 99214

== ENCOUNTER → 2022-11-28 14:50 | Outpatient (CLI) | payer MEDICARE, OTHER, SELFPAY ==
[2022-02-25 18:36] VITALS: BMI 23.6
--- NOTE | 2022-11-28 14:51 | DI.US.S_ITS ---
PROCEDURE: US ARTERIAL DUPLEX LE BI INDICATIONS: RIGHT FOOT WOUND. LOWER EXTREMITY PLAQUE. TECHNIQUE: Color and pulse Doppler interrogation was performed of both lower extremity arterial systems, with image documentation. COMPARISON: None. FINDINGS: Right lower extremity: Common femoral artery: 131 cm/sec, with triphasic flow. Deep femoral artery: 98 cm/sec, with triphasic flow. Proximal superficial femoral artery: 288 cm/sec, with monophasic flow. Mid superficial femoral artery: 535 cm/sec, with monophasic flow. Distal superficial femoral artery: 195 cm/sec, with monophasic flow. Popliteal artery: 105 cm/sec, with monophasic flow. Posterior tibial artery: 88 cm/sec, with monophasic flow. Anterior tibial artery/dorsalis pedis: 119 cm/sec, with monophasic flow. [place]-scale imaging description: Severe calcific plaque throughout Left lower extremity: Common femoral artery: 188 cm/sec, with monophasic flow. Deep femoral artery: 154 cm/sec, with monophasic flow. Proximal superficial femoral artery: 150 cm/sec, with monophasic flow. Mid superficial femoral artery: Occluded. Distal superficial femoral artery: 234 cm/sec, with monophasic flow. Popliteal artery: 197 cm/sec, with monophasic flow. Posterior tibial artery: 58 cm/sec, with monophasic flow. Anterior tibial artery/dorsalis pedis: 60 cm/sec, with monophasic flow. [place]-scale imaging description: Severe calcific plaque throughout IMPRESSION: 1. Hemodynamically significant bilateral outflow stenoses. 2. Further assessment with MR angiography runoff evaluation is recommended. Dictated by: Erwin Snider M.D. on 12/01/2022 at 16:03 Transcribed by: MAMADOU on 12/01/2022 at 16:05 Approved by: Erwin Snider M.D. on 12/01/2022 at 16:50
== END ==
PROVIDERS: PCP Family Medicine; Referring Provider Surgery; Visit Provider Surgery
DX: S91.301A Unspecified open wound, right foot, initial encounter (principal); I70.203 Unspecified atherosclerosis of native arteries of extremities, bilateral legs
CPT/HCPCS: 93925

== ENCOUNTER → 2022-11-29 10:43 | Outpatient (CLI) | payer MEDICARE, OTHER, SELFPAY ==
[2022-02-25 18:36] VITALS: BMI 23.6
[2022-11-29 12:20] LABS: Hematocrit 33.4 % (41-53); Mean Corpuscular Hemoglobin 28.2 PG (26-34); Mean Corpuscular Volume 85.4 fL (80-100); Platelet Count 98 X10^3/uL (150-400); Red Blood Cell Count 3.92 X10^6/uL (4.5-5.9); White Blood Cell Count 7.6 X10^3/uL (4.5-11.0)
[2022-11-29 12:21] LABS: Add Manual Diff / Slide Review YES
[2022-11-29 12:25] LABS: BUN Creatinine Ratio 28.6 (6-22); Blood Urea Nitrogen 40 mg/dL (9-20); Calcium 8.8 mg/dL (8.4-10.2); Carbon Dioxide 30 mmol/L (22-32); Chloride 103 mmol/L (98-107); Estimated Glomerular Filt Rate 50 mL/min (>60); Glucose 89 mg/dL (80-110); HEMOLYSIS < 15 (0-50); Potassium 5.2 mmol/L (3.4-5.1); Sodium 140 mmol/L (137-145)
[2022-11-29 12:37] LABS: Creatinine Urine Random 31.6 mg/dL
[2022-11-29 12:41] LABS: Microalbumi Creatinin Ratio Ur 110.7 ug/mg CR (<30); Microalbumin Urine Random 3.5 mg/dL (0-1.6)
[2022-11-29 12:52] LABS: Vitamin D 25 Hydroxy (D3) 73.9 ng/mL (30.0-100.0)
[2022-11-29 13:00] LABS: Neutrophils Absolute Manual 2432 /uL (3000-5900); Total Cells Counted 100
[2022-11-29 13:04] LABS: Anisocytosis 1+; Ovalocytes 1+
[2022-11-29 13:05] LABS: Platelet Estimate Decr; RBC Morphology See
[2022-12-01 11:41] LABS: Parathyroid Hormone Int 57 pg/mL (15-65)
== END ==
PROVIDERS: PCP Family Medicine; Referring Provider Internal Medicine Nephrology; Visit Provider Internal Medicine Nephrology
DX: N18.31 Chronic kidney disease, stage 3a (principal)
CPT/HCPCS: 36415; 80048; 82043; 82306; 82570; 83970; 85007; 85025

== ENCOUNTER → 2022-11-29 13:46 | Outpatient (CLI) | payer MEDICARE, OTHER, SELFPAY ==
[2022-02-25 18:36] VITALS: BMI 23.6
== END ==
PROVIDERS: PCP Family Medicine; Referring Provider Podiatrist; Visit Provider Surgery
DX: G60.3 Idiopathic progressive neuropathy (principal); L97.515 Non-pressure chronic ulcer of other part of right foot with muscle involvement without evidence of necrosis; R60.0 Localized edema
CPT/HCPCS: 99213

== ENCOUNTER → 2022-12-06 13:29 | Outpatient (CLI) | payer MEDICARE, OTHER, SELFPAY ==
[2022-02-25 18:36] VITALS: BMI 23.6
== END ==
PROVIDERS: PCP Family Medicine; Referring Provider Podiatrist; Visit Provider Surgery
DX: G60.3 Idiopathic progressive neuropathy (principal); L97.515 Non-pressure chronic ulcer of other part of right foot with muscle involvement without evidence of necrosis; M86.171 Other acute osteomyelitis, right ankle and foot; R60.0 Localized edema
CPT/HCPCS: 11042; 99212; 99213

== ENCOUNTER → 2022-12-13 10:27 | Outpatient (CLI) | payer MEDICARE, OTHER, SELFPAY ==
[2022-02-25 18:36] VITALS: BMI 23.6
[2022-12-13 11:08] LABS: Hematocrit 32.9 % (41-53); Mean Corpuscular HGB Conc 33.3 % (30-36); Mean Corpuscular Hemoglobin 28.2 PG (26-34); Mean Corpuscular Volume 84.7 fL (80-100); Platelet Count 102 X10^3/uL (150-400); Red Blood Cell Count 3.88 X10^6/uL (4.5-5.9); Red Cell Distribution Width 15.8 % (11.6-14.8); White Blood Cell Count 8.2 X10^3/uL (4.5-11.0)
[2022-12-13 11:11] LABS: Add Manual Diff / Slide Review YES
[2022-12-13 11:37] LABS: Neutrophils Absolute Manual 3608 /uL (3000-5900); RBC Morphology Norm; Total Cells Counted 100
[2022-12-13 11:46] LABS: Creatinine Urine Random 62.9 mg/dL
[2022-12-13 11:47] LABS: BUN Creatinine Ratio 37.3 (6-22); Blood Urea Nitrogen 62 mg/dL (9-20); Calcium 8.8 mg/dL (8.4-10.2); Carbon Dioxide 31 mmol/L (22-32); Chloride 101 mmol/L (98-107); Estimated Glomerular Filt Rate 41 mL/min (>60); Glucose 105 mg/dL (80-110); HEMOLYSIS < 15 (0-50); Potassium 4.2 mmol/L (3.4-5.1); Sodium 140 mmol/L (137-145)
[2022-12-13 11:51] LABS: Microalbumin Urine Random 1.2 mg/dL (0-1.6)
[2022-12-13 12:02] LABS: Vitamin D 25 Hydroxy (D3) 84.6 ng/mL (30.0-100.0)
[2022-12-15 09:45] LABS: Parathyroid Hormone Int 78 pg/mL (15-65)
== END ==
PROVIDERS: PCP Family Medicine; Referring Provider Internal Medicine Nephrology; Visit Provider Internal Medicine Nephrology
DX: N18.31 Chronic kidney disease, stage 3a (principal)
CPT/HCPCS: 36415; 80048; 82043; 82306; 82570; 83970; 85007; 85025

== ENCOUNTER → 2022-12-13 12:12 | Outpatient (CLI) | payer MEDICARE, OTHER, SELFPAY ==
[2022-02-25 18:36] VITALS: BMI 23.6
== END ==
PROVIDERS: PCP Family Medicine; Referring Provider Podiatrist; Visit Provider Surgery
DX: N18.31 Chronic kidney disease, stage 3a (principal); G60.9 Hereditary and idiopathic neuropathy, unspecified; L98.8 Other specified disorders of the skin and subcutaneous tissue; L84 Corns and callosities; M86.171 Other acute osteomyelitis, right ankle and foot; S91.301D Unspecified open wound, right foot, subsequent encounter
CPT/HCPCS: 11042; 36415; 80048; 82043; 82306; 82570; 83970; 85007; 85025

== ENCOUNTER → 2022-12-20 13:24 | Outpatient (CLI) | payer MEDICARE, OTHER, SELFPAY ==
[2022-02-25 18:36] VITALS: BMI 23.6
== END ==
PROVIDERS: PCP Family Medicine; Referring Provider Podiatrist; Visit Provider Surgery
DX: G60.3 Idiopathic progressive neuropathy (principal); I89.0 Lymphedema, not elsewhere classified; L97.515 Non-pressure chronic ulcer of other part of right foot with muscle involvement without evidence of necrosis; L97.521 Non-pressure chronic ulcer of other part of left foot limited to breakdown of skin; L84 Corns and callosities; M86.171 Other acute osteomyelitis, right ankle and foot
CPT/HCPCS: 11042; 99213

== ENCOUNTER → 2022-12-27 10:49 | Outpatient (CLI) | payer MEDICARE, OTHER, SELFPAY ==
[2022-02-25 18:36] VITALS: BMI 23.6
== END ==
PROVIDERS: PCP Family Medicine; Referring Provider Podiatrist; Visit Provider Surgery
DX: G60.3 Idiopathic progressive neuropathy (principal); I89.0 Lymphedema, not elsewhere classified; L97.515 Non-pressure chronic ulcer of other part of right foot with muscle involvement without evidence of necrosis; R60.0 Localized edema; L84 Corns and callosities
CPT/HCPCS: 11042; 99213

== ENCOUNTER → 2023-01-03 10:38 | Outpatient (CLI) | payer MEDICARE, OTHER, SELFPAY ==
[2022-02-25 18:36] VITALS: BMI 23.6
== END ==
PROVIDERS: PCP Family Medicine; Referring Provider Podiatrist; Visit Provider Surgery
DX: S91.301A Unspecified open wound, right foot, initial encounter (principal); G60.3 Idiopathic progressive neuropathy; L97.515 Non-pressure chronic ulcer of other part of right foot with muscle involvement without evidence of necrosis; I89.0 Lymphedema, not elsewhere classified; L84 Corns and callosities; E11.40 Type 2 diabetes mellitus with diabetic neuropathy, unspecified; E11.622 Type 2 diabetes mellitus with other skin ulcer
CPT/HCPCS: 11042; 36415; 80053; 85025; 99213

== ENCOUNTER → 2023-01-03 11:19 | Outpatient (CLI) | payer MEDICARE, OTHER, SELFPAY ==
[2022-02-25 18:36] VITALS: BMI 23.6
[2023-01-03 12:48] LABS: Add Manual Diff / Slide Review NO; Basophils Absolute Auto 0 /uL (0-100); Basophils Percent Auto 0.5 % (0-2); Eosinophils Absolute Auto 200 /uL (0-450); Eosinophils Percent Auto 3.2 % (2-4); Hematocrit 33.6 % (41-53); Hemoglobin 11.2 g/dL (13.5-17.5); Lymphocytes Absolute Auto 3200 /uL (1100-4500); Lymphocytes Percent Auto 42.6 % (25-40); Mean Corpuscular HGB Conc 33.4 % (30-36); Mean Corpuscular Hemoglobin 28.6 PG (26-34); Mean Corpuscular Volume 85.6 fL (80-100); Monocytes Absolute Auto 500 /uL (0-900); Monocytes Percent Auto 6.3 % (3-14); Neutrophils Absolute Auto 3500 /uL (1500-7000); Neutrophils Percent Auto 47.4 % (50-75); Platelet Count 90 X10^3/uL (150-400); Red Blood Cell Count 3.92 X10^6/uL (4.5-5.9); White Blood Cell Count 7.4 X10^3/uL (4.5-11.0)
[2023-01-03 13:46] LABS: Alanine Aminotransferase 27 IU/L (<50); Albumin 4.1 g/dL (3.5-5.0); Albumin Globulin Ratio 1.6 (1.0-2.8); Alkaline Phosphatase 56 U/L (38-126); Aspartate Aminotransferase 36 IU/L (17-59); BUN Creatinine Ratio 29.7 (6-22); Bilirubin Total 0.5 mg/dL (0.2-1.3); Blood Urea Nitrogen 43 mg/dL (9-20); Calcium 8.7 mg/dL (8.4-10.2); Carbon Dioxide 30 mmol/L (22-32); Chloride 105 mmol/L (98-107); Estimated Glomerular Filt Rate 48 mL/min (>60); Globulin 2.6 g/dL (1.7-4.1); Glucose 86 mg/dL (80-110); HEMOLYSIS < 15 (0-50); Potassium 5.2 mmol/L (3.4-5.1); Sodium 141 mmol/L (137-145); Total Protein 6.7 g/dL (6.3-8.2)
== END ==
PROVIDERS: PCP Family Medicine; Referring Provider Surgery; Visit Provider Surgery
DX: S91.301A Unspecified open wound, right foot, initial encounter (principal)
CPT/HCPCS: 36415; 80053; 85025

== ENCOUNTER → 2023-01-06 08:34 | Outpatient (CLI) | payer MEDICARE, OTHER, SELFPAY ==
[2022-02-25 18:36] VITALS: BMI 23.6
--- NOTE | 2023-01-06 08:35 | DI.RAD.S_ITS ---
PROCEDURE: XR FINGER LT MIN 2V INDICATIONS: Pain MCP left thumb TECHNIQUE: AP hand, 2 views of the 1st finger(s) acquired. COMPARISON: [facility], CR, XR FINGER RT MIN 2V, 03/22/2019, 10:52. FINDINGS: Bones: No fractures or dislocations. Osteoarthritic changes are noted throughout left hand and wrist joints most notably at 1st CMC joint. No suspicious bony lesions. Soft tissues: No suspicious soft tissue calcifications. 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 No fracture or dislocation. Dictated by: Jeancarlos Sheridan M.D. on 01/06/2023 at 10:29 Approved by: Jeancarlos Sheridan M.D. on 01/06/2023 at 10:30
== END ==
PROVIDERS: PCP Family Medicine; Referring Provider Physician Assistant; Visit Provider Physician Assistant
DX: M18.12 Unilateral primary osteoarthritis of first carpometacarpal joint, left hand (principal); M19.042 Primary osteoarthritis, left hand; M79.645 Pain in left finger(s)
CPT/HCPCS: 73140

== ENCOUNTER → 2023-01-10 10:38 | Outpatient (CLI) | payer MEDICARE, OTHER, SELFPAY ==
[2022-02-25 18:36] VITALS: BMI 23.6
== END ==
PROVIDERS: PCP Family Medicine; Referring Provider Family Medicine; Visit Provider Surgery
DX: G60.3 Idiopathic progressive neuropathy (principal); I89.0 Lymphedema, not elsewhere classified; L97.515 Non-pressure chronic ulcer of other part of right foot with muscle involvement without evidence of necrosis; L84 Corns and callosities; I73.9 Peripheral vascular disease, unspecified
CPT/HCPCS: 11042

== ENCOUNTER → 2023-01-17 10:48 | Outpatient (CLI) | payer MEDICARE, OTHER, SELFPAY ==
[2022-02-25 18:36] VITALS: BMI 23.6
== END ==
PROVIDERS: PCP Family Medicine; Referring Provider Podiatrist; Visit Provider Surgery
DX: G60.3 Idiopathic progressive neuropathy (principal); L97.515 Non-pressure chronic ulcer of other part of right foot with muscle involvement without evidence of necrosis; I89.0 Lymphedema, not elsewhere classified
CPT/HCPCS: 15275; Q4196

== ENCOUNTER → 2023-01-24 11:43 | Outpatient (CLI) | payer MEDICARE, OTHER, SELFPAY ==
[2022-02-25 18:36] VITALS: BMI 23.6
== END ==
PROVIDERS: PCP Family Medicine; Referring Provider Podiatrist; Visit Provider Surgery
DX: I89.0 Lymphedema, not elsewhere classified (principal); G60.3 Idiopathic progressive neuropathy; L97.515 Non-pressure chronic ulcer of other part of right foot with muscle involvement without evidence of necrosis; L84 Corns and callosities; R60.0 Localized edema; L98.8 Other specified disorders of the skin and subcutaneous tissue; M86.171 Other acute osteomyelitis, right ankle and foot
CPT/HCPCS: 15275; 99213; Q4196

== ENCOUNTER → 2023-01-31 10:22 | Outpatient (CLI) | payer MEDICARE, OTHER, SELFPAY ==
[2022-02-25 18:36] VITALS: BMI 23.6
== END ==
PROVIDERS: PCP Family Medicine; Referring Provider Podiatrist; Visit Provider Surgery
DX: G60.3 Idiopathic progressive neuropathy (principal); L97.515 Non-pressure chronic ulcer of other part of right foot with muscle involvement without evidence of necrosis; R60.0 Localized edema; L84 Corns and callosities
CPT/HCPCS: 15275; 99213; Q4196

== ENCOUNTER → 2023-02-07 15:11 | Outpatient (CLI) | payer MEDICARE, OTHER, SELFPAY ==
[2022-02-25 18:36] VITALS: BMI 23.6
== END ==
PROVIDERS: PCP Family Medicine; Referring Provider Podiatrist; Visit Provider Surgery
DX: G60.3 Idiopathic progressive neuropathy (principal); L97.515 Non-pressure chronic ulcer of other part of right foot with muscle involvement without evidence of necrosis; R60.0 Localized edema
CPT/HCPCS: 15275; 99213; Q4196

== ENCOUNTER → 2023-02-14 11:10 | Outpatient (CLI) | payer MEDICARE, OTHER, SELFPAY ==
[2022-02-25 18:36] VITALS: BMI 23.6
== END ==
PROVIDERS: PCP Family Medicine; Referring Provider Family Medicine; Visit Provider Surgery
DX: I89.0 Lymphedema, not elsewhere classified (principal); G60.3 Idiopathic progressive neuropathy; L97.512 Non-pressure chronic ulcer of other part of right foot with fat layer exposed; L98.8 Other specified disorders of the skin and subcutaneous tissue; L84 Corns and callosities; R60.0 Localized edema
CPT/HCPCS: 15275; Q4196

== ENCOUNTER → 2023-02-21 11:29 | Outpatient (CLI) | payer MEDICARE, OTHER, SELFPAY ==
[2022-02-25 18:36] VITALS: BMI 23.6
== END ==
PROVIDERS: PCP Family Medicine; Referring Provider Family Medicine; Visit Provider Surgery
DX: G60.3 Idiopathic progressive neuropathy (principal); L97.512 Non-pressure chronic ulcer of other part of right foot with fat layer exposed
CPT/HCPCS: 15275; Q4196

== ENCOUNTER → 2023-03-02 10:39 | Outpatient (CLI) | payer MEDICARE, OTHER, SELFPAY ==
[2022-02-25 18:36] VITALS: BMI 23.6
== END ==
PROVIDERS: PCP Family Medicine; Referring Provider Podiatrist; Visit Provider Surgery
DX: G62.9 Polyneuropathy, unspecified (principal); L97.512 Non-pressure chronic ulcer of other part of right foot with fat layer exposed; L84 Corns and callosities; R60.0 Localized edema; I89.0 Lymphedema, not elsewhere classified; I73.9 Peripheral vascular disease, unspecified; Z79.01 Long term (current) use of anticoagulants
CPT/HCPCS: 11042

== ENCOUNTER → 2023-03-07 11:06 | Outpatient (CLI) | payer MEDICARE, OTHER, SELFPAY ==
[2022-02-25 18:36] VITALS: BMI 23.6
== END ==
PROVIDERS: PCP Family Medicine; Referring Provider Family Medicine; Visit Provider Surgery
DX: G60.3 Idiopathic progressive neuropathy (principal); L97.512 Non-pressure chronic ulcer of other part of right foot with fat layer exposed; L84 Corns and callosities
CPT/HCPCS: 11042

== ENCOUNTER → 2023-03-15 14:31 | Outpatient (CLI) | payer MEDICARE, OTHER, SELFPAY ==
[2022-02-25 18:36] VITALS: BMI 23.6
== END ==
PROVIDERS: PCP Family Medicine; Referring Provider Podiatrist; Visit Provider Surgery
DX: G60.3 Idiopathic progressive neuropathy (principal); L84 Corns and callosities; I73.9 Peripheral vascular disease, unspecified
CPT/HCPCS: 99212; 99213

== ENCOUNTER → 2023-03-23 10:02 | Outpatient (CLI) | payer MEDICARE, OTHER, SELFPAY ==
[2022-02-25 18:36] VITALS: BMI 23.6
== END ==
PROVIDERS: PCP Family Medicine; Referring Provider Podiatrist; Visit Provider Physician Assistant
DX: G60.3 Idiopathic progressive neuropathy (principal); L97.512 Non-pressure chronic ulcer of other part of right foot with fat layer exposed; L84 Corns and callosities
CPT/HCPCS: 99213

== ENCOUNTER → 2023-03-28 11:15 | Outpatient (CLI) | payer MEDICARE, OTHER, SELFPAY ==
[2022-02-25 18:36] VITALS: BMI 23.6
== END ==
PROVIDERS: PCP Family Medicine; Referring Provider Podiatrist; Visit Provider Surgery
DX: G60.3 Idiopathic progressive neuropathy (principal); L97.512 Non-pressure chronic ulcer of other part of right foot with fat layer exposed; L98.8 Other specified disorders of the skin and subcutaneous tissue; L84 Corns and callosities; R60.0 Localized edema
CPT/HCPCS: 11042; 11055; 99212; 99213

== ENCOUNTER → 2023-03-28 16:39 | Outpatient (CLI) | payer MEDICARE, OTHER, SELFPAY ==
[2022-02-25 18:36] VITALS: BMI 23.6
[2023-03-28 17:35] LABS: Add Manual Diff / Slide Review NO; Basophils Absolute Auto 0 /uL (0-100); Basophils Percent Auto 0.4 % (0-2); Eosinophils Absolute Auto 300 /uL (0-450); Eosinophils Percent Auto 3.8 % (2-4); Hematocrit 33.9 % (41-53); Hemoglobin 11.6 g/dL (13.5-17.5); Lymphocytes Absolute Auto 4200 /uL (1100-4500); Lymphocytes Percent Auto 46.5 % (25-40); Mean Corpuscular HGB Conc 34.2 % (30-36); Mean Corpuscular Hemoglobin 29.9 PG (26-34); Mean Corpuscular Volume 87.6 fL (80-100); Monocytes Absolute Auto 600 /uL (0-900); Monocytes Percent Auto 6.2 % (3-14); Neutrophils Absolute Auto 3900 /uL (1500-7000); Neutrophils Percent Auto 43.1 % (50-75); Platelet Count 109 X10^3/uL (150-400); Red Blood Cell Count 3.87 X10^6/uL (4.5-5.9); Red Cell Distribution Width 14.8 % (11.6-14.8); White Blood Cell Count 9.1 X10^3/uL (4.5-11.0)
[2023-03-28 18:07] LABS: Albumin 4.1 g/dL (3.5-5.0); BUN Creatinine Ratio 19.4 (6-22); Blood Urea Nitrogen 35 mg/dL (9-20); Calcium 8.6 mg/dL (8.4-10.2); Carbon Dioxide 31 mmol/L (22-32); Chloride 103 mmol/L (98-107); Estimated Glomerular Filt Rate 37 mL/min (>60); Glucose 112 mg/dL (80-110); HEMOLYSIS < 15 (0-50); Iron 44 ug/dL (49-181); Magnesium 2.4 mg/dL (1.6-2.3); Phosphorous 4.1 mg/dL (2.3-3.7); Potassium 4.8 mmol/L (3.4-5.1); Sodium 140 mmol/L (137-145)
[2023-03-28 18:18] LABS: Percent Iron Saturation 13 % (20-50); Total Iron Binding Capacity 341 ug/dL (261-462)
[2023-03-28 18:42] LABS: Ferritin 81 ng/mL (18-464)
[2023-03-28 19:13] LABS: Folate > 20.0 ng/mL (2.76-20.0); Vitamin B12 881 pg/mL (239-931)
[2023-03-28 19:34] LABS: Creatinine Urine Random 84.2 mg/dL
[2023-03-28 19:36] LABS: Microalbumi Creatinin Ratio Ur 8.3 ug/mg CR (<30); Microalbumin Urine Random 0.7 mg/dL (0-1.6)
[2023-03-28 19:50] LABS: Vitamin D 25 Hydroxy (D3) 55.7 ng/mL (30.0-100.0)
[2023-03-29 10:38] LABS: Parathyroid Hormone Int 64 pg/mL (15-65)
== END ==
PROVIDERS: PCP Family Medicine; Referring Provider Internal Medicine Nephrology; Visit Provider Internal Medicine Nephrology
DX: N18.31 Chronic kidney disease, stage 3a (principal)
CPT/HCPCS: 36415; 80048; 82040; 82043; 82306; 82570; 82607; 82728; 82746; 83540; 83550; 83735; 83970; 84100; 85025

== ENCOUNTER → 2023-04-04 11:09 | Outpatient (CLI) | payer MEDICARE, OTHER, SELFPAY ==
[2022-02-25 18:36] VITALS: BMI 23.6
== END ==
PROVIDERS: PCP Family Medicine; Referring Provider Podiatrist; Visit Provider Surgery
DX: I89.0 Lymphedema, not elsewhere classified (principal); G60.3 Idiopathic progressive neuropathy; L84 Corns and callosities; L97.512 Non-pressure chronic ulcer of other part of right foot with fat layer exposed
CPT/HCPCS: 11042

== ENCOUNTER → 2023-04-11 13:28 | Outpatient (CLI) | payer MEDICARE, OTHER, SELFPAY ==
[2022-02-25 18:36] VITALS: BMI 23.6
== END ==
PROVIDERS: PCP Family Medicine; Referring Provider Podiatrist; Visit Provider Surgery
DX: G60.3 Idiopathic progressive neuropathy (principal); L97.512 Non-pressure chronic ulcer of other part of right foot with fat layer exposed; L84 Corns and callosities; R60.0 Localized edema
CPT/HCPCS: 15275; Q4196

== ENCOUNTER → 2023-04-18 13:59 | Outpatient (CLI) | payer MEDICARE, OTHER, SELFPAY ==
[2022-02-25 18:36] VITALS: BMI 23.6
== END ==
PROVIDERS: PCP Family Medicine; Referring Provider Podiatrist; Visit Provider Surgery
DX: G60.3 Idiopathic progressive neuropathy (principal); M86.171 Other acute osteomyelitis, right ankle and foot; L84 Corns and callosities; L97.512 Non-pressure chronic ulcer of other part of right foot with fat layer exposed; I89.0 Lymphedema, not elsewhere classified
CPT/HCPCS: 15275; Q4196

== ENCOUNTER 2023-04-24 13:37 | Emergency (ER) | payer MEDICARE, OTHER, SELFPAY ==
[2022-02-25 18:36] VITALS: BMI 23.6
[2023-04-24 13:56] VITALS: BP 125/65; PULSE 83; RESP 18; TEMP 36.5; O2SAT 97; BMI 25.7
[2023-04-24 14:18] LABS: Add Manual Diff / Slide Review NO; Basophils Absolute Auto 0 /uL (0-100); Basophils Percent Auto 0.4 % (0-2); Eosinophils Absolute Auto 100 /uL (0-450); Eosinophils Percent Auto 1.6 % (2-4); Hematocrit 34.1 % (41-53); Hemoglobin 11.4 g/dL (13.5-17.5); Lymphocytes Absolute Auto 3400 /uL (1100-4500); Mean Corpuscular HGB Conc 33.3 % (30-36); Mean Corpuscular Hemoglobin 29.3 PG (26-34); Mean Corpuscular Volume 88.1 fL (80-100); Monocytes Absolute Auto 500 /uL (0-900); Monocytes Percent Auto 6.4 % (3-14); Neutrophils Absolute Auto 4000 /uL (1500-7000); Neutrophils Percent Auto 49.6 % (50-75); Platelet Count 92 X10^3/uL (150-400); Red Blood Cell Count 3.88 X10^6/uL (4.5-5.9); Red Cell Distribution Width 14.7 % (11.6-14.8)
[2023-04-24 14:25] LABS: INR 1.8 (0.9-1.3); Prothrombin Time 20.5 SECONDS (10.1-12.7)
[2023-04-24 14:27] LABS: PTT Partial Thromboplastin Tim 35 SECONDS (26-36)
[2023-04-24 14:36] VITALS: BP 134/61; PULSE 91; O2SAT 98
[2023-04-24 14:38] LABS: Alanine Aminotransferase 19 IU/L (<50); Albumin 4.3 g/dL (3.5-5.0); Albumin Globulin Ratio 1.5 (1.0-2.8); Alkaline Phosphatase 49 U/L (38-126); Aspartate Aminotransferase 28 IU/L (17-59); BUN Creatinine Ratio 31.7 (6-22); Bilirubin Total 0.6 mg/dL (0.2-1.3); Blood Urea Nitrogen 52 mg/dL (9-20); Calcium 8.7 mg/dL (8.4-10.2); Carbon Dioxide 28 mmol/L (22-32); Chloride 104 mmol/L (98-107); Estimated Glomerular Filt Rate 41 mL/min (>60); Globulin 2.8 g/dL (1.7-4.1); Glucose 107 mg/dL (80-110); HEMOLYSIS < 15 (0-50); Potassium 4.5 mmol/L (3.4-5.1); Sodium 140 mmol/L (137-145); Total Protein 7.1 g/dL (6.3-8.2)
--- NOTE | 2023-04-24 14:43 | ED.GIBLEED ---
HPI - GI Bleed General Chief complaint: GI Bleed Stated complaint: black stool/thinks internal bleeding Time Seen by Provider: 04/24/23 14:33 Source: patient Mode of arrival: Ambulatory History of Present Illness HPI Narrative: Patient is an 82-year-old male. He is on Eliquis secondary to coronary artery disease and also atrial fibrillation. He states for the past couple days he has had some soft stools that are black in color. No fevers. No vomiting. No urinary symptoms. Has never had a GI bleed in the past. Has had colonoscopies in the past but he states it has been ?some time? since he has had a colonoscopy. No fevers. No blood in his urine. Related Data Home Medications Medication Instructions Recorded Confirmed acetaminophen 325 mg capsule 650 mg PO Q6H PRN pain 08/18/18 01/05/23 albuterol sulfate 90 mcg/actuation 1 puff inhalation Q6H PRN 08/18/18 01/05/23 aerosol inhaler Shortness Of Breath alfuzosin 10 mg tablet,extended 10 mg PO DAILY 08/18/18 01/05/23 release 24 hr apixaban 5 mg tablet 5 mg PO BID 08/18/18 01/05/23 losartan 25 mg tablet 12.5 mg PO DAILY 05/06/21 01/05/23 Previous Rx's Medication Instructions Recorded Disabled parking permit #1 ea 04/09/19 albuterol sulfate 2.5 mg/3 mL 2.5 mg (3 mL) inhalation Q4H PRN 11/23/19 (0.083 %) solution for nebulization shortness of breath or wheezing #90 mL metoprolol succinate 50 mg See Rx Instructions .Route 01/08/21 tablet,extended release 24 hr .COMPLEX #90 tabs rosuvastatin 40 mg tablet 40 mg PO DAILY #90 tabs 02/16/21 nitroglycerin 0.4 mg sublingual 0.4 mg sublingual Q5-15M PRN Chest 09/21/21 tablet Pain #7 tabs torsemide 10 mg tablet 10 mg PO BID #30 tabs 09/09/22 oxycodone-acetaminophen 5 mg-325 1 tab PO Q6H PRN pain #10 tabs 09/14/22 mg tablet (Percocet) fluticasone fur. 100 mcg-umeclid 1 inh inhalation DAILY #60 ea 10/26/22 62.5 mcg-vilant 25 mcg inhalat.powder (Trelegy Ellipta) pramipexole 0.25 mg tablet See Rx Instructions .Route 03/01/23 .COMPLEX #135 tabs esomeprazole magnesium 20 mg 20 mg PO DAILY #14 caps 04/24/23 capsule,delayed release (Nexium) Allergies Allergy/AdvReac Type Severity Reaction Status Date / Time atorvastatin Allergy Verified 04/24/23 13:56 diclofenac Allergy Verified 04/24/23 13:56 lisinopril Allergy Verified 04/24/23 13:56 niacin Allergy Verified 04/24/23 13:56 pravastatin Allergy Verified 04/24/23 13:56 Review of Systems Constitutional Constitutional: Reports system reviewed and no additional complaints, except as documented Cardiovascular Cardiovascular: Reports system reviewed and no additional complaints, except as documented Respiratory Respiratory: Reports system reviewed and no additional complaints, except as documented Gastrointestinal Gastrointestinal: Reports system reviewed and no additional complaints, except as documented Genitourinary Genitourinary: Reports system reviewed and no additional complaints, except as documented Integumentary/Breasts Skin/Breast: Reports system reviewed and no additional complaints, except as documented Hematologic/Lymphatic On Anticoagulants: Yes Patient History Medical History (HFpEF) heart failure with preserved ejection fraction At high risk for falls Atrial fibrillation BPH (benign prostatic hyperplasia) COPD (chronic obstructive pulmonary disease) Coronary artery disease Essential hypertension Non-ST elevation (NSTEMI) myocardial infarction (~11/16/20) NSTEMI (non-ST elevated myocardial infarction) (~02/2020) NSTEMI (non-ST elevated myocardial infarction) (~08/2014) ZACH (obstructive sleep apnea) Pacemaker Restless leg Seborrheic keratosis Stage III chronic kidney disease Systolic heart failure Vasovagal syncope Surgical History H/O bilateral cataract extraction H/O heart artery stent H/O repair of rotator cuff History of back surgery S/P AAA repair Family History Mother Insomnia Social History marital status: household members: children lives independently: Yes caregiver/support person: Yes housing: house occupational status: previously employed Smoking Status: Former smoker second hand exposure: No alcohol intake: current substance use type: does not use Smoking Status: Former smoker alcohol intake frequency: a few times a month Alcohol type: beer and hard liquor Substance Use Type: does not use Exam Initial Vital Signs Initial Vital Signs: Vital Signs Temperature 97.7 F 04/24/23 13:56 Pulse Rate 83 04/24/23 13:56 Respiratory Rate 18 04/24/23 13:56 Blood Pressure 125/65 04/24/23 13:56 Pulse Oximetry 97 04/24/23 13:56 Oxygen Delivery Method Room Air 04/24/23 13:56 Const General: cooperative, comfortable and No ill appearing HENMT Head: normal to inspection GI Inspection: normal to inspection and non-distended Other: Umbilical hernia Skin General: no rashes or lesions noted Neuro General: patient alert, patient awake and moves all extremities Extrem General: normal to inspection and capillary refill normal Course Orders Ordered: ED Orders 04/24/23 14:10 Complete Blood Count AUTO DIFF Stat Comprehensive Metabolic Panel Stat PTT Partial Thromboplastin Adolfo Stat Prothrombin Time INR Stat Type and Screen Stat 04/24/23 15:30 Hemoglobin and Hematocrit Stat Ondansetron HCl (Ondansetron 4 Mg/2 Ml Inj) 4 mg IV NOW PRN PRN Reason: Nausea And Vomiting Ondansetron HCl (Ondansetron 4 Mg Odt) 4 mg SL NOW PRN PRN Reason: Nausea And Vomiting Discontinued Medications Pantoprazole Sodium (Pantoprazole 40 Mg Vial) 80 mg IV NOW ONE Stop: 04/24/23 14:00 Last Admin: 04/24/23 14:58 Dose: 80 mg Documented By: SPF Vital Signs Vital signs: Vital Signs - 8 hr 04/24/23 13:56 04/24/23 14:36 04/24/23 14:36 Temperature 97.7 F Pulse Rate 83 91 H Respiratory Rate 18 Blood Pressure 125/65 134/61 Pulse Oximetry 97 98 Oxygen Delivery Method Room Air MDM - GI Bleed Lab Data 04/24/23 15:30 04/24/23 14:10 Labs: Lab Results 04/24/23 04/24/23 04/24/23 Range/Units 14:10 14:10 14:10 WBC 8.0 (4.5-11.0) X10^3/uL RBC 3.88 L (4.5-5.9) X10^6/uL Hgb 11.4 L (13.5-17.5) g/dL Hct 34.1 L (41-53) % MCV 88.1 (80-100) fL MCH 29.3 (26-34) PG MCHC 33.3 (30-36) % RDW 14.7 (11.6-14.8) % Plt Count 92 L (150-400) X10^3/uL Neut % (Auto) 49.6 L (50-75) % Lymph % (Auto) 42.0 H (25-40) % [place] % (Auto) 6.4 (3-14) % Eos % (Auto) 1.6 L (2-4) % Baso % (Auto) 0.4 (0-2) % Neut # (Auto) 4000 (4507-1652) /uL Lymph # (Auto) 3400 (8267-5774) /uL [place] # (Auto) 500 (0-900) /uL Eos # (Auto) 100 (0-450) /uL Baso # (Auto) 0 (0-100) /uL PT 20.5 H (10.1-12.7) SECONDS INR 1.8 H (0.9-1.3) APTT 35 (26-36) SECONDS Sodium 140 (137-145) mmol/L Potassium 4.5 (3.4-5.1) mmol/L Chloride 104 (98-107) mmol/L Carbon Dioxide 28 (22-32) mmol/L BUN 52 H (9-20) mg/dL Creatinine 1.64 H (0.66-1.25) mg/dL Estimated GFR 41 L (>60) mL/min BUN/Creatinine Ratio 31.7 H (6-22) Glucose 107 (80-110) mg/dL Calcium 8.7 (8.4-10.2) mg/dL Total Bilirubin 0.6 (0.2-1.3) mg/dL AST 28 (17-59) IU/L ALT 19 (<50) IU/L Alkaline Phosphatase 49 (38-126) U/L Total Protein 7.1 (6.3-8.2) g/dL Albumin 4.3 (3.5-5.0) g/dL Globulin 2.8 (1.7-4.1) g/dL Albumin/Globulin Ratio 1.5 (1.0-2.8) Blood Type Antibody Screen 04/24/23 04/24/23 Range/Units 14:10 15:30 WBC (4.5-11.0) X10^3/uL RBC (4.5-5.9) X10^6/uL Hgb 11.6 L (13.5-17.5) g/dL Hct 34.6 L (41-53) % MCV (80-100) fL MCH (26-34) PG MCHC (30-36) % RDW (11.6-14.8) % Plt Count (150-400) X10^3/uL Neut % (Auto) (50-75) % Lymph % (Auto) (25-40) % [place] % (Auto) (3-14) % Eos % (Auto) (2-4) % Baso % (Auto) (0-2) % Neut # (Auto) (0651-8690) /uL Lymph # (Auto) (0623-9512) /uL [place] # (Auto) (0-900) /uL Eos # (Auto) (0-450) /uL Baso # (Auto) (0-100) /uL PT (10.1-12.7) SECONDS INR (0.9-1.3) APTT (26-36) SECONDS Sodium (137-145) mmol/L Potassium (3.4-5.1) mmol/L Chloride (98-107) mmol/L Carbon Dioxide (22-32) mmol/L BUN (9-20) mg/dL Creatinine (0.66-1.25) mg/dL Estimated GFR (>60) mL/min BUN/Creatinine Ratio (6-22) Glucose (80-110) mg/dL Calcium (8.4-10.2) mg/dL Total Bilirubin (0.2-1.3) mg/dL AST (17-59) IU/L ALT (<50) IU/L Alkaline Phosphatase (38-126) U/L Total Protein (6.3-8.2) g/dL Albumin (3.5-5.0) g/dL Globulin (1.7-4.1) g/dL Albumin/Globulin Ratio (1.0-2.8) Blood Type AB Positive Antibody Screen Negative Urine Dip Bedside Urine Glucose Negative Bedside Urine Bilirubin - Negative Bedside Urine Ketone - Negative Urine Specific [place] 1.010 Bedside Urine Occult Blood - Negative Bedside Urine pH 6.0 Bedside Urine Protein - Negative Bedside Urine Urobilinogen - Negative Bedside Urine Nitrite - Negative Bedside Urine Leukocytes - Negative Esterase MDM Narrative Medical decision making narrative: Patient is not tachycardic, not hypotensive not anemic. No abdominal tenderness. H&H is not changed. Will discharge patient home with put him on a proton pump inhibitor. Considered stopping the blood thinner however he is on this for significant reasons and he does not appear to have any significant bleeding today so I will have him continue to take this. He is going to need follow-up with general surgery for colonoscopy. He was given return precautions. He expressed understanding and agreement. Discharge Plan Departure Patient Disposition: Home Clinical Impression: GI bleed Instructions: Gastrointestinal Bleeding Activity Restrictions/Additional Instructions: I do recommend that you talk with your primary doctor about follow-up. Contact the general surgeons with the number provided below for follow-up as well. Return to the emergency department for new or worsening symptoms. Prescriptions: New esomeprazole magnesium [Nexium] 20 mg capsule,delayed release(DR/EC) 20 mg PO DAILY Qty: 14 0RF No Action albuterol sulfate 90 mcg/actuation HFA aerosol inhaler 1 puff INHALATION Q6H PRN (Reason: Shortness Of Breath) alfuzosin 10 mg tablet extended release 24 hr 10 mg PO DAILY acetaminophen 325 mg capsule 650 mg PO Q6H PRN (Reason: pain) apixaban 5 mg tablet 5 mg PO BID nitroglycerin 0.4 mg tablet, sublingual 0.4 mg SL Q5-15M PRN (Reason: Chest Pain) Qty: 7 0RF (DME) Disabled parking permit Qty: 1 0RF Dose Instruction: As directed Rx Instructions: My patient meets the qualifying condition of unable to walk 200 ft without stopping to rest metoprolol succinate 50 mg tablet extended release 24 hr See Rx Instructions .ROUTE .COMPLEX Qty: 90 1RF Dose Instruction: TAKE ONE TABLET BY MOUTH DAILY Rx Instructions: TAKE ONE TABLET BY MOUTH DAILY rosuvastatin 40 mg tablet 40 mg PO DAILY Qty: 90 3RF losartan 25 mg tablet 12.5 mg PO DAILY oxycodone-acetaminophen [Percocet] 5-325 mg tablet 1 tab PO Q6H PRN (Reason: pain) Qty: 10 0RF Trelegy Ellipta 100-62.5-25 mcg blister with device 1 inh inhalation DAILY Qty: 60 11RF pramipexole 0.25 mg tablet See Rx Instructions .ROUTE .COMPLEX Qty: 135 0RF Dose Instruction: TAKE 1/2 TABLET (0.125 MG) BY MOUTH EVERY MORNING AND TAKE 1 TABLET AT BEDTIME Rx Instructions: TAKE 1/2 TABLET (0.125 MG) BY MOUTH EVERY MORNING AND TAKE 1 TABLET AT BEDTIME albuterol sulfate 2.5 mg /3 mL (0.083 %) solution for nebulization 2.5 mg INHALATION Q4H PRN (Reason: shortness of breath or wheezing) Qty: 90 1RF Rx Instructions: 2.5 mg by inhalation every 2-4 hours as needed for Shortness of breath, cough and wheezing torsemide 10 mg tablet 10 mg PO BID Qty: 30 0RF Referrals: Elis Arroyo MD [Primary Care Provider] - Stand Alone Forms: Patient Portal/API
[2023-04-24] MEDS: PANTOPRAZOLE 40 MG VIAL 80 MG IV (14:58)
[2023-04-24 15:37] LABS: Hematocrit 34.6 % (41-53); Hemoglobin 11.6 g/dL (13.5-17.5)
--- NOTE | 2023-04-24 16:34 | PC.NURSE ---
Pt standing up in room with jacket on waiting for DC paperwork. DC paperwork given. Pt potentially left with IV in place. Called pt and left message on voicemail to return for removal if needed.
--- NOTE | 2023-04-24 16:48 | PC.NURSE ---
Pt returned to ED for IV removal. Removed by JAMES Nickerson.
== END 2023-04-24 16:39 | disposition home or self-care (01) ==
PROVIDERS: Emergency Provider Emergency Medicine; PCP Family Medicine
DX: K92.2 Gastrointestinal hemorrhage, unspecified (principal); Z79.01 Long term (current) use of anticoagulants
CPT/HCPCS: 36415; 80053; 81003; 85014; 85018; 85025; 85610; 85730; 86850; 86900; 86901; 96374; 99284; C9113

== ENCOUNTER → 2023-04-25 10:17 | Outpatient (CLI) | payer MEDICARE, OTHER, SELFPAY ==
[2022-02-25 18:36] VITALS: BMI 23.6
[2023-04-25 11:30] LABS: BUN Creatinine Ratio 31.2 (6-22); Blood Urea Nitrogen 48 mg/dL (9-20); Calcium 8.7 mg/dL (8.4-10.2); Carbon Dioxide 26 mmol/L (22-32); Chloride 107 mmol/L (98-107); Estimated Glomerular Filt Rate 44 mL/min (>60); Glucose 92 mg/dL (80-110); HEMOLYSIS < 15 (0-50); Potassium 4.2 mmol/L (3.4-5.1); Sodium 142 mmol/L (137-145)
== END ==
PROVIDERS: PCP Family Medicine; Referring Provider Internal Medicine Nephrology; Visit Provider Internal Medicine Nephrology
DX: N17.9 Acute kidney failure, unspecified (principal)
CPT/HCPCS: 36415; 80048

== ENCOUNTER → 2023-04-25 10:47 | Outpatient (CLI) | payer MEDICARE, OTHER, SELFPAY ==
[2022-02-25 18:36] VITALS: BMI 23.6
== END ==
PROVIDERS: PCP Family Medicine; Referring Provider Podiatrist; Visit Provider Surgery
DX: G60.3 Idiopathic progressive neuropathy (principal); L97.512 Non-pressure chronic ulcer of other part of right foot with fat layer exposed; L84 Corns and callosities; M86.171 Other acute osteomyelitis, right ankle and foot; I89.0 Lymphedema, not elsewhere classified
CPT/HCPCS: 15275; Q4196

== ENCOUNTER → 2023-05-03 08:42 | Outpatient (CLI) | payer MEDICARE, OTHER, SELFPAY ==
[2023-05-02 09:03] VITALS: BMI 23.6
== END ==
PROVIDERS: PCP Family Medicine; Referring Provider Podiatrist; Visit Provider Surgery
DX: G60.3 Idiopathic progressive neuropathy (principal); L97.512 Non-pressure chronic ulcer of other part of right foot with fat layer exposed
CPT/HCPCS: 15275; 99213; Q4159

== ENCOUNTER → 2023-05-09 10:57 | Outpatient (CLI) | payer MEDICARE, OTHER, SELFPAY ==
[2023-05-02 09:03] VITALS: BMI 23.6
== END ==
PROVIDERS: PCP Family Medicine; Referring Provider Podiatrist; Visit Provider Surgery
DX: G60.3 Idiopathic progressive neuropathy (principal); L97.512 Non-pressure chronic ulcer of other part of right foot with fat layer exposed; M86.171 Other acute osteomyelitis, right ankle and foot; E11.40 Type 2 diabetes mellitus with diabetic neuropathy, unspecified; R60.0 Localized edema
CPT/HCPCS: 15275; Q4159

== ENCOUNTER → 2023-05-16 11:18 | Outpatient (CLI) | payer MEDICARE, OTHER, SELFPAY ==
[2023-05-02 09:03] VITALS: BMI 23.6
== END ==
PROVIDERS: PCP Family Medicine; Referring Provider Podiatrist; Visit Provider Surgery
DX: L97.512 Non-pressure chronic ulcer of other part of right foot with fat layer exposed (principal); G60.3 Idiopathic progressive neuropathy; L98.8 Other specified disorders of the skin and subcutaneous tissue; M86.171 Other acute osteomyelitis, right ankle and foot
CPT/HCPCS: 15275; 99212; Q4159

== ENCOUNTER → 2023-05-23 11:07 | Outpatient (CLI) | payer MEDICARE, OTHER, SELFPAY ==
[2023-05-02 09:03] VITALS: BMI 23.6
== END ==
PROVIDERS: PCP Family Medicine; Referring Provider Podiatrist; Visit Provider Surgery
DX: G62.9 Polyneuropathy, unspecified (principal); L97.512 Non-pressure chronic ulcer of other part of right foot with fat layer exposed; L84 Corns and callosities; I89.0 Lymphedema, not elsewhere classified; I73.9 Peripheral vascular disease, unspecified; I13.2 Hypertensive heart and chronic kidney disease with heart failure and with stage 5 chronic kidney disease, or end stage renal disease; N18.30 Chronic kidney disease, stage 3 unspecified; I50.20 Unspecified systolic (congestive) heart failure; J44.9 Chronic obstructive pulmonary disease, unspecified; I25.119 Atherosclerotic heart disease of native coronary artery with unspecified angina pectoris; I48.91 Unspecified atrial fibrillation; Z95.0 Presence of cardiac pacemaker; Z79.01 Long term (current) use of anticoagulants
CPT/HCPCS: 15275; Q4160

== ENCOUNTER → 2023-05-26 10:42 | Outpatient (CLI) | payer MEDICARE, OTHER, SELFPAY ==
[2023-05-02 09:03] VITALS: BMI 23.6
[2023-05-26 12:26] LABS: BUN Creatinine Ratio 19.7 (6-22); Blood Urea Nitrogen 31 mg/dL (9-20); Calcium 9.4 mg/dL (8.4-10.2); Carbon Dioxide 31 mmol/L (22-32); Chloride 105 mmol/L (98-107); Estimated Glomerular Filt Rate 43 mL/min (>60); Glucose 105 mg/dL (80-110); HEMOLYSIS < 15 (0-50); Potassium 4.4 mmol/L (3.4-5.1); Sodium 143 mmol/L (137-145)
== END ==
PROVIDERS: PCP Family Medicine; Referring Provider Internal Medicine Nephrology; Visit Provider Internal Medicine Nephrology
DX: N17.9 Acute kidney failure, unspecified (principal)
CPT/HCPCS: 36415; 80048

== ENCOUNTER → 2023-05-30 10:54 | Outpatient (CLI) | payer MEDICARE, OTHER, SELFPAY ==
[2023-05-02 09:03] VITALS: BMI 23.6
== END ==
PROVIDERS: PCP Family Medicine; Referring Provider Podiatrist; Visit Provider Surgery
DX: G60.9 Hereditary and idiopathic neuropathy, unspecified (principal); S91.301D Unspecified open wound, right foot, subsequent encounter; M86.171 Other acute osteomyelitis, right ankle and foot
CPT/HCPCS: 15275; Q4196

== ENCOUNTER → 2023-06-06 11:47 | Outpatient (CLI) | payer MEDICARE, OTHER, SELFPAY ==
[2023-05-02 09:03] VITALS: BMI 23.6
== END ==
PROVIDERS: PCP Family Medicine; Referring Provider Podiatrist; Visit Provider Surgery
DX: G60.3 Idiopathic progressive neuropathy (principal); L97.512 Non-pressure chronic ulcer of other part of right foot with fat layer exposed; L84 Corns and callosities
CPT/HCPCS: 15275; 99213; Q4160